=== PATIENT | male | born 1955 | race Caucasian/White ===

== ENCOUNTER 2019-01-25 07:28 | Inpatient (IN) ==
--- NOTE | 2019-01-25 07:53 | Emergency Department Note ---
Disposition Clinical Impression: SIRS (systemic inflammatory response syndrome) UTI (urinary tract infection) Qualifiers: Urinary tract infection type: acute cystitis Hematuria presence: without hematuria Qualified Code(s): N30.00 - Acute cystitis without hematuria Disposition: Admitted As Inpatient Condition: Fair [facility] [[facility] - Forms: ED Satisfaction Letter Time of Disposition: 09:35 Neuro HPI - General Chief Complaint: ED Neuro Symptoms/Deficit Stated Complaint: Poss stroke alert Time Seen by Provider: 01/25/19 07:35 Source: patient, EMS Mode of arrival: EMS Limitations: no limitations Nursing Notes Reviewed: Yes Vital Signs Reviewed: Yes - History of Present Illness HPI Narrative: 63-year-old male presents to the emergency department from the [facility] for possible stroke. According to staff they said they checked him around 2 AM noticed that he was having dysarthrias and seemed a little more confused again judgment 5:00 and noticed this continued so they said to call the provider and who recommended transfer here for possible stroke. 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 Today the nose he has continuation of the deficits but now is more dysarthric. Said he has had a chronic cough. 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 He is not any antibiotics at this time. Does currently have a decubitus ulcer on his left heel as well as a skin slip on his left wrist. These are currently dressed and has been taking care of at the [facility]. He is a inpatient of the [facility]. He also has a chronic G-tube with a hernia at that site. Patient is able to answer questions and is not having any complaints at this time. - Related Data Home Medications: Home Medications Medication Instructions Recorded Confirmed Acetaminophen [Tylenol] 650 mg PO Q4H PRN 06/01/18 06/01/18 Albuterol Neb [Proventil Neb] 2.5 mg IH Q6H PRN 06/01/18 06/01/18 Atorvastatin [Lipitor] 40 mg PO HS 06/01/18 06/01/18 Bisacodyl [Dulcolax] 10 mg RC DAILY 06/01/18 06/01/18 Budesonide/Formoterol 160/4.5 2 puff IH BIDR 06/01/18 06/01/18 [Symbicort 160/4.5] Bupropion HCl [Wellbutrin Xl] 300 mg PO DAILY 06/01/18 06/01/18 Chlorhexidine Rinse 15 ml MM BID 06/01/18 06/01/18 Cyanocobalamin (Vitamin B-12) 200 mcg PO DAILY 06/01/18 06/01/18 [Vitamin B-12] Docusate [Colace] 200 mg PO BID 06/01/18 06/01/18 Famotidine [Pepcid] 20 mg PO BID 06/01/18 06/01/18 Finasteride [Proscar] 5 mg PO DAILY 06/01/18 06/01/18 Fluticasone Propionate Nasal 2 spr NS DAILY 06/01/18 06/01/18 [Flonase] Ketoconazole Shampoo [Nizoral 1 appl TP MOTH 06/01/18 06/01/18 Shampoo] Lactulose 20 gm PO BID 06/01/18 06/01/18 MOM Conc [MILK OF MAGNESIA conc] 30 ml PO DAILY PRN 06/01/18 06/01/18 Mag Hydrox/Aluminum Hyd/Simeth 15 ml PO TID PRN 06/01/18 06/01/18 [Cvs Antacid Plus Anti-Gas Liq] Metoprolol [Lopressor] 25 mg PO BID 06/01/18 06/01/18 Montelukast [Singulair] 10 mg PO HS 06/01/18 06/01/18 Multivitamin [One Daily 1 tab PO DAILY 06/01/18 06/01/18 Multivitamin] Nitroglycerin [Nitrostat] 0.4 mg SL Q5M PRN 06/01/18 06/01/18 Olopatadine HCl [Pataday] 1 drop BOTH EYES DAILY 06/01/18 06/01/18 OxyCODONE Immed Rel [Roxicodone 10 10 mg PO Q4H PRN 06/01/18 06/01/18 MG] Polyethylene Glycol 3350 [MiraLAX] 17 gm PO BID PRN 06/01/18 06/01/18 Potassium Chloride [K-Tab ER] 20 meq PO BID 06/01/18 06/01/18 Psyllium [Metamucil Fiber Singles 1 pack PO DAILY PRN 06/01/18 06/01/18 Packet] Selenium Sulfide 1 appl TP AD PRN 06/01/18 06/01/18 Tamsulosin HCl [Flomax] 0.8 mg PO HS 06/01/18 06/01/18 Tiotropium [Spiriva] 18 mcg IH 0700 06/01/18 06/01/18 guaiFENesin [Guaifenesin] 400 mg PO BID 06/01/18 06/01/18 Previous Rx's Medication Instructions Recorded Furosemide [Lasix] 40 mg PO DAILY #0 06/26/18 Gabapentin [Neurontin] 300 mg GTUBE TID capsule 06/26/18 Insulin DETEMIR [Levemir] 15 unit SQ DAILY [id number] 06/26/18 Nystatin POWDER [Nystop] 1 appl TP BID bottle 06/26/18 Sucralfate [Carafate] 1 gm GTUBE QIDAC udc 06/26/18 Warfarin perPT [Coumadin perPT] 1 each PO DAILY@1800 PRN each 06/26/18 predniSONE [PredniSONE] 20 mg PO DAILY tablet 06/26/18 Allergies/Adverse Reactions: Allergies Allergy/AdvReac Type Severity Reaction Status Date / Time bee venom protein (honey bee) Allergy Anaphylaxis Verified 01/25/19 07:55 milk Allergy Abdominal Verified 01/25/19 07:55 Pain All systems ED: reviewed and negative except as stated. Review of Systems: As Per HPI Past Medical History - Past Medical History Attestation: Yes The following information was validated with the patient. Source: patient Medical history: Reports: CHF, CVA, diabetes, hypertension, other Surgical history: Reports: herniorrhaphy Psychiatric history: Reports: no psych history - Social History Smoking Status: Former smoker Alcohol use: Reports: none Drug use: Reports: none Physical Exam - General Limitations: no limitations General appearance: alert, in no apparent distress - Head Head exam: atraumatic, normocephalic, normal inspection - Eye Eye exam: Present: normal appearance, PERRL, EOMI - ENT ENT exam: normal exam, normal oropharynx, mucous membranes moist - Neck Neck exam: Present: normal inspection, full ROM, trachea midline - Chest Chest inspection: Present: normal inspection, symmetric chest wall rise - Respiratory Respiratory exam: Present: normal lung sounds bilaterally - Cardiovascular Cardiovascular exam: Present: normal rhythm, tachycardia, normal heart sounds - Abdominal Exam Abdominal exam: Present: soft, Non-Tender, normal bowel sounds. Absent: t enderness, distention, guarding, rebound, rigidity - Extremities Exam Extremities exam: Present: normal inspection, full ROM. Absent: tenderness, pedal edema - Expanded Lower Extremity Exam Neurovascular/Tendon exam: Present: normal capillary refill. Absent: pulse deficit, motor deficit, sensory deficit, tendon deficit - Back Exam Back exam: Present: normal inspection, full ROM. Absent: tenderness - Neurological Exam Neurological exam: Present: alert, oriented X3 - Skin Skin exam: Present: warm, dry, intact, normal color, other (There is a decubitus ulcer does not to be healing in the left heel as well as a skin slip in the left wrist. This does seem to be healing well and no signs of infection or drainage at this time.) Course Course Narrative: Patient presented here he does have left-sided weakness after talking with staff he does have chronic left-sided weakness secondary to previous stroke he is able answer questions but is slow to answer. Patient is outside the TPA window but we still [facility] stroke alert for possible large thrombus removal. Patient will go over for stat head CT we will get basic labs including CBC, BMP, troponin coags. We will also get chest x-ray blood cultures and lactate as patient does seem warm to touch and is SIRS at this time. There is unknown source at this time. - Reevaluation(s) Reevaluation #1: Radiologist called and stroke alert CT shows nothing acute at this time. Time: 08:08 Reevaluation #2: Stroke alert canceled as neurology says there is probably secondary to sepsis at this time and they have a chronic left-sided weakness. Time: 08:12 Vital Signs Temperature 99.8 F H 01/25/19 07:30 Pulse Rate 99 01/25/19 07:30 Respiratory Rate 27 01/25/19 07:30 Blood Pressure 112/69 01/25/19 07:30 O2 Sat by Pulse Oximetry 94 01/25/19 07:30 Temperature 100.3 F H 01/25/19 08:13 Pulse Rate 107 01/25/19 08:47 Respiratory Rate 22 01/25/19 08:47 Blood Pressure 105/60 01/25/19 08:47 O2 Sat by Pulse Oximetry 97 01/25/19 08:47 Oxygen Delivery Oxygen Delivery Nasal Cannula Neuro Symptoms/Deficit - MDM Narrative Medical decision making narrative: 63-year-old male presents to the emergency department complaining of possible strokelike symptoms. When he arrived here when comparing with old chart we noticed that he does have chronic left-sided weakness. We justleft facial droop and patient was mildly aphasic which has gotten better when he is able to answer all questions is alert and oriented 3. I think this most likely was Sirs or infection based. Patient was never in septic shock or severe sepsis. Patient did meet Sirs criteria. Urinalysis was nitrite positive for a urinary tract infection. Does have history of multidrug resistance urine but based on previous culture he was susceptible to ceftriaxone so we will give him a 1 g dose of that here in the emergency department. Patient's blood pressures were first labile at 90/60. Did give him IV fluids systolic 1 up to 105 and he responded well. We will give him a second liter of IV fluids. Patient will need to be admitted for further evaluation as well as IV antibiotics. He also may need a further stroke workup by not neurology. There was no acute findings based on his CT. Patient was outside the window for TPA did not require any TPA as is really unknown when the last known well is as they said they started noticing the difficulty in talking around 2 AM so sometime before that. Patient otherwise has no other complaints at this time. Spoke with Dr. Arambula who agrees to accept the patient to their service. Patient accepted in stable condition. Chest X-Ray 01/25/19 07:36 IMPRESSION: Mild bibasilar opacification, which could represent atelectasis versus airspace disease. D/ / Ruben Azar MD / Ruben Azar MD Interpreting Provider: Ruben Azar MD Head CT 01/25/19 07:38 IMPRESSION: No acute intracranial abnormality. Sequelae of extensive prior infarcts are identified bilaterally, stable since 06/06/2018. Age related changes including chronic small vessel ischemic disease and cerebral atrophy. Findings were discussed with Dr. Purcell on 01/25/2019 at 8:07 a.m. D/ 01/25/2019 08:09:12 Emma Denise MD / bcarter Interpreting Provider: Emma Denise MD - Medical Records Medical records reviewed: Yes I reviewed the patient's medical records. - Lab Data Lab results reviewed: Yes I reviewed the patient's lab results. Result diagrams: 01/25/19 07:44 01/25/19 07:44 Lab Results 01/25/19 01/25/19 01/25/19 Range/Units 07:44 07:44 07:46 WBC 11.7 H (4.3-11.1) K/mcL RBC 3.63 L (4.19-5.50) M/mcL Hgb 11.6 L (12.9-16.9) g/dL Hct 35.9 L (37.5-50.1) % MCV 98.9 (83.0-100.0) fL MCH 32.0 (28.0-33.3) pg MCHC 32.3 (31.6-35.5) g/dL RDW 14.9 H (11.5-14.5) % Plt Count TNP MPV TNP Immature Gran % 0.4 (0-4) % Seg Neutrophils % 89.2 % Lymphocytes % 5.5 % Monocytes % 4.5 % Eosinophils % 0.3 % Basophils % 0.1 % Neutrophils # 10.5 H (1.6-8.9) K/mcL Lymphocytes # 0.7 (0.6-4.6) K/mcL Monocytes # 0.5 (0.0-1.3) K/mcL Eosinophils # 0.0 (0.0-0.6) K/mcL Basophils # 0.0 (0.0-0.2) K/mcL Plt Count ,Citrate (140-400) K/mcL PT (9.4-12.1) Seconds INR APTT (26.0-36.0) Seconds Sodium 139 (136-145) mEq/L Potassium 4.0 (3.5-5.1) mEq/L Chloride 104 (98-107) mEq/L Carbon Dioxide 28 (23-29) mEq/L BUN 28 H (8-23) mg/dL Creatinine 0.90 (0.70-1.30) mg/dL Est GFR ( Amer) > 60 (> 60) Est GFR (Non-Af Amer) > 60 (> 60) BUN/Creatinine Ratio 31 H (6-26) Glucose 119 H (70-105) mg/dL Calculated Osmolality 295 (280-300) Lactic Acid (0.5-2.2) mmol/L Calcium 8.8 (8.6-10.3) mg/dL Total Bilirubin 0.4 (0.3-1.0) mg/dL AST 16 (13-39) Units/L ALT 15 (7-52) Units/L Alkaline Phosphatase 66 (34-104) Units/L Serum Total Protein 6.4 (6.4-8.9) g/dL Albumin 3.4 L (3.5-5.7) g/dL Globulin 3.0 (2.4-3.5) g/dL Albumin/Globulin Ratio 1.1 (1.1-2.2) Urine Color Yellow (Yellow) Urine Clarity Cloudy A (Clear) Urine pH 7.5 (5.0-8.0) pH Units Ur Specific Pollard 1.021 (1.010-1.025) Urine Protein Negative (Neg-Trace) mg/dL Urine Glucose (UA) Normal (Normal) mg/dL Urine Ketones Negative (Negative) mg/dL Urine Blood Negative (Negative) Urine Nitrite Positive A (Negative) Urine Bilirubin Negative (Negative) Urine Urobilinogen Normal (Normal) mg/dL Ur Leukocyte Esterase Large H (Negative) Urine Microscopic RBC 0-3 (0-3) per hpf Urine Microscopic WBC TNTC H (0-3) per hpf Ur Squamous Epith Cells Many H (None-Few) per lpf Urine Bacteria Many H (None-Few) per hpf Ur Culture Indicated? YES A (NO) 01/25/19 01/25/19 01/25/19 Range/Units 07:46 08:16 08:16 WBC (4.3-11.1) K/mcL RBC (4.19-5.50) M/mcL Hgb (12.9-16.9) g/dL Hct (37.5-50.1) % MCV (83.0-100.0) fL MCH (28.0-33.3) pg MCHC (31.6-35.5) g/dL RDW (11.5-14.5) % Plt Count MPV 9.3 L Immature Gran % (0-4) % Seg Neutrophils % % Lymphocytes % % Monocytes % % Eosinophils % % Basophils % % Neutrophils # (1.6-8.9) K/mcL Lymphocytes # (0.6-4.6) K/mcL Monocytes # (0.0-1.3) K/mcL Eosinophils # (0.0-0.6) K/mcL Basophils # (0.0-0.2) K/mcL Plt Count ,Citrate 110 L (140-400) K/mcL PT 11.4 (9.4-12.1) Seconds INR 1.0 APTT 30.6 (26.0-36.0) Seconds Sodium (136-145) mEq/L Potassium (3.5-5.1) mEq/L Chloride (98-107) mEq/L Carbon Dioxide (23-29) mEq/L BUN (8-23) mg/dL Creatinine (0.70-1.30) mg/dL Est GFR ( Amer) (> 60) Est GFR (Non-Af Amer) (> 60) BUN/Creatinine Ratio (6-26) Glucose (70-105) mg/dL Calculated Osmolality (280-300) Lactic Acid 1.1 (0.5-2.2) mmol/L Calcium (8.6-10.3) mg/dL Total Bilirubin (0.3-1.0) mg/dL AST (13-39) Units/L ALT (7-52) Units/L Alkaline Phosphatase (34-104) Units/L Serum Total Protein (6.4-8.9) g/dL Albumin (3.5-5.7) g/dL Globulin (2.4-3.5) g/dL Albumin/Globulin Ratio (1.1-2.2) Urine Color (Yellow) Urine Clarity (Clear) Urine pH (5.0-8.0) pH Units Ur Specific Pollard (1.010-1.025) Urine Protein (Neg-Trace) mg/dL Urine Glucose (UA) (Normal) mg/dL Urine Ketones (Negative) mg/dL Urine Blood (Negative) Urine Nitrite (Negative) Urine Bilirubin (Negative) Urine Urobilinogen (Normal) mg/dL Ur Leukocyte Esterase (Negative) Urine Microscopic RBC (0-3) per hpf Urine Microscopic WBC (0-3) per hpf Ur Squamous Epith Cells (None-Few) per lpf Urine Bacteria (None-Few) per hpf Ur Culture Indicated? (NO) - Radiology Data Radiology results reviewed: Yes I reviewed the patient's radiology results. - EKG Data EKG attestation: Yes I reviewed and interpreted this EKG. EKG results narrative: EKG done at 0 737 review myself and attending shows sinus tachycardia rate of 103, [place] interval 135, QRS 101, QTC 428. There is no acute ST changes no acute T-wave changes no signs of ischemia. No signs of hypertrophy, heart and, heart block. No WPW/Brugada/HOCM. EKG is improved from previous EKG which has PACs with a sinus rhythm that was done 06/04/18 NIH Stroke Scale - Level of Consciousness LOC: Drowsy, but arousable - LOC Questions LOC Questions: Answers both correctly - LOC Commands LOC Commands: Performs both correctly - Best Gaze Best Gaze: Normal - Visual Visual: No visual loss - Facial Palsy Facial Palsy: Minor asymmetry on smiling, flattened nasolabial fold - Motor Arms Motor Arm-Left: No drift for 10 seconds Motor Arm-Right: No drift for 10 seconds - Motor Legs Motor Leg-Left: No movement Motor Leg-Right: No movement - Limb Ataxia Limb Ataxia: Absent of affected limb too weak to perform exam - Sensory Sensory: Normal - Best Language Best Language: Mild to moderate aphasia. Examiner can identify picture from response - Dysarthria Dysarthria: Mild, slurs some words - Extinction and Inattention Extinction and Inattention: Normal - NIHSS Total Score NIHSS Total Score: 12 TPA Checklist - LKW: 3-4.5 hrs Add. Warnings/Precautions Patient/family understanding: The patient/family members have been counseled and understood the risk, benefit, and alternatives of treatment.
[2019-01-25 07:56] LABS: Basophils % 0.1 %; Eosinophils % 0.3 %; Hematocrit 35.9 % (37.5-50.1); Hemoglobin 11.6 g/dL (12.9-16.9); Immature Granulocytes % 0.4 % (0-4); Lymphocytes # 0.7 K/mcL (0.6-4.6); Lymphocytes % 5.5 %; Mean Corpuscular HGB Conc 32.3 g/dL (31.6-35.5); Mean Corpuscular Volume 98.9 fL (83.0-100.0); Monocytes # 0.5 K/mcL (0.0-1.3); Monocytes % 4.5 %; Neutrophils # 10.5 K/mcL (1.6-8.9); Red Blood Count 3.63 M/mcL (4.19-5.50); Red Cell Distribution Width 14.9 % (11.5-14.5); Segmented Neutrophils % 89.2 %; White Blood Count 11.7 K/mcL (4.3-11.1)
--- NOTE | 2019-01-25 07:57 | Emergency Department Note ---
Disposition Clinical Impression: SIRS (systemic inflammatory response syndrome) UTI (urinary tract infection) Qualifiers: Urinary tract infection type: acute cystitis Hematuria presence: without hematuria Qualified Code(s): N30.00 - Acute cystitis without hematuria Disposition: Admitted As Inpatient Condition: Fair Time of Disposition: 10:00 General Adult HPI - General Chief complaint: ED Neuro Symptoms/Deficit Stated complaint: Poss stroke alert Time Seen by Provider: 01/25/19 07:35 Source: patient, EMS Nursing Notes Reviewed: Yes Vital Signs Reviewed: Yes - History of Present Illness Pain Scale: 0 - Related Data Home Medications Medication Instructions Recorded Confirmed Acetaminophen [Tylenol] 650 mg PO Q4H PRN 06/01/18 06/01/18 Albuterol Neb [Proventil Neb] 2.5 mg IH Q6H PRN 06/01/18 06/01/18 Atorvastatin [Lipitor] 40 mg PO HS 06/01/18 06/01/18 Bisacodyl [Dulcolax] 10 mg RC DAILY 06/01/18 06/01/18 Budesonide/Formoterol 160/4.5 2 puff IH BIDR 06/01/18 06/01/18 [Symbicort 160/4.5] Bupropion HCl [Wellbutrin Xl] 300 mg PO DAILY 06/01/18 06/01/18 Chlorhexidine Rinse 15 ml MM BID 06/01/18 06/01/18 Cyanocobalamin (Vitamin B-12) 200 mcg PO DAILY 06/01/18 06/01/18 [Vitamin B-12] Docusate [Colace] 200 mg PO BID 06/01/18 06/01/18 Famotidine [Pepcid] 20 mg PO BID 06/01/18 06/01/18 Finasteride [Proscar] 5 mg PO DAILY 06/01/18 06/01/18 Fluticasone Propionate Nasal 2 spr NS DAILY 06/01/18 06/01/18 [Flonase] Ketoconazole Shampoo [Nizoral 1 appl TP MOTH 06/01/18 06/01/18 Shampoo] Lactulose 20 gm PO BID 06/01/18 06/01/18 MOM Conc [MILK OF MAGNESIA conc] 30 ml PO DAILY PRN 06/01/18 06/01/18 Mag Hydrox/Aluminum Hyd/Simeth 15 ml PO TID PRN 06/01/18 06/01/18 [Cvs Antacid Plus Anti-Gas Liq] Metoprolol [Lopressor] 25 mg PO BID 06/01/18 06/01/18 Montelukast [Singulair] 10 mg PO HS 06/01/18 01/25/19 Multivitamin [One Daily 1 tab PO DAILY 06/01/18 01/25/19 Multivitamin] Nitroglycerin [Nitrostat] 0.4 mg SL Q5M PRN 06/01/18 06/01/18 Olopatadine HCl [Pataday] 1 drop BOTH EYES DAILY 06/01/18 01/25/19 OxyCODONE Immed Rel [Roxicodone 10 7.5 mg PO Q4H PRN 06/01/18 01/25/19 MG] Polyethylene Glycol 3350 [MiraLAX] 17 gm PO BID PRN 06/01/18 06/01/18 Potassium Chloride [K-Tab ER] 20 meq PO BID 06/01/18 06/01/18 Psyllium [Metamucil Fiber Singles 1 pack PO DAILY PRN 06/01/18 06/01/18 Packet] Selenium Sulfide 1 appl TP AD PRN 06/01/18 06/01/18 Tamsulosin HCl [Flomax] 0.8 mg PO HS 06/01/18 06/01/18 Tiotropium [Spiriva] 18 mcg IH 0700 06/01/18 01/25/19 guaiFENesin [Guaifenesin] 400 mg PO TID 06/01/18 01/25/19 Baclofen [Lioresal] 10 mg PO TID 01/25/19 01/25/19 Cholecalciferol (D-3) 1,000 tab PO DAILY 01/25/19 01/25/19 Escitalopram Oxalate 10 mg PO DAILY 01/25/19 01/25/19 Finasteride [Proscar] 5 mg PO DAILY 01/25/19 01/25/19 Gabapentin [Neurontin] 800 mg PO TID 01/25/19 01/25/19 Lactase [Dairy Relief] 3,000 unit PO TID 01/25/19 01/25/19 Lactobacillus [Culturelle] 1 cap PO BID 01/25/19 01/25/19 Levalbuterol HCl 3 ml IH Q4HR PRN 01/25/19 01/25/19 Loperamide 4 mg PO BID 01/25/19 01/25/19 Loratadine [Allergy Relief] 10 mg PO DAILY 01/25/19 01/25/19 Metoprolol Tartrate 50 mg PO BID 01/25/19 01/25/19 Multivitamin [Daily Multiple 1 tab PO DAILY 01/25/19 01/25/19 Vitamin] Previous Rx's Medication Instructions Recorded Furosemide [Lasix] 40 mg PO DAILY #0 06/26/18 Insulin DETEMIR [Levemir] 15 unit SQ DAILY [id number] 06/26/18 Nystatin POWDER [Nystop] 1 appl TP BID bottle 06/26/18 Sucralfate [Carafate] 1 gm GTUBE QIDAC udc 06/26/18 Warfarin perPT [Coumadin perPT] 1 each PO DAILY@1800 PRN each 06/26/18 predniSONE [PredniSONE] 20 mg PO DAILY tablet 06/26/18 Allergies Allergy/AdvReac Type Severity Reaction Status Date / Time bee venom protein (honey bee) Allergy Anaphylaxis Verified 01/25/19 07:55 milk Allergy Abdominal Verified 01/25/19 07:55 Pain Past Medical History - Past Medical History Medical history: Reports: CHF, CVA, diabetes, hypertension, other Surgical history: Reports: herniorrhaphy Psychiatric history: Reports: no psych history - Social History Smoking Status: Former smoker Alcohol use: Reports: none Drug use: Reports: none Course Vital Signs Temperature 99.8 F H 01/25/19 07:30 Pulse Rate 99 01/25/19 07:30 Respiratory Rate 27 01/25/19 07:30 Blood Pressure 112/69 01/25/19 07:30 O2 Sat by Pulse Oximetry 94 01/25/19 07:30 Temperature 100.3 F H 01/25/19 08:13 Pulse Rate 91 01/25/19 09:45 Respiratory Rate 21 01/25/19 09:45 Blood Pressure 110/82 01/25/19 09:45 O2 Sat by Pulse Oximetry 93 01/25/19 09:45 Oxygen Delivery Oxygen Delivery Nasal Cannula Medical Decision Making - MDM Narrative Medical decision making narrative: 0800 hrs.: CT shows no acute stroke he does have old stroke. Neuro radiology's review this also may agree. He also has a temp of 100.3 we will give him some significant out his G-tube. We will continue him as a SIRS alert. [facility]'s tele-neurology service reviewed him and agrees this is not an acute stroke. He is outside the TPA window. We will continue his workup and plan on admission here. Head CT 01/25/19 07:38 IMPRESSION: No acute intracranial abnormality. Sequelae of extensive prior infarcts are identified bilaterally, stable since 06/06/2018. Age related changes including chronic small vessel ischemic disease and cerebral atrophy. Findings were discussed with Dr. Purcell on 01/25/2019 at 8:07 a.m. D/ : / 01/25/2019 08:09:12 Emma Denise MD / elizabeth Interpreting Provider: Emma Denise MD Chest X-Ray 01/25/19 07:36 IMPRESSION: Mild bibasilar opacification, which could represent atelectasis versus airspace disease. D/ / Ruben Azar MD / Ruben Azar MD Interpreting Provider: Ruben Azar MD Head CT 01/25/19 07:38 IMPRESSION: No acute intracranial abnormality. Sequelae of extensive prior infarcts are identified bilaterally, stable since 06/06/2018. Age related changes including chronic small vessel ischemic disease and cerebral atrophy. Findings were discussed with Dr. Purcell on 01/25/2019 at 8:07 a.m. D/ : / 01/25/2019 08:09:12 Emma Denise MD / elizabeth Interpreting Provider: Emma Denise MD 0900: Patient's labs are back chest x-ray does not show true pneumonia. She does have a chronic UTI with a Alves were in a change out the Alves. His last c ulture was Escherichia coli sensitive to ceftriaxone so starting back on that since is not on any antibiotics currently. Were negative and bring him into the hospital with UTI, and fever. His pressures responded to fluids. Pending his lactate. Were negative and bring him into the hospital. Impression is new onset dysarthria, but acute exacerbation of chronic UTI. Rule out sepsis. 0910 hours: Patient's lactate is normal. I do not think he septic at the time of this evaluation. 1000 hrs.: Hospitalist as accepted patient for admission. - Lab Data Result diagrams: 01/25/19 07:44 01/25/19 07:44 Lab Results 01/25/19 01/25/19 01/25/19 Range/Units 07:44 07:44 07:46 WBC 11.7 H (4.3-11.1) K/mcL RBC 3.63 L (4.19-5.50) M/mcL Hgb 11.6 L (12.9-16.9) g/dL Hct 35.9 L (37.5-50.1) % MCV 98.9 (83.0-100.0) fL MCH 32.0 (28.0-33.3) pg MCHC 32.3 (31.6-35.5) g/dL RDW 14.9 H (11.5-14.5) % Plt Count TNP MPV TNP Immature Gran % 0.4 (0-4) % Seg Neutrophils % 89.2 % Lymphocytes % 5.5 % Monocytes % 4.5 % Eosinophils % 0.3 % Basophils % 0.1 % Neutrophils # 10.5 H (1.6-8.9) K/mcL Lymphocytes # 0.7 (0.6-4.6) K/mcL Monocytes # 0.5 (0.0-1.3) K/mcL Eosinophils # 0.0 (0.0-0.6) K/mcL Basophils # 0.0 (0.0-0.2) K/mcL Plt Count ,Citrate (140-400) K/mcL PT (9.4-12.1) Seconds INR APTT (26.0-36.0) Seconds Sodium 139 (136-145) mEq/L Potassium 4.0 (3.5-5.1) mEq/L Chloride 104 (98-107) mEq/L Carbon Dioxide 28 (23-29) mEq/L BUN 28 H (8-23) mg/dL Creatinine 0.90 (0.70-1.30) mg/dL Est GFR ( Amer) > 60 (> 60) Est GFR (Non-Af Amer) > 60 (> 60) BUN/Creatinine Ratio 31 H (6-26) Glucose 119 H (70-105) mg/dL Calculated Osmolality 295 (280-300) Lactic Acid (0.5-2.2) mmol/L Calcium 8.8 (8.6-10.3) mg/dL Total Bilirubin 0.4 (0.3-1.0) mg/dL AST 16 (13-39) Units/L ALT 15 (7-52) Units/L Alkaline Phosphatase 66 (34-104) Units/L Troponin I < 0.03 (< 0.04) ng/mL Serum Total Protein 6.4 (6.4-8.9) g/dL Albumin 3.4 L (3.5-5.7) g/dL Globulin 3.0 (2.4-3.5) g/dL Albumin/Globulin Ratio 1.1 (1.1-2.2) Urine Color Yellow (Yellow) Urine Clarity Cloudy A (Clear) Urine pH 7.5 (5.0-8.0) pH Units Ur Specific [place] 1.021 (1.010-1.025) Urine Protein Negative (Neg-Trace) mg/dL Urine Glucose (UA) Normal (Normal) mg/dL Urine Ketones Negative (Negative) mg/dL Urine Blood Negative (Negative) Urine Nitrite Positive A (Negative) Urine Bilirubin Negative (Negative) Urine Urobilinogen Normal (Normal) mg/dL Ur Leukocyte Esterase Large H (Negative) Urine Microscopic RBC 0-3 (0-3) per hpf Urine Microscopic WBC TNTC H (0-3) per hpf Ur Squamous Epith Cells Many H (None-Few) per lpf Urine Bacteria Many H (None-Few) per hpf Ur Culture Indicated? YES A (NO) 01/25/19 01/25/19 01/25/19 Range/Units 07:46 08:16 08:16 WBC (4.3-11.1) K/mcL RBC (4.19-5.50) M/mcL Hgb (12.9-16.9) g/dL Hct (37.5-50.1) % MCV (83.0-100.0) fL MCH (28.0-33.3) pg MCHC (31.6-35.5) g/dL RDW (11.5-14.5) % Plt Count MPV 9.3 L Immature Gran % (0-4) % Seg Neutrophils % % Lymphocytes % % Monocytes % % Eosinophils % % Basophils % % Neutrophils # (1.6-8.9) K/mcL Lymphocytes # (0.6-4.6) K/mcL Monocytes # (0.0-1.3) K/mcL Eosinophils # (0.0-0.6) K/mcL Basophils # (0.0-0.2) K/mcL Plt Count ,Citrate 110 L (140-400) K/mcL PT 11.4 (9.4-12.1) Seconds INR 1.0 APTT 30.6 (26.0-36.0) Seconds Sodium (136-145) mEq/L Potassium (3.5-5.1) mEq/L Chloride (98-107) mEq/L Carbon Dioxide (23-29) mEq/L BUN (8-23) mg/dL Creatinine (0.70-1.30) mg/dL Est GFR ( Amer) (> 60) Est GFR (Non-Af Amer) (> 60) BUN/Creatinine Ratio (6-26) Glucose (70-105) mg/dL Calculated Osmolality (280-300) Lactic Acid 1.1 (0.5-2.2) mmol/L Calcium (8.6-10.3) mg/dL Total Bilirubin (0.3-1.0) mg/dL AST (13-39) Units/L ALT (7-52) Units/L Alkaline Phosphatase (34-104) Units/L Troponin I (< 0.04) ng/mL Serum Total Protein (6.4-8.9) g/dL Albumin (3.5-5.7) g/dL Globulin (2.4-3.5) g/dL Albumin/Globulin Ratio (1.1-2.2) Urine Color (Yellow) Urine Clarity (Clear) Urine pH (5.0-8.0) pH Units Ur Specific Adrian (1.010-1.025) Urine Protein (Neg-Trace) mg/dL Urine Glucose (UA) (Normal) mg/dL Urine Ketones (Negative) mg/dL Urine Blood (Negative) Urine Nitrite (Negative) Urine Bilirubin (Negative) Urine Urobilinogen (Normal) mg/dL Ur Leukocyte Esterase (Negative) Urine Microscopic RBC (0-3) per hpf Urine Microscopic WBC (0-3) per hpf Ur Squamous Epith Cells (None-Few) per lpf Urine Bacteria (None-Few) per hpf Ur Culture Indicated? (NO) Critical Care Time Critical Care Time: Yes Total Critical Care Time: 38 Attestation: Excluding any separately billable procedures. Attestation Statement - Attestation Attestation: This documentation is done with the assistance of Dragon dictation. Despite efforts made to ensure accuracy, there may be inaccuracies in senior gis analyst or spelling and typographical errors. I examined this patient and my medical decision-making was reviewed with the Resident Physician. I agree with the documented findings, disposition and treatment plan as described except to the extent set forth below. Patient was seen and evaluated by Dr. Purcell, I agree with their evaluation and management plan, I supervised care the patient's stay. Patient was transferred over from the [facility] due to possible stroke. Did 2 AM he was found to have left sided facial droop and left-sided weakness which is chronic but has new dysarthria. Use a he is alert and oriented. Now he is more confused. Has a history of Escherichia coli in his urine with Alves placement has been coughing more history of aspiration. History of old stroke and dementia. Patient's poor historian and unable to give us any information. We read through the notes from the [facility]. Ino said that the history they really reported was similar to ours. We did call to the [facility] in their report from the team taking care of him this morning was different than what the team was taking care of at 2 AM today time was different where to go with the original 2 AM times and sats was documented in the chart. He is outside the TPA window. He is still stroke alert at this time. We will also make sure that he is not septic and check labs CT of his head chest x-ray urinalysis and reassess. I reviewed the residents documentation and agree with the residents assessment and plan of care. I have personally had face to face time with the patient. (Brief History, Brief Exam, and MDM) I personally supervised and was present for the pickens/critical portions of the following procedures completed by the resident: EKG was interpreted by the resident under my supervision, I agree with their interpretation.
[2019-01-25] MEDS ORDERED: 0.9 % Sodium Chloride 1,000 ML IVC ONE ×2 (07:59→09:08)
[2019-01-25 08:03] LABS: Prothrombin Time 11.4 Seconds (9.4-12.1)
[2019-01-25 08:05] LABS: Activated Partial Thrombo Time 30.6 Seconds (26.0-36.0)
[2019-01-25 08:06] LABS: Bilirubin,Urine Negative (Negative); Blood,Urine Negative (Negative); Clarity,Urine Cloudy (Clear); Color,Urine Yellow (Yellow); Glucose,Urine (UA) Normal (Normal); Ketones,Urine Negative (Negative); Leukocyte Esterase,Urine Large (Negative); Nitrite,Urine Positive (Negative); PH,Urine 7.5 pH Units (5.0-8.0); Protein,Urine Negative (Neg-Trace); Specific Gravity,Urine 1.021 (1.010-1.025); Urobilinogen,Urine Normal (Normal)
[2019-01-25 08:08] LABS: Bacteria,Urine Many per hpf (None-Few); RBC,Urine 0-3 per hpf (0-3); Squamous Epithelial Cell,Urine Many per lpf (None-Few); WBC,Urine TNTC per hpf (0-3)
[2019-01-25 08:19] LABS: Alanine Aminotransferase 15 Units/L (7-52); Albumin 3.4 g/dL (3.5-5.7); Albumin/Globulin Ratio 1.1 (1.1-2.2); Alkaline Phosphatase 66 Units/L (34-104); Aspartate Amino Transferase 16 Units/L (13-39); BUN/Creatinine Ratio 31 (6-26); Bilirubin,Total 0.4 mg/dL (0.3-1.0); Blood Urea Nitrogen 28 mg/dL (8-23); Calcium 8.8 mg/dL (8.6-10.3); Carbon Dioxide 28 mEq/L (23-29); Chloride 104 mEq/L (98-107); Glucose 119 mg/dL (70-105); Osmolality,Calculated 295 (280-300); Sodium 139 mEq/L (136-145); Total Protein 6.4 g/dL (6.4-8.9); eGFR For African Americans > 60 (> 60); eGFR For Non-African Americans > 60 (> 60)
[2019-01-25 08:26] LABS: Mean Platelet Volume 9.3 fL (9.4-12.4)
[2019-01-25] MEDS ORDERED: cefTRIAXone 1,000 MG in Water for inj. (sterile) 10 ML IVP ONE (09:06)
[2019-01-25 09:38] LABS: Troponin I < 0.03 ng/mL (< 0.04)
--- NOTE | 2019-01-25 09:49 | Internal Med History&Physical ---
Date of Encounter: 01/25/19 Time of Encounter: 09:47 Internal Medicine - H&P: HPI Chief complaint: confusion History of present illness: 63-year-old male presents with the best medicine history of left-sided residual weakness secondary to previous stroke who presented from [facility] difficulty of speech as well as confusion. A stroke alert was called upen the patient on arrival. [facility] urology team evaluated the patient and decided that the patient is not a candidate for thrombolytic therapy. The patient has chronic contractures of the lower limb and is not mobile. Reviewing the patient laboratory data revealed elevated white blood cell count and his urine analysis was suggestive of urinary tract infection. Reviewing the patient prior cultures revealed the patient has history of multidrug resistant Escherichia coli. The patient has chronic urinary retention and has urinary catheter. Catheter was changed in the ER. At the bedside patient appears to be at baseline, has no complaint except for left hip pain. The patient was admitted for further evaluation and management of possible TIA and urinary tract infection. Past Med Surg Social Fam HX - Past Medical History Medical history: CHF, CVA, diabetes, hypertension, other Additional medical history: CKD Psychiatric history: no psych history - Past Surgical History Surgical History: herniorrhaphy - Social History Smoking Status: Former smoker Alcohol use: none Drug use: none - Family History Father Adopted: No Living Status: Internal Medicine - H&P: Meds Acetaminophen [Tylenol] 650 mg PO Q6H PRN 06/01/18 [History] Budesonide/Formoterol 160/4.5 [Symbicort 160/4.5] 2 puff IH BIDR 06/01/18 [History] Finasteride [Proscar] 5 mg PO DAILY 06/01/18 [History] Fluticasone Propionate Nasal [Flonase] 2 spr NS DAILY 06/01/18 [History] Montelukast [Singulair] 10 mg PO HS 06/01/18 [History] Tiotropium [Spiriva] 18 mcg IH DAILY 06/01/18 [History] Baclofen [Lioresal] 10 mg PO TID 01/25/19 [History] Cholecalciferol (D-3) [Vitamin D] 2,000 unit PO DAILY 01/25/19 [History] Lactase [Dairy Relief] 6,000 unit PO TID 01/25/19 [History] Levalbuterol Neb [Xopenex Neb] 0.63 mg IH Q4HR PRN 01/25/19 [History] Loperamide [Imodium] 4 mg PO Q12H PRN 01/25/19 [History] Loratadine [Allergy Relief] 10 mg PO DAILY 01/25/19 [History] Multivitamin [Daily Multiple Vitamin] 1 tab PO DAILY 01/25/19 [History] Bismuth Subsalicylate [Soothe] 524 mg PO TID PRN 01/26/19 [History] Escitalopram [Lexapro] 10 mg PO DAILY 01/26/19 [History] Gabapentin [Neurontin] 800 mg PO TID 01/26/19 [History] Guaifenesin [Cough Syrup] 400 mg PO TID 01/26/19 [History] Hydrophilic Cream [Triad] 1 appl TP BID 01/26/19 [History] Ketotifen Fumarate [Zaditor] 1 drop BOTH EYES BID 01/26/19 [History] Lactobac #2-S. Therm-Bifido #1 [Visbiome 112.5 Billion Capsule] 1 cap PO BID 01/26/19 [History] Saliva Stimulant [Biotene Moisturizing Rinse] 3 spray PO TID PRN 01/26/19 [History] Cefdinir [Omnicef] 300 mg PO BID 5 Days #10 capsule 01/28/19 [Rx] Metoprolol Tartrate 100 mg PO BID 30 Days #60 tablet 01/28/19 [Rx] Oxycodone HCl 7.5 mg PO Q4H PRN 5 Days #10 tablet 01/28/19 [Rx] Allergy/AdvReac Type Severity Reaction Status Date / Time bee venom protein (honey bee) Allergy Anaphylaxis Verified 01/25/19 07:55 milk Allergy Abdominal Verified 01/25/19 07:55 Pain All Systems PM: A 10-system review of systems was performed and is negative for pertinent findings except as documented above in the HPI. - Constitutional Vitals: Temp Pulse Resp BP Pulse Ox 100.3 F H 91 21 110/82 93 01/25/19 08:13 01/25/19 09:45 01/25/19 09:45 01/25/19 09:45 01/25/19 09:45 General appearance: Present: A&O X 3 Exam: . - Head Head exam: Present: atraumatic, normocephalic - Neck Neck exam general surgery: Present: supple, trachea midline. Absent: lymphadenopathy - Respiratory Respiratory exam: Present: CTAB. Absent: accessory muscle use, rales, rhonchi, wheezes - GI/Abdominal GI/Abdominal exam: Present: normal bowel sounds, soft, no peritoneal signs. Absent: distended, tenderness - Extremities Exam Extremities exam: Present: warm, radial pulses palpable and symmetrical. Absent: calf tenderness, cyanotic, pedal edema - Skin Additional comments: decubitus ulcer in the left heel and left wrist. Internal Med - H&P Results - Labs CBC & Chem 7: 01/27/19 02:43 01/27/19 02:43 Labs: Short CBC 01/25/19 Range/Units 07:44 WBC 11.7 H (4.3-11.1) K/mcL Hgb 11.6 L (12.9-16.9) g/dL Hct 35.9 L (37.5-50.1) % Plt Count TNP Neutrophils # 10.5 H (1.6-8.9) K/mcL BMP 01/25/19 07:44 Sodium 139 Potassium 4.0 Chloride 104 Carbon Dioxide 28 BUN 28 H Creatinine 0.90 Glucose 119 H Calcium 8.8 Cardiac Enzymes 01/25/19 Range/Units 07:44 Troponin I < 0.03 (< 0.04) ng/mL Liver Function 01/25/19 Range/Units 07:44 Total Bilirubin 0.4 (0.3-1.0) mg/dL AST 16 (13-39) Units/L ALT 15 (7-52) Units/L Alkaline Phosphatase 66 (34-104) Units/L Albumin 3.4 L (3.5-5.7) g/dL Urine 01/25/19 Range/Units 07:46 Urine Color Yellow (Yellow) Urine Clarity Cloudy A (Clear) Urine pH 7.5 (5.0-8.0) pH Units Ur Specific [place] 1.021 (1.010-1.025) Urine Protein Negative (Neg-Trace) mg/dL Urine Glucose (UA) Normal (Normal) mg/dL - Impressions ITS Impressions Chest X-Ray 01/25/19 07:36 IMPRESSION: Mild bibasilar opacification, which could represent atelectasis versus airspace disease. D/ / Ruben Azar MD / Ruben Azar MD Interpreting Provider: Ruben Azar MD Head CT 01/25/19 07:38 IMPRESSION: No acute intracranial abnormality. Sequelae of extensive prior infarcts are identified bilaterally, stable since 06/06/2018. Age related changes including chronic small vessel ischemic disease and cerebral atrophy. Findings were discussed with Dr. Purcell on 01/25/2019 at 8:07 a.m. D/ / 01/25/2019 08:09:12 Emma Denise MD / elizabeth Interpreting Provider: Emma Denise MD - Assessment and Plan (1) SIRS (systemic inflammatory response syndrome) Status: Acute Assessment and plan: Most likely secondary to underlying infectious process due urinary tract infection in the setting of chronic Alves catheter and as suggestive by the finding on urine analysis. Reviewing the patient prior cultures revealed the patient has history of multidrug resistant Escherichia coli. We will start the patient on ceftriaxone, blood culture and urine culture was obtained, we'll follow results and adjust antibiotic regimen accordingly. (2) UTI (urinary tract infection) Status: Acute Assessment and plan: Reviewing the patient prior cultures revealed the patient has history of multidrug resistant Escherichia coli. We will start the patient on ceftriaxone, blood culture and urine culture was obtained, we'll follow results and adjust antibiotic regimen accordingly. Qualifiers: Urinary tract infection type: acute cystitis Hematuria presence: without hematuria Qualified Code(s): N30.00 - Acute cystitis without hematuria (3) Cardiomyopathy Status: Acute Qualifiers: Cardiomyopathy type: other Qualified Code(s): I42.8 - Other cardiomyopathies (4) COPD (chronic obstructive pulmonary disease) Status: Chronic Assessment and plan: we'll continue home regimen and start when necessary DuoNeb Qualifiers: COPD type: unspecified COPD Qualified Code(s): J44.9 - Chronic obstructive pulmonary disease, unspecified (5) HTN (hypertension) Status: Chronic Assessment and plan: we'll continue home medication with holding parameter. Qualifiers: Hypertension type: essential hypertension Qualified Code(s): I10 - Essen tial (primary) hypertension (6) CKD (chronic kidney disease) stage 3, GFR 30-59 ml/min Status: Chronic Assessment and plan: Cr is stable at baseline. Avoid nephrotoxins meds. Renal dosing of meds as per current eGFR. (7) PAF (paroxysmal atrial fibrillation) Status: Chronic Assessment and plan: Rate controlled, cont. metoprolol 100 mg by mouth twice a day. On chronic anticoagulation with warfarin. (8) DVT prophylaxis Status: Acute Assessment and plan: The patient is on chronic anticoagulation with warfarin. - Time Spent With Patient Total time spent is greater than 50% in coordination of care (as documented) at patient's floor/unit and/or counseling patient:
[2019-01-25] MEDS ORDERED: Ondansetron 4 MG/2 ML VIAL IVP PRN (11:52)
[2019-01-25] MEDS ORDERED: Naloxone 0.4 MG/ML INJ IVP PRN (11:52)
--- NOTE | 2019-01-25 12:45 | Electrocardiograph Report ---
[facility] [employer] [facility] Test Date: 2019-01-25 Pat Name: Octavia Cote Department: [id number] Room: 45 Gender: Welding Production Supervisor: : 1955 Requested By: Alexy Lawson Order Number: [id number] Reading MD: Santiago Zabala Measurements Intervals [place] Rate: 103 P: 26 [place]: 135 QRS: -4 QRSD: 101 T: 62 QT: 335 QTc: 428 Interpretive Statements Sinus tachycardia Electronically Signed On 01-25-2019 12:43:42 EDT by Santiago Zabala
[2019-01-25] MEDS: *HR* HYDROcodone/Acet 5/325 mg TABLET PO PRN ×2 (15:37→19:34)
[2019-01-25] MEDS: Acetaminophen 325 MG TABLET PO PRN (18:02)
[2019-01-25] MEDS ORDERED: traMADol 50 MG TABLET PO PRN (22:27)
[2019-01-25] MEDS ORDERED: *HR* HYDROcodone/Acet 5/325 mg TABLET PO PRN (22:28)
[2019-01-26] MEDS ORDERED: Acetaminophen IV 500 MG/50 ML INFUS..BTL IVPB ONE (00:39)
[2019-01-26] MEDS ORDERED: OXYCODONE 7.5 MG PO PRN (05:59)
[2019-01-26] MEDS ORDERED: Albuterol 2.5 MG/3 ML NEBULIZER IH PRN (05:59)
[2019-01-26] MEDS ORDERED: *HR* Dextrose 50 % in Water (Syg) 50 ML SYRINGE IVP PRN (06:02)
[2019-01-26] MEDS ORDERED: D5% in Water 1,000 ML IVC PRN (06:02)
[2019-01-26] MEDS ORDERED: Dextrose Gel 15 GM/37.5 ML TUBE PO PRN ×2 (06:02)
[2019-01-26] MEDS ORDERED: Pantoprazole 40 MG VIAL IVP ONE (06:05)
[2019-01-26 07:40] LABS: Alanine Aminotransferase 13 Units/L (7-52); Albumin 3.3 g/dL (3.5-5.7); Albumin/Globulin Ratio 1.1 (1.1-2.2); Alkaline Phosphatase 63 Units/L (34-104); Aspartate Amino Transferase 15 Units/L (13-39); BUN/Creatinine Ratio 29 (6-26); Basophils % 0.1 %; Bilirubin,Total 0.4 mg/dL (0.3-1.0); Blood Urea Nitrogen 21 mg/dL (8-23); Calcium 8.6 mg/dL (8.6-10.3); Carbon Dioxide 24 mEq/L (23-29); Chloride 110 mEq/L (98-107); Chol/HDL Ratio 3.5 (0-4.9); Cholesterol 125 mg/dL (< 200); Eosinophils # 0.1 K/mcL (0.0-0.6); Eosinophils % 1.3 %; Glucose 103 mg/dL (70-105); HDL Cholesterol 36 mg/dL (40-59); Hematocrit 36.6 % (37.5-50.1); Hemoglobin 11.8 g/dL (12.9-16.9); Immature Granulocytes % 0.4 % (0-4); LDL Cholesterol,Calculated 76 mg/dL (0-99); Lymphocytes # 1.3 K/mcL (0.6-4.6); Lymphocytes % 12.4 %; Magnesium 1.9 mg/dL (1.6-2.6); Mean Corpuscular HGB Conc 32.2 g/dL (31.6-35.5); Mean Corpuscular Hemoglobin 31.9 pg (28.0-33.3); Mean Corpuscular Volume 98.9 fL (83.0-100.0); Mean Platelet Volume 10.5 fL (9.4-12.4); Monocytes # 0.7 K/mcL (0.0-1.3); Monocytes % 6.5 %; Neutrophils # 8.2 K/mcL (1.6-8.9); Osmolality,Calculated 301 (280-300); Phosphorous 2.7 mg/dL (2.7-4.5); Platelet Count 132 K/mcL (140-400); Potassium 3.3 mEq/L (3.5-5.1); Red Cell Distribution Width 15.2 % (11.5-14.5); Segmented Neutrophils % 79.3 %; Sodium 144 mEq/L (136-145); Total Protein 6.3 g/dL (6.4-8.9); Triglycerides 65 mg/dL (< 150); White Blood Count 10.4 K/mcL (4.3-11.1); eGFR For African Americans > 60 (> 60); eGFR For Non-African Americans > 60 (> 60)
[2019-01-26 07:48] LABS: INR 1.2; Prothrombin Time 13.3 Seconds (9.4-12.1)
[2019-01-26 07:51] LABS: Activated Partial Thrombo Time 29.2 Seconds (26.0-36.0)
[2019-01-26 08:18] LABS: Estimated Average Glucose 105 mg/dl
[2019-01-26] MEDS ORDERED: Artificial Tears SOLN 15 ML BOTTLE BOTH EYES PRN (08:37)
[2019-01-26] MEDS ORDERED: (Olopatadine Hcl [Pataday] 1 DROP) OP SCH (09:00)
[2019-01-26] MEDS ORDERED: (Lactase [Dairy Relief] 3,000 UNIT) PO SCH (09:00)
[2019-01-26] MEDS ORDERED: NON-FORMULARY MEDICATION 1 EACH EACH (Multivitamin [One Daily Multivitamin] 1 TAB) PO SCH (09:00)
[2019-01-26] MEDS: Tiotropium 18 MCG inhalation IH SCH (09:52)
[2019-01-26] MEDS ORDERED: Perflutren Lipid Microsphere 1.3 ML in 0.9 % Sodium Chloride 8.7 ML IVP ONE (10:05)
[2019-01-26] MEDS: *HR* OxyCODONE Immed Rel 5 MG TABLET PO PRN ×2 (11:49→21:28)
[2019-01-26] MEDS: Finasteride 5 MG TABLET PO SCH (11:49)
[2019-01-26] MEDS: Cholecalciferol (D-3) 1,000 UNIT TABLET PO SCH (11:49)
[2019-01-26] MEDS: Multivit/Ca/Min/Fe/FA 1 TAB TABLET PO SCH (11:49)
[2019-01-26] MEDS: Lactobacillus 1 EACH CAP.SPRINK PO SCH ×2 (11:49→20:11)
[2019-01-26] MEDS: Baclofen 10 MG TABLET PO SCH ×3 (11:50→20:12)
[2019-01-26] MEDS: GuaiFENesin Liq 200 MG/10 ML UDC PO SCH ×3 (11:50→20:11)
[2019-01-26] MEDS: cefTRIAXone 1,000 MG in Water for inj. (sterile) 10 ML IVP SCH (11:50)
[2019-01-26] MEDS: Loratadine 10 MG TABLET PO SCH (11:50)
[2019-01-26] MEDS: Gabapentin 400 MG CAPSULE PO SCH ×3 (11:50→20:11)
[2019-01-26] MEDS ORDERED: Insulin LISPRO 300 UNITS/3 ML VIAL SQ SCH (12:00)
--- NOTE | 2019-01-26 13:49 | Internal Med Progress Note ---
Hospitalist Progress Note - Encounter Date of Encounter: 01/26/19 Time of Encounter: 13:47 - Subjective Interval History: I have seen and evaluated patient bedside. Patient reports feeling that he is back to his baseline, denied abdominal pain, chest pain or lightheadedness. - Exam Vitals: Temp Pulse Resp BP Pulse Ox 97.5 F L 125 20 152/80 96 01/26/19 12:10 01/26/19 12:10 01/26/19 12:10 01/26/19 12:10 01/26/19 12:10 Exam: Vitals: Reviewed. General: Alert and oriented 4. In no acute distress. Cardiovascular: Irregularly regular, normal S1 & S2, no rubs, murmurs or gallops. Lungs: CTA b/l, no wheezes or crackles. Abdomen: Soft, non-tender, no rigidity. ventral hernia. NABS in all 4 quadrant, PEG tube. Extremities: contracted lower ext b/l. strength 4/5 in the left upper extr, 5/5 in the right upper extr Neurological: No acute focal neurological abnormalities Rest of the physical exam is non contributory - Assessment and Plan (1) COPD (chronic obstructive pulmonary disease) Current Visit: No Status: Chronic Assessment and Plan: Patient on an acute exacerbation. Chest is clear to auscultation bilaterally. Continue bronchodilators every 4 hours when necessary, Spiriva, Singulair. Incentive spirometry if tolerated. (2) HTN (hypertension) Current Visit: No Status: Chronic Assessment and Plan: Blood pressures optimally controlled and patient tachycardic. 12 lead EKG Increase metoprolol to 100 mg by mouth twice a day. (3) PAF (paroxysmal atrial fibrillation) Current Visit: No Status: Acute Assessment and Plan: Heart rate suboptimally controlled. Metoprolol increased to 100 mg by mouth twice a day. On warfarin for secondary stroke prevention per pharmacy protocol. (4) UTI (urinary tract infection) Current Visit: Yes Status: Acute Assessment and Plan: Urine culture growing gram-negative rods. Continue ceftriaxone 1 g IV daily. Blood cultures: no growth to date (5) Change in mental status Current Visit: Yes Status: Resolved Assessment and Plan: Patient acute changes in mental status most likely secondary to urinary tract infection. Head CT with no acute intracranial abnormality. Radiology unable to obtain MRI, as patient is an MRI safe will repeat head ct if there is any change in patient mental status DVT Prophylaxis: Intermittent pneumatic compression. - Summary of Assessment and Plan Summary of Assessment and Plan: Issue to remain in the hospital due to urinary tract infection, urine culture growing gram-negative rods, pending sensitivity and specificity. - Time Spent with Patient Total time spent is greater than 50% in coordination of care (as documented) at patient's floor/unit and/or counseling patient: Greater than 35 minutes (40) Plan of Care Discussed with: patient (and the nurse) Internal Medicine: Result - Labs CBC & Chem 7: 01/26/19 06:41 01/26/19 06:41 Labs: Short CBC 01/26/19 Range/Units 06:41 WBC 10.4 (4.3-11.1) K/mcL Hgb 11.8 L (12.9-16.9) g/dL Hct 36.6 L (37.5-50.1) % Plt Count 132 L (140-400) K/mcL Neutrophils # 8.2 (1.6-8.9) K/mcL BMP 01/26/19 06:41 Sodium 144 Potassium 3.3 L Chloride 110 H Carbon Dioxide 24 BUN 21 Creatinine 0.73 Glucose 103 Calcium 8.6 Liver Function 01/26/19 Range/Units 06:41 Total Bilirubin 0.4 (0.3-1.0) mg/dL AST 15 (13-39) Units/L ALT 13 (7-52) Units/L Alkaline Phosphatase 63 (34-104) Units/L Albumin 3.3 L (3.5-5.7) g/dL - ABG Interpretation ABG results: PT/INR, D-dimer PT 13.3 Seconds (9.4-12.1) H 01/26/19 06:41 - Impressions Impressions Head CT 01/25/19 07:38 IMPRESSION: No acute intracranial abnormality. Sequelae of extensive prior infarcts are identified bilaterally, stable since 06/06/2018. Age related changes including chronic small vessel ischemic disease and cerebral atrophy. Findings were discussed with Dr. Purcell on 01/25/2019 at 8:07 a.m. D/ / 01/25/2019 08:09:12 Emma Denise MD / elizabeth Interpreting Provider: Emma Denise MD Echocardiogram 01/26/19 05:00 Impressions: LVEF 50%. Severe segmental left ventricular systolic dysfunction. Indeterminate diastolic function. Normal right ventricular structure and function. Mild aortic stenosis, mean gradient 10 mmHg. Mild aortic regurgitation. Unable to estimate RVSP due to lack of TR jet. Compare to study 06/12/2018, persistent LV apical thrombus and regional wall motion abnormalities. Ordering physician notified via [employer]. Left Ventricular Wall Motion: Rest Echo Findings The mid inferior, apical anterior, mid anterior septal and mid inferior lateral paula were hypokinetic. The apex, apical inferior, apical septal and apical lateral paula were akinetic. All other wall segments showed normal motion. Findings: Study Quality * Technically sub-optimal due to clinical status. ECG Findings * * Sinus tachycardia, PVCs. Left Ventricle * LVEF 50%. * Normal LV chamber size, wall thickness. * Severe segmental left ventricular systolic dysfunction. * Indeterminate diastolic function. * Definity echo contrast was used. * There is a left ventricular apical thrombus 1.3 cm x 1.7 cm. Right Ventricle * Normal right ventricular structure and function. Left Atrium * Normal left atrial size. Right Atrium * Normal right atrial size. Interatrial Septum * Interatrial septum not well evaluated. Aortic Valve * Aortic valve not well visualized. * Mild aortic stenosis. * Mean gradient 10 mmHg. * Mild aortic regurgitation. Mitral Valve * Normal mitral valve structure. * No mitral stenosis. * No mitral regurgitation. Tricuspid Valve * Normal tricuspid valve structure. * No tricuspid stenosis. * Trace tricuspid regurgitation. * Unable to estimate RVSP due to lack of TR jet. * Estimated RA pressure is 3 mmHg. Pulmonic Valve * Pulmonic valve is not well visualized. * No pulmonic stenosis. * No pulmonic regurgitation. Aorta * Normally sized aortic root. Pericardium * The pericardium appears normal. IVC * The IVC is not dilated. * > 50% respiratory change Consult Discharge Plan - Plan [facility]errals: [facility] [Primary Care Provider] - (1) COPD (chronic obstructive pulmonary disease) Qualifiers: COPD type: unspecified COPD Qualified Code(s): J44.9 - Chronic obstructive pulmonary disease, unspecified (2) HTN (hypertension) Qualifiers: Hypertension type: essential hypertension Qualified Code(s): I10 - Essential (primary) hypertension (4) UTI (urinary tract infection) Qualifiers: Urinary tract infection type: acute cystitis Hematuria presence: without hematuria Qualified Code(s): N30.00 - Acute cystitis without hematuria (5) Change in mental status Qualifiers: Altered mental status type: disorientation Qualified Code(s): R41.0 - Disorientation, unspecified
[2019-01-26] MEDS: *HR* HYDROcodone/Acet 5/325 mg TABLET PO PRN (16:51)
[2019-01-26] MEDS ORDERED: Warfarin perPT PO PRN (18:00)
[2019-01-26] MEDS ORDERED: *HR* Warfarin 5 MG TABLET PO ONE (18:00)
[2019-01-27] MEDS: *HR* HYDROcodone/Acet 5/325 mg TABLET PO PRN (01:40)
[2019-01-27 03:03] LABS: Basophils % 0.3 %; Eosinophils # 0.3 K/mcL (0.0-0.6); Eosinophils % 3.9 %; Hematocrit 33.1 % (37.5-50.1); Hemoglobin 10.5 g/dL (12.9-16.9); Immature Granulocytes % 0.3 % (0-4); Lymphocytes # 1.6 K/mcL (0.6-4.6); Lymphocytes % 22.3 %; Mean Corpuscular HGB Conc 31.7 g/dL (31.6-35.5); Mean Corpuscular Hemoglobin 31.5 pg (28.0-33.3); Mean Corpuscular Volume 99.4 fL (83.0-100.0); Monocytes # 0.6 K/mcL (0.0-1.3); Monocytes % 8.3 %; Neutrophils # 4.6 K/mcL (1.6-8.9); Red Blood Count 3.33 M/mcL (4.19-5.50); Red Cell Distribution Width 15.1 % (11.5-14.5); Segmented Neutrophils % 64.9 %; White Blood Count 7.1 K/mcL (4.3-11.1)
[2019-01-27 03:09] LABS: INR 1.1; Prothrombin Time 12.6 Seconds (9.4-12.1)
[2019-01-27 03:23] LABS: BUN/Creatinine Ratio 24 (6-26); Blood Urea Nitrogen 20 mg/dL (8-23); Calcium 8.6 mg/dL (8.6-10.3); Carbon Dioxide 26 mEq/L (23-29); Chloride 107 mEq/L (98-107); Glucose 89 mg/dL (70-105); Magnesium 1.8 mg/dL (1.6-2.6); Osmolality,Calculated 296 (280-300); Phosphorous 2.8 mg/dL (2.7-4.5); Potassium 3.5 mEq/L (3.5-5.1); Sodium 142 mEq/L (136-145); eGFR For African Americans > 60 (> 60); eGFR For Non-African Americans > 60 (> 60)
[2019-01-27 03:59] LABS: Mean Platelet Volume 9.8 fL (9.4-12.4)
[2019-01-27] MEDS: Acetaminophen 325 MG TABLET PO PRN (04:40)
[2019-01-27] MEDS: Tiotropium 18 MCG inhalation IH SCH (08:00)
[2019-01-27] MEDS: cefTRIAXone 1,000 MG in Water for inj. (sterile) 10 ML IVP SCH (08:16)
[2019-01-27] MEDS: Lactobacillus 1 EACH CAP.SPRINK PO SCH ×2 (08:17→21:02)
[2019-01-27] MEDS: Finasteride 5 MG TABLET PO SCH (08:17)
[2019-01-27] MEDS: Gabapentin 400 MG CAPSULE PO SCH ×3 (08:17→21:02)
[2019-01-27] MEDS: GuaiFENesin Liq 200 MG/10 ML UDC PO SCH ×3 (08:17→21:02)
[2019-01-27] MEDS: Multivit/Ca/Min/Fe/FA 1 TAB TABLET PO SCH (08:17)
[2019-01-27] MEDS: Baclofen 10 MG TABLET PO SCH ×3 (08:17→21:02)
[2019-01-27] MEDS: Cholecalciferol (D-3) 1,000 UNIT TABLET PO SCH (08:17)
[2019-01-27] MEDS: *HR* OxyCODONE Immed Rel 5 MG TABLET PO PRN ×3 (08:18→21:02)
[2019-01-27] MEDS: Loratadine 10 MG TABLET PO SCH (08:18)
--- NOTE | 2019-01-27 13:05 | Internal Med Progress Note ---
Hospitalist Progress Note - Encounter Date of Encounter: 01/27/19 Time of Encounter: 13:03 - Subjective Interval History: I have seen and evaluated the patient at bedside. patient reports having pain in his feet. denies chest pain, shortness of breath, nausea or vomiting. denies abdominal pain. - Exam Vitals: Temp Pulse Resp BP Pulse Ox 98.3 F 79 17 120/72 95 01/27/19 11:13 01/27/19 11:13 01/27/19 11:13 01/27/19 11:13 01/27/19 11:13 Exam: Vitals: Reviewed. General: Alert and oriented 4. In mild distress due to pain in his lower extr b/l. Cardiovascular: Irregularly regular, normal S1 & S2, no rubs, murmurs or gallops. Lungs: CTA b/l, no wheezes or crackles. Abdomen: Soft, non-tender, no rigidity. ventral hernia. NABS in all 4 quadrant, PEG tube. Extremities: contracted lower ext b/l. strength 4/5 in the left upper extr, 5/5 in the right upper extr Neurological: No acute focal neurological abnormalities Rest of the physical exam is non contributory - Assessment and Plan (1) COPD (chronic obstructive pulmonary disease) Current Visit: No Status: Chronic Assessment and Plan: No wheezing on auscultation. Plan: Continue bronchodilators every 4 hours when necessary, Spiriva, Singulair. Incentive spirometry if tolerated. (2) HTN (hypertension) Current Visit: No Status: Chronic Assessment and Plan: Blood pressures well controlled. Continue metoprolol 100 mg by mouth twice a day. (3) PAF (paroxysmal atrial fibrillation) Current Visit: No Status: Acute Assessment and Plan: Rate controlled on metoprolol 100 mg by mouth twice a day. He warfarin per pharmacy protocol for secondary stroke prevention. (4) UTI (urinary tract infection) Current Visit: Yes Status: Acute Assessment and Plan: Urine culture: Pansensitive Klebsiella pneumonia. Discontinue ceftriaxone. Cefdinir 300mg/PO BID added blood culture: No growth to date (5) Change in mental status Current Visit: Yes Status: Resolved (6) CVA (cerebral vascular accident) Current Visit: Yes Status: Chronic Assessment and Plan: patient presented with difficulty to speak ankle fusion. will repeat head ct. DVT Prophylaxis: Intermittent pneumatic compression for DVT prophylaxis. - Summary of Assessment and Plan Summary of Assessment and Plan: Patient to remain in the hospital for 24 more hours. Potential discharge tomorrow. - Time Spent with Patient Total time spent is greater than 50% in coordination of care (as documented) at patient's floor/unit and/or counseling patient: Greater than 35 minutes (40) Plan of Care Discussed with: patient (and the nurse) Internal Medicine: Result - Labs CBC & Chem 7: 01/27/19 02:43 01/27/19 02:43 Labs: Short CBC 01/27/19 Range/Units 02:43 WBC 7.1 (4.3-11.1) K/mcL Hgb 10.5 L (12.9-16.9) g/dL Hct 33.1 L (37.5-50.1) % Plt Count TNP Neutrophils # 4.6 (1.6-8.9) K/mcL BMP 01/27/19 02:43 Sodium 142 Potassium 3.5 Chloride 107 Carbon Dioxide 26 BUN 20 Creatinine 0.84 Glucose 89 Calcium 8.6 - ABG Interpretation ABG results: PT/INR, D-dimer PT 12.6 Seconds (9.4-12.1) H 01/27/19 02:43 - Impressions Impressions Echocardiogram 01/26/19 05:00 Impressions: LVEF 50%. Severe segmental left ventricular systolic dysfunction. Indeterminate diastolic function. Normal right ventricular structure and function. Mild aortic stenosis, mean gradient 10 mmHg. Mild aortic regurgitation. Unable to estimate RVSP due to lack of TR jet. Compare to study 06/12/2018, persistent LV apical thrombus and regional wall motion abnormalities. Ordering physician notified via [employer]. Left Ventricular Wall Motion: Rest Echo Findings The mid inferior, apical anterior, mid anterior septal and mid inferior lateral paula were hypokinetic. The apex, apical inferior, apical septal and apical lateral paula were akinetic. All other wall segments showed normal motion. Findings: Study Quality * Technically sub-optimal due to clinical status. ECG Findings * * Sinus tachycardia, PVCs. Left Ventricle * LVEF 50%. * Normal LV chamber size, wall thickness. * Severe segmental left ventricular systolic dysfunction. * Indeterminate diastolic function. * Definity echo contrast was used. * There is a left ventricular apical thrombus 1.3 cm x 1.7 cm. Right Ventricle * Normal right ventricular structure and function. Left Atrium * Normal left atrial size. Right Atrium * Normal right atrial size. Interatrial Septum * Interatrial septum not well evaluated. Aortic Valve * Aortic valve not well visualized. * Mild aortic stenosis. * Mean gradient 10 mmHg. * Mild aortic regurgitation. Mitral Valve * Normal mitral valve structure. * No mitral stenosis. * No mitral regurgitation. Tricuspid Valve * Normal tricuspid valve structure. * No tricuspid stenosis. * Trace tricuspid regurgitation. * Unable to estimate RVSP due to lack of TR jet. * Estimated RA pressure is 3 mmHg. Pulmonic Valve * Pulmonic valve is not well visualized. * No pulmonic stenosis. * No pulmonic regurgitation. Aorta * Normally sized aortic root. Pericardium * The pericardium appears normal. IVC * The IVC is not dilated. * > 50% respiratory change Consult Discharge Plan - Plan [facility]errals: [facility] [Primary Care Provider] - (1) COPD (chronic obstructive pulmonary disease) Qualifiers: COPD type: unspecified COPD Qualified Code(s): J44.9 - Chronic obstructive pulmonary disease, unspecified (2) HTN (hypertension) Qualifiers: Hypertension type: essential hypertension Qualified Code(s): I10 - Essential (primary) hypertension (4) UTI (urinary tract infection) Qualifiers: Urinary tract infection type: acute cystitis Hematuria presence: without hematuria Qualified Code(s): N30.00 - Acute cystitis without hematuria (5) Change in mental status Qualifiers: Altered mental status type: disorientation Qualified Code(s): R41.0 - D isorientation, unspecified (6) CVA (cerebral vascular accident) Qualifiers: CVA mechanism: unspecified Qualified Code(s): I63.9 - Cerebral infarction, unspecified
[2019-01-27] MEDS ORDERED: *HR* Warfarin 5 MG TABLET PO ONE (18:00)
[2019-01-27] MEDS: Cefdinir 300 MG CAPSULE PO SCH (21:02)
[2019-01-28] MEDS: *HR* OxyCODONE Immed Rel 5 MG TABLET PO PRN ×3 (02:21→14:35)
[2019-01-28 04:16] LABS: INR 1.1; Prothrombin Time 12.7 Seconds (9.4-12.1)
[2019-01-28] MEDS: Tiotropium 18 MCG inhalation IH SCH (07:28)
[2019-01-28] MEDS: Cholecalciferol (D-3) 1,000 UNIT TABLET PO SCH (09:13)
[2019-01-28] MEDS: Loratadine 10 MG TABLET PO SCH (09:13)
[2019-01-28] MEDS: Gabapentin 400 MG CAPSULE PO SCH (09:13)
[2019-01-28] MEDS: Finasteride 5 MG TABLET PO SCH (09:13)
[2019-01-28] MEDS: Cefdinir 300 MG CAPSULE PO SCH (09:13)
[2019-01-28] MEDS: Baclofen 10 MG TABLET PO SCH (09:13)
[2019-01-28] MEDS: Multivit/Ca/Min/Fe/FA 1 TAB TABLET PO SCH (09:13)
[2019-01-28] MEDS: Lactobacillus 1 EACH CAP.SPRINK PO SCH (09:14)
[2019-01-28] MEDS: GuaiFENesin Liq 200 MG/10 ML UDC PO SCH (09:14)
--- NOTE | 2019-01-28 09:50 | Discharge Summary ---
Orders not resulted at time of discharge: Pending orders 01/25/19 08:16 Culture,Blood [BC] Stat 01/26/19 13:50 ECG 12 lead ECG [ECG] Stat 01/29/19 04:00 Prothrombin Time INR [COAG] AM 0400 01/30/19 04:00 Prothrombin Time INR [COAG] AM 0400 01/31/19 04:00 Prothrombin Time INR [COAG] AM 0400 Date of Encounter: 01/28/19 Time of Encounter: 09:46 - Discharge Diagnosis (1) UTI (urinary tract infection) Priority: Primary Status: Acute Qualifiers: Urinary tract infection type: acute cystitis Hematuria presence: without hematuria Qualified Code(s): N30.00 - Acute cystitis without hematuria (2) COPD (chronic obstructive pulmonary disease) Priority: Secondary Status: Chronic Qualifiers: COPD type: unspecified COPD Qualified Code(s): J44.9 - Chronic obstructive pulmonary disease, unspecified (3) HTN (hypertension) Priority: Secondary Status: Chronic Qualifiers: Hypertension type: essential hypertension Qualified Code(s): I10 - Essential (primary) hypertension (4) PAF (paroxysmal atrial fibrillation) Priority: Secondary Status: Chronic (5) CVA (cerebral vascular accident) Priority: Secondary Status: Chronic Qualifiers: CVA mechanism: unspecified Qualified Code(s): I63.9 - Cerebral infarction, unspecified (6) Change in mental status Priority: Secondary Status: Resolved Qualifiers: Altered mental status type: disorientation Qualified Code(s): R41.0 - Disorientation, unspecified Hospital course: Mr. Cote is a 63 year old male PMH of COPD, Diabetes, CVA with left sided residual weakness. who presented from [facility] difficulty of speech as well as confusion. A stroke alert was called upen the patient on arrival. [facility] neurology team evaluated the patient and decided that the patient is not a chela date for thrombolytic therapy. Patient admitted to the hospital due to stroke like symptoms. A head ct on admission: unremarkable. Patient found to have a UTI, managed with IV antibiotics. UC: grew alfonso sensitive Klepssiella pneu. Unable to obtain an MRI as patient has some metal object around one of his ear.The head CT was repeated >48 hours following the patient admission and was unremarkable. Patient's acute symptoms have resolved and he is hemodynamically stable to be discharge to ECF. - Time Spent with Patient Total time spent providing and/or coordinating discharge services: Time spent: Greater than 30 minutes (35) - Discharge Medications Prescriptions: New Cefdinir [Omnicef] 300 mg PO BID 5 Days #10 capsule Continued Acetaminophen [Tylenol] 650 mg PO Q6H PRN PRN Reason: PAIN/FEVER Budesonide/Formoterol 160/4.5 [Symbicort 160/4.5] 2 puff IH BIDR Finasteride [Proscar] 5 mg PO DAILY Fluticasone Propionate Nasal [Flonase] 2 spr NS DAILY Montelukast [Singulair] 10 mg PO HS Tiotropium [Spiriva] 18 mcg IH DAILY Multivitamin [Daily Multiple Vitamin] 1 tab PO DAILY Loratadine [Allergy Relief] 10 mg PO DAILY Lactase [Dairy Relief] 6,000 unit PO TID Loperamide [Imodium] 4 mg PO Q12H PRN PRN Reason: SEVERE DIARRHEA Levalbuterol Neb [Xopenex Neb] 0.63 mg IH Q4HR PRN PRN Reason: WHEEZING/COUGH Cholecalciferol (D-3) [Vitamin D] 2,000 unit PO DAILY Baclofen [Lioresal] 10 mg PO TID Bismuth Subsalicylate [Soothe] 524 mg PO TID PRN PRN Reason: Diarrhea Escitalopram [Lexapro] 10 mg PO DAILY Gabapentin [Neurontin] 800 mg PO TID Guaifenesin [Cough Syrup] 400 mg PO TID Hydrophilic Cream [Triad] 1 appl TP BID Ketotifen Fumarate [Zaditor] 1 drop BOTH EYES BID Lactobac #2-S. Therm-Bifido #1 [Visbiome 112.5 Billion Capsule] 1 cap PO BID Saliva Stimulant [Biotene Moisturizing Rinse] 3 spray PO TID PRN PRN Reason: Dry Mouth Oxycodone HCl 7.5 mg PO Q4H PRN 5 Days #10 tablet PRN Reason: Pain Changed Metoprolol Tartrate 100 mg PO BID 30 Days #60 tablet Home Medications: Acetaminophen [Tylenol] 650 mg PO Q6H PRN 06/01/18 [History] Budesonide/Formoterol 160/4.5 [Symbicort 160/4.5] 2 puff IH BIDR 06/01/18 [History] Finasteride [Proscar] 5 mg PO DAILY 06/01/18 [History] Fluticasone Propionate Nasal [Flonase] 2 spr NS DAILY 06/01/18 [History] Montelukast [Singulair] 10 mg PO HS 06/01/18 [History] Tiotropium [Spiriva] 18 mcg IH DAILY 06/01/18 [History] Baclofen [Lioresal] 10 mg PO TID 01/25/19 [History] Cholecalciferol (D-3) [Vitamin D] 2,000 unit PO DAILY 01/25/19 [History] Lactase [Dairy Relief] 6,000 unit PO TID 01/25/19 [History] Levalbuterol Neb [Xopenex Neb] 0.63 mg IH Q4HR PRN 01/25/19 [History] Loperamide [Imodium] 4 mg PO Q12H PRN 01/25/19 [History] Loratadine [Allergy Relief] 10 mg PO DAILY 01/25/19 [History] Multivitamin [Daily Multiple Vitamin] 1 tab PO DAILY 01/25/19 [History] Bismuth Subsalicylate [Soothe] 524 mg PO TID PRN 01/26/19 [History] Escitalopram [Lexapro] 10 mg PO DAILY 01/26/19 [History] Gabapentin [Neurontin] 800 mg PO TID 01/26/19 [History] Guaifenesin [Cough Syrup] 400 mg PO TID 01/26/19 [History] Hydrophilic Cream [Triad] 1 appl TP BID 01/26/19 [History] Ketotifen Fumarate [Zaditor] 1 drop BOTH EYES BID 01/26/19 [History] Lactobac #2-S. Therm-Bifido #1 [Visbiome 112.5 Billion Capsule] 1 cap PO BID 01/26/19 [History] Saliva Stimulant [Biotene Moisturizing Rinse] 3 spray PO TID PRN 01/26/19 [History] Cefdinir [Omnicef] 300 mg PO BID 5 Days #10 capsule 01/28/19 [Rx] Metoprolol Tartrate 100 mg PO BID 30 Days #60 tablet 01/28/19 [Rx] Oxycodone HCl 7.5 mg PO Q4H PRN 5 Days #10 tablet 01/28/19 [Rx] Allergies/Adverse Reactions: Allergy/AdvReac Type Severity Reaction Status Date / Time bee venom protein (honey bee) Allergy Anaphylaxis Verified 01/25/19 07:55 milk Allergy Abdominal Verified 01/25/19 07:55 Pain Date of admission: 01/26/19 13:58 Primary care physician: PCP JOEL Consults: 01/25/19 13:03 Consult to Nutrition [CONS] Routine Comment: Consulting Provider: NUTRITION Reason for Dietary Consult: MST Score Other:: Patient is from the [place] with CVA history/g-tube. Unable to obtain history. Consult to Sql Report Analyst [CONS] Routine Reason for SW Consult: Patient is from the [place]. 01/25/19 14:46 Consult to Wound Care [CONS] Routine Reason for Consult: From [place], wound vac to left foot unknown etiology Call Completed: Yes - Constitutional Vitals: Temp Pulse Resp BP Pulse Ox 97.5 F L 82 18 122/71 97 01/28/19 06:57 01/28/19 06:57 01/28/19 07:30 01/28/19 06:57 01/28/19 07:30 General appearance: Present: A&O X 3 Exam: Vitals: Reviewed. General: Alert and oriented 4. No distress Cardiovascular: Irregularly regular, normal S1 & S2, no rubs, murmurs or gallops. Lungs: CTA b/l, no wheezes or crackles. Abdomen: Soft, non-tender, no rigidity. ventral hernia. NABS in all 4 quadrant, PEG tube. Extremities: contracted lower ext b/l. strength 4/5 in the left upper extr, 5/5 in the right upper extr Neurological: No acute focal neurological abnormalities Rest of the physical exam is non contributory - Patient Status Disposition: Transfer SNF Condition: Fair Functional capacity at discharge: wheelchair bound Overall status at discharge: patient is progressing back to baseline - Discharge Instructions [facility] With: [facility] Care Provider[facility] - (Patient will follow up with the PCP at the [facility] part of the [place]. Thank you!) - Diet and Activity Activity: as per physical therapy Diet: advance to your usual diet, diabetic diet, low salt diet
--- NOTE | 2019-01-28 09:56 | Physician Discharge Referral ---
ExtendedCare Referral Info Transfer To: [facility] - Diagnosis (1) UTI (urinary tract infection) Priority: Primary Status: Acute (2) COPD (chronic obstructive pulmonary disease) Priority: Secondary Status: Chronic (3) HTN (hypertension) Priority: Secondary Status: Chronic (4) PAF (paroxysmal atrial fibrillation) Priority: Secondary Status: Chronic (5) CVA (cerebral vascular accident) Priority: Secondary Status: Chronic (6) Change in mental status Priority: Secondary Status: Resolved Prognosis: Fair Aware of Diagnosis: Patient Aware of Prognosis: Patient - Transfer Medications Prescriptions: Metoprolol Tartrate 100 mg PO BID 30 Days #60 tablet Cefdinir [Omnicef] 300 mg PO BID 5 Days #10 capsule Home Medications: Acetaminophen [Tylenol] 650 mg PO Q6H PRN 06/01/18 [History] Budesonide/Formoterol 160/4.5 [Symbicort 160/4.5] 2 puff IH BIDR 06/01/18 [History] Finasteride [Proscar] 5 mg PO DAILY 06/01/18 [History] Fluticasone Propionate Nasal [Flonase] 2 spr NS DAILY 06/01/18 [History] Montelukast [Singulair] 10 mg PO HS 06/01/18 [History] Tiotropium [Spiriva] 18 mcg IH DAILY 06/01/18 [History] Baclofen [Lioresal] 10 mg PO TID 01/25/19 [History] Cholecalciferol (D-3) [Vitamin D] 2,000 unit PO DAILY 01/25/19 [History] Lactase [Dairy Relief] 6,000 unit PO TID 01/25/19 [History] Levalbuterol Neb [Xopenex Neb] 0.63 mg IH Q4HR PRN 01/25/19 [History] Loperamide [Imodium] 4 mg PO Q12H PRN 01/25/19 [History] Loratadine [Allergy Relief] 10 mg PO DAILY 01/25/19 [History] Multivitamin [Daily Multiple Vitamin] 1 tab PO DAILY 01/25/19 [History] Bismuth Subsalicylate [Soothe] 524 mg PO TID PRN 01/26/19 [History] Escitalopram [Lexapro] 10 mg PO DAILY 01/26/19 [History] Gabapentin [Neurontin] 800 mg PO TID 01/26/19 [History] Guaifenesin [Cough Syrup] 400 mg PO TID 01/26/19 [History] Hydrophilic Cream [Triad] 1 appl TP BID 01/26/19 [History] Ketotifen Fumarate [Zaditor] 1 drop BOTH EYES BID 01/26/19 [History] Lactobac #2-S. Therm-Bifido #1 [Visbiome 112.5 Billion Capsule] 1 cap PO BID 01/26/19 [History] Oxycodone HCl 7.5 mg PO Q4H PRN 01/26/19 [History] Saliva Stimulant [Biotene Moisturizing Rinse] 3 spray PO TID PRN 01/26/19 [History] Cefdinir [Omnicef] 300 mg PO BID 5 Days #10 capsule 01/28/19 [Rx] Metoprolol Tartrate 100 mg PO BID 30 Days #60 tablet 01/28/19 [Rx] Allergies/Adverse Reactions: Allergy/AdvReac Type Severity Reaction Status Date / Time bee venom protein (honey bee) Allergy Anaphylaxis Verified 01/25/19 07:55 milk Allergy Abdominal Verified 01/25/19 07:55 Pain - Respiratory Orders Oxygen / L per min (3 litters) Smoking Cessation: Smoking cessation has been advised. For more information, call the [place] Tobacco Quit Line at 7-329-EESK-NOW. - Advance Directives Code Status: Full Code - Mobility Orders Chair - Rehabiliation Orders Rehab Potential: Poor Rehab Orders: Evaluation for Physical Therapy, Evaluation for Occupational Therapy - Diet Orders Regular CERTIFICATION: I certify that the transfer of the above named patient to an Extended Care Facility is necessary for the continuing treatment of the diagnosis listed. The above information is true and accurate reflection of patient's current condition. Confidential - Redisclosure prohibited without a patient's written consent.
[2019-01-28 11:22] VITALS: BP 100/63
[2019-01-28] MEDS ORDERED: *HR* Warfarin 5 MG TABLET PO ONE (18:00)
== END 2019-01-28 14:51 | DRG 690 ==
LOC: EMEROOARM 07:28 → 2ANU 07:28 → SUATTDRO 09:41 → 2ANU 10:28
PROVIDERS: ADMIT Internal Medicine Nephrology; ATTEND Internal Medicine

== ENCOUNTER 2020-04-01 08:52 | Inpatient (IN) ==
[2020-04-01 09:27] LABS: Basophils % 0.1 %; Eosinophils # 0.1 K/mcL (0.0-0.6); Eosinophils % 1.2 %; Hematocrit 34.3 % (37.5-50.1); Immature Granulocytes % 0.4 % (0-4); Lymphocytes # 1.1 K/mcL (0.6-4.6); Lymphocytes % 13.2 %; Mean Corpuscular HGB Conc 32.1 g/dL (31.6-35.5); Mean Corpuscular Hemoglobin 31.1 pg (28.0-33.3); Mean Corpuscular Volume 96.9 fL (83.0-100.0); Mean Platelet Volume 10.3 fL (9.4-12.4); Monocytes # 0.3 K/mcL (0.0-1.3); Monocytes % 3.9 %; Neutrophils # 6.8 K/mcL (1.6-8.9); Platelet Count 131 K/mcL (140-400); Red Blood Count 3.54 M/mcL (4.19-5.50); Red Cell Distribution Width 15.2 % (11.5-14.5); Segmented Neutrophils % 81.2 %; White Blood Count 8.3 K/mcL (4.3-11.1)
[2020-04-01] MEDS ORDERED: *HR* FentaNYL (PF) 100 MCG/2 ML VIAL IVP ONE (09:28)
[2020-04-01 09:53] LABS: Alanine Aminotransferase 7 Units/L (7-52); Albumin 2.9 g/dL (3.5-5.7); Albumin/Globulin Ratio 1.1 (1.1-2.2); Alkaline Phosphatase 78 Units/L (34-104); Amylase 19 Units/L (29-103); Aspartate Amino Transferase 10 Units/L (13-39); BUN/Creatinine Ratio 12 (6-26); Bilirubin,Direct 0.1 mg/dL (0.0-0.2); Bilirubin,Indirect 0.3 mg/dL (0.0-1.0); Bilirubin,Total 0.4 mg/dL (0.3-1.0); Blood Urea Nitrogen 10 mg/dL (8-23); Calcium 8.3 mg/dL (8.6-10.3); Carbon Dioxide 25 mEq/L (23-29); Chloride 103 mEq/L (98-107); Globulin 2.7 g/dL (2.4-3.5); Glucose 87 mg/dL (70-105); Lipase < 3 Units/L (11-82); Osmolality,Calculated 282 (280-300); Sodium 137 mEq/L (136-145); Total Protein 5.6 g/dL (6.4-8.9); eGFR For African Americans > 60 (> 60); eGFR For Non-African Americans > 60 (> 60)
[2020-04-01 10:49] LABS: Bacteria,Urine Few per hpf (None-Few); Bilirubin,Urine Negative (Negative); Blood,Urine Negative (Negative); Clarity,Urine Turbid (Clear); Color,Urine Yellow (Yellow); Glucose,Urine (UA) Normal (Normal); Ketones,Urine Negative (Negative); Leukocyte Esterase,Urine Large (Negative); Mucus,Urine Few per lpf (None-Few); Nitrite,Urine Negative (Negative); Protein,Urine Trace mg/dL (Neg-Trace); RBC,Urine 0-3 per hpf (0-3); Urobilinogen,Urine Normal (Normal); WBC,Urine 30-50 per hpf (0-3)
[2020-04-01] MEDS ORDERED: Ondansetron 4 MG/2 ML VIAL IVP PRN (12:37)
[2020-04-01] MEDS ORDERED: Naloxone 0.4 MG/ML INJ IVP PRN (12:37)
[2020-04-01] MEDS: Ringers Solution, Lactated 1,000 ML IVC SCH (13:51)
[2020-04-01] MEDS ORDERED: Dextrose Gel 15 GM/37.5 ML TUBE PO PRN ×2 (14:20)
[2020-04-01] MEDS ORDERED: D5% in Water 1,000 ML IVC PRN (14:20)
[2020-04-01] MEDS ORDERED: *HR* Dextrose 50 % in Water (Vial) 50 ML VIAL IVP PRN (14:20)
[2020-04-01] MEDS: Insulin LISPRO 300 UNITS/3 ML VIAL SQ SCH ×2 (15:10→22:46)
[2020-04-01 16:30] LABS: INR 1.6; Prothrombin Time 18.4 Seconds (9.4-12.1)
[2020-04-01] MEDS: Piperacillin/Tazobactam 3.375 GM in 0.9 % Sodium Chloride Mini Bag 100 ML IVPB SCH (17:08)
[2020-04-01] MEDS ORDERED: Fluticasone Propionate Nasal 50 MCG/SPRAY BOTTLE NS SCH ×2 (23:45)
[2020-04-02] MEDS: Piperacillin/Tazobactam 3.375 GM in 0.9 % Sodium Chloride Mini Bag 100 ML IVPB SCH ×3 (00:47→17:20)
[2020-04-02] MEDS: *HR* Metoprolol 5 MG/5 ML VIAL IVP SCH ×2 (00:48→07:01)
[2020-04-02 01:22] LABS: Basophils % 0.3 %; Eosinophils # 0.1 K/mcL (0.0-0.6); Eosinophils % 1.2 %; Hematocrit 33.3 % (37.5-50.1); Hemoglobin 10.6 g/dL (12.9-16.9); Immature Granulocytes % 0.4 % (0-4); Lymphocytes # 0.9 K/mcL (0.6-4.6); Lymphocytes % 11.7 %; Mean Corpuscular HGB Conc 31.8 g/dL (31.6-35.5); Mean Corpuscular Hemoglobin 30.8 pg (28.0-33.3); Mean Corpuscular Volume 96.8 fL (83.0-100.0); Mean Platelet Volume 10.3 fL (9.4-12.4); Monocytes # 0.5 K/mcL (0.0-1.3); Monocytes % 6.3 %; Platelet Count 127 K/mcL (140-400); Red Blood Count 3.44 M/mcL (4.19-5.50); Red Cell Distribution Width 15.3 % (11.5-14.5); Segmented Neutrophils % 80.1 %; White Blood Count 7.4 K/mcL (4.3-11.1)
[2020-04-02] MEDS: Levalbuterol Neb 1.25 MG/3 ML IH SCH ×4 (01:25→22:01)
[2020-04-02] MEDS: Ipratropium Neb 0.5 MG NEBULIZER IH SCH ×5 (01:26→22:01)
[2020-04-02] MEDS: Budesonide/Formoterol 160/4.5 1 PUFF INH IH SCH ×3 (01:26→22:02)
[2020-04-02 01:33] LABS: INR 1.6; Prothrombin Time 17.7 Seconds (9.4-12.1)
[2020-04-02 01:45] LABS: Alanine Aminotransferase 6 Units/L (7-52); Albumin 2.6 g/dL (3.5-5.7); Alkaline Phosphatase 66 Units/L (34-104); Aspartate Amino Transferase 9 Units/L (13-39); BUN/Creatinine Ratio 9 (6-26); Bilirubin,Total 0.4 mg/dL (0.3-1.0); Blood Urea Nitrogen 7 mg/dL (8-23); Carbon Dioxide 24 mEq/L (23-29); Chloride 107 mEq/L (98-107); Globulin 2.7 g/dL (2.4-3.5); Glucose 121 mg/dL (70-105); Magnesium 1.4 mg/dL (1.6-2.6); Osmolality,Calculated 283 (280-300); Phosphorous 2.7 mg/dL (2.7-4.5); Potassium 3.1 mEq/L (3.5-5.1); Sodium 137 mEq/L (136-145); Total Protein 5.3 g/dL (6.4-8.9); eGFR For African Americans > 60 (> 60); eGFR For Non-African Americans > 60 (> 60)
[2020-04-02] MEDS: Insulin LISPRO 300 UNITS/3 ML VIAL SQ SCH ×7 (02:30→23:40)
[2020-04-02] MEDS: Ringers Solution, Lactated 1,000 ML IVC SCH ×2 (07:14→12:46)
[2020-04-02] MEDS ORDERED: Dexamethasone 4 MG/ML VIAL ONE (07:32)
[2020-04-02] MEDS ORDERED: Ondansetron 4 MG/2 ML VIAL ONE (07:32)
[2020-04-02] MEDS ORDERED: Lidocaine -MPF 2% 2 ML VIAL ONE ×2 (07:32→09:37)
[2020-04-02] MEDS ORDERED: *HR* Succinylcholine 200 MG/10 ML VIAL IVP ONE (07:32)
[2020-04-02] MEDS ORDERED: *HR* FentaNYL (PF) 100 MCG/2 ML VIAL ONE ×2 (07:32→10:57)
[2020-04-02] MEDS ORDERED: Lidocaine HCL 4 ML Topical Solution (Laryng-O-Jet Kit Sterile Pak) TP ONE (07:32)
[2020-04-02] MEDS ORDERED: *HR* Rocuronium Bromide 50 MG/5 ML VIAL ONE ×2 (07:32→09:36)
[2020-04-02] MEDS ORDERED: EPHEDrine 50 MG/ML VIAL ONE (07:45)
[2020-04-02] MEDS ORDERED: *HR* Phenylephrine 10 MG/ML VIAL ONE (07:49)
[2020-04-02] MEDS ORDERED: *HR* Vasopressin 20 UNIT/ML VIAL ONE (08:06)
[2020-04-02] MEDS ORDERED: Potassium Chloride 40 MEQ, Lidocaine 1% 2 ML in 0.9 % Sodium Chloride 500 ML IVPB ONE ×2 (08:08→12:03)
[2020-04-02] MEDS ORDERED: GuaiFENesin Liq 200 MG/10 ML UDC PO PRN ×2 (08:09→12:03)
[2020-04-02] MEDS ORDERED: Saline Nasal Spray 44 ML BOTTLE NS PRN ×2 (08:09→12:03)
[2020-04-02] MEDS ORDERED: Lidocaine OINT 35.44 GM TUBE TP PRN ×2 (08:09→12:03)
[2020-04-02] MEDS ORDERED: ceFAZolin 1,000 MG, Sodium Chloride IRRigation 1,000 ML IR ONE (08:15)
[2020-04-02] MEDS ORDERED: BUPRENORPHINE TP SCH (08:15)
[2020-04-02] MEDS ORDERED: Cholecalciferol (D-3) 1,000 UNIT (25MCG) TABLET PO SCH (09:00)
[2020-04-02] MEDS ORDERED: Finasteride 5 MG TABLET PO SCH (09:00)
[2020-04-02] MEDS ORDERED: Nystatin SUSP 5 ML UD.LIQ GTUBE SCH (09:00)
[2020-04-02] MEDS ORDERED: Artificial Tears SOLN 15 ML BOTTLE BOTH EYES SCH (09:00)
[2020-04-02] MEDS ORDERED: Gabapentin 400 MG CAPSULE PO SCH (09:00)
[2020-04-02] MEDS ORDERED: Metoprolol 100 MG TABLET PO SCH ×2 (09:00→21:00)
[2020-04-02] MEDS ORDERED: Lactobacillus 1 EACH CAP.SPRINK PO SCH (09:00)
[2020-04-02] MEDS ORDERED: Sennosides/Docusate Sodium TABLET PO SCH (09:00)
[2020-04-02] MEDS ORDERED: Multivit/Ca/Min/Fe/FA 1 TAB TABLET PO SCH (09:00)
[2020-04-02] MEDS ORDERED: Tiotropium 18 MCG inhalation IH SCH (10:00)
[2020-04-02] MEDS ORDERED: Levalbuterol Neb 1.25 MG/3 ML IH SCH (10:00)
[2020-04-02] MEDS ORDERED: *HR* OxyCODONE Immed Rel 5 MG TABLET PO PRN (11:16)
[2020-04-02] MEDS ORDERED: Ondansetron 4 MG/2 ML VIAL IVP ONE (11:16)
[2020-04-02] MEDS: *HR* HYDROmorphone PF 0.5 MG/0.5 ML SYRINGE IVP PRN ×2 (11:33→11:43)
[2020-04-02] MEDS ORDERED: Naloxone 0.4 MG/ML INJ IVP PRN (12:03)
[2020-04-02] MEDS ORDERED: Dextrose Gel 15 GM/37.5 ML TUBE PO PRN ×2 (12:03)
[2020-04-02] MEDS ORDERED: Buprenorphine [Butrans 15 Mcg/Hr] TP SCH (12:03)
[2020-04-02] MEDS ORDERED: Ondansetron 4 MG/2 ML VIAL IVP PRN (12:03)
[2020-04-02] MEDS ORDERED: *HR* Dextrose 50 % in Water (Vial) 50 ML VIAL IVP PRN (12:03)
[2020-04-02] MEDS ORDERED: D5% in Water 1,000 ML IVC PRN (12:03)
[2020-04-02] MEDS: Metoprolol XL (24 HR) Succ 50 MG TAB.ER.24H PO SCH (12:46)
[2020-04-02] MEDS ORDERED: methocarbamoL 500 MG TABLET PO PRN (13:01)
[2020-04-02] MEDS: Gabapentin 400 MG CAPSULE PO SCH ×2 (14:20→20:36)
[2020-04-02] MEDS: *HR* OxyCODONE Immed Rel 5 MG TABLET PO PRN (14:27)
[2020-04-02] MEDS: Sennosides/Docusate Sodium TABLET PO SCH (20:37)
[2020-04-02] MEDS: methocarbamoL 500 MG TABLET PO SCH (20:37)
[2020-04-02] MEDS: Lactobacillus 1 EACH CAP.SPRINK PO SCH (20:38)
[2020-04-02] MEDS: Artificial Tears SOLN 15 ML BOTTLE BOTH EYES SCH (20:57)
[2020-04-03] MEDS: Piperacillin/Tazobactam 3.375 GM in 0.9 % Sodium Chloride Mini Bag 100 ML IVPB SCH ×3 (00:29→15:41)
[2020-04-03 01:59] LABS: Hematocrit 29.7 % (37.5-50.1); Hemoglobin 9.6 g/dL (12.9-16.9); Mean Corpuscular HGB Conc 32.3 g/dL (31.6-35.5); Mean Corpuscular Hemoglobin 31.3 pg (28.0-33.3); Mean Corpuscular Volume 96.7 fL (83.0-100.0); Mean Platelet Volume 10.3 fL (9.4-12.4); Platelet Count 117 K/mcL (140-400); Red Blood Count 3.07 M/mcL (4.19-5.50); Red Cell Distribution Width 15.4 % (11.5-14.5); White Blood Count 5.3 K/mcL (4.3-11.1)
[2020-04-03 02:20] LABS: BUN/Creatinine Ratio 8 (6-26); Blood Urea Nitrogen 6 mg/dL (8-23); Calcium 8.2 mg/dL (8.6-10.3); Carbon Dioxide 25 mEq/L (23-29); Chloride 109 mEq/L (98-107); Glucose 137 mg/dL (70-105); Magnesium 1.4 mg/dL (1.6-2.6); Osmolality,Calculated 290 (280-300); Potassium 3.7 mEq/L (3.5-5.1); Sodium 140 mEq/L (136-145); eGFR For African Americans > 60 (> 60); eGFR For Non-African Americans > 60 (> 60)
[2020-04-03] MEDS: Ringers Solution, Lactated 1,000 ML IVC SCH (03:34)
[2020-04-03] MEDS: *HR* OxyCODONE Immed Rel 5 MG TABLET PO PRN ×2 (03:41→16:37)
[2020-04-03] MEDS: Ipratropium Neb 0.5 MG NEBULIZER IH SCH ×4 (03:44→21:50)
[2020-04-03] MEDS: Levalbuterol Neb 1.25 MG/3 ML IH SCH ×4 (03:45→21:50)
[2020-04-03] MEDS: Insulin LISPRO 300 UNITS/3 ML VIAL SQ SCH ×6 (06:34→22:19)
[2020-04-03] MEDS: Sennosides/Docusate Sodium TABLET PO SCH ×2 (08:45→21:06)
[2020-04-03] MEDS: Gabapentin 400 MG CAPSULE PO SCH ×3 (08:46→21:06)
[2020-04-03] MEDS: Multivit/Ca/Min/Fe/FA 1 TAB TABLET PO SCH (08:47)
[2020-04-03] MEDS: Metoprolol XL (24 HR) Succ 50 MG TAB.ER.24H PO SCH (08:47)
[2020-04-03] MEDS: *HR* OxyCODONE Immed Rel 5 MG TABLET PO SCH (08:47)
[2020-04-03] MEDS: Lactobacillus 1 EACH CAP.SPRINK PO SCH ×2 (08:49→21:06)
[2020-04-03] MEDS: Cholecalciferol (D-3) 1,000 UNIT (25MCG) TABLET PO SCH (08:49)
[2020-04-03] MEDS: Finasteride 5 MG TABLET PO SCH (08:49)
[2020-04-03] MEDS: Artificial Tears SOLN 15 ML BOTTLE BOTH EYES SCH ×2 (08:51→21:07)
[2020-04-03] MEDS: Fluticasone Propionate Nasal 50 MCG/SPRAY BOTTLE NS SCH (08:51)
[2020-04-03] MEDS: Budesonide/Formoterol 160/4.5 1 PUFF INH IH SCH ×2 (09:46→21:50)
[2020-04-03] MEDS: Tiotropium 18 MCG inhalation IH SCH (09:51)
[2020-04-03] MEDS ORDERED: polyethylene glycoL 3350 17 GM POWD.PACK PO SCH (12:30)
[2020-04-04] MEDS: Piperacillin/Tazobactam 3.375 GM in 0.9 % Sodium Chloride Mini Bag 100 ML IVPB SCH ×3 (00:56→18:37)
[2020-04-04 01:58] LABS: Hematocrit 30.9 % (37.5-50.1); Hemoglobin 9.8 g/dL (12.9-16.9); Mean Corpuscular HGB Conc 31.7 g/dL (31.6-35.5); Mean Corpuscular Hemoglobin 30.5 pg (28.0-33.3); Mean Corpuscular Volume 96.3 fL (83.0-100.0); Mean Platelet Volume 10.5 fL (9.4-12.4); Platelet Count 132 K/mcL (140-400); Red Blood Count 3.21 M/mcL (4.19-5.50); Red Cell Distribution Width 15.2 % (11.5-14.5); White Blood Count 6.9 K/mcL (4.3-11.1)
[2020-04-04 02:19] LABS: BUN/Creatinine Ratio 10 (6-26); Blood Urea Nitrogen 8 mg/dL (8-23); Calcium 7.4 mg/dL (8.6-10.3); Carbon Dioxide 24 mEq/L (23-29); Chloride 107 mEq/L (98-107); Glucose 111 mg/dL (70-105); Magnesium 2.2 mg/dL (1.6-2.6); Osmolality,Calculated 285 (280-300); Potassium 3.5 mEq/L (3.5-5.1); Sodium 138 mEq/L (136-145); eGFR For African Americans > 60 (> 60); eGFR For Non-African Americans > 60 (> 60)
[2020-04-04] MEDS ORDERED: Ketorolac 15 MG/ML VIAL IVP ONE (03:38)
[2020-04-04] MEDS: Levalbuterol Neb 1.25 MG/3 ML IH SCH ×4 (04:07→22:29)
[2020-04-04] MEDS: Ipratropium Neb 0.5 MG NEBULIZER IH SCH ×4 (04:07→22:29)
[2020-04-04] MEDS: methocarbamoL 500 MG TABLET PO SCH (06:22)
[2020-04-04] MEDS ORDERED: Methylnaltrexone 12 MG/0.6 ML SYRINGE SQ ONE (08:20)
[2020-04-04] MEDS: polyethylene glycoL 3350 17 GM POWD.PACK PO SCH ×2 (08:57→21:50)
[2020-04-04] MEDS: *HR* OxyCODONE Immed Rel 5 MG TABLET PO SCH (08:57)
[2020-04-04] MEDS: Multivit/Ca/Min/Fe/FA 1 TAB TABLET PO SCH (08:58)
[2020-04-04] MEDS: Metoprolol XL (24 HR) Succ 50 MG TAB.ER.24H PO SCH (08:58)
[2020-04-04] MEDS: Finasteride 5 MG TABLET PO SCH (08:58)
[2020-04-04] MEDS: Lactobacillus 1 EACH CAP.SPRINK PO SCH ×2 (08:58→21:50)
[2020-04-04] MEDS: Cholecalciferol (D-3) 1,000 UNIT (25MCG) TABLET PO SCH (08:58)
[2020-04-04] MEDS: Fluticasone Propionate Nasal 50 MCG/SPRAY BOTTLE NS SCH (08:59)
[2020-04-04] MEDS: Artificial Tears SOLN 15 ML BOTTLE BOTH EYES SCH ×2 (08:59→21:52)
[2020-04-04] MEDS: Gabapentin 400 MG CAPSULE PO SCH ×3 (08:59→21:50)
[2020-04-04] MEDS: Sennosides/Docusate Sodium TABLET PO SCH ×2 (08:59→21:50)
[2020-04-04] MEDS: Insulin LISPRO 300 UNITS/3 ML VIAL SQ SCH ×4 (09:00→22:55)
[2020-04-04] MEDS: Tiotropium 18 MCG inhalation IH SCH (10:11)
[2020-04-04] MEDS: Budesonide/Formoterol 160/4.5 1 PUFF INH IH SCH ×2 (10:12→22:29)
[2020-04-04] MEDS: *HR* OxyCODONE Immed Rel 5 MG TABLET PO PRN (14:25)
[2020-04-05] MEDS ORDERED: Ketorolac 15 MG/ML VIAL IVP ONE (00:24)
[2020-04-05] MEDS: *HR* OxyCODONE Immed Rel 5 MG TABLET PO PRN (00:35)
[2020-04-05] MEDS: Piperacillin/Tazobactam 3.375 GM in 0.9 % Sodium Chloride Mini Bag 100 ML IVPB SCH ×3 (00:35→16:20)
[2020-04-05] MEDS: Ipratropium Neb 0.5 MG NEBULIZER IH SCH ×4 (03:39→21:33)
[2020-04-05] MEDS: Levalbuterol Neb 1.25 MG/3 ML IH SCH ×4 (03:40→21:33)
[2020-04-05] MEDS: methocarbamoL 500 MG TABLET PO SCH (04:40)
[2020-04-05] MEDS ORDERED: Morphine Sulfate 2 MG/ML SYRINGE IVP PRN (05:32)
[2020-04-05] MEDS ORDERED: Bisacodyl 10 MG RECTAL SUPPOSITORY RC ONE (06:57)
[2020-04-05] MEDS ORDERED: Albumin 25% 25gram/100mL 25 GM/100 ML IV.SOLN IVPB ONE (07:45)
[2020-04-05 08:25] LABS: Basophils % 0.1 %; Immature Granulocytes % 0.5 % (0-4); Red Blood Count 2.93 M/mcL (4.19-5.50)
[2020-04-05 08:27] LABS: Eosinophils # 0.2 K/mcL (0.0-0.6); Eosinophils % 1.4 %; Hematocrit 28.3 % (37.5-50.1); Hemoglobin 8.9 g/dL (12.9-16.9); Immature Platelets 4.2 % (1.1-6.1); Lymphocytes # 1.9 K/mcL (0.6-4.6); Lymphocytes % 18.3 %; Mean Corpuscular HGB Conc 31.4 g/dL (31.6-35.5); Mean Corpuscular Hemoglobin 30.4 pg (28.0-33.3); Mean Corpuscular Volume 96.6 fL (83.0-100.0); Mean Platelet Volume 11.1 fL (9.4-12.4); Monocytes % 9.6 %; Neutrophils # 7.4 K/mcL (1.6-8.9); Platelet Count 128 K/mcL (140-400); Red Cell Distribution Width 15.2 % (11.5-14.5); Segmented Neutrophils % 70.1 %; White Blood Count 10.6 K/mcL (4.3-11.1)
[2020-04-05] MEDS ORDERED: Lactulose Oral Soln 20 GM/30 ML UDC PO SCH (09:00)
[2020-04-05] MEDS ORDERED: Metoprolol XL (24 HR) Succ 50 MG TAB.ER.24H PO SCH (09:00)
[2020-04-05] MEDS: Insulin LISPRO 300 UNITS/3 ML VIAL SQ SCH ×4 (09:29→22:25)
[2020-04-05] MEDS: *HR* OxyCODONE Immed Rel 5 MG TABLET PO SCH (09:40)
[2020-04-05] MEDS: Finasteride 5 MG TABLET PO SCH (09:41)
[2020-04-05] MEDS: Cholecalciferol (D-3) 1,000 UNIT (25MCG) TABLET PO SCH (09:41)
[2020-04-05] MEDS: Gabapentin 400 MG CAPSULE PO SCH ×3 (09:41→22:24)
[2020-04-05] MEDS: Sennosides/Docusate Sodium TABLET PO SCH ×2 (09:41→22:24)
[2020-04-05] MEDS: Lactobacillus 1 EACH CAP.SPRINK PO SCH ×2 (09:41→22:24)
[2020-04-05] MEDS: Multivit/Ca/Min/Fe/FA 1 TAB TABLET PO SCH (09:41)
[2020-04-05] MEDS: Apixaban 5 MG TABLET PO SCH ×2 (09:42→22:24)
[2020-04-05] MEDS: Fluticasone Propionate Nasal 50 MCG/SPRAY BOTTLE NS SCH (09:45)
[2020-04-05] MEDS: Artificial Tears SOLN 15 ML BOTTLE BOTH EYES SCH ×2 (09:45→22:23)
[2020-04-05] MEDS: polyethylene glycoL 3350 17 GM POWD.PACK PO SCH ×3 (09:45→22:34)
[2020-04-05] MEDS: Budesonide/Formoterol 160/4.5 1 PUFF INH IH SCH ×2 (10:28→21:33)
[2020-04-05] MEDS: Tiotropium 18 MCG inhalation IH SCH (10:28)
[2020-04-05] MEDS: Ketorolac 15 MG/ML VIAL IVP PRN (20:21)
[2020-04-06] MEDS: Piperacillin/Tazobactam 3.375 GM in 0.9 % Sodium Chloride Mini Bag 100 ML IVPB SCH ×2 (00:16→08:38)
[2020-04-06 02:39] LABS: Basophils % 0.2 %; Eosinophils # 0.1 K/mcL (0.0-0.6); Eosinophils % 1.8 %; Hematocrit 26.5 % (37.5-50.1); Hemoglobin 8.5 g/dL (12.9-16.9); Immature Granulocytes % 0.3 % (0-4); Lymphocytes % 16.1 %; Mean Corpuscular HGB Conc 32.1 g/dL (31.6-35.5); Mean Corpuscular Hemoglobin 31.1 pg (28.0-33.3); Mean Corpuscular Volume 97.1 fL (83.0-100.0); Monocytes # 0.4 K/mcL (0.0-1.3); Monocytes % 6.6 %; Neutrophils # 4.5 K/mcL (1.6-8.9); Platelet Count 159 K/mcL (140-400); Red Blood Count 2.73 M/mcL (4.19-5.50); Red Cell Distribution Width 15.3 % (11.5-14.5)
[2020-04-06 02:57] LABS: BUN/Creatinine Ratio 14 (6-26); Blood Urea Nitrogen 10 mg/dL (8-23); Carbon Dioxide 29 mEq/L (23-29); Chloride 109 mEq/L (98-107); Glucose 126 mg/dL (70-105); Osmolality,Calculated 297 (280-300); Potassium 3.5 mEq/L (3.5-5.1); Sodium 143 mEq/L (136-145); eGFR For African Americans > 60 (> 60); eGFR For Non-African Americans > 60 (> 60)
[2020-04-06 02:59] LABS: % Iron Saturation 11 % (20-55); Iron 16 mcg/dL (65-175); Transferrin 107 mg/dL (203-362)
[2020-04-06 03:17] LABS: Ferritin 117 ng/mL (20-250)
[2020-04-06] MEDS: Levalbuterol Neb 1.25 MG/3 ML IH SCH ×4 (03:18→21:29)
[2020-04-06] MEDS: Ipratropium Neb 0.5 MG NEBULIZER IH SCH ×4 (03:18→21:29)
[2020-04-06] MEDS: Ketorolac 15 MG/ML VIAL IVP PRN ×2 (03:26→19:37)
[2020-04-06] MEDS: methocarbamoL 500 MG TABLET PO SCH (06:29)
[2020-04-06] MEDS ORDERED: Iron Sucrose Complex 400 MG in 0.9 % Sodium Chloride 250 ML IVPB ONE (07:55)
[2020-04-06] MEDS: Insulin LISPRO 300 UNITS/3 ML VIAL SQ SCH ×4 (08:35→22:31)
[2020-04-06] MEDS: Lactobacillus 1 EACH CAP.SPRINK PO SCH ×2 (08:35→22:30)
[2020-04-06] MEDS: Cholecalciferol (D-3) 1,000 UNIT (25MCG) TABLET PO SCH (08:35)
[2020-04-06] MEDS: Sennosides/Docusate Sodium TABLET PO SCH ×2 (08:35→22:30)
[2020-04-06] MEDS: Multivit/Ca/Min/Fe/FA 1 TAB TABLET PO SCH (08:35)
[2020-04-06] MEDS: Finasteride 5 MG TABLET PO SCH (08:35)
[2020-04-06] MEDS: *HR* OxyCODONE Immed Rel 5 MG TABLET PO SCH (08:36)
[2020-04-06] MEDS: Apixaban 5 MG TABLET PO SCH ×2 (08:36→22:30)
[2020-04-06] MEDS: Gabapentin 400 MG CAPSULE PO SCH ×3 (08:36→22:30)
[2020-04-06] MEDS: Fluticasone Propionate Nasal 50 MCG/SPRAY BOTTLE NS SCH (08:37)
[2020-04-06] MEDS: Artificial Tears SOLN 15 ML BOTTLE BOTH EYES SCH ×2 (08:37→22:31)
[2020-04-06] MEDS: polyethylene glycoL 3350 17 GM POWD.PACK PO SCH ×3 (08:38→22:32)
[2020-04-06] MEDS ORDERED: Albumin 25% 25gram/100mL 25 GM/100 ML IV.SOLN IVPB ONE (08:58)
[2020-04-06] MEDS ORDERED: Metoprolol XL (24 HR) Succ 25 MG TAB.ER.24H PO SCH (09:00)
[2020-04-06] MEDS: Budesonide/Formoterol 160/4.5 1 PUFF INH IH SCH ×2 (10:57→21:29)
[2020-04-06] MEDS: Tiotropium 18 MCG inhalation IH SCH (10:57)
[2020-04-06] MEDS: Lactulose Oral Soln 20 GM/30 ML UDC PO SCH (22:30)
[2020-04-06] MEDS: Metoprolol XL (24 HR) Succ 25 MG TAB.ER.24H PO SCH (22:30)
[2020-04-07] MEDS: Ipratropium Neb 0.5 MG NEBULIZER IH SCH ×3 (03:48→15:00)
[2020-04-07] MEDS: Levalbuterol Neb 1.25 MG/3 ML IH SCH ×3 (03:48→15:00)
[2020-04-07] MEDS: methocarbamoL 500 MG TABLET PO SCH (06:43)
[2020-04-07] MEDS: Lactobacillus 1 EACH CAP.SPRINK PO SCH (07:58)
[2020-04-07] MEDS: Metoprolol XL (24 HR) Succ 25 MG TAB.ER.24H PO SCH (07:58)
[2020-04-07] MEDS: *HR* OxyCODONE Immed Rel 5 MG TABLET PO SCH (07:58)
[2020-04-07] MEDS: Finasteride 5 MG TABLET PO SCH (07:58)
[2020-04-07] MEDS: Lactulose Oral Soln 20 GM/30 ML UDC PO SCH (07:59)
[2020-04-07] MEDS: Multivit/Ca/Min/Fe/FA 1 TAB TABLET PO SCH (07:59)
[2020-04-07] MEDS: Apixaban 5 MG TABLET PO SCH (07:59)
[2020-04-07] MEDS: Cholecalciferol (D-3) 1,000 UNIT (25MCG) TABLET PO SCH (07:59)
[2020-04-07] MEDS: Gabapentin 400 MG CAPSULE PO SCH ×2 (07:59→16:35)
[2020-04-07] MEDS: polyethylene glycoL 3350 17 GM POWD.PACK PO SCH (07:59)
[2020-04-07] MEDS: Sennosides/Docusate Sodium TABLET PO SCH (07:59)
[2020-04-07] MEDS: Fluticasone Propionate Nasal 50 MCG/SPRAY BOTTLE NS SCH (08:00)
[2020-04-07] MEDS: Artificial Tears SOLN 15 ML BOTTLE BOTH EYES SCH (08:00)
[2020-04-07] MEDS ORDERED: Metoprolol XL (24 HR) Succ 25 MG TAB.ER.24H PO SCH ×2 (09:00→21:00)
[2020-04-07] MEDS ORDERED: Metoprolol XL (24 HR) Succ 25 MG TAB.ER.24H PO ONE (09:30)
[2020-04-07] MEDS: Insulin LISPRO 300 UNITS/3 ML VIAL SQ SCH ×3 (09:53→15:12)
[2020-04-07] MEDS: Budesonide/Formoterol 160/4.5 1 PUFF INH IH SCH (10:46)
[2020-04-07] MEDS: Tiotropium 18 MCG inhalation IH SCH (10:46)
[2020-04-07 11:16] VITALS: BP 126/78
== END 2020-04-07 18:14 | DRG 417 ==
LOC: 3ANU 08:52 → EMEROOARM 08:52 → SUATTDRO 12:50 → 3ANU 14:52
PROVIDERS: ADMIT Family Medicine; ATTEND Internal Medicine

== ENCOUNTER 2021-04-21 10:50 | Inpatient (IN) ==
[2021-04-21] MEDS ORDERED: Vancomycin 1,250 MG/262.5 ML IV.SOLN IVPB ONE (11:50)
[2021-04-21] MEDS ORDERED: Piperacillin/Tazobactam 3.375 GM in Water for inj. (sterile) 20 ML IVP ONE (11:50)
[2021-04-21] MEDS ORDERED: 0.9 % Sodium Chloride 1,000 ML IV ONE (11:57)
[2021-04-21] MEDS ORDERED: 0.9 % Sodium Chloride 1,000 ML IVC SCH (12:00)
[2021-04-21 12:59] LABS: Bacteria,Urine Few per hpf (None-Few); Bilirubin,Urine Negative (Negative); Blood,Urine Negative (Negative); Clarity,Urine Turbid (Clear); Color,Urine Light-Yellow (Yellow); Glucose,Urine (UA) Normal (Normal); Ketones,Urine Negative (Negative); Leukocyte Esterase,Urine Large (Negative); Mucus,Urine Few per lpf (None-Few); Nitrite,Urine Negative (Negative); PH,Urine 6.5 pH Units (5.0-8.0); Protein,Urine Negative (Neg-Trace); RBC,Urine 0-3 per hpf (0-3); Specific Gravity,Urine 1.007 (1.010-1.025); Urobilinogen,Urine Normal (Normal); WBC,Urine 50-100 per hpf (0-3)
[2021-04-21 13:01] LABS: INR 1.4; Prothrombin Time 15.7 Seconds (9.4-12.1)
[2021-04-21 13:25] LABS: Basophils % 0.2 %; Eosinophils % 0.1 %; Hematocrit 30.4 % (37.5-50.1); Hemoglobin 10.4 g/dL (12.9-16.9); Immature Granulocytes % 0.4 % (0-4); Lymphocytes # 0.9 K/mcL (0.6-4.6); Mean Corpuscular HGB Conc 34.2 g/dL (31.6-35.5); Mean Corpuscular Volume 84.7 fL (83.0-100.0); Mean Platelet Volume 10.8 fL (9.4-12.4); Monocytes # 0.9 K/mcL (0.0-1.3); Monocytes % 7.2 %; Neutrophils # 10.4 K/mcL (1.6-8.9); Platelet Count 224 K/mcL (140-400); Red Blood Count 3.59 M/mcL (4.19-5.50); Segmented Neutrophils % 85.1 %; White Blood Count 12.2 K/mcL (4.3-11.1)
[2021-04-21 13:34] LABS: Influenza A PCR Negative (Negative); Influenza B PCR Negative (Negative); Resp. Syncytial Virus PCR Negative (Negative); SARS-CoV-2 by PCR (In House) Negative (Negative)
[2021-04-21 13:51] LABS: Alanine Aminotransferase 21 Units/L (7-52); Albumin 3.8 g/dL (3.5-5.7); Albumin/Globulin Ratio 1.2 (1.1-2.2); Alkaline Phosphatase 94 Units/L (34-104); Aspartate Amino Transferase 17 Units/L (13-39); BUN/Creatinine Ratio 14 (6-26); Bilirubin,Direct 0.1 mg/dL (0.0-0.2); Bilirubin,Indirect 0.5 mg/dL (0.0-1.0); Bilirubin,Total 0.6 mg/dL (0.3-1.0); Blood Urea Nitrogen 13 mg/dL (8-23); Calcium 8.9 mg/dL (8.6-10.3); Carbon Dioxide 25 mEq/L (23-29); Chloride 89 mEq/L (98-107); Globulin 3.2 g/dL (2.4-3.5); Glucose 98 mg/dL (70-105); Lipase 6 Units/L (11-82); Magnesium 1.7 mg/dL (1.6-2.6); Osmolality,Calculated 252 (280-300); Phosphorous 3.3 mg/dL (2.7-4.5); Sodium 121 mEq/L (136-145); Troponin I < 0.03 ng/mL (< 0.04); eGFR For African Americans > 60 (> 60); eGFR For Non-African Americans > 60 (> 60)
[2021-04-21] MEDS ORDERED: Naloxone 0.4 MG/ML INJ IVP PRN (14:55)
[2021-04-21] MEDS ORDERED: *HR* HYDROcodone/Acet 5/325 mg TABLET PO PRN (14:55)
[2021-04-21] MEDS ORDERED: Acetaminophen 325 MG TABLET PO PRN (14:55)
[2021-04-21] MEDS ORDERED: Ondansetron 4 MG/2 ML VIAL IVP PRN (14:55)
[2021-04-21] MEDS ORDERED: Simethicone 80 MG TAB.CHEW PO PRN (15:05)
[2021-04-21] MEDS ORDERED: 0.9 % Sodium Chloride 500 ML IVC SCH (15:45)
[2021-04-21] MEDS ORDERED: Haloperidol Lactate 5 MG/ML VIAL IVP PRN (17:09)
[2021-04-21] MEDS: Budesonide/Formoterol 160/4.5 1 PUFF INH IH SCH (20:11)
[2021-04-21] MEDS: Ipratropium/Albuterol Neb 3 ML IH PRN (20:16)
[2021-04-21] MEDS ORDERED: Metoprolol 100 MG TABLET PO SCH (21:00)
[2021-04-21] MEDS: Gabapentin 400 MG CAPSULE PO SCH ×2 (21:49→22:50)
[2021-04-21] MEDS: Famotidine 20 MG TABLET PO SCH (21:51)
[2021-04-21] MEDS: Metoprolol 100 MG TABLET PO SCH (21:52)
[2021-04-21] MEDS: Apixaban 5 MG TABLET PO SCH (21:53)
[2021-04-21] MEDS: Morphine Sulfate ER (12 HR) 30 MG TABLET.ER PO SCH (21:53)
[2021-04-21] MEDS: levoFLOXacin 750 MG/150 ML 750 MG/150 ML BAG IVPB SCH (22:55)
[2021-04-21] MEDS: GuaiFENesin Liq 200 MG/10 ML UDC PO SCH (23:22)
[2021-04-22 07:06] LABS: BUN/Creatinine Ratio 14 (6-26); Blood Urea Nitrogen 11 mg/dL (8-23); Calcium 8.9 mg/dL (8.6-10.3); Carbon Dioxide 20 mEq/L (23-29); Chloride 104 mEq/L (98-107); Glucose 81 mg/dL (70-105); Osmolality,Calculated 276 (280-300); Phosphorous 3.2 mg/dL (2.7-4.5); Potassium 3.7 mEq/L (3.5-5.1); Sodium 134 mEq/L (136-145); eGFR For African Americans > 60 (> 60); eGFR For Non-African Americans > 60 (> 60)
[2021-04-22] MEDS: Budesonide/Formoterol 160/4.5 1 PUFF INH IH SCH ×2 (08:54→20:05)
[2021-04-22] MEDS: Lactobacillus 1 EACH CAP.SPRINK PO SCH (09:03)
[2021-04-22] MEDS: Loratadine 10 MG TABLET PO SCH (09:03)
[2021-04-22] MEDS: Apixaban 5 MG TABLET PO SCH ×2 (09:03→20:52)
[2021-04-22] MEDS: Zinc Sulfate 220 MG CAPSULE PO SCH (09:03)
[2021-04-22] MEDS: Gabapentin 400 MG CAPSULE PO SCH ×3 (09:04→20:52)
[2021-04-22] MEDS: Metoprolol 100 MG TABLET PO SCH ×2 (09:04→20:55)
[2021-04-22] MEDS: Cholecalciferol (D-3) 1,000 UNIT (25MCG) TABLET PO SCH (09:04)
[2021-04-22] MEDS: Morphine Sulfate ER (12 HR) 30 MG TABLET.ER PO SCH ×3 (09:04→20:53)
[2021-04-22] MEDS: Fluticasone Propionate Nasal 50 MCG/SPRAY BOTTLE NS SCH (09:04)
[2021-04-22] MEDS: Finasteride 5 MG TABLET PO SCH (10:32)
[2021-04-22] MEDS: GuaiFENesin Liq 200 MG/10 ML UDC PO SCH ×3 (10:32→21:21)
[2021-04-22] MEDS ORDERED: Morphine Sulfate Immed Rel 15 MG TABLET PO PRN (10:40)
[2021-04-22 12:04] LABS: Basophils % 0.3 %; Eosinophils % 0.6 %; Hematocrit 32.6 % (37.5-50.1); Hemoglobin 10.6 g/dL (12.9-16.9); Immature Granulocytes % 0.3 % (0-4); Lymphocytes # 0.7 K/mcL (0.6-4.6); Lymphocytes % 9.3 %; Mean Corpuscular HGB Conc 32.5 g/dL (31.6-35.5); Mean Corpuscular Hemoglobin 28.7 pg (28.0-33.3); Mean Corpuscular Volume 88.3 fL (83.0-100.0); Mean Platelet Volume 9.9 fL (9.4-12.4); Monocytes # 0.6 K/mcL (0.0-1.3); Monocytes % 7.9 %; Neutrophils # 5.8 K/mcL (1.6-8.9); Platelet Count 193 K/mcL (140-400); Red Blood Count 3.69 M/mcL (4.19-5.50); Red Cell Distribution Width 15.9 % (11.5-14.5); Segmented Neutrophils % 81.6 %; White Blood Count 7.1 K/mcL (4.3-11.1)
[2021-04-22] MEDS: levoFLOXacin 750 MG/150 ML 750 MG/150 ML BAG IVPB SCH (15:07)
[2021-04-22] MEDS: Famotidine 20 MG TABLET PO SCH (20:52)
[2021-04-23 04:52] LABS: Hematocrit 28.9 % (37.5-50.1); Hemoglobin 9.2 g/dL (12.9-16.9); Mean Corpuscular HGB Conc 31.8 g/dL (31.6-35.5); Mean Corpuscular Volume 88.1 fL (83.0-100.0); Mean Platelet Volume 9.7 fL (9.4-12.4); Platelet Count 187 K/mcL (140-400); Red Blood Count 3.28 M/mcL (4.19-5.50); Red Cell Distribution Width 15.9 % (11.5-14.5); White Blood Count 7.2 K/mcL (4.3-11.1)
[2021-04-23 05:04] LABS: BUN/Creatinine Ratio 15 (6-26); Blood Urea Nitrogen 14 mg/dL (8-23); Calcium 8.8 mg/dL (8.6-10.3); Carbon Dioxide 24 mEq/L (23-29); Chloride 106 mEq/L (98-107); Glucose 97 mg/dL (70-105); Osmolality,Calculated 282 (280-300); Potassium 3.3 mEq/L (3.5-5.1); Sodium 136 mEq/L (136-145); eGFR For African Americans > 60 (> 60); eGFR For Non-African Americans > 60 (> 60)
[2021-04-23 08:00] LABS: Acinetobacter baumannii by PCR Not Detected (Not Detect); Candida albicans by PCR Not Detected (Not Detect); Candida glabrata by PCR Not Detected (Not Detect); Candida krusei by PCR Not Detected (Not Detect); Candida parapsilosis by PCR Not Detected (Not Detect); Candida tropicalis by PCR Not Detected (Not Detect); Enterobacter cloacae Cmplx PCR Not Detected (Not Detect); Enterobacteriaceae by PCR Not Detected (Not Detect); Enterococcus by PCR Not Detected (Not Detect); Escherichia coli by PCR Not Detected (Not Detect); Klebsiella oxytoca by PCR Not Detected (Not Detect); Klebsiella pneumoniae by PCR Not Detected (Not Detect); Proteus by PCR Not Detected (Not Detect); Pseudomonas aeruginosa by PCR Not Detected (Not Detect); Serratia marcescens by PCR Not Detected (Not Detect); Staphylococcus aureus by PCR Not Detected (Not Detect); Staphylococcus by PCR DETECTED (Not Detect); Streptococcus agalactiae(B)PCR Not Detected (Not Detect); Streptococcus by PCR Not Detected (Not Detect); Streptococcus pneumoniae PCR Not Detected (Not Detect); Streptococcus pyogenes (A) PCR Not Detected (Not Detect); mecA Methicillin-Resist Gene Not Detected (Not Detect)
[2021-04-23] MEDS: Budesonide/Formoterol 160/4.5 1 PUFF INH IH SCH ×2 (08:11→20:01)
[2021-04-23] MEDS: Metoprolol 100 MG TABLET PO SCH ×2 (08:45→20:28)
[2021-04-23] MEDS: Loratadine 10 MG TABLET PO SCH (08:46)
[2021-04-23] MEDS: Zinc Sulfate 220 MG CAPSULE PO SCH (08:46)
[2021-04-23] MEDS: Apixaban 5 MG TABLET PO SCH ×2 (08:46→20:28)
[2021-04-23] MEDS: Gabapentin 400 MG CAPSULE PO SCH ×3 (08:46→20:28)
[2021-04-23] MEDS: Lactobacillus 1 EACH CAP.SPRINK PO SCH (08:46)
[2021-04-23] MEDS: Morphine Sulfate ER (12 HR) 30 MG TABLET.ER PO SCH ×3 (08:46→20:28)
[2021-04-23] MEDS: Cholecalciferol (D-3) 1,000 UNIT (25MCG) TABLET PO SCH (08:47)
[2021-04-23] MEDS: GuaiFENesin Liq 200 MG/10 ML UDC PO SCH ×3 (11:49→20:28)
[2021-04-23] MEDS: Finasteride 5 MG TABLET PO SCH (11:50)
[2021-04-23] MEDS: Fluticasone Propionate Nasal 50 MCG/SPRAY BOTTLE NS SCH (11:50)
[2021-04-23 13:43] LABS: Adenovirus F 40/41 PCR Not detected (Not detect); Astrovirus PCR Not detected (Not detect); C.difficile Toxin A/B Gene PCR Not detected (Not detect); Campylobacter by PCR Not detected (Not detect); Cryptosporidium by PCR Not detected (Not detect); Cyclospora cayetanensis PCR Not detected (Not detect); E. coli O157 by PCR Not detected (Not detect); Entamoeba histolytica PCR Not detected (Not detect); Enteroaggregative E.coli(EAEC) Not detected (Not detect); Enteropathogenic E.coli(EPEC) Not detected (Not detect); Enterotoxigenic E.coli (ETEC) Not detected (Not detect); Giardia lamblia PCR Not detected (Not detect); Norovirus GI/GII PCR Not detected (Not detect); Plesiomonas shigelloides PCR Not detected (Not detect); Rotavirus A PCR Not detected (Not detect); Salmonella PCR Not detected (Not detect); Sapovirus PCR Not detected (Not detect); Shig/EnteroinvasiveE coli EIEC Not detected (Not detect); Shigalike tox-prod E coli STEC Not detected (Not detect); Vibrio PCR Not detected (Not detect); Vibrio cholerae PCR Not detected (Not detect); Yersinia enterocolitica PCR Not detected (Not detect)
[2021-04-23] MEDS: levoFLOXacin 750 MG/150 ML 750 MG/150 ML BAG IVPB SCH (14:25)
[2021-04-23] MEDS: Ipratropium/Albuterol Neb 3 ML IH PRN (20:04)
[2021-04-23] MEDS: Famotidine 20 MG TABLET PO SCH (20:30)
[2021-04-24 01:38] LABS: Hematocrit 28.4 % (37.5-50.1); Hemoglobin 8.9 g/dL (12.9-16.9); Mean Corpuscular HGB Conc 31.3 g/dL (31.6-35.5); Mean Corpuscular Hemoglobin 28.2 pg (28.0-33.3); Mean Corpuscular Volume 89.9 fL (83.0-100.0); Mean Platelet Volume 10.4 fL (9.4-12.4); Platelet Count 208 K/mcL (140-400); Red Blood Count 3.16 M/mcL (4.19-5.50); White Blood Count 7.9 K/mcL (4.3-11.1)
[2021-04-24 02:05] LABS: BUN/Creatinine Ratio 16 (6-26); Blood Urea Nitrogen 14 mg/dL (8-23); Calcium 8.5 mg/dL (8.6-10.3); Carbon Dioxide 21 mEq/L (23-29); Chloride 105 mEq/L (98-107); Glucose 103 mg/dL (70-105); Osmolality,Calculated 275 (280-300); Potassium 4.3 mEq/L (3.5-5.1); Sodium 132 mEq/L (136-145); eGFR For African Americans > 60 (> 60); eGFR For Non-African Americans > 60 (> 60)
[2021-04-24] MEDS: Budesonide/Formoterol 160/4.5 1 PUFF INH IH SCH (07:41)
[2021-04-24] MEDS: Gabapentin 400 MG CAPSULE PO SCH ×2 (10:23→14:40)
[2021-04-24] MEDS: Cholecalciferol (D-3) 1,000 UNIT (25MCG) TABLET PO SCH (10:23)
[2021-04-24] MEDS: Finasteride 5 MG TABLET PO SCH (10:23)
[2021-04-24] MEDS: Zinc Sulfate 220 MG CAPSULE PO SCH (10:24)
[2021-04-24] MEDS: Lactobacillus 1 EACH CAP.SPRINK PO SCH (10:24)
[2021-04-24] MEDS: Loratadine 10 MG TABLET PO SCH (10:24)
[2021-04-24] MEDS: Apixaban 5 MG TABLET PO SCH (10:24)
[2021-04-24] MEDS: Fluticasone Propionate Nasal 50 MCG/SPRAY BOTTLE NS SCH (10:24)
[2021-04-24] MEDS: Metoprolol 100 MG TABLET PO SCH (10:24)
[2021-04-24] MEDS: Morphine Sulfate ER (12 HR) 30 MG TABLET.ER PO SCH ×2 (10:24→14:40)
[2021-04-24] MEDS: GuaiFENesin Liq 200 MG/10 ML UDC PO SCH (10:27)
[2021-04-24 11:28] VITALS: BP 121/71; PULSE 95; TEMP 98.5; O2SAT 94
== END 2021-04-24 14:47 | DRG 871 ==
LOC: EMEROOARM 10:50 → 3ANU 10:50 → SUATTDRO 15:54 → 3ANU 17:13
PROVIDERS: ADMIT Internal Medicine; ATTEND Internal Medicine

== ENCOUNTER 2021-05-10 23:36 | Inpatient (IN) ==
[2021-05-11] MEDS ORDERED: Vancomycin 1,500 MG/265 ML IV.SOLN IVPB ONE (00:06)
[2021-05-11] MEDS ORDERED: 0.9 % Sodium Chloride 1,000 ML IVC ONE (00:06)
[2021-05-11 01:41] LABS: Basophils % 0.3 %; Eosinophils % 0.1 %; Hematocrit 31.5 % (37.5-50.1); Hemoglobin 10.1 g/dL (12.9-16.9); Immature Granulocytes % 0.4 % (0-4); Lymphocytes # 0.3 K/mcL (0.6-4.6); Lymphocytes % 4.3 %; Mean Corpuscular HGB Conc 32.1 g/dL (31.6-35.5); Mean Corpuscular Hemoglobin 28.1 pg (28.0-33.3); Mean Corpuscular Volume 87.5 fL (83.0-100.0); Mean Platelet Volume 9.3 fL (9.4-12.4); Monocytes # 0.3 K/mcL (0.0-1.3); Monocytes % 4.2 %; Neutrophils # 6.8 K/mcL (1.6-8.9); Platelet Count 197 K/mcL (140-400); Red Cell Distribution Width 16.5 % (11.5-14.5); Segmented Neutrophils % 90.7 %; White Blood Count 7.5 K/mcL (4.3-11.1)
[2021-05-11 01:49] LABS: INR 2.1; Prothrombin Time 22.8 Seconds (9.4-12.1)
[2021-05-11 01:51] LABS: Activated Partial Thrombo Time 35.4 Seconds (26.0-36.0)
[2021-05-11 02:03] LABS: Alanine Aminotransferase 142 Units/L (7-52); Albumin 3.5 g/dL (3.5-5.7); Albumin/Globulin Ratio 1.2 (1.1-2.2); Alkaline Phosphatase 295 Units/L (34-104); Aspartate Amino Transferase 178 Units/L (13-39); BUN/Creatinine Ratio 18 (6-26); Bilirubin,Direct 0.1 mg/dL (0.0-0.2); Bilirubin,Indirect 0.3 mg/dL (0.0-1.0); Bilirubin,Total 0.4 mg/dL (0.3-1.0); Blood Urea Nitrogen 15 mg/dL (8-23); Calcium 8.8 mg/dL (8.6-10.3); Carbon Dioxide 28 mEq/L (23-29); Chloride 101 mEq/L (98-107); Glucose 103 mg/dL (70-105); Osmolality,Calculated 281 (280-300); Potassium 4.6 mEq/L (3.5-5.1); Sodium 135 mEq/L (136-145); Total Protein 6.5 g/dL (6.4-8.9); Troponin I < 0.03 ng/mL (< 0.04); eGFR For African Americans > 60 (> 60); eGFR For Non-African Americans > 60 (> 60)
[2021-05-11] MEDS ORDERED: Isovue-370 500 ML BOTTLE IVP ONE (02:20)
[2021-05-11 03:29] LABS: Bacteria,Urine Few per hpf (None-Few); Bilirubin,Urine Negative (Negative); Blood,Urine Small (Negative); Clarity,Urine Turbid (Clear); Color,Urine Light-Yellow (Yellow); Glucose,Urine (UA) Normal (Normal); Ketones,Urine Negative (Negative); Leukocyte Esterase,Urine Large (Negative); Mucus,Urine Few per lpf (None-Few); Nitrite,Urine Positive (Negative); Protein,Urine Trace mg/dL (Neg-Trace); RBC,Urine 15-30 per hpf (0-3); Specific Gravity,Urine 1.017 (1.010-1.025); Squamous Epithelial Cell,Urine Few per hpf (None-Few); Urobilinogen,Urine Normal (Normal); WBC,Urine TNTC per hpf (0-3)
[2021-05-11] MEDS ORDERED: Cefepime HCl 2,000 MG in 0.9 % Sodium Chloride Mini Bag 100 ML IVPB STA (04:30)
[2021-05-11 05:20] LABS: Adenovirus Not Detected (Not Detect); Bordetella Pertussis Not Detected (Not Detect); Chlamydophila pneumoniae Not Detected (Not Detect); Coronavirus 229E Not Detected (Not Detect); Coronavirus HKU1 Not Detected (Not Detect); Coronavirus NL63 Not Detected (Not Detect); Coronavirus OC43 Not Detected (Not Detect); Human Metapneumovirus Not Detected (Not Detect); Human Rhinovirus/Enterovirus Not Detected (Not Detect); Influenza A Subtype 2009 H1 Not Detected (Not Detect); Influenza B Not Detected (Not Detect); Mycoplasma pneumoniae Not Detected (Not Detect); Parainfluenza Virus 1 Not Detected (Not Detect); Parainfluenza Virus 2 Not Detected (Not Detect); Parainfluenza Virus 3 Not Detected (Not Detect); Parainfluenza Virus 4 Not Detected (Not Detect); Respiratory Syncytial Virus Not Detected (Not Detect); SARS-CoV-2 Not Detected (Not Detect)
[2021-05-11] MEDS ORDERED: Naloxone 0.4 MG/ML INJ IVP PRN (05:20)
[2021-05-11] MEDS ORDERED: Ondansetron 4 MG/2 ML VIAL IVP PRN (05:20)
[2021-05-11] MEDS ORDERED: D5% in Water 1,000 ML IVC PRN (05:27)
[2021-05-11] MEDS ORDERED: *HR* Dextrose 50 % in Water (Syg) 50 ML SYRINGE IVP PRN (05:27)
[2021-05-11] MEDS ORDERED: Dextrose Gel 15 GM/37.5 ML TUBE PO PRN ×2 (05:27)
[2021-05-11] MEDS ORDERED: Acetaminophen 325 MG TABLET PO PRN (06:00)
[2021-05-11] MEDS: Insulin LISPRO 300 UNITS/3 ML VIAL SUBQ SCH ×4 (08:50→20:12)
[2021-05-11] MEDS ORDERED: cefTRIAXone 1,000 MG in 0.9 % Sodium Chloride Mini Bag 100 ML IVPB SCH (10:00)
[2021-05-11] MEDS: Azithromycin 250 MG TABLET PO SCH (10:38)
[2021-05-11 11:55] LABS: Estimated Average Glucose 111 mg/dl; Hemoglobin A1C 5.5 %
[2021-05-11] MEDS: Ipratropium/Albuterol Neb 3 ML IH SCH (17:09)
[2021-05-11] MEDS: Lactobacillus 1 EACH CAP.SPRINK PO SCH (20:07)
[2021-05-11] MEDS: Chlorhexidine Rinse 15 ML MOUTHWASH MM SCH (20:07)
[2021-05-11] MEDS ORDERED: Gabapentin 400 MG CAPSULE PO SCH (21:45)
[2021-05-12] MEDS: Ipratropium/Albuterol Neb 3 ML IH SCH ×5 (00:44→21:43)
[2021-05-12] MEDS: Budesonide/Formoterol 160/4.5 1 PUFF INH IH SCH ×3 (01:02→21:43)
[2021-05-12] MEDS: Gabapentin 400 MG CAPSULE PO SCH ×4 (02:36→21:30)
[2021-05-12] MEDS: GuaiFENesin Liq 200 MG/10 ML UDC PO SCH ×3 (08:00→22:23)
[2021-05-12] MEDS: Fluticasone Propionate Nasal 50 MCG/SPRAY BOTTLE NS SCH ×2 (08:00→21:58)
[2021-05-12] MEDS: Insulin LISPRO 300 UNITS/3 ML VIAL SUBQ SCH ×4 (08:12→21:44)
[2021-05-12] MEDS: Capsaicin 0.025% 60 GM TUBE TP SCH ×3 (08:16→21:30)
[2021-05-12] MEDS: Artificial Tears SOLN 15 ML BOTTLE BOTH EYES SCH ×4 (08:16→21:30)
[2021-05-12] MEDS: cefTRIAXone 1,000 MG in 0.9 % Sodium Chloride Mini Bag 100 ML IVPB SCH (08:16)
[2021-05-12] MEDS: Apixaban 5 MG TABLET PO SCH ×2 (08:17→21:30)
[2021-05-12] MEDS: Lactobacillus 1 EACH CAP.SPRINK PO SCH ×2 (08:17→21:31)
[2021-05-12] MEDS: Metoprolol 100 MG TABLET PO SCH ×2 (08:17→21:31)
[2021-05-12] MEDS: Finasteride 5 MG TABLET PO SCH (08:17)
[2021-05-12] MEDS: Cholecalciferol (D-3) 1,000 UNIT (25MCG) TABLET PO SCH (08:17)
[2021-05-12] MEDS: Loratadine 10 MG TABLET PO SCH (08:17)
[2021-05-12] MEDS: Chlorhexidine Rinse 15 ML MOUTHWASH MM SCH ×2 (08:18→21:31)
[2021-05-12 08:31] LABS: Hematocrit 30.5 % (37.5-50.1); Hemoglobin 9.7 g/dL (12.9-16.9); Mean Corpuscular HGB Conc 31.8 g/dL (31.6-35.5); Mean Corpuscular Volume 87.9 fL (83.0-100.0); Mean Platelet Volume 9.8 fL (9.4-12.4); Platelet Count 170 K/mcL (140-400); Red Blood Count 3.47 M/mcL (4.19-5.50); Red Cell Distribution Width 16.5 % (11.5-14.5); White Blood Count 5.1 K/mcL (4.3-11.1)
[2021-05-12] MEDS: polyethylene glycoL 3350 17 GM POWD.PACK PO SCH ×2 (08:38→21:29)
[2021-05-12] MEDS: Morphine Sulfate Immed Rel 15 MG TABLET PO PRN ×2 (08:43→16:56)
[2021-05-12] MEDS: Azithromycin 250 MG TABLET PO SCH (08:44)
[2021-05-12 08:54] LABS: BUN/Creatinine Ratio 19 (6-26); Blood Urea Nitrogen 15 mg/dL (8-23); Calcium 8.7 mg/dL (8.6-10.3); Carbon Dioxide 23 mEq/L (23-29); Chloride 102 mEq/L (98-107); Chol/HDL Ratio 2.1 (0-4.9); Cholesterol 86 mg/dL (< 200); Glucose 103 mg/dL (70-105); HDL Cholesterol 41 mg/dL (40-59); LDL Cholesterol,Calculated 33 mg/dL (< 100); Magnesium 1.9 mg/dL (1.6-2.6); Osmolality,Calculated 281 (280-300); Potassium 3.7 mEq/L (3.5-5.1); Sodium 135 mEq/L (136-145); Triglycerides 62 mg/dL (< 150); eGFR For African Americans > 60 (> 60); eGFR For Non-African Americans > 60 (> 60)
[2021-05-12 09:01] LABS: Iron 12 mcg/dL (65-175)
[2021-05-12 09:09] LABS: Ferritin 55 ng/mL (20-250)
[2021-05-12 09:21] LABS: Folate 13.4 ng/mL (3.0-16.0)
[2021-05-12 09:39] LABS: Alanine Aminotransferase 92 Units/L (7-52); Albumin 3.4 g/dL (3.5-5.7); Albumin/Globulin Ratio 1.2 (1.1-2.2); Alkaline Phosphatase 208 Units/L (34-104); Aspartate Amino Transferase 67 Units/L (13-39); Bilirubin,Direct 0.1 mg/dL (0.0-0.2); Bilirubin,Indirect 0.2 mg/dL (0.0-1.0); Bilirubin,Total 0.3 mg/dL (0.3-1.0); Globulin 2.9 g/dL (2.4-3.5); Total Protein 6.3 g/dL (6.4-8.9)
[2021-05-12] MEDS ORDERED: Famotidine 20 MG TABLET PO SCH (21:00)
[2021-05-13] MEDS: Morphine Sulfate Immed Rel 15 MG TABLET PO PRN ×2 (01:29→09:41)
[2021-05-13 03:02] LABS: % Iron Saturation 3 % (20-55); Transferrin 251 mg/dL (203-362)
[2021-05-13] MEDS: Gabapentin 400 MG CAPSULE PO SCH (04:51)
[2021-05-13] MEDS: Ipratropium/Albuterol Neb 3 ML IH SCH ×2 (04:52→08:31)
[2021-05-13 05:56] LABS: Basophils % 0.4 %; Eosinophils # 0.1 K/mcL (0.0-0.6); Eosinophils % 1.8 %; Hematocrit 28.7 % (37.5-50.1); Immature Granulocytes % 0.4 % (0-4); Lymphocytes # 1.5 K/mcL (0.6-4.6); Mean Corpuscular HGB Conc 31.4 g/dL (31.6-35.5); Mean Corpuscular Hemoglobin 27.5 pg (28.0-33.3); Mean Corpuscular Volume 87.8 fL (83.0-100.0); Monocytes # 0.6 K/mcL (0.0-1.3); Monocytes % 10.7 %; Neutrophils # 3.4 K/mcL (1.6-8.9); Platelet Count 164 K/mcL (140-400); Red Blood Count 3.27 M/mcL (4.19-5.50); Red Cell Distribution Width 16.4 % (11.5-14.5); Segmented Neutrophils % 59.7 %; White Blood Count 5.6 K/mcL (4.3-11.1)
[2021-05-13 06:21] LABS: Alanine Aminotransferase 65 Units/L (7-52); Albumin 3.3 g/dL (3.5-5.7); Albumin/Globulin Ratio 1.2 (1.1-2.2); Alkaline Phosphatase 167 Units/L (34-104); Aspartate Amino Transferase 35 Units/L (13-39); BUN/Creatinine Ratio 22 (6-26); Bilirubin,Total 0.3 mg/dL (0.3-1.0); Blood Urea Nitrogen 18 mg/dL (8-23); Calcium 8.7 mg/dL (8.6-10.3); Carbon Dioxide 24 mEq/L (23-29); Chloride 102 mEq/L (98-107); Globulin 2.8 g/dL (2.4-3.5); Glucose 88 mg/dL (70-105); Osmolality,Calculated 277 (280-300); Potassium 4.1 mEq/L (3.5-5.1); Sodium 133 mEq/L (136-145); Total Protein 6.1 g/dL (6.4-8.9); eGFR For African Americans > 60 (> 60); eGFR For Non-African Americans > 60 (> 60)
[2021-05-13] MEDS: cefTRIAXone 1,000 MG in 0.9 % Sodium Chloride Mini Bag 100 ML IVPB SCH (08:19)
[2021-05-13] MEDS: Cholecalciferol (D-3) 1,000 UNIT (25MCG) TABLET PO SCH (08:22)
[2021-05-13] MEDS: Lactobacillus 1 EACH CAP.SPRINK PO SCH (08:23)
[2021-05-13] MEDS: Loratadine 10 MG TABLET PO SCH (08:24)
[2021-05-13] MEDS: Apixaban 5 MG TABLET PO SCH (08:25)
[2021-05-13] MEDS: Finasteride 5 MG TABLET PO SCH (08:26)
[2021-05-13] MEDS: Metoprolol 100 MG TABLET PO SCH (08:27)
[2021-05-13] MEDS: Fluticasone Propionate Nasal 50 MCG/SPRAY BOTTLE NS SCH (08:28)
[2021-05-13] MEDS: Artificial Tears SOLN 15 ML BOTTLE BOTH EYES SCH (08:29)
[2021-05-13] MEDS: GuaiFENesin Liq 200 MG/10 ML UDC PO SCH (08:29)
[2021-05-13] MEDS: Chlorhexidine Rinse 15 ML MOUTHWASH MM SCH (08:29)
[2021-05-13] MEDS: Capsaicin 0.025% 60 GM TUBE TP SCH (08:31)
[2021-05-13] MEDS: Insulin LISPRO 300 UNITS/3 ML VIAL SUBQ SCH ×2 (08:31→12:37)
[2021-05-13] MEDS: Budesonide/Formoterol 160/4.5 1 PUFF INH IH SCH (08:32)
[2021-05-13] MEDS: polyethylene glycoL 3350 17 GM POWD.PACK PO SCH (08:46)
[2021-05-13] MEDS: Azithromycin 250 MG TABLET PO SCH (10:00)
[2021-05-13 11:23] VITALS: BP 128/79; PULSE 79; TEMP 97.9; O2SAT 96
[2021-05-13 12:08] LABS: Adenovirus Not Detected (Not Detect); Bordetella Pertussis Not Detected (Not Detect); Chlamydophila pneumoniae Not Detected (Not Detect); Coronavirus 229E Not Detected (Not Detect); Coronavirus HKU1 Not Detected (Not Detect); Coronavirus NL63 Not Detected (Not Detect); Coronavirus OC43 Not Detected (Not Detect); Human Metapneumovirus Not Detected (Not Detect); Human Rhinovirus/Enterovirus Not Detected (Not Detect); Influenza A Subtype 2009 H1 Not Detected (Not Detect); Influenza B Not Detected (Not Detect); Mycoplasma pneumoniae Not Detected (Not Detect); Parainfluenza Virus 1 Not Detected (Not Detect); Parainfluenza Virus 2 Not Detected (Not Detect); Parainfluenza Virus 3 Not Detected (Not Detect); Parainfluenza Virus 4 Not Detected (Not Detect); Respiratory Syncytial Virus Not Detected (Not Detect); SARS-CoV-2 Not Detected (Not Detect)
== END 2021-05-13 13:20 | DRG 871 ==
LOC: 4WAOSI 23:36 → EMEROOARM 23:36 → SUATTDRO 05-11 05:34 → 4WAOSI 05-11 06:30 → SUATTDRO 05-12 18:17
PROVIDERS: ADMIT Student in an Organized Health Care Education/Training Program; ATTEND Internal Medicine

== ENCOUNTER 2021-05-22 15:50 | Inpatient (IN) ==
[2021-05-22] MEDS ORDERED: *HR* Dextrose 50 % in Water (Syg) 50 ML SYRINGE ONE (15:57)
[2021-05-22] MEDS ORDERED: 0.9 % Sodium Chloride 1,000 ML ONE (16:04)
[2021-05-22 16:41] LABS: Bacteria,Urine Few per hpf (None-Few); Bilirubin,Urine Negative (Negative); Blood,Urine Trace (Negative); Clarity,Urine Clear (Clear); Color,Urine Light-Yellow (Yellow); Glucose,Urine (UA) 50 mg/dL (Normal); Hyaline Casts,Urine Few per lpf (None Seen); Ketones,Urine Negative (Negative); Leukocyte Esterase,Urine Large (Negative); Mucus,Urine Few per lpf (None-Few); Nitrite,Urine Negative (Negative); Protein,Urine Negative (Neg-Trace); Specific Gravity,Urine 1.012 (1.010-1.025); Squamous Epithelial Cell,Urine Few per hpf (None-Few); Urobilinogen,Urine Normal (Normal); WBC,Urine 50-100 per hpf (0-3)
[2021-05-22 16:43] LABS: Basophils % 0.3 %; Eosinophils # 0.2 K/mcL (0.0-0.6); Eosinophils % 1.4 %; Hematocrit 29.9 % (37.5-50.1); Hemoglobin 9.1 g/dL (12.9-16.9); Immature Granulocytes % 0.3 % (0-4); Lymphocytes # 1.2 K/mcL (0.6-4.6); Lymphocytes % 10.3 %; Mean Corpuscular HGB Conc 30.4 g/dL (31.6-35.5); Mean Corpuscular Hemoglobin 27.5 pg (28.0-33.3); Mean Corpuscular Volume 90.3 fL (83.0-100.0); Mean Platelet Volume 10.4 fL (9.4-12.4); Monocytes # 0.6 K/mcL (0.0-1.3); Monocytes % 5.1 %; Neutrophils # 9.8 K/mcL (1.6-8.9); Platelet Count 239 K/mcL (140-400); Red Blood Count 3.31 M/mcL (4.19-5.50); Red Cell Distribution Width 16.7 % (11.5-14.5); Segmented Neutrophils % 82.6 %; White Blood Count 11.8 K/mcL (4.3-11.1)
[2021-05-22 16:50] LABS: INR 1.3; Prothrombin Time 14.5 Seconds (9.4-12.1)
[2021-05-22 16:53] LABS: Activated Partial Thrombo Time 35.2 Seconds (26.0-36.0)
[2021-05-22 17:02] LABS: Amphetamine Screen,Urine Negative ng/mL (Cutoff=1000); Barbiturate Screen,Urine Negative ng/mL (Cutoff=200); Benzodiazepines Screen,Urine Negative ng/mL (Cutoff=200); Cannabinoid Screen,Urine Negative ng/mL (Cutoff = 50); Cocaine Screen,Urine Negative ng/mL (Cutoff= 300); Opiate Screen,Urine Positive ng/mL (Cutoff=300); Phencyclidine Screen,Urine Negative ng/mL (Cutoff=25)
[2021-05-22] MEDS ORDERED: Ertapenem 1,000 MG in 0.9 % Sodium Chloride Mini Bag 100 ML IVPB ONE (17:17)
[2021-05-22 17:26] LABS: Alanine Aminotransferase 15 Units/L (7-52); Alkaline Phosphatase 82 Units/L (34-104); Aspartate Amino Transferase 15 Units/L (13-39); BUN/Creatinine Ratio 17 (6-26); Bilirubin,Indirect 0.2 mg/dL (0.0-1.0); Bilirubin,Total 0.2 mg/dL (0.3-1.0); Blood Urea Nitrogen 13 mg/dL (8-23); Calcium 7.9 mg/dL (8.6-10.3); Carbon Dioxide 24 mEq/L (23-29); Chloride 107 mEq/L (98-107); Ethanol < 10 mg/dL (Less than 10); Globulin 3.1 g/dL (2.4-3.5); Glucose 211 mg/dL (70-105); Osmolality,Calculated 290 (280-300); Potassium 4.3 mEq/L (3.5-5.1); Sodium 137 mEq/L (136-145); Thyroid Stimulating Hormone 0.711 mcIU/mL (0.340-5.600); Total Protein 6.1 g/dL (6.4-8.9); Troponin I 0.03 ng/mL (< 0.04); eGFR For African Americans > 60 (> 60); eGFR For Non-African Americans > 60 (> 60)
[2021-05-22] MEDS ORDERED: LACTASE 3000 UNIT PO PRN (20:53)
[2021-05-22] MEDS ORDERED: Acetaminophen 325 MG TABLET PO PRN (21:00)
[2021-05-22] MEDS ORDERED: Famotidine 20 MG TABLET PO SCH (21:00)
[2021-05-22] MEDS ORDERED: Metoprolol 100 MG TABLET PO SCH (21:00)
[2021-05-22] MEDS ORDERED: Naloxone 0.4 MG/ML INJ IVP PRN (21:00)
[2021-05-22] MEDS ORDERED: Apixaban 5 MG TABLET PO SCH (21:00)
[2021-05-22] MEDS ORDERED: Fluticasone Propionate Nasal 50 MCG/SPRAY BOTTLE NS SCH (21:00)
[2021-05-22] MEDS ORDERED: Ondansetron 4 MG/2 ML VIAL IVP PRN (21:00)
[2021-05-22] MEDS ORDERED: Capsaicin 0.025% 60 GM TUBE TP SCH (21:00)
[2021-05-22] MEDS ORDERED: Gabapentin 400 MG CAPSULE PO SCH (21:00)
[2021-05-22] MEDS ORDERED: *HR* Dextrose 50 % in Water (Syg) 50 ML SYRINGE IVP PRN (21:15)
[2021-05-22] MEDS ORDERED: Dextrose Gel 15 GM/37.5 ML TUBE PO PRN ×2 (21:15)
[2021-05-22] MEDS ORDERED: D5% in Water 1,000 ML IVC PRN (21:15)
[2021-05-22 22:08] LABS: VBG HCO3 23 mEq/L (21-27); VBG PCO2 41 mmHg (41-51); VBG PH 7.36 pH Units (7.32-7.42); VBG PO2 83 mmHg (25-50)
[2021-05-22] MEDS: Levalbuterol Neb 1.25 MG/3 ML IH SCH (23:09)
[2021-05-22] MEDS: Budesonide/Formoterol 80/4.5 1 PUFF INH IH SCH (23:13)
[2021-05-22] MEDS ORDERED: Lidocaine Jelly 2% 30 ML JEL..ML. TP SCH (23:15)
[2021-05-23 01:31] LABS: Influenza A PCR Negative (Negative); Influenza B PCR Negative (Negative); Resp. Syncytial Virus PCR Negative (Negative); SARS-CoV-2 by PCR (In House) Negative (Negative)
[2021-05-23 01:55] LABS: Hematocrit 31.9 % (37.5-50.1); Hemoglobin 9.3 g/dL (12.9-16.9); Mean Corpuscular HGB Conc 29.2 g/dL (31.6-35.5); Mean Corpuscular Hemoglobin 27.3 pg (28.0-33.3); Mean Corpuscular Volume 93.5 fL (83.0-100.0); Mean Platelet Volume 10.5 fL (9.4-12.4); Platelet Count 202 K/mcL (140-400); Red Blood Count 3.41 M/mcL (4.19-5.50); Red Cell Distribution Width 16.9 % (11.5-14.5); White Blood Count 6.7 K/mcL (4.3-11.1)
[2021-05-23] MEDS ORDERED: Apixaban 5 MG TABLET PO SCH (02:30)
[2021-05-23] MEDS ORDERED: *HR* OxyCODONE Immed Rel 15 MG TABLET PO PRN (03:06)
[2021-05-23] MEDS: Gabapentin 400 MG CAPSULE PO SCH ×3 (03:15→18:01)
[2021-05-23] MEDS: Apixaban 5 MG TABLET PO SCH ×3 (03:16→22:15)
[2021-05-23] MEDS: Metoprolol 100 MG TABLET PO SCH ×2 (03:16→22:14)
[2021-05-23] MEDS: polyethylene glycoL 3350 17 GM POWD.PACK PO SCH ×3 (03:17→22:17)
[2021-05-23] MEDS: Lactobacillus 1 EACH CAP.SPRINK PO SCH ×3 (03:17→22:15)
[2021-05-23] MEDS: Artificial Tears SOLN 15 ML BOTTLE BOTH EYES SCH ×5 (03:17→22:16)
[2021-05-23] MEDS: Insulin LISPRO 300 UNITS/3 ML VIAL SUBQ SCH ×5 (03:18→22:17)
[2021-05-23] MEDS: Fluticasone Propionate Nasal 50 MCG/SPRAY BOTTLE NS SCH ×3 (03:18→22:17)
[2021-05-23] MEDS: Famotidine 20 MG TABLET PO SCH ×2 (03:22→22:16)
[2021-05-23] MEDS ORDERED: Morphine Sulfate Immed Rel 15 MG TABLET PO ONE (04:28)
[2021-05-23] MEDS: Levalbuterol Neb 1.25 MG/3 ML IH SCH ×4 (04:45→21:48)
[2021-05-23] MEDS: Lidocaine Jelly 2% 30 ML JEL..ML. TP SCH ×4 (05:56→22:17)
[2021-05-23] MEDS: Morphine Sulfate Immed Rel 15 MG TABLET PO SCH ×5 (05:56→22:16)
[2021-05-23] MEDS: Capsaicin 0.025% 60 GM TUBE TP SCH ×4 (05:57→22:17)
[2021-05-23 06:36] LABS: INR 1.3; Prothrombin Time 14.2 Seconds (9.4-12.1)
[2021-05-23 06:39] LABS: Activated Partial Thrombo Time 31.8 Seconds (26.0-36.0)
[2021-05-23 06:40] LABS: % Iron Saturation 8 % (20-55); BUN/Creatinine Ratio 15 (6-26); Blood Urea Nitrogen 11 mg/dL (8-23); Calcium 8.3 mg/dL (8.6-10.3); Carbon Dioxide 23 mEq/L (23-29); Chloride 110 mEq/L (98-107); Chol/HDL Ratio 2.1 (0-4.9); Cholesterol 77 mg/dL (< 200); Glucose 96 mg/dL (70-105); HDL Cholesterol 37 mg/dL (40-59); Iron 27 mcg/dL (65-175); LDL Cholesterol,Calculated 29 mg/dL (< 100); Magnesium 1.6 mg/dL (1.6-2.6); Osmolality,Calculated 287 (280-300); Potassium 3.9 mEq/L (3.5-5.1); Sodium 139 mEq/L (136-145); Transferrin 246 mg/dL (203-362); Triglycerides 53 mg/dL (< 150); eGFR For African Americans > 60 (> 60); eGFR For Non-African Americans > 60 (> 60)
[2021-05-23 06:56] LABS: Ferritin 27 ng/mL (20-250)
[2021-05-23] MEDS: Finasteride 5 MG TABLET PO SCH (09:25)
[2021-05-23] MEDS: Loratadine 10 MG TABLET PO SCH (09:26)
[2021-05-23] MEDS: Cholecalciferol (D-3) 1,000 UNIT (25MCG) TABLET PO SCH (09:26)
[2021-05-23] MEDS: Tiotropium 10 INH DOSE IH SCH (10:53)
[2021-05-23] MEDS: Budesonide/Formoterol 80/4.5 1 PUFF INH IH SCH ×2 (10:54→21:50)
[2021-05-23 14:10] LABS: Estimated Average Glucose 120 mg/dl; Hemoglobin A1C 5.8 %
[2021-05-23] MEDS ORDERED: Ertapenem 1,000 MG in 0.9 % Sodium Chloride Mini Bag 100 ML IVPB SCH (18:00)
[2021-05-23] MEDS ORDERED: Famotidine 20 MG TABLET PO SCH (21:00)
[2021-05-24 02:06] LABS: Hematocrit 27.8 % (37.5-50.1); Hemoglobin 8.6 g/dL (12.9-16.9); Mean Corpuscular HGB Conc 30.9 g/dL (31.6-35.5); Mean Corpuscular Hemoglobin 27.5 pg (28.0-33.3); Mean Corpuscular Volume 88.8 fL (83.0-100.0); Mean Platelet Volume 10.3 fL (9.4-12.4); Platelet Count 197 K/mcL (140-400); Red Blood Count 3.13 M/mcL (4.19-5.50); Red Cell Distribution Width 16.8 % (11.5-14.5); White Blood Count 6.9 K/mcL (4.3-11.1)
[2021-05-24 02:16] LABS: Blood Urea Nitrogen 17 mg/dL (8-23); Calcium 8.1 mg/dL (8.6-10.3); Carbon Dioxide 27 mEq/L (23-29); Chloride 106 mEq/L (98-107); Glucose 105 mg/dL (70-105); Osmolality,Calculated 286 (280-300); Potassium 4.5 mEq/L (3.5-5.1); Sodium 137 mEq/L (136-145)
[2021-05-24] MEDS: Gabapentin 400 MG CAPSULE PO SCH ×3 (02:31→20:58)
[2021-05-24 03:08] LABS: BUN/Creatinine Ratio 21 (6-26); eGFR For African Americans > 60 (> 60); eGFR For Non-African Americans > 60 (> 60)
[2021-05-24] MEDS: Levalbuterol Neb 1.25 MG/3 ML IH SCH ×4 (03:21→21:19)
[2021-05-24] MEDS: Insulin LISPRO 300 UNITS/3 ML VIAL SUBQ SCH ×4 (08:13→21:01)
[2021-05-24] MEDS: Metoprolol 100 MG TABLET PO SCH ×2 (08:15→20:58)
[2021-05-24] MEDS: Cholecalciferol (D-3) 1,000 UNIT (25MCG) TABLET PO SCH (08:15)
[2021-05-24] MEDS: Morphine Sulfate Immed Rel 15 MG TABLET PO SCH ×4 (08:16→20:56)
[2021-05-24] MEDS: Finasteride 5 MG TABLET PO SCH (08:16)
[2021-05-24] MEDS: Apixaban 5 MG TABLET PO SCH ×2 (08:16→20:58)
[2021-05-24] MEDS: Loratadine 10 MG TABLET PO SCH (08:16)
[2021-05-24] MEDS: Lactobacillus 1 EACH CAP.SPRINK PO SCH ×2 (08:16→20:58)
[2021-05-24] MEDS: Lidocaine Jelly 2% 30 ML JEL..ML. TP SCH ×3 (08:17→21:02)
[2021-05-24] MEDS: Capsaicin 0.025% 60 GM TUBE TP SCH ×3 (08:17→21:02)
[2021-05-24] MEDS: Fluticasone Propionate Nasal 50 MCG/SPRAY BOTTLE NS SCH ×2 (08:17→21:02)
[2021-05-24] MEDS: polyethylene glycoL 3350 17 GM POWD.PACK PO SCH ×2 (08:17→20:56)
[2021-05-24] MEDS: Artificial Tears SOLN 15 ML BOTTLE BOTH EYES SCH ×4 (08:17→21:02)
[2021-05-24] MEDS: Budesonide/Formoterol 80/4.5 1 PUFF INH IH SCH ×2 (11:10→21:20)
[2021-05-24] MEDS: Tiotropium 10 INH DOSE IH SCH (11:10)
[2021-05-24] MEDS: Piperacillin/Tazobactam 3.375 GM in 0.9 % Sodium Chloride Mini Bag 100 ML IVPB SCH (17:11)
[2021-05-24] MEDS: Famotidine 20 MG TABLET PO SCH (20:56)
[2021-05-24] MEDS: Doxycycline 100 MG CAPSULE PO SCH (20:57)
[2021-05-24] MEDS: SALSALATE 750 MG PO SCH (21:02)
[2021-05-25] MEDS: Piperacillin/Tazobactam 3.375 GM in 0.9 % Sodium Chloride Mini Bag 100 ML IVPB SCH ×3 (00:27→16:14)
[2021-05-25] MEDS: Levalbuterol Neb 1.25 MG/3 ML IH SCH ×4 (03:28→20:30)
[2021-05-25] MEDS: Gabapentin 400 MG CAPSULE PO SCH ×4 (05:18→21:56)
[2021-05-25 07:22] LABS: Basophils % 0.2 %; Eosinophils # 0.1 K/mcL (0.0-0.6); Eosinophils % 1.8 %; Hematocrit 28.6 % (37.5-50.1); Hemoglobin 9.3 g/dL (12.9-16.9); Immature Granulocytes % 0.2 % (0-4); Lymphocytes # 1.5 K/mcL (0.6-4.6); Lymphocytes % 32.4 %; Mean Corpuscular HGB Conc 32.5 g/dL (31.6-35.5); Mean Corpuscular Hemoglobin 28.3 pg (28.0-33.3); Mean Corpuscular Volume 86.9 fL (83.0-100.0); Mean Platelet Volume 10.4 fL (9.4-12.4); Monocytes # 0.5 K/mcL (0.0-1.3); Monocytes % 10.7 %; Neutrophils # 2.5 K/mcL (1.6-8.9); Platelet Count 191 K/mcL (140-400); Red Blood Count 3.29 M/mcL (4.19-5.50); Red Cell Distribution Width 16.4 % (11.5-14.5); Segmented Neutrophils % 54.7 %; White Blood Count 4.5 K/mcL (4.3-11.1)
[2021-05-25] MEDS: Insulin LISPRO 300 UNITS/3 ML VIAL SUBQ SCH ×4 (07:33→21:53)
[2021-05-25 07:42] LABS: BUN/Creatinine Ratio 18 (6-26); Blood Urea Nitrogen 15 mg/dL (8-23); Calcium 8.5 mg/dL (8.6-10.3); Carbon Dioxide 29 mEq/L (23-29); Chloride 101 mEq/L (98-107); Glucose 90 mg/dL (70-105); Osmolality,Calculated 282 (280-300); Potassium 4.2 mEq/L (3.5-5.1); Sodium 136 mEq/L (136-145); eGFR For African Americans > 60 (> 60); eGFR For Non-African Americans > 60 (> 60)
[2021-05-25] MEDS: Morphine Sulfate Immed Rel 15 MG TABLET PO SCH ×4 (09:44→21:51)
[2021-05-25] MEDS: Cholecalciferol (D-3) 1,000 UNIT (25MCG) TABLET PO SCH (09:45)
[2021-05-25] MEDS: Loratadine 10 MG TABLET PO SCH (09:45)
[2021-05-25] MEDS: Metoprolol 100 MG TABLET PO SCH ×2 (09:46→21:49)
[2021-05-25] MEDS: Lactobacillus 1 EACH CAP.SPRINK PO SCH ×2 (09:46→21:48)
[2021-05-25] MEDS: Apixaban 5 MG TABLET PO SCH ×2 (09:46→21:53)
[2021-05-25] MEDS: Doxycycline 100 MG CAPSULE PO SCH ×2 (09:46→21:50)
[2021-05-25] MEDS: Finasteride 5 MG TABLET PO SCH (09:46)
[2021-05-25] MEDS: SALSALATE 750 MG PO SCH ×2 (09:47→21:54)
[2021-05-25] MEDS: Artificial Tears SOLN 15 ML BOTTLE BOTH EYES SCH ×4 (09:47→21:52)
[2021-05-25] MEDS: polyethylene glycoL 3350 17 GM POWD.PACK PO SCH ×2 (09:47→21:51)
[2021-05-25] MEDS: Capsaicin 0.025% 60 GM TUBE TP SCH ×3 (09:47→21:55)
[2021-05-25] MEDS: Lidocaine Jelly 2% 30 ML JEL..ML. TP SCH ×3 (09:47→21:54)
[2021-05-25] MEDS: Fluticasone Propionate Nasal 50 MCG/SPRAY BOTTLE NS SCH ×2 (09:47→21:53)
[2021-05-25] MEDS: Budesonide/Formoterol 80/4.5 1 PUFF INH IH SCH ×2 (10:33→20:30)
[2021-05-25] MEDS: Tiotropium 10 INH DOSE IH SCH (10:34)
[2021-05-25] MEDS: Famotidine 20 MG TABLET PO SCH (21:51)
[2021-05-26] MEDS: Piperacillin/Tazobactam 3.375 GM in 0.9 % Sodium Chloride Mini Bag 100 ML IVPB SCH ×3 (00:37→15:25)
[2021-05-26 02:06] LABS: Basophils % 0.4 %; Eosinophils # 0.2 K/mcL (0.0-0.6); Eosinophils % 3.7 %; Hematocrit 28.6 % (37.5-50.1); Hemoglobin 9.1 g/dL (12.9-16.9); Immature Granulocytes % 0.4 % (0-4); Lymphocytes % 19.4 %; Mean Corpuscular HGB Conc 31.8 g/dL (31.6-35.5); Mean Corpuscular Hemoglobin 27.9 pg (28.0-33.3); Mean Corpuscular Volume 87.7 fL (83.0-100.0); Mean Platelet Volume 10.2 fL (9.4-12.4); Monocytes # 0.5 K/mcL (0.0-1.3); Monocytes % 9.9 %; Neutrophils # 3.4 K/mcL (1.6-8.9); Platelet Count 188 K/mcL (140-400); Red Blood Count 3.26 M/mcL (4.19-5.50); Red Cell Distribution Width 16.8 % (11.5-14.5); Segmented Neutrophils % 66.2 %; White Blood Count 5.2 K/mcL (4.3-11.1)
[2021-05-26 02:22] LABS: BUN/Creatinine Ratio 16 (6-26); Blood Urea Nitrogen 15 mg/dL (8-23); Calcium 8.4 mg/dL (8.6-10.3); Carbon Dioxide 26 mEq/L (23-29); Chloride 100 mEq/L (98-107); Glucose 93 mg/dL (70-105); Osmolality,Calculated 277 (280-300); Potassium 4.2 mEq/L (3.5-5.1); Sodium 133 mEq/L (136-145); eGFR For African Americans > 60 (> 60); eGFR For Non-African Americans > 60 (> 60)
[2021-05-26] MEDS: Levalbuterol Neb 1.25 MG/3 ML IH SCH ×4 (04:18→20:01)
[2021-05-26] MEDS: Gabapentin 400 MG CAPSULE PO SCH ×3 (06:48→22:21)
[2021-05-26] MEDS: polyethylene glycoL 3350 17 GM POWD.PACK PO SCH ×2 (08:29→22:23)
[2021-05-26] MEDS: Loratadine 10 MG TABLET PO SCH (08:29)
[2021-05-26] MEDS: Metoprolol 100 MG TABLET PO SCH ×2 (08:30→22:22)
[2021-05-26] MEDS: Doxycycline 100 MG CAPSULE PO SCH ×2 (08:30→22:21)
[2021-05-26] MEDS: Apixaban 5 MG TABLET PO SCH ×2 (08:30→22:22)
[2021-05-26] MEDS: Cholecalciferol (D-3) 1,000 UNIT (25MCG) TABLET PO SCH (08:31)
[2021-05-26] MEDS: Lactobacillus 1 EACH CAP.SPRINK PO SCH ×2 (08:31→22:22)
[2021-05-26] MEDS: SALSALATE 750 MG PO SCH ×2 (08:34→22:33)
[2021-05-26] MEDS: Insulin LISPRO 300 UNITS/3 ML VIAL SUBQ SCH ×4 (08:40→22:32)
[2021-05-26] MEDS: Capsaicin 0.025% 60 GM TUBE TP SCH ×3 (08:41→22:33)
[2021-05-26] MEDS: Finasteride 5 MG TABLET PO SCH (08:43)
[2021-05-26] MEDS: Morphine Sulfate Immed Rel 15 MG TABLET PO SCH ×4 (08:43→22:20)
[2021-05-26] MEDS: Artificial Tears SOLN 15 ML BOTTLE BOTH EYES SCH ×3 (09:24→16:06)
[2021-05-26] MEDS: Fluticasone Propionate Nasal 50 MCG/SPRAY BOTTLE NS SCH ×2 (09:24→22:20)
[2021-05-26] MEDS: Lidocaine Jelly 2% 30 ML JEL..ML. TP SCH ×3 (09:27→22:33)
[2021-05-26] MEDS: Tiotropium 10 INH DOSE IH SCH (11:03)
[2021-05-26] MEDS: Budesonide/Formoterol 80/4.5 1 PUFF INH IH SCH ×2 (11:03→20:01)
[2021-05-26] MEDS: Famotidine 20 MG TABLET PO SCH (22:33)
[2021-05-27] MEDS: Piperacillin/Tazobactam 3.375 GM in 0.9 % Sodium Chloride Mini Bag 100 ML IVPB SCH ×2 (00:50→08:08)
[2021-05-27] MEDS: Artificial Tears SOLN 15 ML BOTTLE BOTH EYES SCH ×3 (00:55→13:04)
[2021-05-27 02:14] LABS: Basophils % 0.4 %; Eosinophils # 0.2 K/mcL (0.0-0.6); Hematocrit 27.1 % (37.5-50.1); Hemoglobin 8.8 g/dL (12.9-16.9); Immature Granulocytes % 0.2 % (0-4); Mean Corpuscular HGB Conc 32.5 g/dL (31.6-35.5); Mean Corpuscular Hemoglobin 28.2 pg (28.0-33.3); Mean Corpuscular Volume 86.9 fL (83.0-100.0); Mean Platelet Volume 10.6 fL (9.4-12.4); Monocytes # 0.5 K/mcL (0.0-1.3); Monocytes % 8.3 %; Neutrophils # 3.8 K/mcL (1.6-8.9); Platelet Count 192 K/mcL (140-400); Red Blood Count 3.12 M/mcL (4.19-5.50); Red Cell Distribution Width 16.8 % (11.5-14.5); Segmented Neutrophils % 70.1 %; White Blood Count 5.4 K/mcL (4.3-11.1)
[2021-05-27 02:35] LABS: BUN/Creatinine Ratio 23 (6-26); Blood Urea Nitrogen 21 mg/dL (8-23); Calcium 8.2 mg/dL (8.6-10.3); Carbon Dioxide 25 mEq/L (23-29); Chloride 105 mEq/L (98-107); Glucose 109 mg/dL (70-105); Osmolality,Calculated 288 (280-300); Potassium 4.6 mEq/L (3.5-5.1); Sodium 137 mEq/L (136-145); eGFR For African Americans > 60 (> 60); eGFR For Non-African Americans > 60 (> 60)
[2021-05-27] MEDS: Levalbuterol Neb 1.25 MG/3 ML IH SCH ×2 (04:14→08:50)
[2021-05-27] MEDS: Gabapentin 400 MG CAPSULE PO SCH ×2 (05:46→13:03)
[2021-05-27] MEDS: Doxycycline 100 MG CAPSULE PO SCH (08:04)
[2021-05-27] MEDS: Morphine Sulfate Immed Rel 15 MG TABLET PO SCH ×2 (08:04→13:03)
[2021-05-27] MEDS: Metoprolol 100 MG TABLET PO SCH (08:04)
[2021-05-27] MEDS: Loratadine 10 MG TABLET PO SCH (08:05)
[2021-05-27] MEDS: Lactobacillus 1 EACH CAP.SPRINK PO SCH (08:07)
[2021-05-27] MEDS: Cholecalciferol (D-3) 1,000 UNIT (25MCG) TABLET PO SCH (08:07)
[2021-05-27] MEDS: Finasteride 5 MG TABLET PO SCH (08:07)
[2021-05-27] MEDS: Apixaban 5 MG TABLET PO SCH (08:07)
[2021-05-27] MEDS: polyethylene glycoL 3350 17 GM POWD.PACK PO SCH (08:08)
[2021-05-27] MEDS: Lidocaine Jelly 2% 30 ML JEL..ML. TP SCH (08:33)
[2021-05-27] MEDS: Insulin LISPRO 300 UNITS/3 ML VIAL SUBQ SCH ×2 (08:33→11:54)
[2021-05-27] MEDS: Fluticasone Propionate Nasal 50 MCG/SPRAY BOTTLE NS SCH (08:39)
[2021-05-27] MEDS: SALSALATE 750 MG PO SCH (08:40)
[2021-05-27] MEDS: Capsaicin 0.025% 60 GM TUBE TP SCH (08:41)
[2021-05-27] MEDS: Budesonide/Formoterol 80/4.5 1 PUFF INH IH SCH (08:50)
[2021-05-27] MEDS: Tiotropium 10 INH DOSE IH SCH (08:50)
[2021-05-27 11:47] VITALS: BP 104/68; PULSE 81; TEMP 97.9; O2SAT 95
[2021-05-27 13:14] LABS: Adenovirus Not Detected (Not Detect); Bordetella Pertussis Not Detected (Not Detect); Chlamydophila pneumoniae Not Detected (Not Detect); Coronavirus 229E Not Detected (Not Detect); Coronavirus HKU1 Not Detected (Not Detect); Coronavirus NL63 Not Detected (Not Detect); Coronavirus OC43 Not Detected (Not Detect); Human Metapneumovirus Not Detected (Not Detect); Human Rhinovirus/Enterovirus Not Detected (Not Detect); Influenza A Subtype 2009 H1 Not Detected (Not Detect); Influenza B Not Detected (Not Detect); Mycoplasma pneumoniae Not Detected (Not Detect); Parainfluenza Virus 1 Not Detected (Not Detect); Parainfluenza Virus 2 Not Detected (Not Detect); Parainfluenza Virus 3 Not Detected (Not Detect); Parainfluenza Virus 4 Not Detected (Not Detect); Respiratory Syncytial Virus Not Detected (Not Detect); SARS-CoV-2 Not Detected (Not Detect)
== END 2021-05-27 13:49 | DRG 193 ==
LOC: 2ANU 15:50 → EMEROOARM 15:50 → SUATTDRO 20:06 → 2ANU 20:57
PROVIDERS: ADMIT Internal Medicine; ATTEND Hospitalist

== ENCOUNTER 2021-06-10 06:43 | Inpatient (IN) ==
[2021-06-10] MEDS ORDERED: Piperacillin/Tazobactam 3.375 GM in 0.9 % Sodium Chloride Mini Bag 100 ML IVPB ONE (06:58)
[2021-06-10] MEDS ORDERED: 0.9 % Sodium Chloride 2,000 ML ONE (07:07)
[2021-06-10] MEDS: 0.9 % Sodium Chloride 1,000 ML IVC SCH ×2 (07:18→07:20)
[2021-06-10 07:37] LABS: Basophils % 0.2 %; Eosinophils % 0.1 %; Hematocrit 31.3 % (37.5-50.1); Hemoglobin 9.8 g/dL (12.9-16.9); Immature Granulocytes % 0.4 % (0-4); Lymphocytes % 7.6 %; Mean Corpuscular HGB Conc 31.3 g/dL (31.6-35.5); Mean Corpuscular Hemoglobin 26.9 pg (28.0-33.3); Monocytes # 0.8 K/mcL (0.0-1.3); Platelet Count 195 K/mcL (140-400); Red Blood Count 3.64 M/mcL (4.19-5.50); Red Cell Distribution Width 16.7 % (11.5-14.5); Segmented Neutrophils % 85.7 %; White Blood Count 12.8 K/mcL (4.3-11.1)
[2021-06-10 07:45] LABS: Prothrombin Time 22.1 Seconds (9.4-12.1)
[2021-06-10] MEDS ORDERED: 0.9 % Sodium Chloride 1,000 ML IVC ONE ×2 (07:45→08:32)
[2021-06-10 07:57] LABS: Alanine Aminotransferase 9 Units/L (7-52); Albumin 3.3 g/dL (3.5-5.7); Alkaline Phosphatase 104 Units/L (34-104); Aspartate Amino Transferase 11 Units/L (13-39); BUN/Creatinine Ratio 18 (6-26); Bilirubin,Total 0.3 mg/dL (0.3-1.0); Blood Urea Nitrogen 17 mg/dL (8-23); Calcium 8.7 mg/dL (8.6-10.3); Carbon Dioxide 27 mEq/L (23-29); Chloride 103 mEq/L (98-107); Globulin 3.4 g/dL (2.4-3.5); Glucose 119 mg/dL (70-105); Magnesium 1.6 mg/dL (1.6-2.6); Osmolality,Calculated 287 (280-300); Phosphorous 3.6 mg/dL (2.7-4.5); Potassium 4.2 mEq/L (3.5-5.1); Sodium 137 mEq/L (136-145); Total Protein 6.7 g/dL (6.4-8.9); Troponin I < 0.03 ng/mL (< 0.04); eGFR For African Americans > 60 (> 60); eGFR For Non-African Americans > 60 (> 60)
[2021-06-10 08:07] LABS: Influenza A PCR Negative (Negative); Influenza B PCR Negative (Negative); Resp. Syncytial Virus PCR Negative (Negative); SARS-CoV-2 by PCR (In House) Negative (Negative)
[2021-06-10 08:26] LABS: Bacteria,Urine Few per hpf (None-Few); Bilirubin,Urine Negative (Negative); Blood,Urine Small (Negative); Clarity,Urine Turbid (Clear); Color,Urine Yellow (Yellow); Glucose,Urine (UA) Normal (Normal); Ketones,Urine Negative (Negative); Leukocyte Esterase,Urine Large (Negative); Mucus,Urine Few per lpf (None-Few); Nitrite,Urine Negative (Negative); PH,Urine 6.5 pH Units (5.0-8.0); Protein,Urine 30 mg/dL (Neg-Trace); Specific Gravity,Urine 1.019 (1.010-1.025); Urobilinogen,Urine Normal (Normal); WBC,Urine TNTC per hpf (0-3)
[2021-06-10 09:01] LABS: Amphetamine Screen,Urine Negative ng/mL (Cutoff=1000); Barbiturate Screen,Urine Negative ng/mL (Cutoff=200); Benzodiazepines Screen,Urine Negative ng/mL (Cutoff=200); Cannabinoid Screen,Urine Negative ng/mL (Cutoff = 50); Cocaine Screen,Urine Negative ng/mL (Cutoff= 300); Opiate Screen,Urine Positive ng/mL (Cutoff=300); Phencyclidine Screen,Urine Negative ng/mL (Cutoff=25)
[2021-06-10] MEDS ORDERED: Naloxone 0.4 MG/ML INJ IVP PRN (09:50)
[2021-06-10] MEDS ORDERED: Melatonin 3 MG TABLET PO PRN (09:50)
[2021-06-10] MEDS ORDERED: Norepinephrine 4 MG/254 ML IV.SOLN IVC SCH (10:30)
[2021-06-10] MEDS: Piperacillin/Tazobactam 3.375 GM in 0.9 % Sodium Chloride Mini Bag 100 ML IVPB SCH ×3 (16:03→23:06)
[2021-06-10] MEDS ORDERED: Albumin 25% 25gram/100mL 25 GM/100 ML IV.SOLN IVPB ONE (17:03)
[2021-06-10] MEDS ORDERED: Ipratropium/Albuterol Neb 3 ML IH PRN (17:03)
[2021-06-10] MEDS ORDERED: LACTASE 3000 UNIT PO PRN (17:03)
[2021-06-10] MEDS: Gabapentin 400 MG CAPSULE PO SCH (18:07)
[2021-06-10] MEDS ORDERED: Perflutren Lipid Microsphere 1.3 ML in 0.9 % Sodium Chloride 8.7 ML IVP PRN (20:18)
[2021-06-10] MEDS: Budesonide/Formoterol 80/4.5 1 PUFF INH IH SCH (20:43)
[2021-06-10] MEDS: Artificial Tears SOLN 15 ML BOTTLE BOTH EYES SCH (20:54)
[2021-06-10] MEDS: Apixaban 5 MG TABLET PO SCH (20:55)
[2021-06-10] MEDS: Fluticasone Propionate Nasal 50 MCG/SPRAY BOTTLE NS SCH (20:55)
[2021-06-10] MEDS: Lactobacillus 1 EACH CAP.SPRINK PO SCH (20:55)
[2021-06-10] MEDS ORDERED: CAPSAICIN TP SCH (21:00)
[2021-06-11 00:58] LABS: Basophils % 0.4 %; Eosinophils % 0.4 %; Immature Granulocytes % 0.2 % (0-4); Lymphocytes # 0.6 K/mcL (0.6-4.6); Lymphocytes % 10.7 %; Mean Corpuscular HGB Conc 30.8 g/dL (31.6-35.5); Mean Corpuscular Hemoglobin 27.3 pg (28.0-33.3); Mean Corpuscular Volume 88.7 fL (83.0-100.0); Mean Platelet Volume 10.2 fL (9.4-12.4); Monocytes # 0.3 K/mcL (0.0-1.3); Monocytes % 6.1 %; Platelet Count 120 K/mcL (140-400); Red Blood Count 2.93 M/mcL (4.19-5.50); Red Cell Distribution Width 17.2 % (11.5-14.5); Segmented Neutrophils % 82.2 %
[2021-06-11 01:06] LABS: Neutrophils # 4.4 K/mcL (1.6-8.9); White Blood Count 5.4 K/mcL (4.3-11.1)
[2021-06-11 01:20] LABS: BUN/Creatinine Ratio 14 (6-26); Blood Urea Nitrogen 11 mg/dL (8-23); Carbon Dioxide 23 mEq/L (23-29); Chloride 109 mEq/L (98-107); Glucose 132 mg/dL (70-105); Magnesium 1.5 mg/dL (1.6-2.6); Osmolality,Calculated 287 (280-300); Potassium 3.7 mEq/L (3.5-5.1); Sodium 138 mEq/L (136-145); eGFR For African Americans > 60 (> 60); eGFR For Non-African Americans > 60 (> 60)
[2021-06-11] MEDS: Gabapentin 400 MG CAPSULE PO SCH ×3 (01:48→20:15)
[2021-06-11] MEDS: Acetaminophen 325 MG TABLET PO PRN (03:32)
[2021-06-11] MEDS: Ipratropium Neb 0.5 MG NEBULIZER IH PRN ×2 (07:10→20:17)
[2021-06-11] MEDS: Levalbuterol Neb 0.63 MG/3 ML IH PRN ×2 (07:10→20:17)
[2021-06-11] MEDS: Budesonide/Formoterol 80/4.5 1 PUFF INH IH SCH ×2 (07:10→20:17)
[2021-06-11] MEDS: Tiotropium 10 INH DOSE IH SCH (07:16)
[2021-06-11] MEDS: Piperacillin/Tazobactam 3.375 GM in 0.9 % Sodium Chloride Mini Bag 100 ML IVPB SCH ×3 (07:51→23:22)
[2021-06-11] MEDS: Apixaban 5 MG TABLET PO SCH ×2 (07:52→20:15)
[2021-06-11] MEDS: Fluticasone Propionate Nasal 50 MCG/SPRAY BOTTLE NS SCH ×2 (07:52→20:16)
[2021-06-11] MEDS: Finasteride 5 MG TABLET PO SCH (07:52)
[2021-06-11] MEDS: Lactobacillus 1 EACH CAP.SPRINK PO SCH ×2 (07:52→20:15)
[2021-06-11] MEDS: Cholecalciferol (D-3) 1,000 UNIT (25MCG) TABLET PO SCH (07:52)
[2021-06-11] MEDS: Artificial Tears SOLN 15 ML BOTTLE BOTH EYES SCH ×4 (07:52→20:16)
[2021-06-11] MEDS: MethylPREDNISolone 40 MG/ML VIAL IVP SCH ×2 (16:18→23:22)
[2021-06-11] MEDS ORDERED: polyethylene glycoL 3350 17 GM POWD.PACK PO PRN (18:11)
[2021-06-12] MEDS: Acetaminophen 325 MG TABLET PO PRN (01:54)
[2021-06-12] MEDS: Gabapentin 400 MG CAPSULE PO SCH ×3 (01:54→18:22)
[2021-06-12] MEDS: Capsaicin 0.025% 60 GM TUBE TP PRN ×2 (03:46→21:12)
[2021-06-12 04:21] LABS: Basophils % 0.3 %; Hematocrit 29.2 % (37.5-50.1); Hemoglobin 8.8 g/dL (12.9-16.9); Immature Granulocytes % 0.5 % (0-4); Lymphocytes # 0.4 K/mcL (0.6-4.6); Lymphocytes % 9.5 %; Mean Corpuscular HGB Conc 30.1 g/dL (31.6-35.5); Mean Corpuscular Hemoglobin 26.8 pg (28.0-33.3); Mean Platelet Volume 10.9 fL (9.4-12.4); Monocytes # 0.1 K/mcL (0.0-1.3); Monocytes % 1.6 %; Neutrophils # 3.3 K/mcL (1.6-8.9); Platelet Count 121 K/mcL (140-400); Red Blood Count 3.28 M/mcL (4.19-5.50); Segmented Neutrophils % 88.1 %; White Blood Count 3.8 K/mcL (4.3-11.1)
[2021-06-12 04:43] LABS: BUN/Creatinine Ratio 13 (6-26); Blood Urea Nitrogen 10 mg/dL (8-23); Calcium 8.5 mg/dL (8.6-10.3); Carbon Dioxide 22 mEq/L (23-29); Chloride 105 mEq/L (98-107); Glucose 204 mg/dL (70-105); Magnesium 1.6 mg/dL (1.6-2.6); Osmolality,Calculated 287 (280-300); Sodium 136 mEq/L (136-145); eGFR For African Americans > 60 (> 60); eGFR For Non-African Americans > 60 (> 60)
[2021-06-12] MEDS: Tiotropium 10 INH DOSE IH SCH (07:41)
[2021-06-12] MEDS: Levalbuterol Neb 0.63 MG/3 ML IH PRN (07:41)
[2021-06-12] MEDS: Budesonide/Formoterol 80/4.5 1 PUFF INH IH SCH ×2 (07:41→19:34)
[2021-06-12] MEDS: Piperacillin/Tazobactam 3.375 GM in 0.9 % Sodium Chloride Mini Bag 100 ML IVPB SCH ×2 (08:50→15:29)
[2021-06-12] MEDS: MethylPREDNISolone 40 MG/ML VIAL IVP SCH ×2 (08:51→15:29)
[2021-06-12] MEDS: Apixaban 5 MG TABLET PO SCH ×2 (08:52→20:57)
[2021-06-12] MEDS: Lactobacillus 1 EACH CAP.SPRINK PO SCH ×2 (08:52→20:56)
[2021-06-12] MEDS: Finasteride 5 MG TABLET PO SCH (08:53)
[2021-06-12] MEDS: Cholecalciferol (D-3) 1,000 UNIT (25MCG) TABLET PO SCH (08:53)
[2021-06-12] MEDS: Artificial Tears SOLN 15 ML BOTTLE BOTH EYES SCH ×4 (08:54→21:00)
[2021-06-12] MEDS: Fluticasone Propionate Nasal 50 MCG/SPRAY BOTTLE NS SCH ×2 (08:56→20:59)
[2021-06-12] MEDS: GuaiFENesin Liq 200 MG/10 ML UDC PO PRN (12:44)
[2021-06-12] MEDS: Oxymetazoline Nasal SPRAY BOTTLE 15ML NS PRN (16:59)
[2021-06-13] MEDS: MethylPREDNISolone 40 MG/ML VIAL IVP SCH ×4 (00:55→23:57)
[2021-06-13] MEDS: Piperacillin/Tazobactam 3.375 GM in 0.9 % Sodium Chloride Mini Bag 100 ML IVPB SCH ×4 (00:56→23:59)
[2021-06-13 01:08] LABS: Hematocrit 30.8 % (37.5-50.1); Hemoglobin 9.8 g/dL (12.9-16.9); Mean Corpuscular HGB Conc 31.8 g/dL (31.6-35.5); Mean Corpuscular Hemoglobin 27.8 pg (28.0-33.3); Mean Corpuscular Volume 87.5 fL (83.0-100.0); Mean Platelet Volume 10.9 fL (9.4-12.4); Platelet Count 146 K/mcL (140-400); Red Blood Count 3.52 M/mcL (4.19-5.50); Red Cell Distribution Width 16.8 % (11.5-14.5)
[2021-06-13 01:09] LABS: White Blood Count 7.3 K/mcL (4.3-11.1)
[2021-06-13 01:27] LABS: BUN/Creatinine Ratio 15 (6-26); Blood Urea Nitrogen 14 mg/dL (8-23); Calcium 8.7 mg/dL (8.6-10.3); Carbon Dioxide 25 mEq/L (23-29); Chloride 103 mEq/L (98-107); Glucose 167 mg/dL (70-105); Osmolality,Calculated 286 (280-300); Potassium 4.1 mEq/L (3.5-5.1); Sodium 136 mEq/L (136-145); eGFR For African Americans > 60 (> 60); eGFR For Non-African Americans > 60 (> 60)
[2021-06-13] MEDS: Gabapentin 400 MG CAPSULE PO SCH ×3 (03:04→17:01)
[2021-06-13] MEDS: Cholecalciferol (D-3) 1,000 UNIT (25MCG) TABLET PO SCH (08:14)
[2021-06-13] MEDS: Lactobacillus 1 EACH CAP.SPRINK PO SCH ×2 (08:15→20:17)
[2021-06-13] MEDS: Finasteride 5 MG TABLET PO SCH (08:15)
[2021-06-13] MEDS: Apixaban 5 MG TABLET PO SCH ×2 (08:16→20:18)
[2021-06-13] MEDS: Fluticasone Propionate Nasal 50 MCG/SPRAY BOTTLE NS SCH ×2 (08:18→20:19)
[2021-06-13] MEDS: Artificial Tears SOLN 15 ML BOTTLE BOTH EYES SCH ×4 (08:18→20:17)
[2021-06-13] MEDS: Budesonide/Formoterol 80/4.5 1 PUFF INH IH SCH ×2 (10:53→19:23)
[2021-06-13] MEDS: Tiotropium 10 INH DOSE IH SCH (10:53)
[2021-06-13] MEDS: Levalbuterol Neb 0.63 MG/3 ML IH PRN (10:54)
[2021-06-13] MEDS: GuaiFENesin Liq 200 MG/10 ML UDC PO PRN (12:07)
[2021-06-14] MEDS: polyethylene glycoL 3350 17 GM POWD.PACK PO PRN ×2 (00:08→13:38)
[2021-06-14] MEDS: Gabapentin 400 MG CAPSULE PO SCH ×3 (01:23→16:47)
[2021-06-14 05:32] LABS: Hematocrit 28.9 % (37.5-50.1); Hemoglobin 9.2 g/dL (12.9-16.9); Mean Corpuscular HGB Conc 31.8 g/dL (31.6-35.5); Mean Corpuscular Hemoglobin 27.6 pg (28.0-33.3); Mean Corpuscular Volume 86.8 fL (83.0-100.0); Mean Platelet Volume 11.7 fL (9.4-12.4); Platelet Count 112 K/mcL (140-400); Red Blood Count 3.33 M/mcL (4.19-5.50); Red Cell Distribution Width 16.7 % (11.5-14.5); White Blood Count 4.5 K/mcL (4.3-11.1)
[2021-06-14 05:50] LABS: BUN/Creatinine Ratio 27 (6-26); Blood Urea Nitrogen 21 mg/dL (8-23); Calcium 8.1 mg/dL (8.6-10.3); Carbon Dioxide 24 mEq/L (23-29); Chloride 101 mEq/L (98-107); Glucose 131 mg/dL (70-105); Osmolality,Calculated 279 (280-300); Potassium 4.8 mEq/L (3.5-5.1); Sodium 132 mEq/L (136-145); eGFR For African Americans > 60 (> 60); eGFR For Non-African Americans > 60 (> 60)
[2021-06-14] MEDS: Acetaminophen 325 MG TABLET PO PRN (05:54)
[2021-06-14] MEDS: Tiotropium 10 INH DOSE IH SCH (07:19)
[2021-06-14] MEDS: Budesonide/Formoterol 80/4.5 1 PUFF INH IH SCH ×2 (07:20→20:11)
[2021-06-14] MEDS: MethylPREDNISolone 40 MG/ML VIAL IVP SCH ×2 (09:09→16:47)
[2021-06-14] MEDS: Piperacillin/Tazobactam 3.375 GM in 0.9 % Sodium Chloride Mini Bag 100 ML IVPB SCH ×2 (09:09→16:47)
[2021-06-14] MEDS: Fluticasone Propionate Nasal 50 MCG/SPRAY BOTTLE NS SCH ×2 (09:11→19:43)
[2021-06-14] MEDS: Artificial Tears SOLN 15 ML BOTTLE BOTH EYES SCH ×4 (09:11→19:43)
[2021-06-14] MEDS: Cholecalciferol (D-3) 1,000 UNIT (25MCG) TABLET PO SCH (09:12)
[2021-06-14] MEDS: Apixaban 5 MG TABLET PO SCH ×2 (09:12→19:42)
[2021-06-14] MEDS: Lactobacillus 1 EACH CAP.SPRINK PO SCH ×2 (09:12→19:42)
[2021-06-14] MEDS: Finasteride 5 MG TABLET PO SCH (09:13)
[2021-06-14] MEDS: Ipratropium Neb 0.5 MG NEBULIZER IH PRN (16:00)
[2021-06-14] MEDS: Oxymetazoline Nasal SPRAY BOTTLE 15ML NS PRN (19:43)
[2021-06-14] MEDS: Levalbuterol Neb 0.63 MG/3 ML IH PRN (20:12)
[2021-06-15] MEDS: Gabapentin 400 MG CAPSULE PO SCH ×2 (02:06→08:49)
[2021-06-15] MEDS ORDERED: *HR* Metoprolol 5 MG/5 ML VIAL IVP PRN (02:26)
[2021-06-15] MEDS: Levalbuterol Neb 0.63 MG/3 ML IH PRN (07:35)
[2021-06-15] MEDS: Budesonide/Formoterol 80/4.5 1 PUFF INH IH SCH (07:35)
[2021-06-15] MEDS: Tiotropium 10 INH DOSE IH SCH (07:36)
[2021-06-15] MEDS: Cholecalciferol (D-3) 1,000 UNIT (25MCG) TABLET PO SCH (08:49)
[2021-06-15] MEDS: Lactobacillus 1 EACH CAP.SPRINK PO SCH (08:49)
[2021-06-15] MEDS: Finasteride 5 MG TABLET PO SCH (08:50)
[2021-06-15] MEDS: MethylPREDNISolone 40 MG/ML VIAL IVP SCH ×2 (08:50)
[2021-06-15] MEDS: Apixaban 5 MG TABLET PO SCH (08:50)
[2021-06-15] MEDS: Piperacillin/Tazobactam 3.375 GM in 0.9 % Sodium Chloride Mini Bag 100 ML IVPB SCH ×2 (08:51)
[2021-06-15] MEDS: Oxymetazoline Nasal SPRAY BOTTLE 15ML NS PRN (10:46)
[2021-06-15] MEDS: Artificial Tears SOLN 15 ML BOTTLE BOTH EYES SCH ×2 (10:47→12:54)
[2021-06-15] MEDS: Fluticasone Propionate Nasal 50 MCG/SPRAY BOTTLE NS SCH (10:47)
[2021-06-15 10:54] VITALS: BP 115/64; PULSE 81; TEMP 98; O2SAT 94
[2021-06-15 12:05] LABS: Adenovirus Not Detected (Not Detect); Bordetella Pertussis Not Detected (Not Detect); Chlamydophila pneumoniae Not Detected (Not Detect); Coronavirus 229E Not Detected (Not Detect); Coronavirus HKU1 Not Detected (Not Detect); Coronavirus NL63 Not Detected (Not Detect); Coronavirus OC43 Not Detected (Not Detect); Human Metapneumovirus Not Detected (Not Detect); Human Rhinovirus/Enterovirus Not Detected (Not Detect); Influenza A Subtype 2009 H1 Not Detected (Not Detect); Influenza B Not Detected (Not Detect); Mycoplasma pneumoniae Not Detected (Not Detect); Parainfluenza Virus 1 Not Detected (Not Detect); Parainfluenza Virus 2 Not Detected (Not Detect); Parainfluenza Virus 3 Not Detected (Not Detect); Parainfluenza Virus 4 Not Detected (Not Detect); Respiratory Syncytial Virus Not Detected (Not Detect); SARS-CoV-2 Not Detected (Not Detect)
[2021-06-15 13:25] LABS: Hematocrit 30.9 % (37.5-50.1); Hemoglobin 9.9 g/dL (12.9-16.9); Mean Corpuscular Hemoglobin 27.6 pg (28.0-33.3); Mean Corpuscular Volume 86.1 fL (83.0-100.0); Mean Platelet Volume 11.5 fL (9.4-12.4); Platelet Count 124 K/mcL (140-400); Red Blood Count 3.59 M/mcL (4.19-5.50); Red Cell Distribution Width 16.6 % (11.5-14.5)
[2021-06-15 13:26] LABS: White Blood Count 7.5 K/mcL (4.3-11.1)
[2021-06-15 13:58] LABS: BUN/Creatinine Ratio 30 (6-26); Blood Urea Nitrogen 26 mg/dL (8-23); Calcium 8.4 mg/dL (8.6-10.3); Carbon Dioxide 28 mEq/L (23-29); Chloride 101 mEq/L (98-107); Glucose 199 mg/dL (70-105); Osmolality,Calculated 290 (280-300); Potassium 3.6 mEq/L (3.5-5.1); Sodium 135 mEq/L (136-145); eGFR For African Americans > 60 (> 60); eGFR For Non-African Americans > 60 (> 60)
== END 2021-06-15 13:30 | disposition other institution (70) | DRG 871 ==
LOC: EMEROOARM 06:43 → 2ANU 13:44 → SUATTDRO 13:44 → 2ANU 16:35
PROVIDERS: ADMIT Internal Medicine; ATTEND Internal Medicine

== ENCOUNTER 2021-06-22 14:30 | Inpatient (IN) ==
[~2021-06-22 14:30] MED LIST: *HR* Etomidate 20 MG/10 ML AMPUL IVP ONE; *HR* Midazolam HCl 2 MG/2 ML VIAL IVP ONE; *HR* Rocuronium Bromide 50 MG/5 ML VIAL IVP ONE
[2021-06-22] MEDS ORDERED: 0.9 % Sodium Chloride 1,000 ML IVC ONE (15:04)
[2021-06-22] MEDS ORDERED: cefTRIAXone 2,000 MG in Water for inj. (sterile) 20 ML IVP ONE (15:05)
[2021-06-22] MEDS ORDERED: Isovue-370 500 ML BOTTLE IVP ONE ×2 (15:05→16:34)
[2021-06-22 15:13] LABS: Basophils % 0.1 %; Eosinophils % 0.1 %; Hematocrit 29.8 % (37.5-50.1); Hemoglobin 9.4 g/dL (12.9-16.9); Immature Granulocytes % 0.4 % (0-4); Lymphocytes # 0.6 K/mcL (0.6-4.6); Lymphocytes % 5.4 %; Mean Corpuscular HGB Conc 31.5 g/dL (31.6-35.5); Mean Corpuscular Hemoglobin 27.5 pg (28.0-33.3); Mean Corpuscular Volume 87.1 fL (83.0-100.0); Mean Platelet Volume 10.9 fL (9.4-12.4); Monocytes # 0.9 K/mcL (0.0-1.3); Neutrophils # 8.8 K/mcL (1.6-8.9); Platelet Count 168 K/mcL (140-400); Red Blood Count 3.42 M/mcL (4.19-5.50); Red Cell Distribution Width 17.4 % (11.5-14.5); White Blood Count 10.3 K/mcL (4.3-11.1)
[2021-06-22 15:29] LABS: INR 1.8
[2021-06-22 15:32] LABS: Activated Partial Thrombo Time 31.5 Seconds (26.0-36.0)
[2021-06-22 15:41] LABS: Alanine Aminotransferase 12 Units/L (7-52); Albumin/Globulin Ratio 0.9 (1.1-2.2); Alkaline Phosphatase 68 Units/L (34-104); Aspartate Amino Transferase 11 Units/L (13-39); BUN/Creatinine Ratio 13 (6-26); Bilirubin,Direct 0.1 mg/dL (0.0-0.2); Bilirubin,Indirect 0.3 mg/dL (0.0-1.0); Bilirubin,Total 0.4 mg/dL (0.3-1.0); Blood Urea Nitrogen 12 mg/dL (8-23); Calcium 8.1 mg/dL (8.6-10.3); Carbon Dioxide 30 mEq/L (23-29); Chloride 100 mEq/L (98-107); Globulin 3.5 g/dL (2.4-3.5); Glucose 116 mg/dL (70-105); Lipase 3 Units/L (11-82); Magnesium 1.8 mg/dL (1.6-2.6); Osmolality,Calculated 283 (280-300); Potassium 4.2 mEq/L (3.5-5.1); Sodium 136 mEq/L (136-145); Total Protein 6.5 g/dL (6.4-8.9); Troponin I 0.27 ng/mL (< 0.04); eGFR For African Americans > 60 (> 60); eGFR For Non-African Americans > 60 (> 60)
[2021-06-22] MEDS ORDERED: 0.9 % Sodium Chloride 1,000 ML IV ONE (16:00)
[2021-06-22] MEDS ORDERED: 0.9 % Sodium Chloride 250 ML ONE (16:14)
[2021-06-22] MEDS ORDERED: *HR* Norepinephrine 4 MG/4 ML VIAL IVC ONE (16:15)
[2021-06-22] MEDS: Norepinephrine 4 MG/254 ML IV.SOLN IVC SCH (16:20)
[2021-06-22] MEDS ORDERED: Hydrocortisone Sodium Succ 100 MG/2 ML VIAL IVP ONE (17:00)
[2021-06-22] MEDS ORDERED: FentaNYL (PF) 1,000 MCG/100 ML IV.SOLN IVC SCH (17:00)
[2021-06-22] MEDS ORDERED: *HR* Midazolam HCl 50 MG/10 ML VIAL IVC ONE (17:03)
[2021-06-22] MEDS ORDERED: *HR* FentaNYL (PF) 1,000 MCG/20 ML VIAL ONE (17:03)
[2021-06-22] MEDS: Midazolam HCl 50 MG/100 ML IV.SOLN IVC SCH (17:17)
[2021-06-22] MEDS ORDERED: Naloxone 0.4 MG/ML INJ IVP PRN (17:48)
[2021-06-22] MEDS ORDERED: Ondansetron 4 MG/2 ML VIAL IVP PRN (17:48)
[2021-06-22] MEDS ORDERED: Artificial Tears SOLN 15 ML BOTTLE BOTH EYES PRN (17:48)
[2021-06-22] MEDS ORDERED: Acetaminophen 650 MG RECTAL SUPP RC PRN (17:48)
[2021-06-22 17:49] LABS: Bacteria,Urine Moderate per hpf (None-Few); Bilirubin,Urine Negative (Negative); Blood,Urine Moderate (Negative); Clarity,Urine Turbid (Clear); Color,Urine Yellow (Yellow); Glucose,Urine (UA) Normal (Normal); Ketones,Urine Negative (Negative); Leukocyte Esterase,Urine Large (Negative); Mucus,Urine Few per lpf (None-Few); Nitrite,Urine Positive (Negative); Protein,Urine 50 mg/dL (Neg-Trace); RBC,Urine 30-50 per hpf (0-3); Specific Gravity,Urine 1.014 (1.010-1.025); Squamous Epithelial Cell,Urine Few per hpf (None-Few); Urobilinogen,Urine Normal (Normal); WBC,Urine TNTC per hpf (0-3)
[2021-06-22] MEDS: Artificial Tears SOLN 15 ML BOTTLE BOTH EYES SCH ×2 (21:05→23:19)
[2021-06-22] MEDS: Chlorhexidine Rinse 15 ML MOUTHWASH MM SCH (21:05)
[2021-06-22] MEDS: Piperacillin/Tazobactam 3.375 GM in 0.9 % Sodium Chloride Mini Bag 100 ML IVPB SCH (21:06)
[2021-06-23] MEDS: FentaNYL (PF) 1,000 MCG/100 ML IV.SOLN IVC SCH ×3 (00:19→20:35)
[2021-06-23] MEDS: Pantoprazole 40 MG VIAL IVP SCH ×2 (03:15→08:07)
[2021-06-23] MEDS: Artificial Tears SOLN 15 ML BOTTLE BOTH EYES SCH ×5 (03:39→20:21)
[2021-06-23 04:01] LABS: ABG Base Excess 3 mEq/L (-2 to 3); ABG HCO3 26 mEq/L (21-27); ABG Oxygen Saturation 100 % (95-98); ABG PCO2 31 mmHg (35-45); ABG PH 7.53 pH Units (7.32-7.45); ABG PO2 154 mmHg (85-104); ABG TCO2 27 mEq/L (20-26); Blood Gas Modality ASSIST CONTROL; Blood Gas VT 500 cc
[2021-06-23] MEDS: Norepinephrine 4 MG/254 ML IV.SOLN IVC SCH ×3 (05:30→19:52)
[2021-06-23] MEDS: Midazolam HCl 50 MG/100 ML IV.SOLN IVC SCH (05:30)
[2021-06-23] MEDS: Piperacillin/Tazobactam 3.375 GM in 0.9 % Sodium Chloride Mini Bag 100 ML IVPB SCH ×3 (05:54→20:23)
[2021-06-23 06:16] LABS: VBG Ionized Calcium 1.13 mmol/L (1.15-1.35)
[2021-06-23 06:22] LABS: Basophils % 0.3 %; Eosinophils # 0.1 K/mcL (0.0-0.6); Eosinophils % 1.2 %; Hematocrit 29.9 % (37.5-50.1); Hemoglobin 9.3 g/dL (12.9-16.9); Immature Granulocytes % 0.4 % (0-4); Lymphocytes # 0.9 K/mcL (0.6-4.6); Lymphocytes % 10.1 %; Mean Corpuscular HGB Conc 31.1 g/dL (31.6-35.5); Mean Corpuscular Hemoglobin 27.5 pg (28.0-33.3); Mean Corpuscular Volume 88.5 fL (83.0-100.0); Mean Platelet Volume 10.5 fL (9.4-12.4); Monocytes # 0.7 K/mcL (0.0-1.3); Monocytes % 7.1 %; Neutrophils # 7.4 K/mcL (1.6-8.9); Platelet Count 169 K/mcL (140-400); Red Blood Count 3.38 M/mcL (4.19-5.50); Red Cell Distribution Width 17.5 % (11.5-14.5); Segmented Neutrophils % 80.9 %; White Blood Count 9.2 K/mcL (4.3-11.1)
[2021-06-23 07:14] LABS: Alanine Aminotransferase 11 Units/L (7-52); Albumin 2.6 g/dL (3.5-5.7); Albumin/Globulin Ratio 0.8 (1.1-2.2); Alkaline Phosphatase 63 Units/L (34-104); Aspartate Amino Transferase 14 Units/L (13-39); BUN/Creatinine Ratio 14 (6-26); Bilirubin,Total 0.3 mg/dL (0.3-1.0); Blood Urea Nitrogen 12 mg/dL (8-23); Calcium 7.8 mg/dL (8.6-10.3); Carbon Dioxide 27 mEq/L (23-29); Chloride 107 mEq/L (98-107); Globulin 3.4 g/dL (2.4-3.5); Glucose 98 mg/dL (70-105); Magnesium 1.8 mg/dL (1.6-2.6); Osmolality,Calculated 290 (280-300); Phosphorous 2.5 mg/dL (2.7-4.5); Potassium 3.5 mEq/L (3.5-5.1); Sodium 140 mEq/L (136-145); eGFR For African Americans > 60 (> 60); eGFR For Non-African Americans > 60 (> 60)
[2021-06-23] MEDS: Chlorhexidine Rinse 15 ML MOUTHWASH MM SCH ×2 (08:07→20:23)
[2021-06-23 10:45] LABS: Acinetobacter baumannii by PCR Not Detected (Not Detect); Candida albicans by PCR Not Detected (Not Detect); Candida glabrata by PCR Not Detected (Not Detect); Candida krusei by PCR Not Detected (Not Detect); Candida parapsilosis by PCR Not Detected (Not Detect); Candida tropicalis by PCR Not Detected (Not Detect); Enterobacter cloacae Cmplx PCR Not Detected (Not Detect); Enterococcus by PCR Not Detected (Not Detect); Escherichia coli by PCR DETECTED (Not Detect); Klebsiella oxytoca by PCR Not Detected (Not Detect); Klebsiella pneumoniae by PCR Not Detected (Not Detect); Proteus by PCR Not Detected (Not Detect); Pseudomonas aeruginosa by PCR Not Detected (Not Detect); Serratia marcescens by PCR Not Detected (Not Detect); Staphylococcus aureus by PCR Not Detected (Not Detect); Staphylococcus by PCR Not Detected (Not Detect); Streptococcus agalactiae(B)PCR Not Detected (Not Detect); Streptococcus by PCR Not Detected (Not Detect); Streptococcus pneumoniae PCR Not Detected (Not Detect); Streptococcus pyogenes (A) PCR Not Detected (Not Detect); blaKPC Carbapenem-Resist Gene Not Detected (Not Detect)
[2021-06-23] MEDS: Apixaban 5 MG TABLET PO SCH ×2 (11:04→20:23)
[2021-06-23] MEDS ORDERED: *HR* Dextrose 50 % in Water (Syg) 50 ML SYRINGE ONE (12:10)
[2021-06-23] MEDS ORDERED: *HR* Dextrose 50 % in Water (Syg) 50 ML SYRINGE IVP ONE ×2 (12:11→12:50)
[2021-06-23] MEDS ORDERED: Albumin 25% 25gram/100mL 25 GM/100 ML IV.SOLN IVPB ONE (13:39)
[2021-06-23 14:11] LABS: ABG Base Excess 1 mEq/L (-2 to 3); ABG HCO3 26 mEq/L (21-27); ABG Oxygen Saturation 98 % (95-98); ABG PCO2 45 mmHg (35-45); ABG PH 7.38 pH Units (7.32-7.45); ABG PO2 113 mmHg (85-104); ABG TCO2 28 mEq/L (20-26)
[2021-06-23] MEDS ORDERED: Ipratropium/Albuterol Neb 3 ML IH PRN (17:48)
[2021-06-23] MEDS ORDERED: Apixaban 5 MG TABLET PO SCH (21:00)
[2021-06-24] MEDS: Artificial Tears SOLN 15 ML BOTTLE BOTH EYES SCH ×6 (00:07→21:33)
[2021-06-24] MEDS: Norepinephrine 4 MG/254 ML IV.SOLN IVC SCH ×4 (00:08→23:35)
[2021-06-24] MEDS ORDERED: Amiodarone Premix 150 MG/100 ML BAG IVPB ONE (01:19)
[2021-06-24] MEDS ORDERED: Amiodarone Premix 360 MG/200 ML BAG IVC ONE ×2 (01:32→08:16)
[2021-06-24 04:15] LABS: ABG Base Excess 1 mEq/L (-2 to 3); ABG HCO3 27 mEq/L (21-27); ABG Oxygen Saturation 99 % (95-98); ABG PCO2 45 mmHg (35-45); ABG PH 7.38 pH Units (7.32-7.45); ABG PO2 117 mmHg (85-104); ABG TCO2 28 mEq/L (20-26); Blood Gas Modality ASSIST CONTROL; Blood Gas VT 400 cc
[2021-06-24] MEDS: FentaNYL (PF) 1,000 MCG/100 ML IV.SOLN IVC SCH (04:15)
[2021-06-24 04:40] LABS: Basophils % 0.2 %; Eosinophils # 0.1 K/mcL (0.0-0.6); Eosinophils % 2.2 %; Hemoglobin 8.4 g/dL (12.9-16.9); Immature Granulocytes % 0.4 % (0-4); Lymphocytes # 0.6 K/mcL (0.6-4.6); Lymphocytes % 11.7 %; Mean Corpuscular Hemoglobin 26.9 pg (28.0-33.3); Mean Corpuscular Volume 89.7 fL (83.0-100.0); Mean Platelet Volume 10.6 fL (9.4-12.4); Monocytes # 0.4 K/mcL (0.0-1.3); Monocytes % 7.2 %; Neutrophils # 3.9 K/mcL (1.6-8.9); Platelet Count 150 K/mcL (140-400); Red Blood Count 3.12 M/mcL (4.19-5.50); Red Cell Distribution Width 17.7 % (11.5-14.5); Segmented Neutrophils % 78.3 %
[2021-06-24 04:46] LABS: VBG Ionized Calcium 1.16 mmol/L (1.15-1.35)
[2021-06-24 04:59] LABS: Alanine Aminotransferase 9 Units/L (7-52); Albumin 2.8 g/dL (3.5-5.7); Albumin/Globulin Ratio 0.9 (1.1-2.2); Alkaline Phosphatase 55 Units/L (34-104); Aspartate Amino Transferase 10 Units/L (13-39); BUN/Creatinine Ratio 13 (6-26); Bilirubin,Total 0.2 mg/dL (0.3-1.0); Blood Urea Nitrogen 9 mg/dL (8-23); Calcium 7.9 mg/dL (8.6-10.3); Carbon Dioxide 27 mEq/L (23-29); Chloride 109 mEq/L (98-107); Globulin 3.2 g/dL (2.4-3.5); Glucose 94 mg/dL (70-105); Magnesium 1.9 mg/dL (1.6-2.6); Osmolality,Calculated 290 (280-300); Phosphorous 3.1 mg/dL (2.7-4.5); Potassium 3.5 mEq/L (3.5-5.1); Sodium 141 mEq/L (136-145); eGFR For African Americans > 60 (> 60); eGFR For Non-African Americans > 60 (> 60)
[2021-06-24] MEDS: Piperacillin/Tazobactam 3.375 GM in 0.9 % Sodium Chloride Mini Bag 100 ML IVPB SCH ×2 (05:16→13:22)
[2021-06-24] MEDS: Amiodarone Premix 360 MG/200 ML BAG IVC SCH ×2 (08:19→19:45)
[2021-06-24] MEDS: Pantoprazole 40 MG VIAL IVP SCH (08:20)
[2021-06-24] MEDS: Chlorhexidine Rinse 15 ML MOUTHWASH MM SCH ×2 (08:20→21:55)
[2021-06-24] MEDS: Apixaban 5 MG TABLET PO SCH ×2 (08:20→21:56)
[2021-06-24] MEDS ORDERED: E-Z-HD (BARIUM SULF) SUSPENSION PO ONE (14:20)
[2021-06-24] MEDS ORDERED: E-Z-PAQUE (BARIUM SULF) SUSP 1 BOTTLE PO ONE (14:20)
[2021-06-24] MEDS ORDERED: *HR* Dextrose 50 % in Water (Syg) 50 ML SYRINGE ONE (16:04)
[2021-06-24] MEDS ORDERED: Ertapenem 1,000 MG in 0.9 % Sodium Chloride Mini Bag 100 ML IVPB SCH (18:00)
[2021-06-24] MEDS: *HR* Dextrose 50 % in Water (Syg) 50 ML SYRINGE IVP PRN (19:45)
[2021-06-24] MEDS: Midazolam HCl 50 MG/100 ML IV.SOLN IVC SCH (21:32)
[2021-06-24] MEDS ORDERED: Dextrose Gel 15 GM/37.5 ML TUBE PO PRN ×2 (22:05)
[2021-06-24] MEDS ORDERED: D5% in Water 1,000 ML IVC PRN (22:05)
[2021-06-25 03:29] LABS: Basophils % 0.2 %; Eosinophils # 0.1 K/mcL (0.0-0.6); Eosinophils % 2.7 %; Hematocrit 28.2 % (37.5-50.1); Hemoglobin 8.5 g/dL (12.9-16.9); Immature Granulocytes % 0.4 % (0-4); Lymphocytes # 0.8 K/mcL (0.6-4.6); Lymphocytes % 16.8 %; Mean Corpuscular HGB Conc 30.1 g/dL (31.6-35.5); Mean Corpuscular Hemoglobin 26.8 pg (28.0-33.3); Mean Platelet Volume 11.2 fL (9.4-12.4); Monocytes # 0.4 K/mcL (0.0-1.3); Monocytes % 8.6 %; Neutrophils # 3.5 K/mcL (1.6-8.9); Platelet Count 174 K/mcL (140-400); Red Blood Count 3.17 M/mcL (4.19-5.50); Red Cell Distribution Width 17.5 % (11.5-14.5); Segmented Neutrophils % 71.3 %; White Blood Count 4.9 K/mcL (4.3-11.1)
[2021-06-25] MEDS ORDERED: *HR* OxyCODONE Immed Rel 5 MG TABLET PO PRN (03:30)
[2021-06-25 03:41] LABS: VBG Ionized Calcium 1.17 mmol/L (1.15-1.35)
[2021-06-25 03:50] LABS: Alanine Aminotransferase 9 Units/L (7-52); Albumin 2.8 g/dL (3.5-5.7); Albumin/Globulin Ratio 0.8 (1.1-2.2); Alkaline Phosphatase 55 Units/L (34-104); Aspartate Amino Transferase 10 Units/L (13-39); BUN/Creatinine Ratio 9 (6-26); Bilirubin,Total 0.2 mg/dL (0.3-1.0); Blood Urea Nitrogen 6 mg/dL (8-23); Carbon Dioxide 27 mEq/L (23-29); Chloride 108 mEq/L (98-107); Globulin 3.5 g/dL (2.4-3.5); Glucose 97 mg/dL (70-105); Magnesium 1.7 mg/dL (1.6-2.6); Osmolality,Calculated 290 (280-300); Phosphorous 2.6 mg/dL (2.7-4.5); Potassium 3.5 mEq/L (3.5-5.1); Sodium 141 mEq/L (136-145); Total Protein 6.3 g/dL (6.4-8.9); eGFR For African Americans > 60 (> 60); eGFR For Non-African Americans > 60 (> 60)
[2021-06-25] MEDS: *HR* Dextrose 50 % in Water (Syg) 50 ML SYRINGE IVP PRN (04:00)
[2021-06-25] MEDS ORDERED: *HR* Metoprolol 5 MG/5 ML VIAL IVP PRN ×2 (04:23→11:52)
[2021-06-25] MEDS: Amiodarone Premix 360 MG/200 ML BAG IVC SCH (07:54)
[2021-06-25] MEDS: Pantoprazole 40 MG VIAL IVP SCH (08:05)
[2021-06-25] MEDS: Apixaban 5 MG TABLET PO SCH ×2 (08:05→19:56)
[2021-06-25] MEDS: Norepinephrine 4 MG/254 ML IV.SOLN IVC SCH (10:54)
[2021-06-25] MEDS ORDERED: Naloxone 0.4 MG/ML INJ IVP PRN (11:52)
[2021-06-25] MEDS ORDERED: D5% in Water 1,000 ML IVC PRN (11:52)
[2021-06-25] MEDS ORDERED: Dextrose Gel 15 GM/37.5 ML TUBE PO PRN ×2 (11:52)
[2021-06-25] MEDS ORDERED: Acetaminophen 650 MG RECTAL SUPP RC PRN (11:52)
[2021-06-25] MEDS ORDERED: *HR* Dextrose 50 % in Water (Syg) 50 ML SYRINGE IVP PRN (11:52)
[2021-06-25] MEDS ORDERED: Ondansetron 4 MG/2 ML VIAL IVP PRN (11:52)
[2021-06-25] MEDS: *HR* OxyCODONE Immed Rel 5 MG TABLET PO PRN ×2 (12:51→21:13)
[2021-06-25] MEDS: Ertapenem 1,000 MG in 0.9 % Sodium Chloride Mini Bag 100 ML IVPB SCH (17:17)
[2021-06-25] MEDS: *HR* Amiodarone 200 MG TABLET PO SCH (19:56)
[2021-06-25] MEDS ORDERED: *HR* Amiodarone 200 MG TABLET PO SCH (21:00)
[2021-06-26] MEDS: Loratadine 10 MG TABLET PO SCH ×2 (00:22→20:59)
[2021-06-26] MEDS: *HR* OxyCODONE Immed Rel 5 MG TABLET PO PRN ×4 (05:28→23:35)
[2021-06-26] MEDS: Metoprolol 100 MG TABLET PO SCH ×2 (08:48→20:58)
[2021-06-26] MEDS: *HR* Amiodarone 200 MG TABLET PO SCH ×2 (08:48→20:59)
[2021-06-26] MEDS: Apixaban 5 MG TABLET PO SCH ×2 (08:48→20:58)
[2021-06-26] MEDS ORDERED: Pantoprazole 40 MG VIAL IVP SCH (09:00)
[2021-06-26] MEDS: Tiotropium 10 INH DOSE IH SCH (11:35)
[2021-06-26] MEDS: Budesonide/Formoterol 160/4.5 1 PUFF INH IH SCH ×2 (11:35→20:08)
[2021-06-26 15:33] LABS: Basophils % 0.8 %; Eosinophils # 0.1 K/mcL (0.0-0.6); Eosinophils % 2.1 %; Hematocrit 29.6 % (37.5-50.1); Immature Granulocytes % 0.3 % (0-4); Lymphocytes # 1.1 K/mcL (0.6-4.6); Mean Corpuscular HGB Conc 30.4 g/dL (31.6-35.5); Mean Corpuscular Hemoglobin 26.7 pg (28.0-33.3); Mean Corpuscular Volume 87.8 fL (83.0-100.0); Mean Platelet Volume 10.6 fL (9.4-12.4); Monocytes # 0.3 K/mcL (0.0-1.3); Monocytes % 6.8 %; Neutrophils # 2.3 K/mcL (1.6-8.9); Platelet Count 184 K/mcL (140-400); Red Blood Count 3.37 M/mcL (4.19-5.50); Red Cell Distribution Width 17.7 % (11.5-14.5); White Blood Count 3.8 K/mcL (4.3-11.1)
[2021-06-26 15:38] LABS: Alanine Aminotransferase 9 Units/L (7-52); Albumin/Globulin Ratio 0.8 (1.1-2.2); Alkaline Phosphatase 54 Units/L (34-104); Aspartate Amino Transferase 11 Units/L (13-39); BUN/Creatinine Ratio 10 (6-26); Bilirubin,Total 0.3 mg/dL (0.3-1.0); Blood Urea Nitrogen 8 mg/dL (8-23); Calcium 8.4 mg/dL (8.6-10.3); Carbon Dioxide 25 mEq/L (23-29); Chloride 109 mEq/L (98-107); Globulin 3.6 g/dL (2.4-3.5); Glucose 120 mg/dL (70-105); Magnesium 1.8 mg/dL (1.6-2.6); Osmolality,Calculated 290 (280-300); Phosphorous 2.8 mg/dL (2.7-4.5); Potassium 3.4 mEq/L (3.5-5.1); Sodium 140 mEq/L (136-145); Total Protein 6.6 g/dL (6.4-8.9); eGFR For African Americans > 60 (> 60); eGFR For Non-African Americans > 60 (> 60)
[2021-06-26] MEDS: Ertapenem 1,000 MG in 0.9 % Sodium Chloride Mini Bag 100 ML IVPB SCH (17:05)
[2021-06-26] MEDS: Ipratropium/Albuterol Neb 3 ML IH PRN (23:44)
[2021-06-27] MEDS: *HR* OxyCODONE Immed Rel 5 MG TABLET PO PRN ×3 (05:59→17:57)
[2021-06-27] MEDS: Budesonide/Formoterol 160/4.5 1 PUFF INH IH SCH ×2 (07:37→19:47)
[2021-06-27] MEDS: Tiotropium 10 INH DOSE IH SCH (07:38)
[2021-06-27] MEDS: Metoprolol 100 MG TABLET PO SCH ×2 (08:56→20:12)
[2021-06-27] MEDS: Apixaban 5 MG TABLET PO SCH ×2 (08:56→20:12)
[2021-06-27] MEDS: *HR* Amiodarone 200 MG TABLET PO SCH (08:56)
[2021-06-27] MEDS: Ertapenem 1,000 MG in 0.9 % Sodium Chloride Mini Bag 100 ML IVPB SCH (17:08)
[2021-06-27] MEDS: Loratadine 10 MG TABLET PO SCH (20:12)
[2021-06-28] MEDS: *HR* OxyCODONE Immed Rel 5 MG TABLET PO PRN ×4 (00:05→17:48)
[2021-06-28 06:54] LABS: Basophils % 0.5 %; Eosinophils # 0.1 K/mcL (0.0-0.6); Hematocrit 27.8 % (37.5-50.1); Immature Granulocytes % 0.2 % (0-4); Lymphocytes # 1.4 K/mcL (0.6-4.6); Lymphocytes % 34.4 %; Mean Corpuscular HGB Conc 32.4 g/dL (31.6-35.5); Mean Corpuscular Hemoglobin 27.6 pg (28.0-33.3); Mean Corpuscular Volume 85.3 fL (83.0-100.0); Monocytes # 0.3 K/mcL (0.0-1.3); Monocytes % 6.2 %; Neutrophils # 2.3 K/mcL (1.6-8.9); Platelet Count 171 K/mcL (140-400); Red Blood Count 3.26 M/mcL (4.19-5.50); Red Cell Distribution Width 17.2 % (11.5-14.5); Segmented Neutrophils % 56.7 %
[2021-06-28 06:58] LABS: VBG Ionized Calcium 1.14 mmol/L (1.15-1.35)
[2021-06-28 07:16] LABS: Alanine Aminotransferase 11 Units/L (7-52); Albumin 3.1 g/dL (3.5-5.7); Albumin/Globulin Ratio 0.8 (1.1-2.2); Alkaline Phosphatase 57 Units/L (34-104); Aspartate Amino Transferase 14 Units/L (13-39); BUN/Creatinine Ratio 8 (6-26); Bilirubin,Total 0.5 mg/dL (0.3-1.0); Blood Urea Nitrogen 6 mg/dL (8-23); Calcium 8.4 mg/dL (8.6-10.3); Carbon Dioxide 24 mEq/L (23-29); Chloride 104 mEq/L (98-107); Globulin 3.8 g/dL (2.4-3.5); Glucose 83 mg/dL (70-105); Magnesium 1.7 mg/dL (1.6-2.6); Osmolality,Calculated 279 (280-300); Potassium 3.4 mEq/L (3.5-5.1); Sodium 136 mEq/L (136-145); Total Protein 6.9 g/dL (6.4-8.9); eGFR For African Americans > 60 (> 60); eGFR For Non-African Americans > 60 (> 60)
[2021-06-28] MEDS: Budesonide/Formoterol 160/4.5 1 PUFF INH IH SCH ×2 (07:21→19:40)
[2021-06-28] MEDS: Tiotropium 10 INH DOSE IH SCH (07:21)
[2021-06-28] MEDS: Ipratropium/Albuterol Neb 3 ML IH PRN ×2 (07:22→19:44)
[2021-06-28] MEDS ORDERED: Potassium Chloride Elixir 20 MEQ/15 ML UDC PO ONE (07:28)
[2021-06-28] MEDS: Apixaban 5 MG TABLET PO SCH ×2 (07:51→21:20)
[2021-06-28] MEDS: Metoprolol 100 MG TABLET PO SCH ×2 (07:51→21:20)
[2021-06-28] MEDS: Cetirizine HCl 5 MG/5 ML UDC PO SCH (10:20)
[2021-06-28] MEDS: Ertapenem 1,000 MG in 0.9 % Sodium Chloride Mini Bag 100 ML IVPB SCH (17:47)
[2021-06-29] MEDS: *HR* OxyCODONE Immed Rel 5 MG TABLET PO PRN ×3 (00:01→12:13)
[2021-06-29 03:46] VITALS: TEMP 97.7; O2SAT 94
[2021-06-29] MEDS: Tiotropium 10 INH DOSE IH SCH (07:36)
[2021-06-29] MEDS: Budesonide/Formoterol 160/4.5 1 PUFF INH IH SCH (07:36)
[2021-06-29 08:21] VITALS: BP 141/70; PULSE 83
[2021-06-29] MEDS: Cetirizine HCl 5 MG/5 ML UDC PO SCH (09:16)
[2021-06-29] MEDS: Metoprolol 100 MG TABLET PO SCH (09:16)
[2021-06-29] MEDS: Apixaban 5 MG TABLET PO SCH (09:16)
[2021-06-29 14:05] LABS: Adenovirus Not Detected (Not Detect); Bordetella Pertussis Not Detected (Not Detect); Chlamydophila pneumoniae Not Detected (Not Detect); Coronavirus 229E Not Detected (Not Detect); Coronavirus HKU1 Not Detected (Not Detect); Coronavirus NL63 Not Detected (Not Detect); Coronavirus OC43 Not Detected (Not Detect); Human Metapneumovirus Not Detected (Not Detect); Human Rhinovirus/Enterovirus Not Detected (Not Detect); Influenza A Subtype 2009 H1 Not Detected (Not Detect); Influenza B Not Detected (Not Detect); Mycoplasma pneumoniae Not Detected (Not Detect); Parainfluenza Virus 1 Not Detected (Not Detect); Parainfluenza Virus 2 Not Detected (Not Detect); Parainfluenza Virus 3 Not Detected (Not Detect); Parainfluenza Virus 4 Not Detected (Not Detect); Respiratory Syncytial Virus Not Detected (Not Detect); SARS-CoV-2 Not Detected (Not Detect)
== END 2021-06-29 14:01 | disposition other institution (70) | DRG 871 ==
LOC: EMEROOARM 14:30 → SUATTDRO 19:38 → ICNU 19:38 → 2ANU 06-25 14:24
PROVIDERS: ADMIT Internal Medicine; ATTEND Internal Medicine

== ENCOUNTER 2021-07-23 22:34 | Inpatient (IN) ==
[2021-07-23] MEDS ORDERED: Nitroglycerin 0.4 MG TAB.SUBL SL PRN (22:37)
[2021-07-23] MEDS ORDERED: Aspirin 81 MG TAB.CHEW PO ONE (22:37)
[2021-07-23] MEDS ORDERED: 0.9 % Sodium Chloride 500 ML IVC ONE (22:55)
[2021-07-23 23:16] LABS: Basophils % 0.1 %; Eosinophils % 0.1 %; Hematocrit 31.6 % (37.5-50.1); Hemoglobin 9.9 g/dL (12.9-16.9); Immature Granulocytes % 0.3 % (0-4); Lymphocytes # 0.3 K/mcL (0.6-4.6); Lymphocytes % 3.8 %; Mean Corpuscular HGB Conc 31.3 g/dL (31.6-35.5); Mean Corpuscular Hemoglobin 28.5 pg (28.0-33.3); Mean Corpuscular Volume 91.1 fL (83.0-100.0); Mean Platelet Volume 10.8 fL (9.4-12.4); Monocytes # 0.2 K/mcL (0.0-1.3); Monocytes % 3.4 %; Neutrophils # 6.3 K/mcL (1.6-8.9); Platelet Count 139 K/mcL (140-400); Red Blood Count 3.47 M/mcL (4.19-5.50); Red Cell Distribution Width 20.6 % (11.5-14.5); Segmented Neutrophils % 92.3 %; White Blood Count 6.8 K/mcL (4.3-11.1)
[2021-07-23 23:18] LABS: VBG HCO3 25 mEq/L (21-27); VBG PCO2 41 mmHg (41-51); VBG PH 7.39 pH Units (7.32-7.42); VBG PO2 49 mmHg (25-50)
[2021-07-23 23:23] LABS: INR 1.7; Prothrombin Time 18.4 Seconds (9.4-12.1)
[2021-07-23 23:25] LABS: Activated Partial Thrombo Time 30.1 Seconds (26.0-36.0)
[2021-07-23] MEDS ORDERED: 0.9 % Sodium Chloride 1,000 ML IVC ONE (23:38)
[2021-07-23 23:40] LABS: BUN/Creatinine Ratio 24 (6-26); Blood Urea Nitrogen 21 mg/dL (8-23); Calcium 8.1 mg/dL (8.6-10.3); Carbon Dioxide 24 mEq/L (23-29); Chloride 105 mEq/L (98-107); Glucose 145 mg/dL (70-105); Osmolality,Calculated 292 (280-300); Sodium 138 mEq/L (136-145); eGFR For African Americans > 60 (> 60); eGFR For Non-African Americans > 60 (> 60)
[2021-07-23 23:41] LABS: Troponin I < 0.03 ng/mL (< 0.04)
[2021-07-24 00:04] LABS: Bacteria,Urine Few per hpf (None-Few); Bilirubin,Urine Negative (Negative); Blood,Urine Trace (Negative); Clarity,Urine Turbid (Clear); Color,Urine Yellow (Yellow); Glucose,Urine (UA) Normal (Normal); Ketones,Urine Negative (Negative); Leukocyte Esterase,Urine Large (Negative); Mucus,Urine Few per lpf (None-Few); Nitrite,Urine Negative (Negative); Protein,Urine 70 mg/dL (Neg-Trace); Specific Gravity,Urine 1.017 (1.010-1.025); Squamous Epithelial Cell,Urine Few per hpf (None-Few); Urobilinogen,Urine Normal (Normal); WBC,Urine TNTC per hpf (0-3)
[2021-07-24 00:25] LABS: Adenovirus Not Detected (Not Detect); Bordetella Pertussis Not Detected (Not Detect); Chlamydophila pneumoniae Not Detected (Not Detect); Coronavirus 229E Not Detected (Not Detect); Coronavirus HKU1 Not Detected (Not Detect); Coronavirus NL63 Not Detected (Not Detect); Coronavirus OC43 Not Detected (Not Detect); Human Metapneumovirus Not Detected (Not Detect); Human Rhinovirus/Enterovirus Not Detected (Not Detect); Influenza A Subtype 2009 H1 Not Detected (Not Detect); Influenza B Not Detected (Not Detect); Mycoplasma pneumoniae Not Detected (Not Detect); Parainfluenza Virus 1 Not Detected (Not Detect); Parainfluenza Virus 2 Not Detected (Not Detect); Parainfluenza Virus 3 Not Detected (Not Detect); Parainfluenza Virus 4 Not Detected (Not Detect); Respiratory Syncytial Virus Not Detected (Not Detect); SARS-CoV-2 Not Detected (Not Detect)
[2021-07-24] MEDS ORDERED: Piperacillin/Tazobactam 3.375 GM in 0.9 % Sodium Chloride Mini Bag 100 ML IVPB ONE (01:00)
[2021-07-24] MEDS ORDERED: 0.9 % Sodium Chloride 1,000 ML IVC ONE (01:51)
[2021-07-24] MEDS ORDERED: Isovue-370 500 ML BOTTLE IVP ONE (03:08)
[2021-07-24] MEDS ORDERED: Azithromycin 500 MG in 0.9 % Sodium Chloride 250 ML IVPB ONE (04:13)
[2021-07-24] MEDS: Norepinephrine 4 MG/254 ML IV.SOLN IVC SCH ×3 (04:18→19:00)
[2021-07-24] MEDS ORDERED: Melatonin 3 MG TABLET PO PRN ×2 (04:41→18:01)
[2021-07-24] MEDS ORDERED: Ondansetron 4 MG/2 ML VIAL IVP PRN ×2 (04:41→18:01)
[2021-07-24] MEDS ORDERED: *HR* HYDROcodone/Acet 5/325 mg TABLET PO PRN (04:41)
[2021-07-24] MEDS ORDERED: Acetaminophen 325 MG TABLET PO PRN ×2 (04:41→18:01)
[2021-07-24] MEDS ORDERED: *HR* Promethazine 25 MG/ML VIAL IM PRN ×2 (04:41→18:01)
[2021-07-24] MEDS ORDERED: Naloxone 0.4 MG/ML INJ IVP PRN ×2 (04:41→18:01)
[2021-07-24] MEDS ORDERED: Vancomycin 1,500 MG/265 ML IV.SOLN IVPB ONE (05:00)
[2021-07-24] MEDS ORDERED: Cefepime HCl 1,000 MG in Water for inj. (sterile) 10 ML IVP SCH (08:00)
[2021-07-24 08:20] LABS: Basophils % 0.3 %; Hemoglobin 8.5 g/dL (12.9-16.9); Immature Granulocytes % 0.3 % (0-4); Lymphocytes # 0.3 K/mcL (0.6-4.6); Lymphocytes % 8.9 %; Mean Corpuscular HGB Conc 29.3 g/dL (31.6-35.5); Mean Corpuscular Hemoglobin 27.6 pg (28.0-33.3); Mean Corpuscular Volume 94.2 fL (83.0-100.0); Mean Platelet Volume 9.7 fL (9.4-12.4); Monocytes % 0.9 %; Neutrophils # 3.1 K/mcL (1.6-8.9); Platelet Count 106 K/mcL (140-400); Red Blood Count 3.08 M/mcL (4.19-5.50); Red Cell Distribution Width 20.7 % (11.5-14.5); Segmented Neutrophils % 89.6 %; White Blood Count 3.5 K/mcL (4.3-11.1)
[2021-07-24 08:28] LABS: INR 1.7; Prothrombin Time 18.8 Seconds (9.4-12.1)
[2021-07-24 08:40] LABS: Alanine Aminotransferase 33 Units/L (7-52); Albumin 2.5 g/dL (3.5-5.7); Albumin/Globulin Ratio 0.7 (1.1-2.2); Alkaline Phosphatase 103 Units/L (34-104); Aspartate Amino Transferase 31 Units/L (13-39); BUN/Creatinine Ratio 23 (6-26); Bilirubin,Total 0.5 mg/dL (0.3-1.0); Blood Urea Nitrogen 19 mg/dL (8-23); Calcium 7.5 mg/dL (8.6-10.3); Carbon Dioxide 24 mEq/L (23-29); Chloride 110 mEq/L (98-107); Globulin 3.8 g/dL (2.4-3.5); Glucose 80 mg/dL (70-105); Magnesium 1.7 mg/dL (1.6-2.6); Osmolality,Calculated 291 (280-300); Potassium 3.3 mEq/L (3.5-5.1); Sodium 140 mEq/L (136-145); Total Protein 6.3 g/dL (6.4-8.9); eGFR For African Americans > 60 (> 60); eGFR For Non-African Americans > 60 (> 60)
[2021-07-24 08:47] LABS: Anisocytosis 1+ (Not Present); Large Platelets Present (Not Present); Platelet Estimate Slight Decrease (Normal)
[2021-07-24] MEDS ORDERED: Ertapenem 1,000 MG in 0.9 % Sodium Chloride Mini Bag 100 ML IVPB SCH (09:00)
[2021-07-24] MEDS ORDERED: Piperacillin/Tazobactam 3.375 GM in 0.9 % Sodium Chloride Mini Bag 100 ML IVPB SCH (12:00)
[2021-07-24] MEDS ORDERED: Ipratropium/Albuterol Neb 3 ML IH PRN (16:24)
[2021-07-24] MEDS ORDERED: Vancomycin 1,500 MG/265 ML IV.SOLN IVPB SCH (18:00)
[2021-07-24] MEDS ORDERED: Gabapentin 300 MG CAPSULE PO SCH (21:00)
[2021-07-24] MEDS ORDERED: Apixaban 5 MG TABLET PO SCH (21:00)
[2021-07-24] MEDS ORDERED: Budesonide/Formoterol 80/4.5 1 PUFF INH IH SCH (22:00)
[2021-07-24] MEDS ORDERED: Ketorolac 30 MG/ML VIAL IVP ONE (23:35)
[2021-07-24] MEDS ORDERED: Calcium Gluconate 1gm/50mL 1 GM/50 ML BAG IVPB ONE (23:35)
[2021-07-25 05:43] LABS: VBG Ionized Calcium 1.23 mmol/L (1.15-1.35)
[2021-07-25 05:49] LABS: Basophils % 0.4 %; Eosinophils # 0.3 K/mcL (0.0-0.6); Eosinophils % 3.2 %; Hematocrit 27.4 % (37.5-50.1); Hemoglobin 8.6 g/dL (12.9-16.9); Immature Granulocytes % 0.4 % (0-4); Lymphocytes # 1.1 K/mcL (0.6-4.6); Lymphocytes % 10.3 %; Mean Corpuscular HGB Conc 31.4 g/dL (31.6-35.5); Mean Corpuscular Hemoglobin 28.9 pg (28.0-33.3); Mean Corpuscular Volume 91.9 fL (83.0-100.0); Mean Platelet Volume 11.1 fL (9.4-12.4); Monocytes # 0.9 K/mcL (0.0-1.3); Monocytes % 8.4 %; Neutrophils # 7.9 K/mcL (1.6-8.9); Platelet Count 127 K/mcL (140-400); Red Blood Count 2.98 M/mcL (4.19-5.50); Red Cell Distribution Width 20.4 % (11.5-14.5); Segmented Neutrophils % 77.3 %
[2021-07-25 06:06] LABS: White Blood Count 10.2 K/mcL (4.3-11.1)
[2021-07-25 06:14] LABS: BUN/Creatinine Ratio 21 (6-26); Blood Urea Nitrogen 18 mg/dL (8-23); Calcium 8.1 mg/dL (8.6-10.3); Carbon Dioxide 24 mEq/L (23-29); Chloride 109 mEq/L (98-107); Glucose 97 mg/dL (70-105); Magnesium 2.4 mg/dL (1.6-2.6); Osmolality,Calculated 288 (280-300); Phosphorous 2.7 mg/dL (2.7-4.5); Potassium 3.8 mEq/L (3.5-5.1); Sodium 138 mEq/L (136-145); eGFR For African Americans > 60 (> 60); eGFR For Non-African Americans > 60 (> 60)
[2021-07-25 06:29] LABS: INR 1.4; Prothrombin Time 15.7 Seconds (9.4-12.1)
[2021-07-25 06:31] LABS: Activated Partial Thrombo Time 29.8 Seconds (26.0-36.0)
[2021-07-25] MEDS: Norepinephrine 4 MG/254 ML IV.SOLN IVC SCH ×4 (06:53→22:13)
[2021-07-25] MEDS: Ertapenem 1,000 MG in 0.9 % Sodium Chloride Mini Bag 100 ML IVPB SCH (07:55)
[2021-07-25] MEDS: *HR* HYDROcodone/Acet 5/325 mg TABLET PO PRN (11:52)
[2021-07-25] MEDS: Loratadine 10 MG TABLET PO SCH (16:15)
[2021-07-25] MEDS: Morphine Sulfate Oral CONC 10 MG/0.5 ML ORAL.SYG PO PRN (16:16)
[2021-07-26 05:41] LABS: Basophils % 0.4 %; Eosinophils # 0.2 K/mcL (0.0-0.6); Eosinophils % 4.1 %; Hemoglobin 8.2 g/dL (12.9-16.9); Immature Granulocytes % 0.4 % (0-4); Lymphocytes # 0.8 K/mcL (0.6-4.6); Lymphocytes % 15.5 %; Mean Corpuscular HGB Conc 31.5 g/dL (31.6-35.5); Mean Corpuscular Hemoglobin 28.6 pg (28.0-33.3); Mean Corpuscular Volume 90.6 fL (83.0-100.0); Monocytes # 0.4 K/mcL (0.0-1.3); Monocytes % 7.9 %; Neutrophils # 3.7 K/mcL (1.6-8.9); Platelet Count 122 K/mcL (140-400); Red Blood Count 2.87 M/mcL (4.19-5.50); Red Cell Distribution Width 20.3 % (11.5-14.5); Segmented Neutrophils % 71.7 %; White Blood Count 5.1 K/mcL (4.3-11.1)
[2021-07-26 05:58] LABS: BUN/Creatinine Ratio 25 (6-26); Blood Urea Nitrogen 20 mg/dL (8-23); Calcium 7.9 mg/dL (8.6-10.3); Carbon Dioxide 24 mEq/L (23-29); Chloride 112 mEq/L (98-107); Glucose 81 mg/dL (70-105); Osmolality,Calculated 298 (280-300); Potassium 3.4 mEq/L (3.5-5.1); Sodium 143 mEq/L (136-145); eGFR For African Americans > 60 (> 60); eGFR For Non-African Americans > 60 (> 60)
[2021-07-26] MEDS: Ertapenem 1,000 MG in 0.9 % Sodium Chloride Mini Bag 100 ML IVPB SCH (08:17)
[2021-07-26] MEDS: Loratadine 10 MG TABLET PO SCH (08:18)
[2021-07-26] MEDS: Morphine Sulfate Oral CONC 10 MG/0.5 ML ORAL.SYG PO PRN ×3 (08:24→20:40)
[2021-07-27 05:18] LABS: Hematocrit 26.7 % (37.5-50.1); Hemoglobin 8.4 g/dL (12.9-16.9); Mean Corpuscular HGB Conc 31.5 g/dL (31.6-35.5); Mean Corpuscular Hemoglobin 28.6 pg (28.0-33.3); Mean Corpuscular Volume 90.8 fL (83.0-100.0); Mean Platelet Volume 10.8 fL (9.4-12.4); Platelet Count 140 K/mcL (140-400); Red Blood Count 2.94 M/mcL (4.19-5.50); Red Cell Distribution Width 20.4 % (11.5-14.5); White Blood Count 4.8 K/mcL (4.3-11.1)
[2021-07-27 05:39] LABS: BUN/Creatinine Ratio 23 (6-26); Blood Urea Nitrogen 17 mg/dL (8-23); Calcium 8.1 mg/dL (8.6-10.3); Carbon Dioxide 26 mEq/L (23-29); Chloride 111 mEq/L (98-107); Glucose 82 mg/dL (70-105); Magnesium 1.8 mg/dL (1.6-2.6); Osmolality,Calculated 295 (280-300); Potassium 3.8 mEq/L (3.5-5.1); Sodium 142 mEq/L (136-145); eGFR For African Americans > 60 (> 60); eGFR For Non-African Americans > 60 (> 60)
[2021-07-27] MEDS: Loratadine 10 MG TABLET PO SCH (08:03)
[2021-07-27] MEDS: Ertapenem 1,000 MG in 0.9 % Sodium Chloride Mini Bag 100 ML IVPB SCH (08:03)
[2021-07-27] MEDS ORDERED: *HR* Metoprolol 5 MG/5 ML VIAL IVP ONE (09:56)
[2021-07-27] MEDS ORDERED: GuaiFENesin Liq 200 MG/10 ML UDC PO PRN (12:33)
[2021-07-27] MEDS: Morphine Sulfate Oral CONC 10 MG/0.5 ML ORAL.SYG PO PRN ×2 (12:34→19:37)
[2021-07-27] MEDS: Finasteride 5 MG TABLET PO SCH (16:42)
[2021-07-27] MEDS: Metoprolol 100 MG TABLET PO SCH (19:41)
[2021-07-27] MEDS ORDERED: Metoprolol 100 MG TABLET PO SCH (21:00)
[2021-07-28 01:40] LABS: Basophils % 0.4 %; Eosinophils # 0.2 K/mcL (0.0-0.6); Eosinophils % 4.3 %; Hematocrit 29.4 % (37.5-50.1); Hemoglobin 8.9 g/dL (12.9-16.9); Immature Granulocytes % 0.2 % (0-4); Lymphocytes # 1.8 K/mcL (0.6-4.6); Lymphocytes % 34.4 %; Mean Corpuscular HGB Conc 30.3 g/dL (31.6-35.5); Mean Corpuscular Hemoglobin 27.5 pg (28.0-33.3); Mean Corpuscular Volume 90.7 fL (83.0-100.0); Mean Platelet Volume 11.7 fL (9.4-12.4); Monocytes # 0.4 K/mcL (0.0-1.3); Monocytes % 8.1 %; Neutrophils # 2.7 K/mcL (1.6-8.9); Platelet Count 154 K/mcL (140-400); Red Blood Count 3.24 M/mcL (4.19-5.50); Red Cell Distribution Width 19.9 % (11.5-14.5); Segmented Neutrophils % 52.6 %; White Blood Count 5.2 K/mcL (4.3-11.1)
[2021-07-28 02:01] LABS: BUN/Creatinine Ratio 19 (6-26); Blood Urea Nitrogen 15 mg/dL (8-23); Calcium 8.3 mg/dL (8.6-10.3); Carbon Dioxide 26 mEq/L (23-29); Chloride 106 mEq/L (98-107); Glucose 80 mg/dL (70-105); Osmolality,Calculated 286 (280-300); Potassium 4.3 mEq/L (3.5-5.1); Sodium 138 mEq/L (136-145); eGFR For African Americans > 60 (> 60); eGFR For Non-African Americans > 60 (> 60)
[2021-07-28] MEDS: Morphine Sulfate Oral CONC 10 MG/0.5 ML ORAL.SYG PO PRN ×4 (02:58→22:57)
[2021-07-28] MEDS: Loratadine 10 MG TABLET PO SCH (08:42)
[2021-07-28] MEDS: Finasteride 5 MG TABLET PO SCH (08:42)
[2021-07-28] MEDS: Metoprolol 100 MG TABLET PO SCH ×2 (08:42→20:46)
[2021-07-28] MEDS: Ertapenem 1,000 MG in 0.9 % Sodium Chloride Mini Bag 100 ML IVPB SCH (08:43)
[2021-07-28] MEDS: Artificial Tears SOLN 15 ML BOTTLE BOTH EYES PRN ×2 (08:45→14:09)
[2021-07-28] MEDS: *HR* HYDROcodone/Acet 5/325 mg TABLET PO PRN (10:23)
[2021-07-28] MEDS ORDERED: Ipratropium/Albuterol Neb 3 ML IH PRN (14:15)
[2021-07-29] MEDS: Morphine Sulfate Oral CONC 10 MG/0.5 ML ORAL.SYG PO PRN ×2 (04:58→11:47)
[2021-07-29 05:34] LABS: Basophils % 0.6 %; Eosinophils # 0.3 K/mcL (0.0-0.6); Eosinophils % 5.3 %; Hemoglobin 8.8 g/dL (12.9-16.9); Immature Granulocytes % 0.2 % (0-4); Lymphocytes # 1.8 K/mcL (0.6-4.6); Lymphocytes % 33.6 %; Mean Corpuscular HGB Conc 30.3 g/dL (31.6-35.5); Mean Corpuscular Hemoglobin 27.2 pg (28.0-33.3); Mean Corpuscular Volume 89.5 fL (83.0-100.0); Mean Platelet Volume 10.8 fL (9.4-12.4); Monocytes # 0.4 K/mcL (0.0-1.3); Monocytes % 6.8 %; Neutrophils # 2.9 K/mcL (1.6-8.9); Platelet Count 161 K/mcL (140-400); Red Blood Count 3.24 M/mcL (4.19-5.50); Red Cell Distribution Width 19.6 % (11.5-14.5); Segmented Neutrophils % 53.5 %; White Blood Count 5.3 K/mcL (4.3-11.1)
[2021-07-29 06:18] LABS: BUN/Creatinine Ratio 17 (6-26); Blood Urea Nitrogen 13 mg/dL (8-23); Calcium 8.3 mg/dL (8.6-10.3); Carbon Dioxide 28 mEq/L (23-29); Chloride 102 mEq/L (98-107); Glucose 74 mg/dL (70-105); Osmolality,Calculated 279 (280-300); Potassium 4.1 mEq/L (3.5-5.1); Sodium 135 mEq/L (136-145); eGFR For African Americans > 60 (> 60); eGFR For Non-African Americans > 60 (> 60)
[2021-07-29 07:00] VITALS: O2SAT 91
[2021-07-29] MEDS: *HR* HYDROcodone/Acet 5/325 mg TABLET PO PRN (09:23)
[2021-07-29] MEDS: Ertapenem 1,000 MG in 0.9 % Sodium Chloride Mini Bag 100 ML IVPB SCH (09:24)
[2021-07-29] MEDS: Finasteride 5 MG TABLET PO SCH (09:24)
[2021-07-29] MEDS: Metoprolol 100 MG TABLET PO SCH (09:24)
[2021-07-29] MEDS: Loratadine 10 MG TABLET PO SCH (09:24)
[2021-07-29 11:02] VITALS: BP 124/72; PULSE 61; TEMP 97.8
[2021-07-29 11:02] LABS: Adenovirus Not Detected (Not Detect); Bordetella Pertussis Not Detected (Not Detect); Chlamydophila pneumoniae Not Detected (Not Detect); Coronavirus 229E Not Detected (Not Detect); Coronavirus HKU1 Not Detected (Not Detect); Coronavirus NL63 Not Detected (Not Detect); Coronavirus OC43 Not Detected (Not Detect); Human Metapneumovirus Not Detected (Not Detect); Human Rhinovirus/Enterovirus Not Detected (Not Detect); Influenza A Subtype 2009 H1 Not Detected (Not Detect); Influenza B Not Detected (Not Detect); Mycoplasma pneumoniae Not Detected (Not Detect); Parainfluenza Virus 1 Not Detected (Not Detect); Parainfluenza Virus 2 Not Detected (Not Detect); Parainfluenza Virus 3 Not Detected (Not Detect); Parainfluenza Virus 4 Not Detected (Not Detect); Respiratory Syncytial Virus Not Detected (Not Detect); SARS-CoV-2 Not Detected (Not Detect)
== END 2021-07-29 14:42 | DRG 871 ==
LOC: ICNU 22:34 → EMEROOARM 22:34 → SUATTDRO 07-24 04:48 → OBSVTOIN 07-24 04:48 → ICNU 07-24 05:45 → 2NNU 07-24 17:46 → 2ANU 07-28 18:54
PROVIDERS: ADMIT Internal Medicine; ATTEND Internal Medicine

== ENCOUNTER 2021-10-10 12:26 | Inpatient (IN) ==
[2021-10-10] MEDS ORDERED: 0.9 % Sodium Chloride 1,000 ML IVC ONE ×2 (12:33→12:47)
[2021-10-10] MEDS ORDERED: cefTRIAXone 1,000 MG in Water for inj. (sterile) 10 ML IVP ONE (12:34)
[2021-10-10] MEDS ORDERED: Acetaminophen 325 MG TABLET PO ONE (12:35)
[2021-10-10 13:24] LABS: Basophils % 0.4 %; Eosinophils # 0.1 K/mcL (0.0-0.6); Eosinophils % 1.8 %; Hematocrit 28.9 % (37.5-50.1); Hemoglobin 8.5 g/dL (12.9-16.9); Immature Granulocytes % 0.4 % (0-4); Lymphocytes # 1.3 K/mcL (0.6-4.6); Lymphocytes % 23.2 %; Mean Corpuscular HGB Conc 29.4 g/dL (31.6-35.5); Mean Corpuscular Hemoglobin 26.2 pg (28.0-33.3); Mean Corpuscular Volume 88.9 fL (83.0-100.0); Mean Platelet Volume 11.3 fL (9.4-12.4); Monocytes # 0.5 K/mcL (0.0-1.3); Monocytes % 8.6 %; Neutrophils # 3.7 K/mcL (1.6-8.9); Platelet Count 101 K/mcL (140-400); Red Blood Count 3.25 M/mcL (4.19-5.50); Red Cell Distribution Width 17.9 % (11.5-14.5); Segmented Neutrophils % 65.6 %; White Blood Count 5.6 K/mcL (4.3-11.1)
[2021-10-10 13:24] LABS: Bacteria,Urine Few per hpf (None-Few); Bilirubin,Urine Negative (Negative); Blood,Urine Moderate (Negative); Clarity,Urine Turbid (Clear); Color,Urine Yellow (Yellow); Glucose,Urine (UA) Normal (Normal); Ketones,Urine Negative (Negative); Leukocyte Esterase,Urine Large (Negative); Mucus,Urine Few per lpf (None-Few); Nitrite,Urine Positive (Negative); Protein,Urine 30 mg/dL (Neg-Trace); RBC,Urine TNTC per hpf (0-3); Specific Gravity,Urine 1.024 (1.010-1.025); Squamous Epithelial Cell,Urine Few per hpf (None-Few); Urobilinogen,Urine Normal (Normal); WBC,Urine 50-100 per hpf (0-3)
[2021-10-10] MEDS ORDERED: Azithromycin 250 MG TABLET PO ONE (13:29)
[2021-10-10 13:34] LABS: INR 1.3; Prothrombin Time 14.4 Seconds (9.4-12.1)
[2021-10-10 13:34] LABS: Influenza A PCR Negative (Negative); Influenza B PCR Negative (Negative); Resp. Syncytial Virus PCR Negative (Negative); SARS-CoV-2 by PCR (In House) Negative (Negative)
[2021-10-10 13:37] LABS: Activated Partial Thrombo Time 26.3 Seconds (26.0-36.0)
[2021-10-10 13:53] LABS: Alanine Aminotransferase 10 Units/L (7-52); Albumin 2.8 g/dL (3.5-5.7); Albumin/Globulin Ratio 0.9 (1.1-2.2); Alkaline Phosphatase 47 Units/L (34-104); Aspartate Amino Transferase 11 Units/L (13-39); BUN/Creatinine Ratio 32 (6-26); Bilirubin,Direct 0.1 mg/dL (0.0-0.2); Bilirubin,Indirect 0.2 mg/dL (0.0-1.0); Bilirubin,Total 0.3 mg/dL (0.3-1.0); Blood Urea Nitrogen 22 mg/dL (8-23); Calcium 7.8 mg/dL (8.6-10.3); Carbon Dioxide 26 mEq/L (23-29); Chloride 109 mEq/L (98-107); Glucose 117 mg/dL (70-105); Lipase 5 Units/L (11-82); Magnesium 1.6 mg/dL (1.6-2.6); Osmolality,Calculated 298 (280-300); Phosphorous 3.2 mg/dL (2.7-4.5); Sodium 142 mEq/L (136-145); Total Protein 5.8 g/dL (6.4-8.9); Troponin I 0.22 ng/mL (< 0.04); eGFR For African Americans > 60 (> 60); eGFR For Non-African Americans > 60 (> 60)
[2021-10-10] MEDS ORDERED: Ertapenem 1,000 MG in 0.9 % Sodium Chloride Mini Bag 100 ML IVPB STA (14:03)
[2021-10-10] MEDS ORDERED: *HR* Metoprolol 5 MG/5 ML VIAL IVP ONE ×3 (14:39→20:52)
[2021-10-10] MEDS: 0.9 % Sodium Chloride 1,000 ML IVC SCH ×2 (14:43→14:46)
[2021-10-10] MEDS ORDERED: *HR* Digoxin 0.5 MG/2 ML AMPUL IVP ONE ×2 (15:01→21:00)
[2021-10-10] MEDS ORDERED: *HR* Heparin 5,000 UNIT/ML VIAL IVP PRN ×2 (16:31)
[2021-10-10] MEDS ORDERED: Naloxone 0.4 MG/ML INJ IVP PRN (16:31)
[2021-10-10] MEDS ORDERED: Acetaminophen 325 MG TABLET PO PRN (16:31)
[2021-10-10] MEDS ORDERED: Ipratropium/Albuterol Neb 3 ML IH PRN (16:38)
[2021-10-10] MEDS ORDERED: GuaiFENesin Liq 200 MG/10 ML UDC PO PRN (16:38)
[2021-10-10] MEDS ORDERED: Heparin 25,000UNIT/250ML 1/2NS 25,000 UNIT/250 ML IV.SOLN IVC SCH ×2 (16:45→16:51)
[2021-10-10] MEDS ORDERED: Magic Mouthwash 10 ML UD Cup PO PRN (16:58)
[2021-10-10] MEDS ORDERED: Perflutren Lipid Microsphere 1.3 ML in 0.9 % Sodium Chloride 8.7 ML IVP PRN (17:00)
[2021-10-10 17:49] LABS: Hematocrit 28.2 % (37.5-50.1); Immature Platelets 2.6 % (1.1-6.1); Mean Corpuscular HGB Conc 28.4 g/dL (31.6-35.5); Mean Corpuscular Hemoglobin 25.9 pg (28.0-33.3); Mean Corpuscular Volume 91.3 fL (83.0-100.0); Mean Platelet Volume 11.5 fL (9.4-12.4); Red Blood Count 3.09 M/mcL (4.19-5.50); White Blood Count 4.8 K/mcL (4.3-11.1)
[2021-10-10 17:56] LABS: INR 1.2; Prothrombin Time 13.8 Seconds (9.4-12.1)
[2021-10-10 17:58] LABS: Activated Partial Thrombo Time 24.5 Seconds (26.0-36.0)
[2021-10-10 18:00] LABS: Heparin anti-factor XA UFH > 2.00 IU/mL (0.30-0.70)
[2021-10-10] MEDS ORDERED: DilTIAZem 50 MG/50 ML IV.SOLN IVC SCH (18:15)
[2021-10-10] MEDS: DilTIAZem 50 MG/50 ML IV.SOLN IVC SCH ×2 (18:43→22:15)
[2021-10-10] MEDS: Hydrocortisone Sodium Succ 100 MG/2 ML VIAL IVP SCH ×2 (18:45→23:48)
[2021-10-10] MEDS ORDERED: 0.9 % Sodium Chloride 250 ML ONE (19:31)
[2021-10-10] MEDS: Fluticasone Propionate Nasal 50 MCG/SPRAY BOTTLE NS SCH (20:34)
[2021-10-10] MEDS: Azelastine 0.1% Nasal Spray 30 ML BOTTLE NS SCH (20:36)
[2021-10-10] MEDS: Simethicone 80 MG TAB.CHEW PO SCH (20:39)
[2021-10-10] MEDS: polyethylene glycoL 3350 17 GM POWD.PACK PO SCH (20:39)
[2021-10-10] MEDS: Lactobacillus 1 EACH CAP.SPRINK PO SCH (20:39)
[2021-10-10] MEDS: Capsaicin 0.025% 60 GM TUBE TP SCH (20:40)
[2021-10-10 22:19] LABS: BUN/Creatinine Ratio 32 (6-26); Blood Urea Nitrogen 18 mg/dL (8-23); Calcium 7.5 mg/dL (8.6-10.3); Carbon Dioxide 24 mEq/L (23-29); Chloride 112 mEq/L (98-107); Glucose 104 mg/dL (70-105); Magnesium 1.9 mg/dL (1.6-2.6); Osmolality,Calculated 294 (280-300); Phosphorous 3.1 mg/dL (2.7-4.5); Potassium 4.1 mEq/L (3.5-5.1); Sodium 141 mEq/L (136-145); eGFR For African Americans > 60 (> 60); eGFR For Non-African Americans > 60 (> 60)
[2021-10-10] MEDS: Budesonide/Formoterol 80/4.5 1 PUFF INH IH SCH (23:16)
[2021-10-11 01:26] LABS: Basophils % 0.3 %; Mean Corpuscular Volume 89.9 fL (83.0-100.0)
[2021-10-11] MEDS: DilTIAZem 50 MG/50 ML IV.SOLN IVC SCH ×2 (01:26→06:45)
[2021-10-11 01:28] LABS: Eosinophils % 0.5 %; Hematocrit 31.3 % (37.5-50.1); Immature Granulocytes % 0.3 % (0-4); Lymphocytes # 0.5 K/mcL (0.6-4.6); Lymphocytes % 13.6 %; Mean Corpuscular HGB Conc 28.8 g/dL (31.6-35.5); Mean Corpuscular Hemoglobin 25.9 pg (28.0-33.3); Mean Platelet Volume 11.5 fL (9.4-12.4); Monocytes # 0.1 K/mcL (0.0-1.3); Neutrophils # 3.3 K/mcL (1.6-8.9); Red Blood Count 3.48 M/mcL (4.19-5.50); Red Cell Distribution Width 17.8 % (11.5-14.5); Segmented Neutrophils % 83.3 %; White Blood Count 3.9 K/mcL (4.3-11.1)
[2021-10-11 01:38] LABS: BUN/Creatinine Ratio 30 (6-26); Blood Urea Nitrogen 17 mg/dL (8-23); Calcium 7.9 mg/dL (8.6-10.3); Carbon Dioxide 24 mEq/L (23-29); Chloride 112 mEq/L (98-107); Glucose 108 mg/dL (70-105); Magnesium 2.6 mg/dL (1.6-2.6); Osmolality,Calculated 294 (280-300); Phosphorous 3.3 mg/dL (2.7-4.5); Potassium 4.1 mEq/L (3.5-5.1); Sodium 141 mEq/L (136-145); eGFR For African Americans > 60 (> 60); eGFR For Non-African Americans > 60 (> 60)
[2021-10-11 01:50] LABS: Anisocytosis 1+ (Not Present); Platelet Count 81 K/mcL (140-400); Platelet Estimate Slight Decrease (Normal)
[2021-10-11] MEDS: Budesonide/Formoterol 80/4.5 1 PUFF INH IH SCH ×2 (07:48→19:57)
[2021-10-11] MEDS ORDERED: Finasteride 5 MG TABLET PO SCH (09:00)
[2021-10-11] MEDS ORDERED: Cholecalciferol (D-3) 1,000 UNIT (25MCG) TABLET PO SCH (09:00)
[2021-10-11] MEDS ORDERED: Ertapenem 1,000 MG in 0.9 % Sodium Chloride Mini Bag 100 ML IVPB SCH (09:00)
[2021-10-11] MEDS ORDERED: Loratadine 10 MG TABLET PO SCH (09:00)
[2021-10-11] MEDS: polyethylene glycoL 3350 17 GM POWD.PACK PO SCH ×2 (09:46→21:29)
[2021-10-11] MEDS: LACTASE 3000 UNIT PO SCH ×3 (09:46→15:21)
[2021-10-11] MEDS: Lactobacillus 1 EACH CAP.SPRINK PO SCH ×2 (09:57→21:33)
[2021-10-11] MEDS: Simethicone 80 MG TAB.CHEW PO SCH ×2 (09:58→21:32)
[2021-10-11] MEDS: Azelastine 0.1% Nasal Spray 30 ML BOTTLE NS SCH ×2 (09:59→21:30)
[2021-10-11] MEDS: Capsaicin 0.025% 60 GM TUBE TP SCH ×3 (10:01→21:30)
[2021-10-11] MEDS: Fluticasone Propionate Nasal 50 MCG/SPRAY BOTTLE NS SCH ×2 (10:01→21:30)
[2021-10-11] MEDS ORDERED: Perflutren Lipid Microsphere 1.3 ML in 0.9 % Sodium Chloride 8.7 ML IVP PRN (13:52)
[2021-10-11] MEDS ORDERED: Ipratropium/Albuterol Neb 3 ML IH PRN (13:52)
[2021-10-11] MEDS ORDERED: GuaiFENesin Liq 200 MG/10 ML UDC PO PRN (13:52)
[2021-10-11] MEDS ORDERED: Magic Mouthwash 10 ML UD Cup PO PRN (13:52)
[2021-10-11] MEDS ORDERED: Naloxone 0.4 MG/ML INJ IVP PRN (13:52)
[2021-10-11] MEDS ORDERED: *HR* Heparin 5,000 UNIT/ML VIAL IVP PRN ×2 (13:52)
[2021-10-11] MEDS ORDERED: DilTIAZem 50 MG/50 ML IV.SOLN IVC SCH (14:00)
[2021-10-11] MEDS: Heparin 25,000UNIT/250ML 1/2NS 25,000 UNIT/250 ML IV.SOLN IVC SCH ×2 (14:19→18:12)
[2021-10-11] MEDS: Acetaminophen 325 MG TABLET PO PRN (16:12)
[2021-10-12 05:29] LABS: Basophils % 0.4 %; Eosinophils # 0.1 K/mcL (0.0-0.6); Eosinophils % 2.6 %; Hematocrit 26.7 % (37.5-50.1); Hemoglobin 8.2 g/dL (12.9-16.9); Immature Granulocytes % 0.4 % (0-4); Lymphocytes # 1.2 K/mcL (0.6-4.6); Lymphocytes % 25.8 %; Mean Corpuscular HGB Conc 30.7 g/dL (31.6-35.5); Mean Corpuscular Hemoglobin 26.5 pg (28.0-33.3); Mean Corpuscular Volume 86.1 fL (83.0-100.0); Monocytes # 0.3 K/mcL (0.0-1.3); Monocytes % 5.6 %; Platelet Count 110 K/mcL (140-400); Red Cell Distribution Width 17.5 % (11.5-14.5); Segmented Neutrophils % 65.2 %; White Blood Count 4.7 K/mcL (4.3-11.1)
[2021-10-12 05:52] LABS: BUN/Creatinine Ratio 36 (6-26); Blood Urea Nitrogen 18 mg/dL (8-23); Calcium 7.8 mg/dL (8.6-10.3); Carbon Dioxide 24 mEq/L (23-29); Chloride 112 mEq/L (98-107); Glucose 77 mg/dL (70-105); Magnesium 1.8 mg/dL (1.6-2.6); Osmolality,Calculated 297 (280-300); Phosphorous 2.2 mg/dL (2.7-4.5); Potassium 3.1 mEq/L (3.5-5.1); Sodium 143 mEq/L (136-145); eGFR For African Americans > 60 (> 60); eGFR For Non-African Americans > 60 (> 60)
[2021-10-12] MEDS ORDERED: Calcium Gluconate 1gm/50mL 1 GM/50 ML BAG IVPB ONE (06:43)
[2021-10-12] MEDS: Budesonide/Formoterol 80/4.5 1 PUFF INH IH SCH ×2 (07:25→20:19)
[2021-10-12] MEDS: Finasteride 5 MG TABLET PO SCH (08:29)
[2021-10-12] MEDS: Cholecalciferol (D-3) 1,000 UNIT (25MCG) TABLET PO SCH (08:29)
[2021-10-12] MEDS: polyethylene glycoL 3350 17 GM POWD.PACK PO SCH (08:29)
[2021-10-12] MEDS: Lactobacillus 1 EACH CAP.SPRINK PO SCH ×2 (08:30→20:12)
[2021-10-12] MEDS: Simethicone 80 MG TAB.CHEW PO SCH (08:30)
[2021-10-12] MEDS: Loratadine 10 MG TABLET PO SCH (08:31)
[2021-10-12] MEDS: Ertapenem 1,000 MG in 0.9 % Sodium Chloride Mini Bag 100 ML IVPB SCH (08:31)
[2021-10-12] MEDS: predniSONE 10 MG TABLET PO SCH (08:31)
[2021-10-12] MEDS: Fluticasone Propionate Nasal 50 MCG/SPRAY BOTTLE NS SCH ×2 (08:33→20:13)
[2021-10-12] MEDS: Azelastine 0.1% Nasal Spray 30 ML BOTTLE NS SCH ×2 (08:33→20:12)
[2021-10-12] MEDS: LACTASE 3000 UNIT PO SCH ×3 (08:55→16:17)
[2021-10-12] MEDS ORDERED: predniSONE 10 MG TABLET PO SCH (09:00)
[2021-10-12] MEDS: Tiotropium 10 INH DOSE IH SCH (11:18)
[2021-10-12] MEDS: Doxycycline 100 MG CAPSULE PO SCH ×2 (12:25→20:11)
[2021-10-12] MEDS: Capsaicin 0.025% 60 GM TUBE TP SCH ×3 (12:25→20:13)
[2021-10-12] MEDS ORDERED: polyethylene glycoL 3350 17 GM POWD.PACK PO PRN (13:49)
[2021-10-12] MEDS ORDERED: Simethicone 80 MG TAB.CHEW PO PRN (13:49)
[2021-10-12] MEDS ORDERED: *HR* OxyCODONE Immed Rel 5 MG TABLET PO ONE (16:21)
[2021-10-13] MEDS: Heparin 25,000UNIT/250ML 1/2NS 25,000 UNIT/250 ML IV.SOLN IVC SCH (00:56)
[2021-10-13 03:11] LABS: Basophils % 0.3 %; Eosinophils # 0.1 K/mcL (0.0-0.6); Eosinophils % 1.9 %; Hematocrit 28.5 % (37.5-50.1); Hemoglobin 8.4 g/dL (12.9-16.9); Immature Granulocytes % 0.3 % (0-4); Lymphocytes # 1.1 K/mcL (0.6-4.6); Lymphocytes % 28.9 %; Mean Corpuscular HGB Conc 29.5 g/dL (31.6-35.5); Mean Corpuscular Hemoglobin 25.5 pg (28.0-33.3); Mean Corpuscular Volume 86.4 fL (83.0-100.0); Mean Platelet Volume 12.1 fL (9.4-12.4); Monocytes # 0.3 K/mcL (0.0-1.3); Monocytes % 6.8 %; Neutrophils # 2.3 K/mcL (1.6-8.9); Platelet Count 122 K/mcL (140-400); Red Cell Distribution Width 17.3 % (11.5-14.5); Segmented Neutrophils % 61.8 %; White Blood Count 3.7 K/mcL (4.3-11.1)
[2021-10-13 03:35] LABS: BUN/Creatinine Ratio 27 (6-26); Blood Urea Nitrogen 17 mg/dL (8-23); Carbon Dioxide 24 mEq/L (23-29); Chloride 111 mEq/L (98-107); Glucose 80 mg/dL (70-105); Magnesium 1.6 mg/dL (1.6-2.6); Osmolality,Calculated 293 (280-300); Phosphorous 2.7 mg/dL (2.7-4.5); Potassium 4.4 mEq/L (3.5-5.1); Sodium 141 mEq/L (136-145); eGFR For African Americans > 60 (> 60); eGFR For Non-African Americans > 60 (> 60)
[2021-10-13] MEDS: Budesonide/Formoterol 80/4.5 1 PUFF INH IH SCH ×2 (07:30→20:00)
[2021-10-13] MEDS: Tiotropium 10 INH DOSE IH SCH (07:31)
[2021-10-13] MEDS: Cholecalciferol (D-3) 1,000 UNIT (25MCG) TABLET PO SCH (09:31)
[2021-10-13] MEDS: Loratadine 10 MG TABLET PO SCH (09:37)
[2021-10-13] MEDS: Doxycycline 100 MG CAPSULE PO SCH (09:37)
[2021-10-13] MEDS: Lactobacillus 1 EACH CAP.SPRINK PO SCH ×2 (09:38→21:56)
[2021-10-13] MEDS: Azelastine 0.1% Nasal Spray 30 ML BOTTLE NS SCH ×2 (09:38→21:54)
[2021-10-13] MEDS: LACTASE 3000 UNIT PO SCH ×2 (09:38→11:36)
[2021-10-13] MEDS: Finasteride 5 MG TABLET PO SCH (09:38)
[2021-10-13] MEDS: Capsaicin 0.025% 60 GM TUBE TP SCH ×3 (09:39→22:31)
[2021-10-13] MEDS: Fluticasone Propionate Nasal 50 MCG/SPRAY BOTTLE NS SCH ×2 (09:39→21:55)
[2021-10-13] MEDS: predniSONE 10 MG TABLET PO SCH (09:39)
[2021-10-13] MEDS: Ertapenem 1,000 MG in 0.9 % Sodium Chloride Mini Bag 100 ML IVPB SCH (10:06)
[2021-10-13] MEDS ORDERED: Ipratropium/Albuterol Neb 3 ML IH PRN (10:21)
[2021-10-13] MEDS: Artificial Tears SOLN 15 ML BOTTLE BOTH EYES SCH ×3 (15:55→21:56)
[2021-10-13] MEDS: Apixaban 5 MG TABLET PO SCH (21:56)
[2021-10-14] MEDS: Cholecalciferol (D-3) 1,000 UNIT (25MCG) TABLET PO SCH (08:22)
[2021-10-14] MEDS: Lactobacillus 1 EACH CAP.SPRINK PO SCH ×2 (08:23→20:34)
[2021-10-14] MEDS: Loratadine 10 MG TABLET PO SCH (08:23)
[2021-10-14] MEDS: Finasteride 5 MG TABLET PO SCH (08:23)
[2021-10-14] MEDS: Apixaban 5 MG TABLET PO SCH ×2 (08:24→20:35)
[2021-10-14] MEDS: predniSONE 10 MG TABLET PO SCH (08:24)
[2021-10-14] MEDS: Ertapenem 1,000 MG in 0.9 % Sodium Chloride Mini Bag 100 ML IVPB SCH (08:24)
[2021-10-14] MEDS: Artificial Tears SOLN 15 ML BOTTLE BOTH EYES SCH ×4 (08:25→20:32)
[2021-10-14] MEDS: Fluticasone Propionate Nasal 50 MCG/SPRAY BOTTLE NS SCH ×2 (08:26→20:33)
[2021-10-14] MEDS: Azelastine 0.1% Nasal Spray 30 ML BOTTLE NS SCH ×2 (08:26→20:33)
[2021-10-14] MEDS: Capsaicin 0.025% 60 GM TUBE TP SCH ×2 (08:27→15:34)
[2021-10-14] MEDS: Tiotropium 10 INH DOSE IH SCH (10:51)
[2021-10-14] MEDS: Budesonide/Formoterol 80/4.5 1 PUFF INH IH SCH ×2 (10:51→20:21)
[2021-10-14 16:09] LABS: Adenovirus Not Detected (Not Detect); Bordetella Pertussis Not Detected (Not Detect); Chlamydophila pneumoniae Not Detected (Not Detect); Coronavirus 229E Not Detected (Not Detect); Coronavirus HKU1 Not Detected (Not Detect); Coronavirus NL63 Not Detected (Not Detect); Coronavirus OC43 Not Detected (Not Detect); Human Metapneumovirus Not Detected (Not Detect); Human Rhinovirus/Enterovirus Not Detected (Not Detect); Influenza A Subtype 2009 H1 Not Detected (Not Detect); Influenza B Not Detected (Not Detect); Mycoplasma pneumoniae Not Detected (Not Detect); Parainfluenza Virus 1 Not Detected (Not Detect); Parainfluenza Virus 2 Not Detected (Not Detect); Parainfluenza Virus 3 Not Detected (Not Detect); Parainfluenza Virus 4 Not Detected (Not Detect); Respiratory Syncytial Virus Not Detected (Not Detect); SARS-CoV-2 Not Detected (Not Detect)
[2021-10-14] MEDS: Acetaminophen 325 MG TABLET PO PRN (20:33)
[2021-10-15] MEDS: Capsaicin 0.025% 60 GM TUBE TP SCH ×2 (04:00→09:41)
[2021-10-15] MEDS: Budesonide/Formoterol 80/4.5 1 PUFF INH IH SCH (08:10)
[2021-10-15] MEDS: Tiotropium 10 INH DOSE IH SCH (08:10)
[2021-10-15] MEDS: predniSONE 10 MG TABLET PO SCH (09:39)
[2021-10-15] MEDS: Lactobacillus 1 EACH CAP.SPRINK PO SCH (09:39)
[2021-10-15] MEDS: Loratadine 10 MG TABLET PO SCH (09:39)
[2021-10-15] MEDS: Apixaban 5 MG TABLET PO SCH (09:39)
[2021-10-15] MEDS: Cholecalciferol (D-3) 1,000 UNIT (25MCG) TABLET PO SCH (09:39)
[2021-10-15] MEDS: Azelastine 0.1% Nasal Spray 30 ML BOTTLE NS SCH (09:40)
[2021-10-15] MEDS: Finasteride 5 MG TABLET PO SCH (09:40)
[2021-10-15] MEDS: Ertapenem 1,000 MG in 0.9 % Sodium Chloride Mini Bag 100 ML IVPB SCH (09:40)
[2021-10-15] MEDS: Fluticasone Propionate Nasal 50 MCG/SPRAY BOTTLE NS SCH (09:41)
[2021-10-15] MEDS: Artificial Tears SOLN 15 ML BOTTLE BOTH EYES SCH ×2 (09:41→13:35)
[2021-10-15 10:38] VITALS: BP 137/78; PULSE 77; TEMP 98.2; O2SAT 99
== END 2021-10-15 15:17 | DRG 871 ==
LOC: EMEROOARM 12:26 → ICNU 16:03 → SUATTDRO 16:03 → ICNU 17:02 → 2ANU 10-11 12:24
PROVIDERS: ADMIT Pediatrics; ATTEND Internal Medicine

== ENCOUNTER 2021-11-03 12:32 | Inpatient (IN) ==
[2021-11-03] MEDS ORDERED: Naloxone 0.4 MG/ML INJ IVP PRN (13:16)
[2021-11-03] MEDS ORDERED: 0.9 % Sodium Chloride 1,000 ML IVC SCH (13:30)
[2021-11-03] MEDS: Ertapenem 1,000 MG in 0.9 % Sodium Chloride Mini Bag 100 ML IVPB SCH (13:52)
[2021-11-03] MEDS: Acetaminophen 325 MG TABLET PO PRN (14:02)
[2021-11-03] MEDS ORDERED: Ipratropium/Albuterol Neb 3 ML IH PRN (14:04)
[2021-11-03] MEDS: 0.9 % Sodium Chloride 1,000 ML IVC SCH ×3 (14:12→17:57)
[2021-11-03] MEDS ORDERED: *HR* LORazepam 2 MG/ML VIAL IVP PRN (14:40)
[2021-11-03] MEDS: *HR* HYDROcodone/Acet 5/325 mg TABLET PO PRN (14:48)
[2021-11-03] MEDS ORDERED: Vancomycin 1,250 MG/262.5 ML IV.SOLN IVPB ONE (15:00)
[2021-11-03] MEDS: Ipratropium/Albuterol Neb 3 ML IH SCH ×2 (15:50→21:53)
[2021-11-03 16:04] LABS: ABG Base Excess 6 mEq/L (-2 to 3); ABG HCO3 32 mEq/L (21-27); ABG Oxygen Saturation 99 % (95-98); ABG PCO2 52 mmHg (35-45); ABG PH 7.39 pH Units (7.32-7.45); ABG PO2 125 mmHg (85-104); ABG TCO2 33 mEq/L (20-26)
[2021-11-03 17:11] LABS: Alanine Aminotransferase 15 Units/L (7-52); Albumin 2.8 g/dL (3.5-5.7); Albumin/Globulin Ratio 1.1 (1.1-2.2); Alkaline Phosphatase 79 Units/L (34-104); Aspartate Amino Transferase 10 Units/L (13-39); BUN/Creatinine Ratio 21 (6-26); Bilirubin,Total 0.2 mg/dL (0.3-1.0); Blood Urea Nitrogen 17 mg/dL (8-23); Carbon Dioxide 31 mEq/L (23-29); Chloride 104 mEq/L (98-107); Globulin 2.6 g/dL (2.4-3.5); Glucose 123 mg/dL (70-105); Osmolality,Calculated 297 (280-300); Potassium 4.8 mEq/L (3.5-5.1); Sodium 142 mEq/L (136-145); Total Protein 5.4 g/dL (6.4-8.9); eGFR For African Americans > 60 (> 60); eGFR For Non-African Americans > 60 (> 60)
[2021-11-03 18:02] LABS: Bacteria,Urine Few per hpf (None-Few); Bilirubin,Urine Negative (Negative); Blood,Urine Large (Negative); Clarity,Urine Turbid (Clear); Color,Urine Light-Yellow (Yellow); Glucose,Urine (UA) Normal (Normal); Ketones,Urine Negative (Negative); Leukocyte Esterase,Urine Moderate (Negative); Mucus,Urine Few per lpf (None-Few); Nitrite,Urine Negative (Negative); PH,Urine 6.5 pH Units (5.0-8.0); Protein,Urine 30 mg/dL (Neg-Trace); RBC,Urine TNTC per hpf (0-3); Squamous Epithelial Cell,Urine Few per hpf (None-Few); Urobilinogen,Urine Normal (Normal); WBC,Urine 50-100 per hpf (0-3)
[2021-11-03] MEDS: Metoprolol 100 MG TABLET PO SCH (21:13)
[2021-11-03] MEDS: Apixaban 5 MG TABLET PO SCH (21:13)
[2021-11-04 02:19] LABS: Alanine Aminotransferase 31 Units/L (7-52); Albumin 2.7 g/dL (3.5-5.7); Albumin/Globulin Ratio 0.9 (1.1-2.2); Alkaline Phosphatase 80 Units/L (34-104); Aspartate Amino Transferase 40 Units/L (13-39); BUN/Creatinine Ratio 27 (6-26); Bilirubin,Total 0.3 mg/dL (0.3-1.0); Blood Urea Nitrogen 17 mg/dL (8-23); Calcium 7.9 mg/dL (8.6-10.3); Carbon Dioxide 27 mEq/L (23-29); Chloride 109 mEq/L (98-107); Globulin 2.9 g/dL (2.4-3.5); Glucose 93 mg/dL (70-105); Magnesium 1.7 mg/dL (1.6-2.6); Osmolality,Calculated 293 (280-300); Phosphorous 3.2 mg/dL (2.7-4.5); Potassium 4.3 mEq/L (3.5-5.1); Sodium 141 mEq/L (136-145); Total Protein 5.6 g/dL (6.4-8.9); eGFR For African Americans > 60 (> 60); eGFR For Non-African Americans > 60 (> 60)
[2021-11-04] MEDS: Ipratropium/Albuterol Neb 3 ML IH SCH ×4 (04:27→20:51)
[2021-11-04 04:43] LABS: Basophils % 0.1 %
[2021-11-04 04:45] LABS: Eosinophils % 0.3 %; Hemoglobin 8.2 g/dL (12.9-16.9); Immature Granulocytes % 0.4 % (0-4); Immature Platelets 5.1 % (1.1-6.1); Lymphocytes # 0.9 K/mcL (0.6-4.6); Lymphocytes % 12.4 %; Mean Corpuscular HGB Conc 28.3 g/dL (31.6-35.5); Mean Corpuscular Hemoglobin 25.2 pg (28.0-33.3); Mean Corpuscular Volume 89.2 fL (83.0-100.0); Mean Platelet Volume 10.8 fL (9.4-12.4); Monocytes # 0.4 K/mcL (0.0-1.3); Monocytes % 5.4 %; Neutrophils # 5.7 K/mcL (1.6-8.9); Red Blood Count 3.25 M/mcL (4.19-5.50); Red Cell Distribution Width 18.1 % (11.5-14.5); Segmented Neutrophils % 81.4 %
[2021-11-04 06:01] LABS: Platelet Count 82 K/mcL (140-400)
[2021-11-04 06:03] LABS: Anisocytosis 1+ (Not Present); Hypochromasia Present (Not Present); Platelet Estimate Decreased (Normal)
[2021-11-04] MEDS: Budesonide/Formoterol 80/4.5 1 PUFF INH IH SCH ×2 (10:05→20:51)
[2021-11-04] MEDS: Ertapenem 1,000 MG in 0.9 % Sodium Chloride Mini Bag 100 ML IVPB SCH (10:13)
[2021-11-04] MEDS: Apixaban 5 MG TABLET PO SCH ×2 (10:20→19:51)
[2021-11-04] MEDS: Lactobacillus 1 EACH CAP.SPRINK PO SCH ×2 (10:20→19:51)
[2021-11-04] MEDS: Loratadine 10 MG TABLET PO SCH (10:20)
[2021-11-04] MEDS: Gabapentin 300 MG CAPSULE PO SCH ×3 (10:20→19:51)
[2021-11-04] MEDS: Finasteride 5 MG TABLET PO SCH (10:20)
[2021-11-04] MEDS: Cholecalciferol (D-3) 1,000 UNIT (25MCG) TABLET PO SCH (10:20)
[2021-11-04] MEDS: Simethicone 80 MG TAB.CHEW PO SCH ×2 (10:20→19:50)
[2021-11-04] MEDS: Multivit/Ca/Min/Fe/FA 1 TAB TABLET PO SCH (10:21)
[2021-11-04] MEDS: Fluticasone Propionate Nasal 50 MCG/SPRAY BOTTLE NS SCH ×2 (10:21→19:50)
[2021-11-04] MEDS: Azelastine 0.1% Nasal Spray 30 ML BOTTLE NS SCH ×2 (10:21→19:52)
[2021-11-04] MEDS: SALSALATE 750 MG PO SCH ×2 (10:21→19:52)
[2021-11-04] MEDS: Capsaicin 0.025% 60 GM TUBE TP SCH ×3 (10:22→19:53)
[2021-11-04] MEDS: Metoprolol 100 MG TABLET PO SCH ×2 (10:30→19:51)
[2021-11-04] MEDS: polyethylene glycoL 3350 17 GM POWD.PACK PO SCH ×2 (10:38→19:52)
[2021-11-04] MEDS: predniSONE 10 MG TABLET PO SCH (12:08)
[2021-11-04 12:14] LABS: Adenovirus Not Detected (Not Detect); Bordetella Pertussis Not Detected (Not Detect); Chlamydophila pneumoniae Not Detected (Not Detect); Coronavirus 229E Not Detected (Not Detect); Coronavirus HKU1 Not Detected (Not Detect); Coronavirus NL63 Not Detected (Not Detect); Coronavirus OC43 Not Detected (Not Detect); Human Metapneumovirus Not Detected (Not Detect); Human Rhinovirus/Enterovirus Not Detected (Not Detect); Influenza A Subtype 2009 H1 Not Detected (Not Detect); Influenza B Not Detected (Not Detect); Mycoplasma pneumoniae Not Detected (Not Detect); Parainfluenza Virus 1 Not Detected (Not Detect); Parainfluenza Virus 2 Not Detected (Not Detect); Parainfluenza Virus 3 Not Detected (Not Detect); Parainfluenza Virus 4 Not Detected (Not Detect); Respiratory Syncytial Virus Not Detected (Not Detect); SARS-CoV-2 Not Detected (Not Detect)
[2021-11-04] MEDS: *HR* HYDROcodone/Acet 5/325 mg TABLET PO PRN (12:16)
[2021-11-04] MEDS: 0.9 % Sodium Chloride 1,000 ML IVC SCH (15:29)
[2021-11-05] MEDS: *HR* HYDROcodone/Acet 5/325 mg TABLET PO PRN ×2 (02:13→08:45)
[2021-11-05 03:58] LABS: Red Cell Distribution Width 17.9 % (11.5-14.5)
[2021-11-05 04:00] LABS: Basophils % 0.3 %; Eosinophils % 0.3 %; Hematocrit 28.1 % (37.5-50.1); Hemoglobin 8.2 g/dL (12.9-16.9); Immature Granulocytes % 0.5 % (0-4); Immature Platelets 4.1 % (1.1-6.1); Lymphocytes # 0.5 K/mcL (0.6-4.6); Lymphocytes % 7.7 %; Mean Corpuscular HGB Conc 29.2 g/dL (31.6-35.5); Mean Corpuscular Hemoglobin 25.5 pg (28.0-33.3); Mean Corpuscular Volume 87.5 fL (83.0-100.0); Mean Platelet Volume 11.6 fL (9.4-12.4); Monocytes # 0.4 K/mcL (0.0-1.3); Monocytes % 6.5 %; Red Blood Count 3.21 M/mcL (4.19-5.50); Segmented Neutrophils % 84.7 %; White Blood Count 5.9 K/mcL (4.3-11.1)
[2021-11-05] MEDS: Ipratropium/Albuterol Neb 3 ML IH SCH ×4 (04:06→20:35)
[2021-11-05 04:18] LABS: BUN/Creatinine Ratio 25 (6-26); Blood Urea Nitrogen 15 mg/dL (8-23); Calcium 7.9 mg/dL (8.6-10.3); Carbon Dioxide 28 mEq/L (23-29); Chloride 110 mEq/L (98-107); Glucose 107 mg/dL (70-105); Osmolality,Calculated 297 (280-300); Potassium 3.3 mEq/L (3.5-5.1); Sodium 143 mEq/L (136-145); eGFR For African Americans > 60 (> 60); eGFR For Non-African Americans > 60 (> 60)
[2021-11-05 04:30] LABS: Platelet Count 84 K/mcL (140-400)
[2021-11-05] MEDS: Artificial Tears SOLN 15 ML BOTTLE BOTH EYES SCH ×5 (04:51→20:45)
[2021-11-05] MEDS: Lactobacillus 1 EACH CAP.SPRINK PO SCH ×2 (08:23→20:44)
[2021-11-05] MEDS: Loratadine 10 MG TABLET PO SCH (08:23)
[2021-11-05] MEDS: Metoprolol 100 MG TABLET PO SCH ×2 (08:23→20:44)
[2021-11-05] MEDS: Cholecalciferol (D-3) 1,000 UNIT (25MCG) TABLET PO SCH (08:23)
[2021-11-05] MEDS: Gabapentin 300 MG CAPSULE PO SCH ×3 (08:23→20:44)
[2021-11-05] MEDS: Multivit/Ca/Min/Fe/FA 1 TAB TABLET PO SCH (08:24)
[2021-11-05] MEDS: Apixaban 5 MG TABLET PO SCH ×2 (08:24→20:45)
[2021-11-05] MEDS: Finasteride 5 MG TABLET PO SCH (08:24)
[2021-11-05] MEDS: predniSONE 10 MG TABLET PO SCH (08:25)
[2021-11-05] MEDS: Simethicone 80 MG TAB.CHEW PO SCH ×2 (08:25→20:44)
[2021-11-05] MEDS: Ertapenem 1,000 MG in 0.9 % Sodium Chloride Mini Bag 100 ML IVPB SCH (08:25)
[2021-11-05] MEDS: polyethylene glycoL 3350 17 GM POWD.PACK PO SCH ×2 (08:25→20:43)
[2021-11-05] MEDS: Fluticasone Propionate Nasal 50 MCG/SPRAY BOTTLE NS SCH ×2 (08:26→20:45)
[2021-11-05] MEDS: Azelastine 0.1% Nasal Spray 30 ML BOTTLE NS SCH ×2 (08:28→20:45)
[2021-11-05] MEDS: SALSALATE 750 MG PO SCH ×2 (08:29→20:45)
[2021-11-05] MEDS: Capsaicin 0.025% 60 GM TUBE TP SCH ×3 (08:29→20:46)
[2021-11-05] MEDS ORDERED: Isovue-370 500 ML BOTTLE IVP ONE (10:41)
[2021-11-05] MEDS: Budesonide/Formoterol 80/4.5 1 PUFF INH IH SCH ×2 (11:04→20:35)
[2021-11-05] MEDS: 0.9 % Sodium Chloride 1,000 ML IVC SCH (14:03)
[2021-11-05] MEDS: *HR* OxyCODONE Immed Rel 5 MG TABLET PO PRN (18:00)
[2021-11-06] MEDS: Acetaminophen 325 MG TABLET PO PRN (03:40)
[2021-11-06] MEDS: Ipratropium/Albuterol Neb 3 ML IH SCH ×4 (04:24→20:16)
[2021-11-06 04:39] LABS: Basophils % 0.2 %; Eosinophils % 0.9 %; Hemoglobin 8.6 g/dL (12.9-16.9); Immature Granulocytes % 0.4 % (0-4)
[2021-11-06 04:42] LABS: Eosinophils # 0.1 K/mcL (0.0-0.6); Immature Platelets 3.2 % (1.1-6.1); Lymphocytes % 17.4 %; Mean Corpuscular HGB Conc 29.7 g/dL (31.6-35.5); Mean Corpuscular Hemoglobin 25.9 pg (28.0-33.3); Mean Corpuscular Volume 87.3 fL (83.0-100.0); Mean Platelet Volume 10.7 fL (9.4-12.4); Monocytes # 0.4 K/mcL (0.0-1.3); Monocytes % 7.1 %; Red Blood Count 3.32 M/mcL (4.19-5.50); Red Cell Distribution Width 18.1 % (11.5-14.5); White Blood Count 5.6 K/mcL (4.3-11.1)
[2021-11-06 04:44] LABS: Neutrophils # 4.1 K/mcL (1.6-8.9); Platelet Count 88 K/mcL (140-400)
[2021-11-06 04:59] LABS: BUN/Creatinine Ratio 14 (6-26); Blood Urea Nitrogen 9 mg/dL (8-23); Calcium 8.2 mg/dL (8.6-10.3); Carbon Dioxide 28 mEq/L (23-29); Chloride 110 mEq/L (98-107); Glucose 100 mg/dL (70-105); Osmolality,Calculated 297 (280-300); Potassium 3.6 mEq/L (3.5-5.1); Sodium 144 mEq/L (136-145); eGFR For African Americans > 60 (> 60); eGFR For Non-African Americans > 60 (> 60)
[2021-11-06] MEDS: *HR* OxyCODONE Immed Rel 5 MG TABLET PO PRN ×3 (05:27→17:30)
[2021-11-06] MEDS: Budesonide/Formoterol 80/4.5 1 PUFF INH IH SCH ×2 (07:51→20:17)
[2021-11-06] MEDS: Azelastine 0.1% Nasal Spray 30 ML BOTTLE NS SCH ×2 (09:13→21:39)
[2021-11-06] MEDS: Lactobacillus 1 EACH CAP.SPRINK PO SCH ×2 (09:13→21:42)
[2021-11-06] MEDS: Fluticasone Propionate Nasal 50 MCG/SPRAY BOTTLE NS SCH ×2 (09:13→21:38)
[2021-11-06] MEDS: Loratadine 10 MG TABLET PO SCH (09:14)
[2021-11-06] MEDS: Finasteride 5 MG TABLET PO SCH (09:15)
[2021-11-06] MEDS: Apixaban 5 MG TABLET PO SCH ×2 (09:15→21:43)
[2021-11-06] MEDS: Metoprolol 100 MG TABLET PO SCH ×2 (09:15→21:43)
[2021-11-06] MEDS: Simethicone 80 MG TAB.CHEW PO SCH ×2 (09:16→21:42)
[2021-11-06] MEDS: SALSALATE 750 MG PO SCH (09:17)
[2021-11-06] MEDS: Gabapentin 300 MG CAPSULE PO SCH ×3 (09:17→21:43)
[2021-11-06] MEDS: Multivit/Ca/Min/Fe/FA 1 TAB TABLET PO SCH (09:17)
[2021-11-06] MEDS: predniSONE 10 MG TABLET PO SCH (09:18)
[2021-11-06] MEDS: polyethylene glycoL 3350 17 GM POWD.PACK PO SCH ×2 (09:18→21:45)
[2021-11-06] MEDS: Ertapenem 1,000 MG in 0.9 % Sodium Chloride Mini Bag 100 ML IVPB SCH (09:18)
[2021-11-06] MEDS: Artificial Tears SOLN 15 ML BOTTLE BOTH EYES SCH ×4 (09:25→21:40)
[2021-11-06] MEDS: Capsaicin 0.025% 60 GM TUBE TP SCH ×3 (09:25→21:45)
[2021-11-06] MEDS: Cholecalciferol (D-3) 1,000 UNIT (25MCG) TABLET PO SCH (09:26)
[2021-11-06] MEDS: Meropenem 1,000 MG in 0.9 % Sodium Chloride 10 ML IVP SCH (21:44)
[2021-11-07] MEDS: *HR* OxyCODONE Immed Rel 5 MG TABLET PO PRN ×2 (02:21→12:57)
[2021-11-07] MEDS: Ipratropium/Albuterol Neb 3 ML IH SCH ×4 (03:49→20:16)
[2021-11-07 04:13] LABS: Immature Granulocytes % 0.6 % (0-4)
[2021-11-07 04:15] LABS: Basophils % 0.4 %; Eosinophils # 0.1 K/mcL (0.0-0.6); Eosinophils % 1.3 %; Hematocrit 28.1 % (37.5-50.1); Hemoglobin 8.3 g/dL (12.9-16.9); Immature Platelets 4.5 % (1.1-6.1); Lymphocytes # 1.1 K/mcL (0.6-4.6); Lymphocytes % 23.2 %; Mean Corpuscular HGB Conc 29.5 g/dL (31.6-35.5); Mean Corpuscular Hemoglobin 25.4 pg (28.0-33.3); Mean Corpuscular Volume 85.9 fL (83.0-100.0); Monocytes # 0.4 K/mcL (0.0-1.3); Monocytes % 8.4 %; Red Blood Count 3.27 M/mcL (4.19-5.50); Red Cell Distribution Width 17.9 % (11.5-14.5); Segmented Neutrophils % 66.1 %; White Blood Count 4.6 K/mcL (4.3-11.1)
[2021-11-07 04:20] LABS: Platelet Count 73 K/mcL (140-400)
[2021-11-07 04:26] LABS: BUN/Creatinine Ratio 18 (6-26); Blood Urea Nitrogen 12 mg/dL (8-23); Calcium 8.3 mg/dL (8.6-10.3); Carbon Dioxide 29 mEq/L (23-29); Chloride 104 mEq/L (98-107); Glucose 82 mg/dL (70-105); Osmolality,Calculated 285 (280-300); Potassium 3.9 mEq/L (3.5-5.1); Sodium 138 mEq/L (136-145); eGFR For African Americans > 60 (> 60); eGFR For Non-African Americans > 60 (> 60)
[2021-11-07] MEDS: Meropenem 1,000 MG in 0.9 % Sodium Chloride 10 ML IVP SCH ×3 (05:57→20:40)
[2021-11-07] MEDS: Budesonide/Formoterol 80/4.5 1 PUFF INH IH SCH ×2 (08:28→20:16)
[2021-11-07] MEDS: Finasteride 5 MG TABLET PO SCH (09:08)
[2021-11-07] MEDS: Apixaban 5 MG TABLET PO SCH ×3 (09:08→21:04)
[2021-11-07] MEDS: Gabapentin 300 MG CAPSULE PO SCH ×3 (09:08→20:42)
[2021-11-07] MEDS: Cholecalciferol (D-3) 1,000 UNIT (25MCG) TABLET PO SCH (09:08)
[2021-11-07] MEDS: Simethicone 80 MG TAB.CHEW PO SCH ×2 (09:08→20:42)
[2021-11-07] MEDS: Multivit/Ca/Min/Fe/FA 1 TAB TABLET PO SCH (09:08)
[2021-11-07] MEDS: Lactobacillus 1 EACH CAP.SPRINK PO SCH ×2 (09:08→20:46)
[2021-11-07] MEDS: predniSONE 10 MG TABLET PO SCH (09:08)
[2021-11-07] MEDS: Artificial Tears SOLN 15 ML BOTTLE BOTH EYES SCH ×4 (09:09→20:47)
[2021-11-07] MEDS: polyethylene glycoL 3350 17 GM POWD.PACK PO SCH ×2 (09:09→20:49)
[2021-11-07] MEDS: Loratadine 10 MG TABLET PO SCH (09:09)
[2021-11-07] MEDS: Capsaicin 0.025% 60 GM TUBE TP SCH ×3 (09:10→20:48)
[2021-11-07] MEDS: Azelastine 0.1% Nasal Spray 30 ML BOTTLE NS SCH ×2 (09:10→20:47)
[2021-11-07] MEDS: Fluticasone Propionate Nasal 50 MCG/SPRAY BOTTLE NS SCH ×2 (09:10→20:47)
[2021-11-07] MEDS: Metoprolol 100 MG TABLET PO SCH ×2 (09:18→20:41)
[2021-11-07] MEDS: Acetaminophen 325 MG TABLET PO PRN ×2 (15:20→21:44)
[2021-11-08] MEDS: Ipratropium/Albuterol Neb 3 ML IH SCH ×4 (03:44→20:26)
[2021-11-08] MEDS: Meropenem 1,000 MG in 0.9 % Sodium Chloride 10 ML IVP SCH ×3 (05:06→21:49)
[2021-11-08] MEDS: Acetaminophen 325 MG TABLET PO PRN ×2 (05:06→12:54)
[2021-11-08 06:12] LABS: Hemoglobin 9.3 g/dL (12.9-16.9); Immature Granulocytes % 0.4 % (0-4); Monocytes % 4.4 %
[2021-11-08 06:13] LABS: Eosinophils % 0.4 %; Hematocrit 30.9 % (37.5-50.1); Immature Platelets 4.8 % (1.1-6.1); Lymphocytes # 0.6 K/mcL (0.6-4.6); Lymphocytes % 11.8 %; Mean Corpuscular HGB Conc 30.1 g/dL (31.6-35.5); Mean Corpuscular Hemoglobin 25.3 pg (28.0-33.3); Mean Corpuscular Volume 84.2 fL (83.0-100.0); Monocytes # 0.2 K/mcL (0.0-1.3); Red Blood Count 3.67 M/mcL (4.19-5.50); Red Cell Distribution Width 18.4 % (11.5-14.5); White Blood Count 5.2 K/mcL (4.3-11.1)
[2021-11-08 06:14] LABS: Neutrophils # 4.3 K/mcL (1.6-8.9); Platelet Count 72 K/mcL (140-400)
[2021-11-08 07:27] LABS: BUN/Creatinine Ratio 13 (6-26); Blood Urea Nitrogen 9 mg/dL (8-23); Calcium 8.7 mg/dL (8.6-10.3); Carbon Dioxide 29 mEq/L (23-29); Chloride 106 mEq/L (98-107); Glucose 87 mg/dL (70-105); Osmolality,Calculated 296 (280-300); Potassium 3.3 mEq/L (3.5-5.1); Sodium 144 mEq/L (136-145); eGFR For African Americans > 60 (> 60); eGFR For Non-African Americans > 60 (> 60)
[2021-11-08] MEDS: Apixaban 5 MG TABLET PO SCH ×2 (07:41→21:42)
[2021-11-08] MEDS: Cholecalciferol (D-3) 1,000 UNIT (25MCG) TABLET PO SCH (07:41)
[2021-11-08] MEDS: Finasteride 5 MG TABLET PO SCH (07:41)
[2021-11-08] MEDS: Gabapentin 300 MG CAPSULE PO SCH ×3 (07:41→21:41)
[2021-11-08] MEDS: Loratadine 10 MG TABLET PO SCH (07:41)
[2021-11-08] MEDS: Simethicone 80 MG TAB.CHEW PO SCH ×2 (07:41→21:40)
[2021-11-08] MEDS: Lactobacillus 1 EACH CAP.SPRINK PO SCH ×2 (07:42→21:41)
[2021-11-08] MEDS: polyethylene glycoL 3350 17 GM POWD.PACK PO SCH ×2 (07:42→21:40)
[2021-11-08] MEDS: predniSONE 10 MG TABLET PO SCH (07:42)
[2021-11-08] MEDS: Multivit/Ca/Min/Fe/FA 1 TAB TABLET PO SCH (07:42)
[2021-11-08] MEDS: Metoprolol 100 MG TABLET PO SCH ×2 (07:44→21:42)
[2021-11-08] MEDS: Budesonide/Formoterol 80/4.5 1 PUFF INH IH SCH ×2 (07:50→20:27)
[2021-11-08] MEDS: Capsaicin 0.025% 60 GM TUBE TP SCH ×3 (08:05→22:17)
[2021-11-08] MEDS: Artificial Tears SOLN 15 ML BOTTLE BOTH EYES SCH ×4 (08:06→21:43)
[2021-11-08] MEDS: Azelastine 0.1% Nasal Spray 30 ML BOTTLE NS SCH ×2 (08:06→21:58)
[2021-11-08] MEDS: Fluticasone Propionate Nasal 50 MCG/SPRAY BOTTLE NS SCH ×2 (08:06→21:42)
[2021-11-08] MEDS ORDERED: 0.9 % Sodium Chloride 500 ML IVC ONE (09:23)
[2021-11-08] MEDS: *HR* OxyCODONE Immed Rel 5 MG TABLET PO PRN ×2 (13:44→23:09)
[2021-11-09] MEDS: Acetaminophen 325 MG TABLET PO PRN (03:05)
[2021-11-09] MEDS: Ipratropium/Albuterol Neb 3 ML IH SCH ×4 (04:02→20:21)
[2021-11-09] MEDS: *HR* OxyCODONE Immed Rel 5 MG TABLET PO PRN ×3 (05:25→20:06)
[2021-11-09] MEDS: Meropenem 1,000 MG in 0.9 % Sodium Chloride 10 ML IVP SCH ×3 (05:26→20:14)
[2021-11-09 05:48] LABS: Basophils % 0.5 %; Eosinophils # 0.1 K/mcL (0.0-0.6); Eosinophils % 2.2 %; Hematocrit 29.2 % (37.5-50.1); Hemoglobin 8.6 g/dL (12.9-16.9); Immature Granulocytes % 0.8 % (0-4); Immature Platelets 4.3 % (1.1-6.1); Lymphocytes # 0.7 K/mcL (0.6-4.6); Lymphocytes % 10.9 %; Mean Corpuscular HGB Conc 29.5 g/dL (31.6-35.5); Mean Corpuscular Hemoglobin 25.3 pg (28.0-33.3); Mean Corpuscular Volume 85.9 fL (83.0-100.0); Mean Platelet Volume 12.5 fL (9.4-12.4); Monocytes # 0.3 K/mcL (0.0-1.3); Monocytes % 5.2 %; Neutrophils # 5.2 K/mcL (1.6-8.9); Platelet Count 79 K/mcL (140-400); Red Cell Distribution Width 18.5 % (11.5-14.5); Segmented Neutrophils % 80.4 %; White Blood Count 6.5 K/mcL (4.3-11.1)
[2021-11-09 06:05] LABS: BUN/Creatinine Ratio 16 (6-26); Blood Urea Nitrogen 12 mg/dL (8-23); Carbon Dioxide 26 mEq/L (23-29); Chloride 110 mEq/L (98-107); Glucose 108 mg/dL (70-105); Magnesium 1.5 mg/dL (1.6-2.6); Osmolality,Calculated 290 (280-300); Potassium 3.3 mEq/L (3.5-5.1); Sodium 140 mEq/L (136-145); eGFR For African Americans > 60 (> 60); eGFR For Non-African Americans > 60 (> 60)
[2021-11-09] MEDS: polyethylene glycoL 3350 17 GM POWD.PACK PO SCH ×2 (08:25→20:07)
[2021-11-09] MEDS: Cholecalciferol (D-3) 1,000 UNIT (25MCG) TABLET PO SCH (08:25)
[2021-11-09] MEDS: Lactobacillus 1 EACH CAP.SPRINK PO SCH ×2 (08:26→20:06)
[2021-11-09] MEDS: Loratadine 10 MG TABLET PO SCH (08:26)
[2021-11-09] MEDS: Multivit/Ca/Min/Fe/FA 1 TAB TABLET PO SCH (08:26)
[2021-11-09] MEDS: Gabapentin 300 MG CAPSULE PO SCH ×3 (08:27→20:06)
[2021-11-09] MEDS: predniSONE 10 MG TABLET PO SCH (08:27)
[2021-11-09] MEDS: Metoprolol 100 MG TABLET PO SCH ×2 (08:27→20:06)
[2021-11-09] MEDS: Simethicone 80 MG TAB.CHEW PO SCH ×2 (08:27→20:05)
[2021-11-09] MEDS: Finasteride 5 MG TABLET PO SCH (08:27)
[2021-11-09] MEDS: Apixaban 5 MG TABLET PO SCH ×2 (08:27→20:06)
[2021-11-09] MEDS: Artificial Tears SOLN 15 ML BOTTLE BOTH EYES SCH ×4 (08:28→20:12)
[2021-11-09] MEDS: Azelastine 0.1% Nasal Spray 30 ML BOTTLE NS SCH ×2 (08:28→20:13)
[2021-11-09] MEDS: Capsaicin 0.025% 60 GM TUBE TP SCH ×3 (08:29→23:21)
[2021-11-09] MEDS: Fluticasone Propionate Nasal 50 MCG/SPRAY BOTTLE NS SCH ×2 (08:29→20:12)
[2021-11-09] MEDS: Budesonide/Formoterol 80/4.5 1 PUFF INH IH SCH ×2 (09:23→20:22)
[2021-11-10] MEDS: *HR* OxyCODONE Immed Rel 5 MG TABLET PO PRN (01:57)
[2021-11-10] MEDS: Ipratropium/Albuterol Neb 3 ML IH SCH ×2 (04:32→08:44)
[2021-11-10] MEDS: Meropenem 1,000 MG in 0.9 % Sodium Chloride 10 ML IVP SCH (05:36)
[2021-11-10 07:00] VITALS: TEMP 97.9
[2021-11-10] MEDS: polyethylene glycoL 3350 17 GM POWD.PACK PO SCH (07:42)
[2021-11-10] MEDS: Gabapentin 300 MG CAPSULE PO SCH (07:43)
[2021-11-10] MEDS: Multivit/Ca/Min/Fe/FA 1 TAB TABLET PO SCH (07:44)
[2021-11-10] MEDS: Apixaban 5 MG TABLET PO SCH (07:44)
[2021-11-10] MEDS: Finasteride 5 MG TABLET PO SCH (07:44)
[2021-11-10] MEDS: Loratadine 10 MG TABLET PO SCH (07:44)
[2021-11-10] MEDS: Cholecalciferol (D-3) 1,000 UNIT (25MCG) TABLET PO SCH (07:44)
[2021-11-10] MEDS: predniSONE 10 MG TABLET PO SCH (07:44)
[2021-11-10] MEDS: Lactobacillus 1 EACH CAP.SPRINK PO SCH (07:45)
[2021-11-10] MEDS: Simethicone 80 MG TAB.CHEW PO SCH (07:45)
[2021-11-10] MEDS: Azelastine 0.1% Nasal Spray 30 ML BOTTLE NS SCH (07:46)
[2021-11-10] MEDS: Artificial Tears SOLN 15 ML BOTTLE BOTH EYES SCH (07:46)
[2021-11-10] MEDS: Capsaicin 0.025% 60 GM TUBE TP SCH (07:46)
[2021-11-10] MEDS: Fluticasone Propionate Nasal 50 MCG/SPRAY BOTTLE NS SCH (07:47)
[2021-11-10] MEDS: Metoprolol 100 MG TABLET PO SCH (07:47)
[2021-11-10] MEDS: Budesonide/Formoterol 80/4.5 1 PUFF INH IH SCH (08:44)
[2021-11-10] MEDS: Acetaminophen 325 MG TABLET PO PRN (09:11)
[2021-11-10 10:26] LABS: Influenza A PCR Negative (Negative); Influenza B PCR Negative (Negative); Resp. Syncytial Virus PCR Negative (Negative)
[2021-11-10 10:35] LABS: SARS-CoV-2 by PCR (In House) Negative (Negative)
[2021-11-10 10:49] VITALS: BP 88/55; PULSE 84; O2SAT 91
[2021-11-10] MEDS ORDERED: 0.9 % Sodium Chloride 500 ML IVC ONE (10:54)
== END 2021-11-10 12:39 | DRG 871 ==
LOC: 2NENU → SUATTDRO 12:58
PROVIDERS: ADMIT Internal Medicine; ATTEND Family Medicine

== ENCOUNTER 2021-11-20 10:13 | Inpatient (IN) ==
[2021-11-20] MEDS ORDERED: 0.9 % Sodium Chloride 500 ML IVC ONE ×2 (10:34→11:20)
[2021-11-20 10:52] LABS: Basophils % 0.5 %; Eosinophils # 0.1 K/mcL (0.0-0.6); Hematocrit 30.1 % (37.5-50.1); Immature Granulocytes % 0.2 % (0-4); Immature Platelets 4.6 % (1.1-6.1); Lymphocytes # 1.5 K/mcL (0.6-4.6); Lymphocytes % 25.5 %; Mean Corpuscular HGB Conc 29.9 g/dL (31.6-35.5); Mean Corpuscular Hemoglobin 25.6 pg (28.0-33.3); Mean Corpuscular Volume 85.5 fL (83.0-100.0); Mean Platelet Volume 10.9 fL (9.4-12.4); Monocytes # 0.5 K/mcL (0.0-1.3); Monocytes % 8.9 %; Red Blood Count 3.52 M/mcL (4.19-5.50); Red Cell Distribution Width 19.3 % (11.5-14.5); Segmented Neutrophils % 62.9 %
[2021-11-20 10:59] LABS: Neutrophils # 3.8 K/mcL (1.6-8.9); Platelet Count 87 K/mcL (140-400)
[2021-11-20 11:11] LABS: BUN/Creatinine Ratio 13 (6-26); Blood Urea Nitrogen 11 mg/dL (8-23); Calcium 7.9 mg/dL (8.6-10.3); Carbon Dioxide 26 mEq/L (23-29); Chloride 105 mEq/L (98-107); Glucose 100 mg/dL (70-105); Osmolality,Calculated 283 (280-300); Potassium 4.6 mEq/L (3.5-5.1); Sodium 137 mEq/L (136-145); eGFR For African Americans > 60 (> 60); eGFR For Non-African Americans > 60 (> 60)
[2021-11-20 11:16] LABS: Troponin I 0.14 ng/mL (< 0.04)
[2021-11-20] MEDS ORDERED: *HR* Metoprolol 5 MG/5 ML VIAL IVP ONE (11:24)
[2021-11-20] MEDS ORDERED: Apixaban 5 MG TABLET PO ONE (11:24)
[2021-11-20] MEDS ORDERED: Calcium Gluconate 1gm/50mL 1 GM/50 ML BAG IVPB ONE (12:57)
[2021-11-20] MEDS ORDERED: Amiodarone Premix 360 MG/200 ML BAG IVC ONE (13:28)
[2021-11-20] MEDS ORDERED: Amiodarone Premix 150 MG/100 ML BAG IVPB ONE (13:28)
[2021-11-20] MEDS ORDERED: *HR* Digoxin 0.5 MG/2 ML AMPUL IVP SCH (13:38)
[2021-11-20] MEDS ORDERED: Naloxone 0.4 MG/ML INJ IVP PRN (14:32)
[2021-11-20] MEDS ORDERED: GuaiFENesin Liq 200 MG/10 ML UDC PO PRN (15:31)
[2021-11-20] MEDS ORDERED: Naloxone 0.4 MG/ML INJ IM PRN (15:31)
[2021-11-20] MEDS ORDERED: Capsaicin 0.025% 60 GM TUBE TP PRN (15:31)
[2021-11-20] MEDS ORDERED: Acetaminophen 325 MG TABLET PO PRN (15:31)
[2021-11-20] MEDS ORDERED: Ipratropium/Albuterol Neb 3 ML IH PRN (15:31)
[2021-11-20] MEDS ORDERED: Fluconazole 100 MG TABLET PO SCH (16:22)
[2021-11-20] MEDS ORDERED: Magic Mouthwash 10 ML UD Cup PO PRN (16:29)
[2021-11-20] MEDS: Artificial Tears SOLN 15 ML BOTTLE BOTH EYES SCH (16:34)
[2021-11-20] MEDS: Gabapentin 300 MG CAPSULE PO SCH (16:34)
[2021-11-20] MEDS: Morphine Sulfate Oral CONC 10 MG/0.5 ML ORAL.SYG PO SCH (16:36)
[2021-11-20] MEDS ORDERED: Ondansetron ODT 4 MG TAB.RAPDIS PO PRN (16:45)
[2021-11-20] MEDS ORDERED: LACTASE 3000 UNIT PO SCH (17:00)
[2021-11-20] MEDS: Levalbuterol Neb 1.25 MG/3 ML IH SCH ×2 (17:11→20:20)
[2021-11-20] MEDS ORDERED: Amiodarone Premix 360 MG/200 ML BAG IVC SCH (19:28)
[2021-11-20] MEDS: Budesonide/Formoterol 80/4.5 1 PUFF INH IH SCH (20:20)
[2021-11-20] MEDS: *HR* Digoxin 0.5 MG/2 ML AMPUL IVP SCH (21:05)
[2021-11-21] MEDS: Azelastine 0.1% Nasal Spray 30 ML BOTTLE NS SCH ×3 (02:39→21:27)
[2021-11-21] MEDS: Artificial Tears SOLN 15 ML BOTTLE BOTH EYES SCH ×5 (02:39→21:26)
[2021-11-21] MEDS: Simethicone 80 MG TAB.CHEW PO SCH ×3 (02:40→21:25)
[2021-11-21] MEDS: Gabapentin 300 MG CAPSULE PO SCH ×4 (02:40→21:25)
[2021-11-21] MEDS: Lactobacillus 1 EACH CAP.SPRINK PO SCH ×3 (02:42→21:25)
[2021-11-21] MEDS: Apixaban 5 MG TABLET PO SCH ×3 (02:42→21:25)
[2021-11-21] MEDS: polyethylene glycoL 3350 17 GM POWD.PACK PO SCH ×3 (02:43→21:30)
[2021-11-21] MEDS: *HR* Digoxin 0.5 MG/2 ML AMPUL IVP SCH ×2 (03:02→09:28)
[2021-11-21] MEDS: Clotrimazole 1% CRM 15 GM TUBE TP SCH ×3 (03:03→21:29)
[2021-11-21] MEDS: MICONAZOLE NITRATE TP SCH ×2 (03:03→07:56)
[2021-11-21] MEDS: Morphine Sulfate Oral CONC 10 MG/0.5 ML ORAL.SYG PO SCH ×5 (03:05→22:45)
[2021-11-21] MEDS: Levalbuterol Neb 1.25 MG/3 ML IH SCH ×6 (03:45→23:56)
[2021-11-21 05:01] LABS: Basophils % 0.6 %; Mean Corpuscular Volume 85.1 fL (83.0-100.0); Monocytes % 9.6 %
[2021-11-21 05:03] LABS: Basophils # 0.1 K/mcL (0.0-0.2); Eosinophils # 0.5 K/mcL (0.0-0.6); Eosinophils % 5.5 %; Hematocrit 28.6 % (37.5-50.1); Hemoglobin 8.5 g/dL (12.9-16.9); Immature Granulocytes % 0.8 % (0-4); Immature Platelets 6.1 % (1.1-6.1); Lymphocytes # 3.1 K/mcL (0.6-4.6); Lymphocytes % 36.6 %; Mean Corpuscular HGB Conc 29.7 g/dL (31.6-35.5); Mean Corpuscular Hemoglobin 25.3 pg (28.0-33.3); Monocytes # 0.8 K/mcL (0.0-1.3); Red Blood Count 3.36 M/mcL (4.19-5.50); Red Cell Distribution Width 18.9 % (11.5-14.5); Segmented Neutrophils % 46.9 %; White Blood Count 8.5 K/mcL (4.3-11.1)
[2021-11-21 05:07] LABS: Platelet Count 60 K/mcL (140-400)
[2021-11-21 07:44] LABS: BUN/Creatinine Ratio 15 (6-26); Blood Urea Nitrogen 13 mg/dL (8-23); Calcium 8.3 mg/dL (8.6-10.3); Carbon Dioxide 29 mEq/L (23-29); Chloride 102 mEq/L (98-107); Glucose 81 mg/dL (70-105); Osmolality,Calculated 279 (280-300); Potassium 4.9 mEq/L (3.5-5.1); Sodium 135 mEq/L (136-145); eGFR For African Americans > 60 (> 60); eGFR For Non-African Americans > 60 (> 60)
[2021-11-21] MEDS: Multivit/Ca/Min/Fe/FA 1 TAB TABLET PO SCH (07:53)
[2021-11-21] MEDS: Loratadine 10 MG TABLET PO SCH (07:53)
[2021-11-21] MEDS: Fluconazole 100 MG TABLET PO SCH (07:54)
[2021-11-21] MEDS: predniSONE 10 MG TABLET PO SCH (07:54)
[2021-11-21] MEDS: Budesonide/Formoterol 80/4.5 1 PUFF INH IH SCH ×2 (08:14→20:33)
[2021-11-21] MEDS: Tiotropium 10 INH DOSE IH SCH (08:14)
[2021-11-21] MEDS: Metoprolol XL (24 HR) Succ 50 MG TAB.ER.24H PO SCH (21:25)
[2021-11-22] MEDS: Morphine Sulfate Oral CONC 10 MG/0.5 ML ORAL.SYG PO SCH ×4 (04:02→21:36)
[2021-11-22] MEDS: Levalbuterol Neb 1.25 MG/3 ML IH SCH ×5 (04:10→20:21)
[2021-11-22] MEDS: Tiotropium 10 INH DOSE IH SCH (07:14)
[2021-11-22] MEDS: Budesonide/Formoterol 80/4.5 1 PUFF INH IH SCH ×2 (07:14→20:21)
[2021-11-22] MEDS: predniSONE 10 MG TABLET PO SCH (07:44)
[2021-11-22] MEDS: Lactobacillus 1 EACH CAP.SPRINK PO SCH ×2 (07:45→20:09)
[2021-11-22] MEDS: Simethicone 80 MG TAB.CHEW PO SCH ×2 (07:45→20:08)
[2021-11-22] MEDS: Fluconazole 100 MG TABLET PO SCH (07:45)
[2021-11-22] MEDS: Loratadine 10 MG TABLET PO SCH (07:46)
[2021-11-22] MEDS: Artificial Tears SOLN 15 ML BOTTLE BOTH EYES SCH ×4 (07:46→20:12)
[2021-11-22] MEDS: Metoprolol XL (24 HR) Succ 50 MG TAB.ER.24H PO SCH ×2 (07:46→20:08)
[2021-11-22] MEDS: Apixaban 5 MG TABLET PO SCH ×2 (07:46→20:09)
[2021-11-22] MEDS: Gabapentin 300 MG CAPSULE PO SCH ×3 (07:46→20:08)
[2021-11-22] MEDS: Multivit/Ca/Min/Fe/FA 1 TAB TABLET PO SCH (07:46)
[2021-11-22] MEDS: Azelastine 0.1% Nasal Spray 30 ML BOTTLE NS SCH ×2 (07:46→20:12)
[2021-11-22] MEDS: polyethylene glycoL 3350 17 GM POWD.PACK PO SCH ×2 (07:47→20:13)
[2021-11-22] MEDS: Clotrimazole 1% CRM 15 GM TUBE TP SCH ×2 (07:47→20:13)
[2021-11-23] MEDS: Levalbuterol Neb 1.25 MG/3 ML IH SCH ×7 (00:10→23:15)
[2021-11-23] MEDS: Morphine Sulfate Oral CONC 10 MG/0.5 ML ORAL.SYG PO SCH ×4 (05:26→21:38)
[2021-11-23] MEDS: Tiotropium 10 INH DOSE IH SCH (07:28)
[2021-11-23] MEDS: Budesonide/Formoterol 80/4.5 1 PUFF INH IH SCH ×2 (07:32→20:06)
[2021-11-23] MEDS: Multivit/Ca/Min/Fe/FA 1 TAB TABLET PO SCH (08:26)
[2021-11-23] MEDS: Metoprolol XL (24 HR) Succ 50 MG TAB.ER.24H PO SCH ×2 (08:26→21:38)
[2021-11-23] MEDS: Lactobacillus 1 EACH CAP.SPRINK PO SCH ×2 (08:26→21:39)
[2021-11-23] MEDS: Gabapentin 300 MG CAPSULE PO SCH ×3 (08:26→21:39)
[2021-11-23] MEDS: Loratadine 10 MG TABLET PO SCH (08:27)
[2021-11-23] MEDS: Fluconazole 100 MG TABLET PO SCH (08:27)
[2021-11-23] MEDS: Apixaban 5 MG TABLET PO SCH ×2 (08:27→21:39)
[2021-11-23] MEDS: predniSONE 10 MG TABLET PO SCH (08:27)
[2021-11-23] MEDS: Simethicone 80 MG TAB.CHEW PO SCH ×2 (08:28→21:39)
[2021-11-23] MEDS: Artificial Tears SOLN 15 ML BOTTLE BOTH EYES SCH ×4 (08:29→21:37)
[2021-11-23] MEDS: Clotrimazole 1% CRM 15 GM TUBE TP SCH ×2 (08:29→21:37)
[2021-11-23] MEDS: polyethylene glycoL 3350 17 GM POWD.PACK PO SCH ×2 (08:29→21:39)
[2021-11-23] MEDS: Azelastine 0.1% Nasal Spray 30 ML BOTTLE NS SCH ×2 (08:29→21:37)
[2021-11-23 12:49] LABS: Hematocrit 30.4 % (37.5-50.1)
[2021-11-23 12:51] LABS: Basophils % 0.6 %; Eosinophils # 0.2 K/mcL (0.0-0.6); Eosinophils % 2.5 %; Hemoglobin 9.1 g/dL (12.9-16.9); Immature Granulocytes % 1.5 % (0-4); Immature Platelets 5.8 % (1.1-6.1); Lymphocytes # 1.7 K/mcL (0.6-4.6); Lymphocytes % 24.9 %; Mean Corpuscular HGB Conc 29.9 g/dL (31.6-35.5); Mean Corpuscular Hemoglobin 25.2 pg (28.0-33.3); Mean Corpuscular Volume 84.2 fL (83.0-100.0); Monocytes # 0.6 K/mcL (0.0-1.3); Monocytes % 8.3 %; Neutrophils # 4.2 K/mcL (1.6-8.9); Red Blood Count 3.61 M/mcL (4.19-5.50); Red Cell Distribution Width 18.5 % (11.5-14.5); Segmented Neutrophils % 62.2 %; White Blood Count 6.8 K/mcL (4.3-11.1)
[2021-11-23 14:45] LABS: Platelet Count 80 K/mcL (140-400)
[2021-11-23 15:22] LABS: Adenovirus Not Detected (Not Detect); Bordetella Pertussis Not Detected (Not Detect); Chlamydophila pneumoniae Not Detected (Not Detect); Coronavirus 229E Not Detected (Not Detect); Coronavirus HKU1 Not Detected (Not Detect); Coronavirus NL63 Not Detected (Not Detect); Coronavirus OC43 Not Detected (Not Detect); Human Metapneumovirus Not Detected (Not Detect); Human Rhinovirus/Enterovirus Not Detected (Not Detect); Influenza A Subtype 2009 H1 Not Detected (Not Detect); Influenza B Not Detected (Not Detect); Mycoplasma pneumoniae Not Detected (Not Detect); Parainfluenza Virus 1 Not Detected (Not Detect); Parainfluenza Virus 2 Not Detected (Not Detect); Parainfluenza Virus 3 Not Detected (Not Detect); Parainfluenza Virus 4 Not Detected (Not Detect); Respiratory Syncytial Virus Not Detected (Not Detect); SARS-CoV-2 Not Detected (Not Detect)
[2021-11-24] MEDS: Levalbuterol Neb 1.25 MG/3 ML IH SCH ×2 (03:53→07:38)
[2021-11-24] MEDS: Morphine Sulfate Oral CONC 10 MG/0.5 ML ORAL.SYG PO SCH ×2 (04:45→08:58)
[2021-11-24 06:53] VITALS: BP 123/67; PULSE 86; TEMP 98.2
[2021-11-24] MEDS: Budesonide/Formoterol 80/4.5 1 PUFF INH IH SCH (07:38)
[2021-11-24] MEDS: Tiotropium 10 INH DOSE IH SCH (07:39)
[2021-11-24 07:40] VITALS: O2SAT 89
[2021-11-24] MEDS: Multivit/Ca/Min/Fe/FA 1 TAB TABLET PO SCH (08:59)
[2021-11-24] MEDS: Gabapentin 300 MG CAPSULE PO SCH (08:59)
[2021-11-24] MEDS: Lactobacillus 1 EACH CAP.SPRINK PO SCH (08:59)
[2021-11-24] MEDS: Fluconazole 100 MG TABLET PO SCH (08:59)
[2021-11-24] MEDS: Azelastine 0.1% Nasal Spray 30 ML BOTTLE NS SCH (09:00)
[2021-11-24] MEDS: Loratadine 10 MG TABLET PO SCH (09:00)
[2021-11-24] MEDS: Artificial Tears SOLN 15 ML BOTTLE BOTH EYES SCH (09:00)
[2021-11-24] MEDS: Metoprolol XL (24 HR) Succ 50 MG TAB.ER.24H PO SCH (09:00)
[2021-11-24] MEDS: Simethicone 80 MG TAB.CHEW PO SCH (09:00)
[2021-11-24] MEDS: predniSONE 10 MG TABLET PO SCH (09:00)
[2021-11-24] MEDS: Apixaban 5 MG TABLET PO SCH (09:00)
[2021-11-24] MEDS: Clotrimazole 1% CRM 15 GM TUBE TP SCH (09:01)
[2021-11-24] MEDS: polyethylene glycoL 3350 17 GM POWD.PACK PO SCH (09:01)
== END 2021-11-24 10:00 | DRG 281 ==
LOC: 2NENU 10:13 → EMEROOARM 10:13 → 2NENU 14:51
PROVIDERS: ADMIT Internal Medicine; ATTEND Internal Medicine

== ENCOUNTER 2022-01-12 07:53 | Inpatient (IN) ==
[2022-01-12] MEDS ORDERED: Piperacillin/Tazobactam 3.375 GM in 0.9 % Sodium Chloride Mini Bag 100 ML IVPB ONE (08:09)
[2022-01-12] MEDS ORDERED: Ipratropium/Albuterol Neb 3 ML IH ONE (08:09)
[2022-01-12] MEDS ORDERED: 0.9 % Sodium Chloride 1,000 ML IVC ONE ×2 (08:09→10:32)
[2022-01-12 09:06] LABS: Basophils % 0.1 %; Eosinophils % 0.4 %; Immature Granulocytes % 0.4 % (0-4)
[2022-01-12 09:08] LABS: VBG HCO3 30 mEq/L (21-27); VBG PCO2 54 mmHg (41-51); VBG PH 7.35 pH Units (7.32-7.42); VBG PO2 165 mmHg (25-50)
[2022-01-12 09:08] LABS: Hematocrit 33.2 % (37.5-50.1); Hemoglobin 9.9 g/dL (12.9-16.9); Lymphocytes # 0.7 K/mcL (0.6-4.6); Lymphocytes % 8.6 %; Mean Corpuscular HGB Conc 29.8 g/dL (31.6-35.5); Mean Corpuscular Hemoglobin 26.9 pg (28.0-33.3); Mean Corpuscular Volume 90.2 fL (83.0-100.0); Mean Platelet Volume 11.3 fL (9.4-12.4); Monocytes # 0.4 K/mcL (0.0-1.3); Monocytes % 5.7 %; Neutrophils # 6.5 K/mcL (1.6-8.9); Red Blood Count 3.68 M/mcL (4.19-5.50); Red Cell Distribution Width 21.6 % (11.5-14.5); Segmented Neutrophils % 84.8 %; White Blood Count 7.7 K/mcL (4.3-11.1)
[2022-01-12 09:15] LABS: INR 1.6; Prothrombin Time 17.8 Seconds (9.4-12.1)
[2022-01-12 09:18] LABS: Activated Partial Thrombo Time 25.1 Seconds (26.0-36.0)
[2022-01-12 09:39] LABS: Alanine Aminotransferase 15 Units/L (7-52); Albumin 2.9 g/dL (3.5-5.7); Albumin/Globulin Ratio 0.9 (1.1-2.2); Alkaline Phosphatase 78 Units/L (34-104); Aspartate Amino Transferase 17 Units/L (13-39); BUN/Creatinine Ratio 18 (6-26); Bilirubin,Direct 0.1 mg/dL (0.0-0.2); Bilirubin,Indirect 0.3 mg/dL (0.0-1.0); Bilirubin,Total 0.4 mg/dL (0.3-1.0); Blood Urea Nitrogen 17 mg/dL (8-23); Calcium 8.4 mg/dL (8.6-10.3); Carbon Dioxide 32 mEq/L (23-29); Chloride 100 mEq/L (98-107); Globulin 3.4 g/dL (2.4-3.5); Glucose 116 mg/dL (70-105); Magnesium 2.3 mg/dL (1.6-2.6); Osmolality,Calculated 289 (280-300); Phosphorous 2.9 mg/dL (2.7-4.5); Potassium 4.8 mEq/L (3.5-5.1); Sodium 138 mEq/L (136-145); Total Protein 6.3 g/dL (6.4-8.9); Troponin I < 0.03 ng/mL (< 0.04); eGFR For African Americans > 60 (> 60); eGFR For Non-African Americans > 60 (> 60)
[2022-01-12 09:51] LABS: Platelet Count 76 K/mcL (140-400)
[2022-01-12 10:26] LABS: Influenza A PCR Negative (Negative); Influenza B PCR Negative (Negative); Resp. Syncytial Virus PCR Negative (Negative)
[2022-01-12] MEDS: Norepinephrine 4 MG/254 ML IV.SOLN IVC SCH ×2 (11:02→20:50)
[2022-01-12 11:03] LABS: SARS-CoV-2 by PCR (In House) Negative (Negative)
[2022-01-12 12:46] LABS: Bacteria,Urine Moderate per hpf (None-Few); Bilirubin,Urine Negative (Negative); Blood,Urine Moderate (Negative); Clarity,Urine Ex.Turbid (Clear); Color,Urine Yellow (Yellow); Glucose,Urine (UA) Normal (Normal); Ketones,Urine Negative (Negative); Leukocyte Esterase,Urine Large (Negative); Nitrite,Urine Negative (Negative); PH,Urine 7.5 pH Units (5.0-8.0); Protein,Urine 100 mg/dL (Neg-Trace); RBC,Urine 15-30 per hpf (0-3); Specific Gravity,Urine 1.013 (1.010-1.025); Urobilinogen,Urine Normal (Normal); WBC,Urine TNTC per hpf (0-3)
[2022-01-12] MEDS ORDERED: Naloxone 0.4 MG/ML INJ IVP PRN (13:16)
[2022-01-12] MEDS ORDERED: Lactulose Oral Soln 20 GM/30 ML UDC PO ONE (13:21)
[2022-01-12] MEDS ORDERED: Albuterol 2.5 MG/3 ML NEBULIZER IH PRN (13:22)
[2022-01-12] MEDS ORDERED: Vancomycin (wt based) 1,000 MG VIAL IVPB SCH (14:00)
[2022-01-12] MEDS: 0.9 % Sodium Chloride 1,000 ML IVC SCH ×2 (14:51→20:56)
[2022-01-12] MEDS: methylPREDNISolone 125 MG/2 ML VIAL IVP SCH (14:52)
[2022-01-12] MEDS: Ipratropium/Albuterol Neb 3 ML IH SCH ×3 (15:08→21:59)
[2022-01-12] MEDS: Piperacillin/Tazobactam 3.375 GM in 0.9 % Sodium Chloride Mini Bag 100 ML IVPB SCH (16:43)
[2022-01-12] MEDS ORDERED: *HR* Enoxaparin 80 MG/0.8 ML SYRINGE SQ SCH (18:00)
[2022-01-13] MEDS: methylPREDNISolone 125 MG/2 ML VIAL IVP SCH ×3 (00:13→16:04)
[2022-01-13] MEDS: Piperacillin/Tazobactam 3.375 GM in 0.9 % Sodium Chloride Mini Bag 100 ML IVPB SCH ×2 (00:14→14:41)
[2022-01-13] MEDS: Ipratropium/Albuterol Neb 3 ML IH SCH ×4 (03:57→22:33)
[2022-01-13 04:03] LABS: A.calcoaceticus-baumannii cplx Not Detected (Not Detect); Bacteroides fragilis by PCR Not Detected (Not Detect); CTX-M ESBL Gene Not Detected (Not Detect); Enterococcus faecalis by PCR Not Detected (Not Detect); Enterococcus faecium by PCR Not Detected (Not Detect); IMP Carbapenem-Resist Gene Not Detected (Not Detect); NDM Carbapenem-Resist Gene Not Detected (Not Detect); OXA-48-like Carbap-Resist Gene Not Detected (Not Detect); Staph epidermidis by PCR Not Detected (Not Detect); Staph lugdunensis by PCR Not Detected (Not Detect); Staphylococcus aureus by PCR Not Detected (Not Detect); Staphylococcus by PCR Not Detected (Not Detect); Streptococcus agalactiae(B)PCR Not Detected (Not Detect); Streptococcus by PCR Not Detected (Not Detect); Streptococcus pneumoniae PCR Not Detected (Not Detect); Streptococcus pyogenes (A) PCR Not Detected (Not Detect); VIM Carbapenem-Resist Gene Not Detected (Not Detect); blaKPC Carbapenem-Resist Gene Not Detected (Not Detect); mcr-1 Colistin-Resist Gene Not Detected (Not Detect)
[2022-01-13 04:04] LABS: Candida albicans by PCR Not Detected (Not Detect); Candida auris by PCR Not Detected (Not Detect); Candida glabrata by PCR Not Detected (Not Detect); Candida krusei by PCR Not Detected (Not Detect); Candida parapsilosis by PCR Not Detected (Not Detect); Crypto. neoformans/gattii PCR Not Detected (Not Detect); Enterobacter cloacae Cmplx PCR Not Detected (Not Detect); Escherichia coli by PCR DETECTED (Not Detect); Klebs. pneumoniae group by PCR Not Detected (Not Detect); Klebsiella aerogenes by PCR Not Detected (Not Detect); Klebsiella oxytoca by PCR Not Detected (Not Detect); Proteus by PCR Not Detected (Not Detect); Pseudomonas aeruginosa by PCR Not Detected (Not Detect); Salmonella species by PCR Not Detected (Not Detect); Serratia marcescens by PCR Not Detected (Not Detect); Stenotrophomonas maltophilia Not Detected (Not Detect)
[2022-01-13] MEDS: 0.9 % Sodium Chloride 1,000 ML IVC SCH ×2 (04:51→14:44)
[2022-01-13 09:52] LABS: Hematocrit 29.5 % (37.5-50.1); Hemoglobin 8.5 g/dL (12.9-16.9); Mean Corpuscular HGB Conc 28.8 g/dL (31.6-35.5); Mean Corpuscular Hemoglobin 26.9 pg (28.0-33.3); Mean Corpuscular Volume 93.4 fL (83.0-100.0); Mean Platelet Volume 11.9 fL (9.4-12.4); Red Blood Count 3.16 M/mcL (4.19-5.50); Red Cell Distribution Width 21.3 % (11.5-14.5); White Blood Count 5.4 K/mcL (4.3-11.1)
[2022-01-13] MEDS ORDERED: Ertapenem 1,000 MG in 0.9 % Sodium Chloride Mini Bag 100 ML IVPB SCH (10:00)
[2022-01-13 10:17] LABS: BUN/Creatinine Ratio 22 (6-26); Blood Urea Nitrogen 15 mg/dL (8-23); Calcium 7.2 mg/dL (8.6-10.3); Carbon Dioxide 24 mEq/L (23-29); Chloride 114 mEq/L (98-107); Glucose 131 mg/dL (70-105); Osmolality,Calculated 299 (280-300); Potassium 3.6 mEq/L (3.5-5.1); Sodium 143 mEq/L (136-145); eGFR For African Americans > 60 (> 60); eGFR For Non-African Americans > 60 (> 60)
[2022-01-13] MEDS: Morphine Sulfate Oral CONC 10 MG/0.5 ML ORAL.SYG PO SCH ×3 (10:22→22:23)
[2022-01-13] MEDS: Micafungin 100 MG in 0.9 % Sodium Chloride Mini Bag 100 ML IVPB SCH (10:22)
[2022-01-13 10:47] LABS: Platelet Count 69 K/mcL (140-400)
[2022-01-13] MEDS ORDERED: 0.9 % Sodium Chloride 1,000 ML ONE (14:21)
[2022-01-13 23:41] LABS: A.calcoaceticus-baumannii cplx Not Detected (Not Detect); Bacteroides fragilis by PCR Not Detected (Not Detect); CTX-M ESBL Gene Not Detected (Not Detect); Enterobacterales by PCR Not Detected (Not Detect); Enterococcus faecalis by PCR Not Detected (Not Detect); Enterococcus faecium by PCR Not Detected (Not Detect); IMP Carbapenem-Resist Gene Not Detected (Not Detect); NDM Carbapenem-Resist Gene Not Detected (Not Detect); OXA-48-like Carbap-Resist Gene Not Detected (Not Detect); Staph epidermidis by PCR Not Detected (Not Detect); Staph lugdunensis by PCR Not Detected (Not Detect); Staphylococcus aureus by PCR Not Detected (Not Detect); Staphylococcus by PCR DETECTED (Not Detect); Streptococcus agalactiae(B)PCR Not Detected (Not Detect); Streptococcus by PCR Not Detected (Not Detect); Streptococcus pneumoniae PCR Not Detected (Not Detect); Streptococcus pyogenes (A) PCR Not Detected (Not Detect); VIM Carbapenem-Resist Gene Not Detected (Not Detect); blaKPC Carbapenem-Resist Gene Not Detected (Not Detect); mcr-1 Colistin-Resist Gene Not Detected (Not Detect); mecA/C & MREJ (MRSA) Gene Not Detected (Not Detect); mecA/C Methicillin-Resist Gene Not Detected (Not Detect); vanA/B Vancomycin-Resist Genes Not Detected (Not Detect)
[2022-01-13 23:42] LABS: Candida albicans by PCR Not Detected (Not Detect); Candida auris by PCR Not Detected (Not Detect); Candida glabrata by PCR Not Detected (Not Detect); Candida krusei by PCR Not Detected (Not Detect); Candida parapsilosis by PCR Not Detected (Not Detect); Candida tropicalis by PCR Not Detected (Not Detect); Crypto. neoformans/gattii PCR Not Detected (Not Detect); Enterobacter cloacae Cmplx PCR Not Detected (Not Detect); Escherichia coli by PCR Not Detected (Not Detect); Klebs. pneumoniae group by PCR Not Detected (Not Detect); Klebsiella aerogenes by PCR Not Detected (Not Detect); Klebsiella oxytoca by PCR Not Detected (Not Detect); Proteus by PCR Not Detected (Not Detect); Pseudomonas aeruginosa by PCR Not Detected (Not Detect); Salmonella species by PCR Not Detected (Not Detect); Serratia marcescens by PCR Not Detected (Not Detect); Stenotrophomonas maltophilia Not Detected (Not Detect)
[2022-01-14] MEDS: Meropenem 1,000 MG in 0.9 % Sodium Chloride Mini Bag 100 ML IVPB SCH ×3 (00:29→15:48)
[2022-01-14] MEDS: methylPREDNISolone 125 MG/2 ML VIAL IVP SCH ×2 (00:29→09:16)
[2022-01-14] MEDS: Ipratropium/Albuterol Neb 3 ML IH SCH ×4 (03:24→22:40)
[2022-01-14] MEDS: Morphine Sulfate Oral CONC 10 MG/0.5 ML ORAL.SYG PO SCH ×5 (03:59→20:46)
[2022-01-14] MEDS ORDERED: *HR* Metoprolol 5 MG/5 ML VIAL IVP ONE ×3 (04:49→19:59)
[2022-01-14] MEDS ORDERED: *HR* Enoxaparin 40 MG/0.4 ML SYRINGE SQ SCH (06:00)
[2022-01-14] MEDS: Micafungin 100 MG in 0.9 % Sodium Chloride Mini Bag 100 ML IVPB SCH (09:18)
[2022-01-14] MEDS: Norepinephrine 4 MG/254 ML IV.SOLN IVC SCH (11:25)
[2022-01-14 11:51] LABS: Mean Corpuscular Volume 91.4 fL (83.0-100.0); White Blood Count 4.6 K/mcL (4.3-11.1)
[2022-01-14 11:52] LABS: Hematocrit 27.7 % (37.5-50.1); Hemoglobin 8.1 g/dL (12.9-16.9); Mean Corpuscular HGB Conc 29.2 g/dL (31.6-35.5); Mean Corpuscular Hemoglobin 26.7 pg (28.0-33.3); Mean Platelet Volume 9.9 fL (9.4-12.4); Red Blood Count 3.03 M/mcL (4.19-5.50); Red Cell Distribution Width 21.6 % (11.5-14.5)
[2022-01-14 12:09] LABS: BUN/Creatinine Ratio 26 (6-26); Blood Urea Nitrogen 16 mg/dL (8-23); Calcium 7.9 mg/dL (8.6-10.3); Carbon Dioxide 24 mEq/L (23-29); Chloride 113 mEq/L (98-107); Glucose 116 mg/dL (70-105); Osmolality,Calculated 300 (280-300); Potassium 3.6 mEq/L (3.5-5.1); Sodium 144 mEq/L (136-145); eGFR For African Americans > 60 (> 60); eGFR For Non-African Americans > 60 (> 60)
[2022-01-14] MEDS: Artificial Tears SOLN 15 ML BOTTLE BOTH EYES SCH ×3 (12:21→20:28)
[2022-01-14] MEDS: Saline Nasal Spray 44 ML BOTTLE NS PRN (12:21)
[2022-01-14] MEDS: MethylPREDNISolone 40 MG/ML VIAL IVP SCH (16:42)
[2022-01-14] MEDS ORDERED: Apixaban 5 MG TABLET PO SCH (21:00)
[2022-01-15] MEDS: Meropenem 1,000 MG in 0.9 % Sodium Chloride Mini Bag 100 ML IVPB SCH ×4 (00:09→22:54)
[2022-01-15] MEDS: Morphine Sulfate Oral CONC 10 MG/0.5 ML ORAL.SYG PO SCH ×3 (02:46→13:56)
[2022-01-15] MEDS ORDERED: *HR* Metoprolol 5 MG/5 ML VIAL IVP ONE ×5 (03:40→22:29)
[2022-01-15] MEDS: Ipratropium/Albuterol Neb 3 ML IH SCH ×4 (03:49→21:22)
[2022-01-15] MEDS: MethylPREDNISolone 40 MG/ML VIAL IVP SCH ×2 (05:20→17:16)
[2022-01-15] MEDS: *HR* Enoxaparin 40 MG/0.4 ML SYRINGE SQ SCH (05:20)
[2022-01-15] MEDS: Finasteride 5 MG TABLET PO SCH (08:03)
[2022-01-15] MEDS: Artificial Tears SOLN 15 ML BOTTLE BOTH EYES SCH ×4 (08:04→19:53)
[2022-01-15] MEDS: Micafungin 100 MG in 0.9 % Sodium Chloride Mini Bag 100 ML IVPB SCH (08:06)
[2022-01-15] MEDS ORDERED: cefTRIAXone 2,000 MG in 0.9 % Sodium Chloride Mini Bag 100 ML IVPB SCH (10:00)
[2022-01-15 10:07] LABS: Red Blood Count 3.23 M/mcL (4.19-5.50)
[2022-01-15 10:09] LABS: Hematocrit 29.5 % (37.5-50.1); Hemoglobin 8.7 g/dL (12.9-16.9); Immature Platelets 2.4 % (1.1-6.1); Mean Corpuscular HGB Conc 29.5 g/dL (31.6-35.5); Mean Corpuscular Hemoglobin 26.9 pg (28.0-33.3); Mean Corpuscular Volume 91.3 fL (83.0-100.0); Mean Platelet Volume 9.1 fL (9.4-12.4); Red Cell Distribution Width 21.5 % (11.5-14.5); White Blood Count 5.9 K/mcL (4.3-11.1)
[2022-01-15 10:34] LABS: BUN/Creatinine Ratio 28 (6-26); Blood Urea Nitrogen 20 mg/dL (8-23); Carbon Dioxide 27 mEq/L (23-29); Chloride 114 mEq/L (98-107); Glucose 106 mg/dL (70-105); Osmolality,Calculated 303 (280-300); Potassium 3.8 mEq/L (3.5-5.1); Sodium 145 mEq/L (136-145); Troponin I 0.09 ng/mL (< 0.04); Vancomycin,Trough 29 mcg/mL (5-10); eGFR For African Americans > 60 (> 60); eGFR For Non-African Americans > 60 (> 60)
[2022-01-15 11:55] LABS: Mean Platelet Volume 11.5 fL (9.4-12.4)
[2022-01-15 11:57] LABS: Platelet Count 60 K/mcL (140-400)
[2022-01-15] MEDS: Aspirin 81 MG TAB.CHEW PO SCH (12:08)
[2022-01-15 12:43] LABS: Monocytes # 0.1 K/mcL (0.0-1.3)
[2022-01-15] MEDS ORDERED: Perflutren Lipid Microsphere 1.3 ML in 0.9 % Sodium Chloride 8.7 ML IVP PRN (14:23)
[2022-01-15 14:38] LABS: Anisocytosis 1+ (Not Present); Lymphocytes # 0.4 K/mcL (0.6-4.6); Neutrophils # 5.4 K/mcL (1.6-8.9)
[2022-01-15 14:39] LABS: Platelet Estimate Decreased (Normal); Poikilocytosis 1+ (Not Present)
[2022-01-15] MEDS: Acetylcysteine 10% 2 ML INHSOL IH SCH ×3 (14:40→21:22)
[2022-01-15 14:57] LABS: Magnesium 1.9 mg/dL (1.6-2.6)
[2022-01-15] MEDS ORDERED: Meropenem 500 MG in 0.9 % Sodium Chloride Mini Bag 100 ML IVPB SCH (16:00)
[2022-01-15] MEDS: *HR* Digoxin 0.5 MG/2 ML AMPUL IVP SCH ×2 (17:56→22:50)
[2022-01-15] MEDS: Metoprolol XL (24 HR) Succ 50 MG TAB.ER.24H PO SCH (19:53)
[2022-01-15] MEDS: Saline Nasal Spray 44 ML BOTTLE NS PRN (19:53)
[2022-01-15] MEDS ORDERED: Morphine Sulfate Immed Rel 15 MG TABLET PO ONE (23:37)
[2022-01-16] MEDS: Acetylcysteine 10% 2 ML INHSOL IH SCH ×4 (03:56→21:20)
[2022-01-16] MEDS: Ipratropium/Albuterol Neb 3 ML IH SCH ×4 (03:57→21:19)
[2022-01-16] MEDS ORDERED: *HR* Metoprolol 5 MG/5 ML VIAL IVP ONE (04:58)
[2022-01-16] MEDS: MethylPREDNISolone 40 MG/ML VIAL IVP SCH (05:12)
[2022-01-16] MEDS: *HR* Digoxin 0.5 MG/2 ML AMPUL IVP SCH ×2 (05:13→08:52)
[2022-01-16] MEDS: *HR* Enoxaparin 40 MG/0.4 ML SYRINGE SQ SCH (05:16)
[2022-01-16 07:23] LABS: Hemoglobin 9.2 g/dL (12.9-16.9)
[2022-01-16 07:25] LABS: Hematocrit 31.7 % (37.5-50.1); Immature Platelets 2.9 % (1.1-6.1); Mean Corpuscular Hemoglobin 26.9 pg (28.0-33.3); Mean Corpuscular Volume 92.7 fL (83.0-100.0); Red Blood Count 3.42 M/mcL (4.19-5.50); Red Cell Distribution Width 21.4 % (11.5-14.5); White Blood Count 4.7 K/mcL (4.3-11.1)
[2022-01-16 07:28] LABS: Platelet Count 51 K/mcL (140-400)
[2022-01-16 07:42] LABS: BUN/Creatinine Ratio 35 (6-26); Blood Urea Nitrogen 27 mg/dL (8-23); Calcium 8.3 mg/dL (8.6-10.3); Carbon Dioxide 26 mEq/L (23-29); Chloride 112 mEq/L (98-107); Glucose 77 mg/dL (70-105); Osmolality,Calculated 306 (280-300); Potassium 4.2 mEq/L (3.5-5.1); Sodium 146 mEq/L (136-145); eGFR For African Americans > 60 (> 60); eGFR For Non-African Americans > 60 (> 60)
[2022-01-16] MEDS: Aspirin 81 MG TAB.CHEW PO SCH (07:57)
[2022-01-16] MEDS: Finasteride 5 MG TABLET PO SCH (07:57)
[2022-01-16] MEDS: Metoprolol XL (24 HR) Succ 50 MG TAB.ER.24H PO SCH ×2 (07:57→21:28)
[2022-01-16] MEDS: Artificial Tears SOLN 15 ML BOTTLE BOTH EYES SCH ×4 (07:58→21:28)
[2022-01-16] MEDS: Meropenem 1,000 MG in 0.9 % Sodium Chloride Mini Bag 100 ML IVPB SCH ×2 (07:58→15:41)
[2022-01-16] MEDS: Morphine Sulfate Oral CONC 10 MG/0.5 ML ORAL.SYG SL SCH ×3 (08:51→21:27)
[2022-01-16] MEDS: Magnesium Oxide 400 MG TABLET PO SCH (12:38)
[2022-01-16] MEDS: Apixaban 5 MG TABLET PO SCH ×2 (12:38→21:28)
[2022-01-17] MEDS: Meropenem 1,000 MG in 0.9 % Sodium Chloride Mini Bag 100 ML IVPB SCH ×4 (00:58→23:08)
[2022-01-17] MEDS: Morphine Sulfate Oral CONC 10 MG/0.5 ML ORAL.SYG SL SCH ×4 (02:27→20:36)
[2022-01-17] MEDS: Ipratropium/Albuterol Neb 3 ML IH SCH ×4 (03:49→21:00)
[2022-01-17] MEDS: Acetylcysteine 10% 2 ML INHSOL IH SCH ×4 (03:49→21:00)
[2022-01-17] MEDS: Aspirin 81 MG TAB.CHEW PO SCH (08:45)
[2022-01-17] MEDS: Magnesium Oxide 400 MG TABLET PO SCH ×2 (08:45→20:36)
[2022-01-17] MEDS: Metoprolol XL (24 HR) Succ 50 MG TAB.ER.24H PO SCH ×2 (08:45→20:36)
[2022-01-17] MEDS: Apixaban 5 MG TABLET PO SCH (08:46)
[2022-01-17] MEDS: Artificial Tears SOLN 15 ML BOTTLE BOTH EYES SCH ×4 (08:46→20:37)
[2022-01-17] MEDS: Finasteride 5 MG TABLET PO SCH (08:46)
[2022-01-17] MEDS: predniSONE 20 MG TABLET PO SCH (08:46)
[2022-01-17] MEDS: *HR* Digoxin 0.5 MG/2 ML AMPUL IVP SCH (08:46)
[2022-01-17 10:45] LABS: Hematocrit 29.2 % (37.5-50.1); Hemoglobin 8.7 g/dL (12.9-16.9); Mean Corpuscular HGB Conc 29.8 g/dL (31.6-35.5); Mean Corpuscular Hemoglobin 26.9 pg (28.0-33.3); Mean Corpuscular Volume 90.4 fL (83.0-100.0); Red Blood Count 3.23 M/mcL (4.19-5.50); Red Cell Distribution Width 20.6 % (11.5-14.5)
[2022-01-17 10:47] LABS: Platelet Count 39 K/mcL (140-400)
[2022-01-17 11:02] LABS: BUN/Creatinine Ratio 32 (6-26); Blood Urea Nitrogen 20 mg/dL (8-23); Calcium 7.8 mg/dL (8.6-10.3); Carbon Dioxide 31 mEq/L (23-29); Chloride 109 mEq/L (98-107); Glucose 91 mg/dL (70-105); Osmolality,Calculated 294 (280-300); Potassium 3.8 mEq/L (3.5-5.1); Sodium 141 mEq/L (136-145); eGFR For African Americans > 60 (> 60); eGFR For Non-African Americans > 60 (> 60)
[2022-01-17] MEDS: *HR* Heparin 5,000 UNIT/ML VIAL SQ SCH (20:36)
[2022-01-17] MEDS ORDERED: *HR* OxyCODONE Immed Rel 5 MG TABLET PO ONE (23:25)
[2022-01-18] MEDS: Morphine Sulfate Oral CONC 10 MG/0.5 ML ORAL.SYG SL SCH ×5 (02:02→21:36)
[2022-01-18] MEDS: Ipratropium/Albuterol Neb 3 ML IH SCH ×4 (03:56→22:40)
[2022-01-18] MEDS: Acetylcysteine 10% 2 ML INHSOL IH SCH ×4 (03:56→22:40)
[2022-01-18] MEDS: *HR* Heparin 5,000 UNIT/ML VIAL SQ SCH ×2 (05:11→13:46)
[2022-01-18 06:04] LABS: Basophils % 0.2 %; Eosinophils # 0.1 K/mcL (0.0-0.6); Eosinophils % 1.8 %; Hematocrit 30.4 % (37.5-50.1); Hemoglobin 9.2 g/dL (12.9-16.9); Immature Granulocytes % 0.4 % (0-4); Immature Platelets 5.4 % (1.1-6.1); Lymphocytes # 0.6 K/mcL (0.6-4.6); Lymphocytes % 13.2 %; Mean Corpuscular HGB Conc 30.3 g/dL (31.6-35.5); Mean Corpuscular Hemoglobin 27.1 pg (28.0-33.3); Mean Corpuscular Volume 89.4 fL (83.0-100.0); Monocytes # 0.2 K/mcL (0.0-1.3); Monocytes % 4.7 %; Neutrophils # 3.6 K/mcL (1.6-8.9); Red Cell Distribution Width 20.3 % (11.5-14.5); Segmented Neutrophils % 79.7 %; White Blood Count 4.5 K/mcL (4.3-11.1)
[2022-01-18 06:06] LABS: Platelet Count 46 K/mcL (140-400)
[2022-01-18 06:31] LABS: BUN/Creatinine Ratio 30 (6-26); Blood Urea Nitrogen 18 mg/dL (8-23); Carbon Dioxide 32 mEq/L (23-29); Chloride 104 mEq/L (98-107); Glucose 89 mg/dL (70-105); Magnesium 1.7 mg/dL (1.6-2.6); Osmolality,Calculated 289 (280-300); Potassium 3.9 mEq/L (3.5-5.1); Sodium 139 mEq/L (136-145); eGFR For African Americans > 60 (> 60); eGFR For Non-African Americans > 60 (> 60)
[2022-01-18] MEDS: Magnesium Oxide 400 MG TABLET PO SCH ×2 (09:18→21:25)
[2022-01-18] MEDS: predniSONE 20 MG TABLET PO SCH (09:18)
[2022-01-18] MEDS: Meropenem 1,000 MG in 0.9 % Sodium Chloride Mini Bag 100 ML IVPB SCH ×2 (09:18→15:34)
[2022-01-18] MEDS: Aspirin 81 MG TAB.CHEW PO SCH (09:18)
[2022-01-18] MEDS: Metoprolol XL (24 HR) Succ 50 MG TAB.ER.24H PO SCH ×2 (09:18→20:04)
[2022-01-18] MEDS: Finasteride 5 MG TABLET PO SCH (09:18)
[2022-01-18] MEDS: *HR* Digoxin 0.5 MG/2 ML AMPUL IVP SCH (09:19)
[2022-01-18] MEDS: Artificial Tears SOLN 15 ML BOTTLE BOTH EYES SCH ×4 (09:19→21:25)
[2022-01-19] MEDS: Meropenem 1,000 MG in 0.9 % Sodium Chloride Mini Bag 100 ML IVPB SCH ×3 (00:34→16:42)
[2022-01-19] MEDS: Morphine Sulfate Oral CONC 10 MG/0.5 ML ORAL.SYG SL SCH ×4 (03:44→21:00)
[2022-01-19] MEDS: Acetylcysteine 10% 2 ML INHSOL IH SCH ×4 (04:07→22:51)
[2022-01-19] MEDS: Ipratropium/Albuterol Neb 3 ML IH SCH ×4 (04:07→22:51)
[2022-01-19] MEDS: predniSONE 20 MG TABLET PO SCH (08:58)
[2022-01-19] MEDS: Aspirin 81 MG TAB.CHEW PO SCH (08:58)
[2022-01-19] MEDS: Finasteride 5 MG TABLET PO SCH (08:58)
[2022-01-19] MEDS: Magnesium Oxide 400 MG TABLET PO SCH ×2 (08:58→20:58)
[2022-01-19] MEDS: Metoprolol XL (24 HR) Succ 50 MG TAB.ER.24H PO SCH ×2 (08:58→20:25)
[2022-01-19] MEDS: *HR* Digoxin 0.5 MG/2 ML AMPUL IVP SCH (09:00)
[2022-01-19] MEDS: Artificial Tears SOLN 15 ML BOTTLE BOTH EYES SCH ×4 (09:13→20:58)
[2022-01-19] MEDS: Gabapentin 300 MG CAPSULE PO SCH (20:57)
[2022-01-20] MEDS: Meropenem 1,000 MG in 0.9 % Sodium Chloride Mini Bag 100 ML IVPB SCH ×3 (00:51→16:08)
[2022-01-20] MEDS: Acetylcysteine 10% 2 ML INHSOL IH SCH ×4 (03:55→22:40)
[2022-01-20] MEDS: Ipratropium/Albuterol Neb 3 ML IH SCH ×4 (03:55→22:40)
[2022-01-20] MEDS: Morphine Sulfate Oral CONC 10 MG/0.5 ML ORAL.SYG SL SCH ×4 (05:48→20:31)
[2022-01-20 06:58] LABS: Immature Granulocytes % 0.4 % (0-4); Mean Corpuscular HGB Conc 30.5 g/dL (31.6-35.5); Mean Corpuscular Hemoglobin 27.1 pg (28.0-33.3); Segmented Neutrophils % 75.2 %
[2022-01-20 07:00] LABS: Eosinophils # 0.1 K/mcL (0.0-0.6); Eosinophils % 2.2 %; Hematocrit 31.8 % (37.5-50.1); Hemoglobin 9.7 g/dL (12.9-16.9); Immature Platelets 8.3 % (1.1-6.1); Lymphocytes # 0.8 K/mcL (0.6-4.6); Lymphocytes % 16.9 %; Mean Corpuscular Volume 88.8 fL (83.0-100.0); Monocytes # 0.2 K/mcL (0.0-1.3); Monocytes % 5.3 %; Neutrophils # 3.4 K/mcL (1.6-8.9); Red Blood Count 3.58 M/mcL (4.19-5.50); Red Cell Distribution Width 20.4 % (11.5-14.5); White Blood Count 4.5 K/mcL (4.3-11.1)
[2022-01-20 07:21] LABS: Alanine Aminotransferase 17 Units/L (7-52); Albumin 2.5 g/dL (3.5-5.7); Alkaline Phosphatase 96 Units/L (34-104); Aspartate Amino Transferase 24 Units/L (13-39); BUN/Creatinine Ratio 28 (6-26); Bilirubin,Total 0.5 mg/dL (0.3-1.0); Blood Urea Nitrogen 18 mg/dL (8-23); Carbon Dioxide 30 mEq/L (23-29); Chloride 106 mEq/L (98-107); Globulin 2.4 g/dL (2.4-3.5); Glucose 98 mg/dL (70-105); Osmolality,Calculated 290 (280-300); Potassium 3.9 mEq/L (3.5-5.1); Sodium 139 mEq/L (136-145); Total Protein 4.9 g/dL (6.4-8.9); eGFR For African Americans > 60 (> 60); eGFR For Non-African Americans > 60 (> 60)
[2022-01-20 08:04] LABS: Platelet Count 56 K/mcL (140-400)
[2022-01-20 08:05] LABS: Platelet Estimate Decreased (Normal)
[2022-01-20] MEDS: Artificial Tears SOLN 15 ML BOTTLE BOTH EYES SCH ×4 (09:18→20:32)
[2022-01-20] MEDS: Finasteride 5 MG TABLET PO SCH (09:19)
[2022-01-20] MEDS: predniSONE 20 MG TABLET PO SCH (09:19)
[2022-01-20] MEDS: Gabapentin 300 MG CAPSULE PO SCH ×3 (09:19→20:30)
[2022-01-20] MEDS: Aspirin 81 MG TAB.CHEW PO SCH (09:19)
[2022-01-20] MEDS: Magnesium Oxide 400 MG TABLET PO SCH ×2 (09:19→20:30)
[2022-01-20] MEDS: Metoprolol XL (24 HR) Succ 50 MG TAB.ER.24H PO SCH (09:20)
[2022-01-20] MEDS ORDERED: E-Z-PAQUE (BARIUM SULF) SUSP 1 BOTTLE PO ONE (12:19)
[2022-01-20] MEDS ORDERED: E-Z-HD (BARIUM SULF) SUSPENSION PO ONE (12:19)
[2022-01-20] MEDS: Apixaban 5 MG TABLET PO SCH (20:29)
[2022-01-20] MEDS ORDERED: Acetaminophen 325 MG TABLET PO ONE (21:44)
[2022-01-21] MEDS: Meropenem 1,000 MG in 0.9 % Sodium Chloride Mini Bag 100 ML IVPB SCH ×2 (00:59→11:07)
[2022-01-21] MEDS: Morphine Sulfate Oral CONC 10 MG/0.5 ML ORAL.SYG SL SCH ×4 (01:47→22:23)
[2022-01-21] MEDS: Ipratropium/Albuterol Neb 3 ML IH SCH ×4 (03:49→22:46)
[2022-01-21] MEDS: Acetylcysteine 10% 2 ML INHSOL IH SCH ×4 (03:49→22:48)
[2022-01-21] MEDS: Metoprolol XL (24 HR) Succ 25 MG TAB.ER.24H PO SCH (09:47)
[2022-01-21] MEDS: Finasteride 5 MG TABLET PO SCH (09:47)
[2022-01-21] MEDS: *HR* Digoxin 0.125 MG TABLET PO SCH (09:48)
[2022-01-21] MEDS: predniSONE 20 MG TABLET PO SCH (09:48)
[2022-01-21] MEDS: Gabapentin 300 MG CAPSULE PO SCH ×3 (09:48→22:22)
[2022-01-21] MEDS: Apixaban 5 MG TABLET PO SCH ×2 (09:48→22:22)
[2022-01-21] MEDS: Artificial Tears SOLN 15 ML BOTTLE BOTH EYES SCH ×4 (09:50→22:23)
[2022-01-21] MEDS: cefTRIAXone 2,000 MG in 0.9 % Sodium Chloride 20 ML IVP SCH (09:50)
[2022-01-21] MEDS: Aspirin 81 MG TAB.CHEW PO SCH (09:50)
[2022-01-21] MEDS: Magnesium Oxide 400 MG TABLET PO SCH ×2 (09:51→22:22)
[2022-01-21 13:00] LABS: Hemoglobin 10.7 g/dL (12.9-16.9)
[2022-01-21 13:02] LABS: Hematocrit 35.6 % (37.5-50.1); Immature Platelets 6.4 % (1.1-6.1); Mean Corpuscular HGB Conc 30.1 g/dL (31.6-35.5); Mean Corpuscular Hemoglobin 27.4 pg (28.0-33.3); Mean Corpuscular Volume 91.3 fL (83.0-100.0); Red Cell Distribution Width 21.3 % (11.5-14.5); White Blood Count 8.1 K/mcL (4.3-11.1)
[2022-01-21 13:20] LABS: BUN/Creatinine Ratio 33 (6-26); Blood Urea Nitrogen 24 mg/dL (8-23); Carbon Dioxide 30 mEq/L (23-29); Chloride 108 mEq/L (98-107); Glucose 105 mg/dL (70-105); Osmolality,Calculated 304 (280-300); Potassium 3.5 mEq/L (3.5-5.1); Sodium 145 mEq/L (136-145); eGFR For African Americans > 60 (> 60); eGFR For Non-African Americans > 60 (> 60)
[2022-01-21 13:26] LABS: Platelet Count 65 K/mcL (140-400)
[2022-01-21] MEDS ORDERED: *HR* Metoprolol 5 MG/5 ML VIAL IVP ONE (15:47)
[2022-01-21] MEDS ORDERED: *HR* Metoprolol 5 MG/5 ML VIAL IVP PRN (17:02)
[2022-01-22] MEDS: Ipratropium/Albuterol Neb 3 ML IH SCH ×2 (03:47→10:30)
[2022-01-22] MEDS: Morphine Sulfate Oral CONC 10 MG/0.5 ML ORAL.SYG SL SCH ×3 (03:47→14:29)
[2022-01-22] MEDS: Acetylcysteine 10% 2 ML INHSOL IH SCH ×2 (03:47→10:30)
[2022-01-22] MEDS ORDERED: Ondansetron 4 MG/2 ML VIAL IVP ONE (05:00)
[2022-01-22] MEDS: Finasteride 5 MG TABLET PO SCH (08:17)
[2022-01-22] MEDS: Gabapentin 300 MG CAPSULE PO SCH ×2 (08:18→14:28)
[2022-01-22] MEDS: Apixaban 5 MG TABLET PO SCH (08:18)
[2022-01-22] MEDS: Magnesium Oxide 400 MG TABLET PO SCH (08:19)
[2022-01-22] MEDS: predniSONE 20 MG TABLET PO SCH (08:19)
[2022-01-22] MEDS: Metoprolol XL (24 HR) Succ 25 MG TAB.ER.24H PO SCH (08:19)
[2022-01-22] MEDS: Aspirin 81 MG TAB.CHEW PO SCH (08:19)
[2022-01-22] MEDS: *HR* Digoxin 0.125 MG TABLET PO SCH (08:19)
[2022-01-22] MEDS: cefTRIAXone 2,000 MG in 0.9 % Sodium Chloride 20 ML IVP SCH (08:20)
[2022-01-22] MEDS: Artificial Tears SOLN 15 ML BOTTLE BOTH EYES SCH ×2 (08:20→13:02)
[2022-01-22 10:08] LABS: Mean Corpuscular Hemoglobin 27.1 pg (28.0-33.3)
[2022-01-22 10:10] LABS: Hematocrit 34.1 % (37.5-50.1); Hemoglobin 9.9 g/dL (12.9-16.9); Immature Platelets 6.8 % (1.1-6.1); Mean Corpuscular Volume 93.4 fL (83.0-100.0); Red Blood Count 3.65 M/mcL (4.19-5.50); Red Cell Distribution Width 21.2 % (11.5-14.5)
[2022-01-22 10:24] LABS: Platelet Count 75 K/mcL (140-400)
[2022-01-22 10:29] LABS: BUN/Creatinine Ratio 36 (6-26); Blood Urea Nitrogen 25 mg/dL (8-23); Calcium 7.9 mg/dL (8.6-10.3); Carbon Dioxide 30 mEq/L (23-29); Chloride 111 mEq/L (98-107); Glucose 130 mg/dL (70-105); Osmolality,Calculated 308 (280-300); Potassium 3.4 mEq/L (3.5-5.1); Sodium 146 mEq/L (136-145); eGFR For African Americans > 60 (> 60); eGFR For Non-African Americans > 60 (> 60)
[2022-01-22] MEDS ORDERED: Calcium Gluconate 1gm/50mL 1 GM/50 ML BAG IVPB ONE (11:02)
[2022-01-22 11:06] VITALS: PULSE 94; TEMP 99.1; O2SAT 95
[2022-01-22 14:06] VITALS: BP 121/70
[2022-01-22 14:13] LABS: Influenza A PCR Negative (Negative); Influenza B PCR Negative (Negative); Resp. Syncytial Virus PCR Negative (Negative); SARS-CoV-2 by PCR (In House) Negative (Negative)
== END 2022-01-22 15:17 | DRG 871 ==
LOC: EMEROOARM 07:53 → ICNU 12:24 → SUATTDRO 12:24 → ICNU 12:25 → 2ANU 01-13 14:31
PROVIDERS: ADMIT Internal Medicine; ATTEND Internal Medicine

== ENCOUNTER 2022-02-20 18:31 | Inpatient (IN) ==
[2022-02-20] MEDS ORDERED: methylPREDNISolone 125 MG/2 ML VIAL IVP ONE (18:40)
[2022-02-20] MEDS ORDERED: Ipratropium/Albuterol Neb 3 ML IH ONE (18:40)
[2022-02-20] MEDS ORDERED: Azithromycin 500 MG in 0.9 % Sodium Chloride 250 ML IVPB ONE (18:41)
[2022-02-20] MEDS ORDERED: cefTRIAXone 2,000 MG in 0.9 % Sodium Chloride 20 ML IVP SCH (19:00)
[2022-02-20 20:13] LABS: Basophils % 0.2 %; Hematocrit 34.2 % (37.5-50.1); Hemoglobin 10.5 g/dL (12.9-16.9); Immature Granulocytes % 0.7 % (0-4); Lymphocytes # 0.7 K/mcL (0.6-4.6); Lymphocytes % 7.2 %; Mean Corpuscular HGB Conc 30.7 g/dL (31.6-35.5); Mean Corpuscular Hemoglobin 28.8 pg (28.0-33.3); Mean Platelet Volume 11.1 fL (9.4-12.4); Monocytes # 0.5 K/mcL (0.0-1.3); Monocytes % 5.2 %; Neutrophils # 8.4 K/mcL (1.6-8.9); Platelet Count 131 K/mcL (140-400); Red Blood Count 3.64 M/mcL (4.19-5.50); Red Cell Distribution Width 19.6 % (11.5-14.5); Segmented Neutrophils % 86.7 %; White Blood Count 9.7 K/mcL (4.3-11.1)
[2022-02-20 20:37] LABS: Alanine Aminotransferase 27 Units/L (7-52); Albumin/Globulin Ratio 0.9 (1.1-2.2); Alkaline Phosphatase 132 Units/L (34-104); Aspartate Amino Transferase 19 Units/L (13-39); BUN/Creatinine Ratio 27 (6-26); Bilirubin,Direct 0.1 mg/dL (0.0-0.2); Bilirubin,Indirect 0.2 mg/dL (0.0-1.0); Bilirubin,Total 0.3 mg/dL (0.3-1.0); Blood Urea Nitrogen 23 mg/dL (8-23); Calcium 8.6 mg/dL (8.6-10.3); Carbon Dioxide 31 mEq/L (23-29); Chloride 99 mEq/L (98-107); Creatine Kinase 22 Units/L (30-223); Digoxin 1.4 ng/mL (0.8-2.0); Globulin 3.5 g/dL (2.4-3.5); Glucose 131 mg/dL (70-105); Osmolality,Calculated 285 (280-300); Sodium 135 mEq/L (136-145); Total Protein 6.5 g/dL (6.4-8.9); Troponin I < 0.03 ng/mL (< 0.04); eGFR For African Americans > 60 (> 60); eGFR For Non-African Americans > 60 (> 60)
[2022-02-20] MEDS ORDERED: Furosemide 40 MG/4 ML VIAL IVP ONE (21:21)
[2022-02-20] MEDS ORDERED: Naloxone 0.4 MG/ML INJ IVP PRN (22:12)
[2022-02-20] MEDS ORDERED: Ondansetron 4 MG/2 ML VIAL IVP PRN (22:12)
[2022-02-20] MEDS ORDERED: *HR* OxyCODONE Immed Rel 5 MG TABLET PO PRN (23:28)
[2022-02-20] MEDS ORDERED: *HR* HYDROcodone/Acet 5/325 mg TABLET PO PRN (23:28)
[2022-02-20] MEDS: levoFLOXacin 750 MG/150 ML 750 MG/150 ML BAG IVPB SCH (23:39)
[2022-02-21] MEDS ORDERED: Cefepime HCl 2,000 MG in 0.9 % Sodium Chloride Mini Bag 100 ML IVPB SCH
[2022-02-21] MEDS ORDERED: Vancomycin 1,250 MG/262.5 ML IV.SOLN IVPB SCH
[2022-02-21 01:09] LABS: Adenovirus Not Detected (Not Detect); Coronavirus 229E Not Detected (Not Detect); Coronavirus HKU1 Not Detected (Not Detect); Coronavirus NL63 Not Detected (Not Detect); Coronavirus OC43 Not Detected (Not Detect); Human Metapneumovirus Not Detected (Not Detect); Human Rhinovirus/Enterovirus Not Detected (Not Detect); SARS-CoV-2 Not Detected (Not Detect)
[2022-02-21 01:10] LABS: Bordetella Pertussis Not Detected (Not Detect); Chlamydophila pneumoniae Not Detected (Not Detect); Influenza A Subtype 2009 H1 Not Detected (Not Detect); Influenza B Not Detected (Not Detect); Mycoplasma pneumoniae Not Detected (Not Detect); Parainfluenza Virus 1 Not Detected (Not Detect); Parainfluenza Virus 2 Not Detected (Not Detect); Parainfluenza Virus 3 Not Detected (Not Detect); Parainfluenza Virus 4 Not Detected (Not Detect); Respiratory Syncytial Virus Not Detected (Not Detect)
[2022-02-21 02:56] LABS: Basophils % 0.3 %; Hematocrit 34.8 % (37.5-50.1); Hemoglobin 10.6 g/dL (12.9-16.9); Immature Granulocytes % 0.5 % (0-4); Lymphocytes # 0.3 K/mcL (0.6-4.6); Lymphocytes % 4.7 %; Mean Corpuscular HGB Conc 30.5 g/dL (31.6-35.5); Mean Corpuscular Hemoglobin 28.5 pg (28.0-33.3); Mean Corpuscular Volume 93.5 fL (83.0-100.0); Mean Platelet Volume 10.4 fL (9.4-12.4); Monocytes # 0.1 K/mcL (0.0-1.3); Monocytes % 1.9 %; Neutrophils # 5.9 K/mcL (1.6-8.9); Platelet Count 109 K/mcL (140-400); Red Blood Count 3.72 M/mcL (4.19-5.50); Red Cell Distribution Width 19.8 % (11.5-14.5); Segmented Neutrophils % 92.6 %; White Blood Count 6.4 K/mcL (4.3-11.1)
[2022-02-21 03:16] LABS: BUN/Creatinine Ratio 28 (6-26); Blood Urea Nitrogen 24 mg/dL (8-23); Calcium 8.4 mg/dL (8.6-10.3); Carbon Dioxide 34 mEq/L (23-29); Chloride 97 mEq/L (98-107); Glucose 160 mg/dL (70-105); Magnesium 2.6 mg/dL (1.6-2.6); Osmolality,Calculated 291 (280-300); Phosphorous 4.7 mg/dL (2.7-4.5); Potassium 4.4 mEq/L (3.5-5.1); Sodium 137 mEq/L (136-145); eGFR For African Americans > 60 (> 60); eGFR For Non-African Americans > 60 (> 60)
[2022-02-21] MEDS: Cefepime HCl 2,000 MG in 0.9 % Sodium Chloride Mini Bag 100 ML IVPB SCH ×3 (03:21→18:13)
[2022-02-21] MEDS ORDERED: polyethylene glycoL 3350 17 GM POWD.PACK PO PRN (03:32)
[2022-02-21] MEDS: Ipratropium/Albuterol Neb 3 ML IH SCH ×7 (04:27→23:50)
[2022-02-21] MEDS: Acetaminophen 325 MG TABLET PO PRN ×2 (08:19→18:10)
[2022-02-21] MEDS: predniSONE 20 MG TABLET PO SCH (08:20)
[2022-02-21] MEDS ORDERED: Furosemide 20 MG/2 ML VIAL IVP ONE (08:26)
[2022-02-21] MEDS ORDERED: Furosemide 40 MG/4 ML VIAL IVP SCH (09:00)
[2022-02-21] MEDS ORDERED: *HR* HYDROcodone/Acet 5/325 mg TABLET PO PRN (11:19)
[2022-02-21] MEDS ORDERED: GuaiFENesin Liq 200 MG/10 ML UDC PO PRN (11:22)
[2022-02-21 11:23] LABS: Bacteria,Urine Few per hpf (None-Few); Bilirubin,Urine Negative (Negative); Blood,Urine Trace (Negative); Clarity,Urine Clear (Clear); Color,Urine Light-Yellow (Yellow); Glucose,Urine (UA) Normal (Normal); Hyaline Casts,Urine Few per lpf (None Seen); Ketones,Urine Negative (Negative); Leukocyte Esterase,Urine Large (Negative); Mucus,Urine Few per lpf (None-Few); Nitrite,Urine Positive (Negative); PH,Urine 6.5 pH Units (5.0-8.0); Protein,Urine 30 mg/dL (Neg-Trace); Specific Gravity,Urine 1.021 (1.010-1.025); Squamous Epithelial Cell,Urine Few per hpf (None-Few); Urobilinogen,Urine Normal (Normal); WBC,Urine TNTC per hpf (0-3)
[2022-02-21] MEDS ORDERED: Saline Nasal Spray 44 ML BOTTLE NS PRN (12:15)
[2022-02-21] MEDS: *HR* Digoxin 0.125 MG TABLET PO SCH (14:20)
[2022-02-21] MEDS: Apixaban 5 MG TABLET PO SCH ×2 (14:22→20:12)
[2022-02-21] MEDS: LACTASE 3000 UNIT PO SCH ×2 (14:23→17:11)
[2022-02-21] MEDS: Artificial Tears SOLN 15 ML BOTTLE BOTH EYES PRN (17:11)
[2022-02-21] MEDS: Chlorhexidine Rinse 15 ML MOUTHWASH MM SCH (20:10)
[2022-02-21] MEDS: Simethicone 80 MG TAB.CHEW PO SCH (20:11)
[2022-02-21] MEDS: Finasteride 5 MG TABLET PO SCH (20:11)
[2022-02-21] MEDS: Lactobacillus 1 EACH CAP.SPRINK PO SCH (20:11)
[2022-02-21] MEDS: Azithromycin 250 MG TABLET PO SCH (20:12)
[2022-02-21] MEDS: Budesonide/Formoterol 160/4.5 1 PUFF INH IH SCH (20:23)
[2022-02-21] MEDS: Azelastine 0.1% Nasal Spray 30 ML BOTTLE NS SCH (22:05)
[2022-02-21] MEDS: levoFLOXacin 750 MG/150 ML 750 MG/150 ML BAG IVPB SCH (23:07)
[2022-02-22] MEDS: Ipratropium/Albuterol Neb 3 ML IH SCH ×6 (03:41→23:53)
[2022-02-22] MEDS: Cefepime HCl 2,000 MG in 0.9 % Sodium Chloride Mini Bag 100 ML IVPB SCH ×3 (03:47→18:43)
[2022-02-22] MEDS: Budesonide/Formoterol 160/4.5 1 PUFF INH IH SCH ×2 (07:27→20:55)
[2022-02-22] MEDS: Tiotropium 10 INH DOSE IH SCH (07:28)
[2022-02-22] MEDS: Artificial Tears SOLN 15 ML BOTTLE BOTH EYES PRN ×2 (09:04→20:30)
[2022-02-22] MEDS: Metoprolol XL (24 HR) Succ 25 MG TAB.ER.24H PO SCH (09:05)
[2022-02-22] MEDS: Chlorhexidine Rinse 15 ML MOUTHWASH MM SCH ×2 (09:05→20:28)
[2022-02-22] MEDS: Simethicone 80 MG TAB.CHEW PO SCH ×2 (09:05→20:23)
[2022-02-22] MEDS: Lactobacillus 1 EACH CAP.SPRINK PO SCH ×2 (09:05→20:27)
[2022-02-22] MEDS: *HR* Digoxin 0.125 MG TABLET PO SCH (09:05)
[2022-02-22] MEDS: Sennosides/Docusate Sodium TABLET PO SCH (09:06)
[2022-02-22] MEDS: Apixaban 5 MG TABLET PO SCH ×2 (09:06→20:26)
[2022-02-22] MEDS: Loratadine 10 MG TABLET PO SCH (09:06)
[2022-02-22] MEDS: Furosemide 40 MG/4 ML VIAL IVP SCH (09:06)
[2022-02-22] MEDS: LACTASE 3000 UNIT PO SCH ×3 (09:07→17:15)
[2022-02-22] MEDS: predniSONE 20 MG TABLET PO SCH (09:07)
[2022-02-22] MEDS: Fluconazole 100 MG TABLET PO SCH (09:16)
[2022-02-22] MEDS: Azelastine 0.1% Nasal Spray 30 ML BOTTLE NS SCH ×2 (09:16→20:29)
[2022-02-22] MEDS: Azithromycin 250 MG TABLET PO SCH (20:21)
[2022-02-22] MEDS: Finasteride 5 MG TABLET PO SCH (20:27)
[2022-02-22] MEDS: Acetaminophen 325 MG TABLET PO PRN (20:44)
[2022-02-23] MEDS: levoFLOXacin 750 MG/150 ML 750 MG/150 ML BAG IVPB SCH (00:23)
[2022-02-23] MEDS: Cefepime HCl 2,000 MG in 0.9 % Sodium Chloride Mini Bag 100 ML IVPB SCH (02:31)
[2022-02-23] MEDS: Ipratropium/Albuterol Neb 3 ML IH SCH ×6 (03:59→23:21)
[2022-02-23] MEDS: Tiotropium 10 INH DOSE IH SCH (07:58)
[2022-02-23] MEDS: Budesonide/Formoterol 160/4.5 1 PUFF INH IH SCH ×2 (07:58→20:05)
[2022-02-23] MEDS: Chlorhexidine Rinse 15 ML MOUTHWASH MM SCH ×2 (09:43→21:20)
[2022-02-23] MEDS: Sennosides/Docusate Sodium TABLET PO SCH (09:43)
[2022-02-23] MEDS: Furosemide 40 MG/4 ML VIAL IVP SCH (09:43)
[2022-02-23] MEDS: Simethicone 80 MG TAB.CHEW PO SCH ×2 (09:43→21:23)
[2022-02-23] MEDS: predniSONE 20 MG TABLET PO SCH (09:44)
[2022-02-23] MEDS: LACTASE 3000 UNIT PO SCH ×2 (09:44→11:51)
[2022-02-23] MEDS: Apixaban 5 MG TABLET PO SCH ×2 (09:44→21:24)
[2022-02-23] MEDS: *HR* Digoxin 0.125 MG TABLET PO SCH (09:44)
[2022-02-23] MEDS: Lactobacillus 1 EACH CAP.SPRINK PO SCH ×2 (09:44→21:24)
[2022-02-23] MEDS: Loratadine 10 MG TABLET PO SCH (09:44)
[2022-02-23] MEDS: Metoprolol XL (24 HR) Succ 25 MG TAB.ER.24H PO SCH (09:44)
[2022-02-23] MEDS: Piperacillin/Tazobactam 3.375 GM in 0.9 % Sodium Chloride Mini Bag 100 ML IVPB SCH ×3 (09:50→23:46)
[2022-02-23] MEDS: Azelastine 0.1% Nasal Spray 30 ML BOTTLE NS SCH ×2 (09:52→21:33)
[2022-02-23 09:58] LABS: Basophils % 0.1 %; Basophils % 0.2 %; Eosinophils % 0.2 %; Hematocrit 33.5 % (37.5-50.1); Hematocrit 33.7 % (37.5-50.1); Hemoglobin 10.3 g/dL (12.9-16.9); Hemoglobin 10.5 g/dL (12.9-16.9); Immature Granulocytes % 0.9 % (0-4); Lymphocytes # 1.6 K/mcL (0.6-4.6); Lymphocytes % 19.2 %; Lymphocytes % 19.5 %; Mean Corpuscular HGB Conc 30.7 g/dL (31.6-35.5); Mean Corpuscular HGB Conc 31.2 g/dL (31.6-35.5); Mean Corpuscular Hemoglobin 28.5 pg (28.0-33.3); Mean Corpuscular Volume 92.5 fL (83.0-100.0); Mean Corpuscular Volume 93.1 fL (83.0-100.0); Mean Platelet Volume 10.6 fL (9.4-12.4); Mean Platelet Volume 11.3 fL (9.4-12.4); Monocytes # 0.7 K/mcL (0.0-1.3); Monocytes % 8.1 %; Monocytes % 8.4 %; Neutrophils # 5.7 K/mcL (1.6-8.9); Platelet Count 127 K/mcL (140-400); Platelet Count 144 K/mcL (140-400); Red Blood Count 3.62 M/mcL (4.19-5.50); Red Cell Distribution Width 19.3 % (11.5-14.5); Red Cell Distribution Width 19.5 % (11.5-14.5); Segmented Neutrophils % 70.9 %; Segmented Neutrophils % 71.3 %; White Blood Count 8.4 K/mcL (4.3-11.1)
[2022-02-23 10:12] LABS: BUN/Creatinine Ratio 29 (6-26); Blood Urea Nitrogen 31 mg/dL (8-23); Calcium 8.6 mg/dL (8.6-10.3); Carbon Dioxide 30 mEq/L (23-29); Chloride 97 mEq/L (98-107); Glucose 86 mg/dL (70-105); Lactate Dehydrogenase 191 Units/L (140-271); Osmolality,Calculated 286 (280-300); Potassium 3.6 mEq/L (3.5-5.1); Sodium 135 mEq/L (136-145); Total Protein 6.4 g/dL (6.4-8.9); eGFR For African Americans > 60 (> 60); eGFR For Non-African Americans > 60 (> 60)
[2022-02-23 10:13] LABS: BUN/Creatinine Ratio 30 (6-26); Blood Urea Nitrogen 32 mg/dL (8-23); Calcium 8.6 mg/dL (8.6-10.3); Carbon Dioxide 30 mEq/L (23-29); Chloride 97 mEq/L (98-107); Glucose 88 mg/dL (70-105); Osmolality,Calculated 288 (280-300); Potassium 3.6 mEq/L (3.5-5.1); Sodium 136 mEq/L (136-145); eGFR For African Americans > 60 (> 60); eGFR For Non-African Americans > 60 (> 60)
[2022-02-23] MEDS ORDERED: *HR* Metoprolol 5 MG/5 ML VIAL IVP ONE ×2 (21:02→23:30)
[2022-02-23] MEDS: Finasteride 5 MG TABLET PO SCH (21:21)
[2022-02-23] MEDS: Gabapentin 300 MG CAPSULE PO SCH (21:24)
[2022-02-24] MEDS: Ipratropium/Albuterol Neb 3 ML IH SCH ×6 (04:39→23:26)
[2022-02-24] MEDS: Tiotropium 10 INH DOSE IH SCH (07:33)
[2022-02-24] MEDS: Budesonide/Formoterol 160/4.5 1 PUFF INH IH SCH ×2 (07:38→19:52)
[2022-02-24 08:24] LABS: Basophils % 0.3 %; Eosinophils % 0.5 %; Hematocrit 36.4 % (37.5-50.1); Hemoglobin 11.2 g/dL (12.9-16.9); Immature Granulocytes % 0.9 % (0-4); Lymphocytes # 2.2 K/mcL (0.6-4.6); Lymphocytes % 27.2 %; Mean Corpuscular HGB Conc 30.8 g/dL (31.6-35.5); Mean Corpuscular Hemoglobin 28.4 pg (28.0-33.3); Mean Corpuscular Volume 92.4 fL (83.0-100.0); Mean Platelet Volume 10.8 fL (9.4-12.4); Monocytes # 0.8 K/mcL (0.0-1.3); Monocytes % 9.9 %; Neutrophils # 4.8 K/mcL (1.6-8.9); Platelet Count 123 K/mcL (140-400); Red Blood Count 3.94 M/mcL (4.19-5.50); Red Cell Distribution Width 18.8 % (11.5-14.5); Segmented Neutrophils % 61.2 %; White Blood Count 7.9 K/mcL (4.3-11.1)
[2022-02-24 08:42] LABS: BUN/Creatinine Ratio 27 (6-26); Blood Urea Nitrogen 32 mg/dL (8-23); Calcium 8.8 mg/dL (8.6-10.3); Carbon Dioxide 31 mEq/L (23-29); Chloride 95 mEq/L (98-107); Glucose 76 mg/dL (70-105); Osmolality,Calculated 286 (280-300); Potassium 3.7 mEq/L (3.5-5.1); Sodium 135 mEq/L (136-145); eGFR For African Americans > 60 (> 60); eGFR For Non-African Americans > 60 (> 60)
[2022-02-24] MEDS: Piperacillin/Tazobactam 3.375 GM in 0.9 % Sodium Chloride Mini Bag 100 ML IVPB SCH ×2 (09:00→16:24)
[2022-02-24] MEDS: Furosemide 40 MG/4 ML VIAL IVP SCH (09:00)
[2022-02-24] MEDS: Gabapentin 300 MG CAPSULE PO SCH ×3 (09:01→21:23)
[2022-02-24] MEDS: Loratadine 10 MG TABLET PO SCH (09:01)
[2022-02-24] MEDS: *HR* Digoxin 0.125 MG TABLET PO SCH (09:02)
[2022-02-24] MEDS: Lactobacillus 1 EACH CAP.SPRINK PO SCH ×2 (09:02→21:19)
[2022-02-24] MEDS: Metoprolol XL (24 HR) Succ 25 MG TAB.ER.24H PO SCH (09:02)
[2022-02-24] MEDS: Sennosides/Docusate Sodium TABLET PO SCH (09:02)
[2022-02-24] MEDS: Apixaban 5 MG TABLET PO SCH ×2 (09:02→21:21)
[2022-02-24] MEDS: predniSONE 20 MG TABLET PO SCH (09:02)
[2022-02-24] MEDS: Simethicone 80 MG TAB.CHEW PO SCH ×2 (09:02→21:21)
[2022-02-24] MEDS: Chlorhexidine Rinse 15 ML MOUTHWASH MM SCH ×2 (09:03→21:18)
[2022-02-24] MEDS: Fluconazole 100 MG TABLET PO SCH (12:17)
[2022-02-24] MEDS: Azelastine 0.1% Nasal Spray 30 ML BOTTLE NS SCH ×2 (12:26→21:18)
[2022-02-24] MEDS: Finasteride 5 MG TABLET PO SCH (21:25)
[2022-02-25] MEDS: Piperacillin/Tazobactam 3.375 GM in 0.9 % Sodium Chloride Mini Bag 100 ML IVPB SCH ×4 (00:51→23:55)
[2022-02-25 03:30] LABS: Basophils % 0.2 %; Eosinophils % 0.2 %; Hemoglobin 10.6 g/dL (12.9-16.9); Immature Granulocytes % 0.7 % (0-4); Lymphocytes # 1.2 K/mcL (0.6-4.6); Lymphocytes % 13.2 %; Mean Corpuscular HGB Conc 31.2 g/dL (31.6-35.5); Mean Corpuscular Hemoglobin 28.6 pg (28.0-33.3); Mean Corpuscular Volume 91.9 fL (83.0-100.0); Mean Platelet Volume 11.3 fL (9.4-12.4); Monocytes # 0.8 K/mcL (0.0-1.3); Monocytes % 8.8 %; Neutrophils # 7.2 K/mcL (1.6-8.9); Platelet Count 156 K/mcL (140-400); Red Cell Distribution Width 19.1 % (11.5-14.5); Segmented Neutrophils % 76.9 %; White Blood Count 9.4 K/mcL (4.3-11.1)
[2022-02-25] MEDS: Ipratropium/Albuterol Neb 3 ML IH SCH ×6 (04:10→23:25)
[2022-02-25 04:18] LABS: BUN/Creatinine Ratio 26 (6-26); Blood Urea Nitrogen 35 mg/dL (8-23); Calcium 8.4 mg/dL (8.6-10.3); Carbon Dioxide 26 mEq/L (23-29); Chloride 94 mEq/L (98-107); Digoxin 1.5 ng/mL (0.8-2.0); Glucose 102 mg/dL (70-105); Osmolality,Calculated 288 (280-300); Potassium 3.7 mEq/L (3.5-5.1); Sodium 135 mEq/L (136-145); eGFR For African Americans > 60 (> 60); eGFR For Non-African Americans 52 (> 60)
[2022-02-25] MEDS: Budesonide/Formoterol 160/4.5 1 PUFF INH IH SCH ×2 (08:03→20:31)
[2022-02-25] MEDS: Tiotropium 10 INH DOSE IH SCH (08:05)
[2022-02-25] MEDS: Gabapentin 300 MG CAPSULE PO SCH ×3 (08:42→21:59)
[2022-02-25] MEDS: Sennosides/Docusate Sodium TABLET PO SCH (08:42)
[2022-02-25] MEDS: *HR* Digoxin 0.125 MG TABLET PO SCH (08:43)
[2022-02-25] MEDS: predniSONE 20 MG TABLET PO SCH (08:44)
[2022-02-25] MEDS: Loratadine 10 MG TABLET PO SCH (08:44)
[2022-02-25] MEDS: Metoprolol XL (24 HR) Succ 25 MG TAB.ER.24H PO SCH (08:44)
[2022-02-25] MEDS: Lactobacillus 1 EACH CAP.SPRINK PO SCH ×2 (08:44→21:53)
[2022-02-25] MEDS: Simethicone 80 MG TAB.CHEW PO SCH ×2 (08:44→21:55)
[2022-02-25] MEDS: Furosemide 40 MG/4 ML VIAL IVP SCH (08:45)
[2022-02-25] MEDS: Apixaban 5 MG TABLET PO SCH ×2 (08:45→21:54)
[2022-02-25] MEDS: Chlorhexidine Rinse 15 ML MOUTHWASH MM SCH (08:48)
[2022-02-25] MEDS: Artificial Tears SOLN 15 ML BOTTLE BOTH EYES PRN (08:48)
[2022-02-25] MEDS: Azelastine 0.1% Nasal Spray 30 ML BOTTLE NS SCH (08:49)
[2022-02-25 19:57] LABS: Influenza A PCR Negative (Negative); Influenza B PCR Negative (Negative); Resp. Syncytial Virus PCR Negative (Negative)
[2022-02-25 20:00] LABS: SARS-CoV-2 by PCR (In House) Negative (Negative)
[2022-02-25] MEDS: Finasteride 5 MG TABLET PO SCH (21:57)
[2022-02-26] MEDS: Azelastine 0.1% Nasal Spray 30 ML BOTTLE NS SCH ×2 (02:19→08:38)
[2022-02-26] MEDS: Chlorhexidine Rinse 15 ML MOUTHWASH MM SCH ×2 (02:21→08:32)
[2022-02-26 03:31] LABS: Basophils % 0.2 %; Eosinophils % 0.2 %; Hematocrit 33.3 % (37.5-50.1); Hemoglobin 10.4 g/dL (12.9-16.9); Immature Granulocytes % 1.1 % (0-4); Lymphocytes # 1.2 K/mcL (0.6-4.6); Lymphocytes % 10.2 %; Mean Corpuscular HGB Conc 31.2 g/dL (31.6-35.5); Mean Corpuscular Hemoglobin 28.5 pg (28.0-33.3); Mean Corpuscular Volume 91.2 fL (83.0-100.0); Monocytes # 0.8 K/mcL (0.0-1.3); Monocytes % 6.7 %; Neutrophils # 9.3 K/mcL (1.6-8.9); Nucleated Red Blood Cells 0.2 /100 WBC (0); Platelet Count 169 K/mcL (140-400); Red Blood Count 3.65 M/mcL (4.19-5.50); Red Cell Distribution Width 18.9 % (11.5-14.5); Segmented Neutrophils % 81.6 %; White Blood Count 11.5 K/mcL (4.3-11.1)
[2022-02-26 03:47] LABS: BUN/Creatinine Ratio 30 (6-26); Blood Urea Nitrogen 36 mg/dL (8-23); Calcium 8.3 mg/dL (8.6-10.3); Carbon Dioxide 30 mEq/L (23-29); Chloride 95 mEq/L (98-107); Glucose 126 mg/dL (70-105); Osmolality,Calculated 288 (280-300); Potassium 3.5 mEq/L (3.5-5.1); Sodium 134 mEq/L (136-145); eGFR For African Americans > 60 (> 60); eGFR For Non-African Americans 59 (> 60)
[2022-02-26] MEDS: Ipratropium/Albuterol Neb 3 ML IH SCH ×3 (04:17→08:06)
[2022-02-26 07:36] VITALS: BP 114/74; PULSE 112; TEMP 97.9; O2SAT 98
[2022-02-26] MEDS: Tiotropium 10 INH DOSE IH SCH ×2 (08:03→08:11)
[2022-02-26] MEDS: Budesonide/Formoterol 160/4.5 1 PUFF INH IH SCH (08:06)
[2022-02-26] MEDS: Gabapentin 300 MG CAPSULE PO SCH (08:32)
[2022-02-26] MEDS: *HR* Digoxin 0.125 MG TABLET PO SCH (08:33)
[2022-02-26] MEDS: Metoprolol XL (24 HR) Succ 25 MG TAB.ER.24H PO SCH (08:33)
[2022-02-26] MEDS: Loratadine 10 MG TABLET PO SCH (08:33)
[2022-02-26] MEDS: Lactobacillus 1 EACH CAP.SPRINK PO SCH (08:33)
[2022-02-26] MEDS: Sennosides/Docusate Sodium TABLET PO SCH (08:33)
[2022-02-26] MEDS: Apixaban 5 MG TABLET PO SCH (08:33)
[2022-02-26] MEDS: Simethicone 80 MG TAB.CHEW PO SCH (08:33)
[2022-02-26] MEDS: Furosemide 40 MG/4 ML VIAL IVP SCH (08:34)
[2022-02-26] MEDS ORDERED: predniSONE 20 MG TABLET PO SCH (09:00)
== END 2022-02-26 10:49 | DRG 193 ==
LOC: SUATTDRO → 3ANU 18:31 → EMEROOARM 18:31 → SUATTDRO 21:55 → 3ANU 22:23 → SUATTDRO 02-22 14:49
PROVIDERS: ADMIT Internal Medicine; ATTEND Internal Medicine